=== PATIENT | male | born 1950 | race Caucasian/White ===

== ENCOUNTER → 2020-04-07 12:56 | Outpatient (BNVA) | payer MEDICARE, OTHER, SELFPAY | PROVIDERS: PCP Internal Medicine; Visit Provider Urology | DX: C68.9 Malignant neoplasm of urinary organ, unspecified (principal) | CPT/HCPCS: 52000; 81002; 99212 ==

== ENCOUNTER 2020-06-21 13:11 | Emergency (ER) | payer MEDICARE, OTHER, SELFPAY ==
--- NOTE | ~2020-06-21 | CT_ITS ---
EXAMINATION: CT HEAD WITHOUT CONTRAST CLINICAL INFORMATION: Syncope and dizziness. COMPARISON: None TECHNIQUE: Contiguous axial imaging was performed from the skull base to vertex without intravenous administration of contrast. This CT examination was performed using dose optimization techniques as appropriate, variously including the following: *Automated exposure control *Adjustment of mA and/or kV according to patient size (this includes techniques or standardized protocols for targeted exams where dose is matched to indication/reason for exam; i.e. extremities or head) *Use of iterative reconstruction technique DLP: 729 mGy-cm FINDINGS: There is no evidence of acute intracranial hemorrhage or territorial infarction. No abnormal mass effect or midline shift is seen. Navarrete to white matter differentiation is well preserved. No extra-axial fluid collections are identified. The ventricles are normal in size. There is no abnormal attenuation within the brain parenchyma. The osseous structures and soft tissues are normal. There is minimal mucoperiosteal thickening right middle ethmoid sinus. There is a small osteoid osteoma or sialolith in left middle ethmoid sinus. Rest of the paranasal sinuses and mastoid air cells are well-aerated and clear. CT/CT head/brain wo con IMPRESSION: No acute intracranial process seen. Minimal right middle ethmoid sinus inflammatory changes
--- NOTE | ~2020-06-21 | XR_ITS ---
EXAMINATION: XR CHEST CLINICAL INFORMATION: Chest pain, near syncope, dizziness. COMPARISON: None TECHNIQUE: Frontal view of the chest was obtained. FINDINGS: The lungs are clear. The heart and mediastinal structures are unremarkable. XR/XR chest 1V IMPRESSION: No acute cardiopulmonary process.
[2020-06-21 14:36] VITALS: BP 152/59; PULSE 82; RESP 18; TEMP 36.7; O2SAT 99; BMI 25.1
--- NOTE | 2020-06-21 14:48 | ED.CHESTPAIN ---
HPI - Chest Pain General Chief Complaint: Chest Pain Stated Complaint: chest pain Time Seen by Provider: 06/21/20 14:48 Source: EMS Mode of arrival: EMS Limitations: no limitations History of Present Illness HPI narrative: Pleasant 69-year-old male with the below history presenting with complaint of dizziness and near-syncope type symptoms after he was doing [employer] chores and stooped over to put something down and standing back straight up caused him to have some blurred vision and dizziness and subsequently feeling nauseated. States he has no associated chest pain or shortness of breath. Reports he has chronic neck shoulder pain which is documented in triage but this is not acute. He did fall last month to ensure the significant but has not had any other symptoms. He does report to me a constellation of vague symptoms over the past several days unsure if it is related but he had some tingling like discomfort in the chest and to the shoulder. Otherwise denies any cough or fever. No recent travel or sick contact. No lower extremity swelling. Onset (ago): hour(s) Timing of current episode: now resolved Prior episodes: No Onset: during exertion Associated symptoms: nausea Treatment prior to arrival: none Related Data Allergies Allergy/AdvReac Type Severity Reaction Status Date / Time fluticasone AdvReac Intermediate PALPITATION Verified 06/21/20 14:42 S ibuprofen AdvReac Intermediate RING IN Verified 06/21/20 14:42 EARS Flonase Allergy Unknown heart Uncoded 06/21/20 14:42 palpation Motrin Allergy Unknown ringing in Uncoded 06/21/20 14:42 ear Review of Systems Review of Systems: Constitutional: No Weight loss, No Fever, No Chills, No Night Sweats, No Fatigue, No Malaise ENT/Mouth: No Hearing loss, No Ear Pain, No Nasal Congestion, No Sinus Pain, No Hoarseness, No sore throat, No Rhinorrhea, No Swallowing Difficulty Eyes: No Eye Pain, No Swelling, No Redness, No Foreign Body, No Discharge, No Vision Changes Cardiovascular: No Chest Pain, No SOB, No Dyspnea on Exertion, No Orthopnea, No Edema, No Palpitations Respiratory: No Cough, No Sputum, No Wheezing, No Smoke Exposure, No Dyspnea Gastrointestinal: + Nausea, No Vomiting, No Diarrhea, No Constipation, No abdominal Pain, No Hematochezia, No Melena Genitourinary: No Dysuria, No Urinary Frequency, No Hematuria, No Urinary Incontinence, No Urgency, No Flank Pain, No Urinary Flow Changes, No Hesitancy Musculoskeletal: No joint pain, No Myalgias, No Joint Swelling Skin: No Skin Lesions, No rash Neuro: No Weakness, No Numbness, No Paresthesias, No Loss of Consciousness, No Headache Psych: No Social Issues Heme/Lymph: No Bruising, No Bleeding,No Lymphadenopathy Endocrine: No Polyuria, No Polydipsia, No Temperature Intolerance Yes all other systems are reviewed and are negative ENT: Reports Normal hearing present Neurologic: Reports Normal hearing present [facility] Past Medical History [facility] Narrative: Pyelonephritis as a child Cervical spur status post surgery in 2001 Chronic neck pain with dysphagia secondary to the cervical spurs Tonsillectomy Bladder CA/mass status post surgery and subsequently reports has had clean follow-ups Social History Social History Smoking Status: Unknown if ever smoked Use of substances other than those prescribed or required for medical reasons: No Advance Directives: No Advance Directives Information Provided: Yes Physical Exam Vital Signs: Vital Signs: Last Vital Signs Temp 997.9 F H 06/21/20 19:00 Pulse 77 06/21/20 19:00 Resp 15 06/21/20 19:00 BP 139/66 06/21/20 19:00 Pulse Ox 98 06/21/20 19:00 Body Mass Index 25.1 Vitals reviewed Temperature documented in error. The temperatures post read 97.9 F orally. Const: General: cooperative and healthy appearing; No acute distress or intoxicated appearing Nutritional Appearance: average body habitus Orientation/consciousness: patient oriented x3 HENMT: Head: Yes normal to inspection Ears: hearing grossly normal bilaterally Eyes: General: appearance normal, both eyes and all related structures Visual Maier: normal visual maier by confrontation Alignment and Position: alignment normal Periorbital: periorbital findings normal Eyelids: Yes eyelids normal Conjunctivae: conjunctivae normal Pupils: Equal, round and reactive pupils present Neck: Neck: Yes normal visual inspection, Yes no meningeal signs, No positive Brudzinski's sign, No positive Kernig's sign and No tender Thyroid: Thyroid normal Chest: Chest palpation & inspection: normal inspection of the chest Resp: Effort & Inspection: normal respiratory effort Auscultation: clear to auscultation bilaterally Cardio: Jugular venous distension: no JVD Rate: regular rate Rhythm: regular rhythm Heart sounds: S1 normal heart sound present and S2 normal heart sound present GI: Inspection: Yes normal to inspection Palpation (GI): Soft to palpation Percussion: Yes normal to percussion Auscultation: normal bowel sounds : General: Yes no CVA tenderness Back/Spine/Pelvis: Back: no CVA tenderness Skin: General skin exam: no rashes or lesions noted Neuro: General: patient oriented x3, moves all extremities, Normal light touch and pain sensation, no meningeal signs, no focal motor deficits, CN's II-XI intact bilaterally and deep tendon reflexes 2+ bilaterally Cranial nerves: Yes CN's II-XII intact bilaterally, Yes Facial sensation intact/muscles of mastication intact, Yes Equal, round and reactive pupils present, Yes Normal accommodation reflex present, Yes Bilaterally intact EOM present, Yes Nystagmus not present, Yes Normal facial strength present, Yes Midline tongue present, Yes Normal gag reflex present, Yes Symmetric palate elevation present, Yes Normal hearing present, Yes Ability to bilaterally rotate head present, Yes Ability to bilaterally elevate shoulders present and Yes Individual cranial nerve findings present (Within normal limits) Cognition (Neuro): normal cognition Speech: Other speech findings present (Neuro) (Speech within normal limits) Gait exam (Neuro): Normal gait present Motor exam (neuro): 5/5 motor strength present throughout Sensory Exam: Normal double simultaneous stimulation for sensation Extrem: General: Yes normal to inspection NIH Stroke Scale Internal: Initial- Upon Arrival Level of Consciousness: Alert Level of Consciousness Questions: Answers both questions correctly Level of Consciousness Commands: Performs both tasks correctly Best Gaze: Normal Visual: No visual loss Facial Palsy: Normal Motor Arm (Right): No drift Motor Arm (Left): No drift Motor Leg (Right): No drift Motor Leg (Left): No drift Limb Ataxia: Absent Sensory: Normal Best Language: No aphasia Dysarthia: Normal Extinction and Inattention: No abnormality Score: 0 Course Course Course Narrative: In review 69-year-old male with above history presenting constellation of vague symptoms positive orthostatic upon arrival otherwise no focal neurological findings BP improved after 1 L of fluid no longer orthostatic. Workup otherwise reassuring. Head CT without any evidence of acute mass or bleed, COVID negative. Will discharge home with supportive care, follow-up and return instructions. MDM - Chest Pain Medical Records Data Attestation: I reviewed the patient's medical records. Medical records narrative: History and physical from 2008 Lab Data Attestation: I reviewed the patient's lab results. Result diagrams: 06/21/20 15:30 06/21/20 15:30 Labs: Lab Results 06/21/20 06/21/20 06/21/20 Range/Units 15:30 15:30 15:30 WBC 8.9 (4.8-10.8) X10*3/uL RBC 5.31 (4.60-5.80) X10*6/uL Hgb 15.4 (14.0-18.0) g/dl Hct 47.0 (42-52) % MCV 88.5 (80-98) fL MCH 29.0 (27.0-33.0) pg MCHC 32.8 (31.0-36.0) g/dl RDW 12.4 (11.0-16.0) % Plt Count 171 (160-400) X10*3/uL MPV 10.9 (9.4-12.4) fL Immature Gran % (Auto) 0.1 (0.0-0.4) % Neut % (Auto) 81.0 H (45-73) % Lymph % (Auto) 12.0 L (20-40) % Harrison % (Auto) 5.8 (2-11) % Eos % (Auto) 0.8 (0-4) % Baso % (Auto) 0.3 (0-2) % Lymph # (Auto) 1.1 L (1.2-4.9) X10*3/uL Harrison # (Auto) 0.5 (0.1-1.2) X10*3/uL Eos # (Auto) 0.1 (0.0-0.4) X10*3/uL Baso # (Auto) 0.0 (0.0-0.2) X10*3/uL Abs Immat Gran (auto) 0.01 (0.00-0.03) X10*3/uL Absolute Neuts (auto) 7.2 (2.0-8.3) X10*3/uL Absolute Nucleated RBC 0.000 (0.0-0.012) X10*3/uL Nucleated RBC % (auto) 0.0 (0.0-0.2) /100WBC PT 12.8 (10.8-13.0) SEC INR 1.1 (0.9-1.1) APTT 31.6 (24.1-38.0) SEC D-Dimer < 200 NG/ML Sodium 139 (135-145) mmol/L Potassium 4.1 (3.3-5.1) mmol/L Chloride 105 (96-108) mmol/L Carbon Dioxide 25 (22-29) mmol/L Anion Gap 13 (12-20) BUN 10 (9-16) mg/dL Creatinine 0.96 (0.5-1.4) mg/dL Estim Creat Clear Calc 72.6 Estimated GFR > 60 Random Glucose 109 (60-115) mg/dL Calcium 8.8 (8.4-10.2) mg/dL Total Bilirubin 0.7 (0.0-1.0) mg/dL AST 20 (5-37) U/L ALT 17 (0-40) U/L Alkaline Phosphatase 78 (39-117) U/L Troponin I High Sens (<3.5-35.0) ng/L Total Protein 7.2 (6.5-8.0) g/dL Albumin 4.4 (3.5-5.0) g/dL Urine Color Urine Appearance Urine pH (5.0-8.0) Ur Specific [place] (1.005-1.025) Urine Protein (NEG-TRACE) MG/DL Urine Glucose (UA) (NEG) MG/DL Urine Ketones (NEG) MG/DL Urine Blood (NEG) Urine Nitrite (NEG) Ur Leukocyte Esterase (NEG) Urine RBC (0) /HPF Urine WBC (0-4) /HPF Ur Squamous Epith Cells /LPF Urine Bacteria /LPF Coronavirus (PCR) (Negative) Influenza Type A (PCR) (Negative) Influenza Type B (PCR) (Negative) RSV RNA Qual (PCR) (Negative) 06/21/20 06/21/20 06/21/20 Range/Units 15:30 15:30 15:30 WBC (4.8-10.8) X10*3/uL RBC (4.60-5.80) X10*6/uL Hgb (14.0-18.0) g/dl Hct (42-52) % MCV (80-98) fL MCH (27.0-33.0) pg MCHC (31.0-36.0) g/dl RDW (11.0-16.0) % Plt Count (160-400) X10*3/uL MPV (9.4-12.4) fL Immature Gran % (Auto) (0.0-0.4) % Neut % (Auto) (45-73) % Lymph % (Auto) (20-40) % Harrison % (Auto) (2-11) % Eos % (Auto) (0-4) % Baso % (Auto) (0-2) % Lymph # (Auto) (1.2-4.9) X10*3/uL Harrison # (Auto) (0.1-1.2) X10*3/uL Eos # (Auto) (0.0-0.4) X10*3/uL Baso # (Auto) (0.0-0.2) X10*3/uL Abs Immat Gran (auto) (0.00-0.03) X10*3/uL Absolute Neuts (auto) (2.0-8.3) X10*3/uL Absolute Nucleated RBC (0.0-0.012) X10*3/uL Nucleated RBC % (auto) (0.0-0.2) /100WBC PT (10.8-13.0) SEC INR (0.9-1.1) APTT (24.1-38.0) SEC D-Dimer NG/ML Sodium (135-145) mmol/L Potassium (3.3-5.1) mmol/L Chloride (96-108) mmol/L Carbon Dioxide (22-29) mmol/L Anion Gap (12-20) BUN (9-16) mg/dL Creatinine (0.5-1.4) mg/dL Estim Creat Clear Calc Estimated GFR Random Glucose (60-115) mg/dL Calcium (8.4-10.2) mg/dL Total Bilirubin (0.0-1.0) mg/dL AST (5-37) U/L ALT (0-40) U/L Alkaline Phosphatase (39-117) U/L Troponin I High Sens < 3.5 (<3.5-35.0) ng/L Total Protein (6.5-8.0) g/dL Albumin (3.5-5.0) g/dL Urine Color YELLOW Urine Appearance CLEAR Urine pH 5.5 (5.0-8.0) Ur Specific [place] 1.015 (1.005-1.025) Urine Protein NEG (NEG-TRACE) MG/DL Urine Glucose (UA) NEG (NEG) MG/DL Urine Ketones NEG (NEG) MG/DL Urine Blood NEG (NEG) Urine Nitrite NEG (NEG) Ur Leukocyte Esterase NEG (NEG) Urine RBC 0 (0) /HPF Urine WBC 0 (0-4) /HPF Ur Squamous Epith Cells 1+ /LPF Urine Bacteria NONE /LPF Coronavirus (PCR) NEGATIVE (Negative) Influenza Type A (PCR) NEGATIVE (Negative) Influenza Type B (PCR) NEGATIVE (Negative) RSV RNA Qual (PCR) NEGATIVE (Negative) Imaging Data Chest x-ray: Radiologist's impression: [address] [id number] ReportSigned Patient: Rena Pantoja#: [id number]: [id number]:[id number]/Sex: 69 / MADM Date: 06/21/20Loc: EDAttending Dr: Ordering Physician: Lauri Stern NP Date of Service: 06/21/20 Procedure(s): XR chest 1V Accession Number(s): [id number] cc: Lauri Stern APPLE PRESS OPERATOR~ EXAMINATION: XR CHEST CLINICAL INFORMATION: Chest pain, near syncope, dizziness. COMPARISON: None TECHNIQUE: Frontal view of the chest was obtained. FINDINGS: The lungs are clear. The heart and mediastinal structures are unremarkable. XR/XR chest 1V IMPRESSION: No acute cardiopulmonary process. Dictated By:ANNA PEREZ MDSigned By:<Electronically signed by ANNA PEREZ MD in [place]>06/21/20 1513 DD/ 1500TD/TT: Cloud Engagement Partner: [facility] CT scan - head: Radiologist's impression: [address] [id number] Scan ReportSigned Patient: Rena Pantoja#: [id number]: 1950cct:[id number]/Sex: 69 / MADM Date: 06/21/20Loc: HO.EDAttending Dr: Ordering Physician: Lauri Stern NP Date of Service: 06/21/20 Procedure(s): CT head/brain wo con Accession Number(s): [id number] cc: Lauri Stern NP~ EXAMINATION: CT HEAD WITHOUT CONTRAST CLINICAL INFORMATION: Syncope and dizziness. COMPARISON: None TECHNIQUE: Contiguous axial imaging was performed from the skull base to vertex without intravenous administration of contrast. This CT examination was performed using dose optimization techniques as appropriate, variously including the following: *Automated exposure control *Adjustment of mA and/or kV according to patient size (this includes techniques or standardized protocols for targeted exams where dose is matched to indication/reason for exam; i.e. extremities or head) *Use of iterative reconstruction technique DLP: 729 mGy-cm FINDINGS: There is no evidence of acute intracranial hemorrhage or territorial infarction. No abnormal mass effect or midline shift is seen. Navarrete to white matter differentiation is well preserved. No extra-axial fluid collections are identified. The ventricles are normal in size. There is no abnormal attenuation within the brain parenchyma. The osseous structures and soft tissues are normal. There is minimal mucoperiosteal thickening right middle ethmoid sinus. There is a small osteoid osteoma or sialolith in left middle ethmoid sinus. Rest of the paranasal sinuses and mastoid air cells are well-aerated and clear. CT/CT head/brain wo con IMPRESSION: No acute intracranial process seen. Minimal right middle ethmoid sinus inflammatory changes Dictated By:PINKY DEAN MDSigned By:<Electronically signed by PINKY DEAN MD in OV>06/21/20 1555 DD/ 1500TD/TT: Cloud Engagement Partner: [facility] ECG Data ECG #1: Interpretation: Normal sinus rhythm Rate 72 CO interval within normal limits No acute ST segment changes No previous available Discharge Plan Discharge Clinical Impression: Atypical chest pain, Near syncope Patient Disposition: Home, Self-Care Instructions: Chest Pain (ED), Near Syncope (ED) Additional Instructions: Your COVID test negative Your CT scan of your brain did not show any acute findings Your heart blood work was also within normal limits The episode he had was likely from mild dehydration and change in position causing blood pressure fluctuation Keep hydrated Drink plenty of fluids Return if any concerns or worsening symptoms Follow-up with her primary care doctor as discussed Thank you Referrals: Randal Stringer MD [Primary Care Provider] - 1 week
--- NOTE | 2020-06-21 15:00 | ECG_ITS ---
Test Reason : CP Blood Pressure : / mmHG Vent. Rate : 085 BPM Atrial Rate : 085 BPM P-R Int : 134 ms QRS Dur : 086 ms QT Int : 354 ms P-R-T Axes : 061 075 037 degrees QTc Int : 421 ms Poor data quality Normal sinus rhythm No previous ECGs available Referred By: Lauri Stern Electronically Signed By:Zafar Dc
[2020-06-21] MEDS: 0.9 % Sodium Chloride 1,000 ML 999 ML IV (15:30)
[2020-06-21 15:37] LABS: MANUAL DIFF FLAG NO
[2020-06-21 15:41] LABS: Basophils Percent Auto 0.3 % (0-2); Eosinophils Absolute Auto 0.1 X10*3/uL (0.0-0.4); Eosinophils Percent Auto 0.8 % (0-4); Glucose Urine UA NEG (NEG); Hemoglobin 15.4 g/dl (14.0-18.0); Imm Gran Abs Auto 0.01 X10*3/uL (0.00-0.03); Imm Gran Pct Auto 0.1 % (0.0-0.4); Leukocyte Esterase Urine NEG (NEG); Lymphocytes Absolute Auto 1.1 X10*3/uL (1.2-4.9); Mean Corpuscular HGB Conc 32.8 g/dl (31.0-36.0); Mean Corpuscular Volume 88.5 fL (80-98); Mean Platelet Volume 10.9 fL (9.4-12.4); Monocytes Absolute Auto 0.5 X10*3/uL (0.1-1.2); Monocytes Percent Auto 5.8 % (2-11); Neutrophils Absolute Auto 7.2 X10*3/uL (2.0-8.3); Nitrite Urine NEG (NEG); PH 5.5 (5.0-8.0); Platelet Count 171 X10*3/uL (160-400); Red Blood Count 5.31 X10*6/uL (4.60-5.80); Red Cell Distribution Width 12.4 % (11.0-16.0); Specific Gravity - Urine 1.015 (1.005-1.025); Urine Blood NEG (NEG); Urine Ketones NEG (NEG); Urine Protein NEG (NEG-TRACE); White Blood Count 8.9 X10*3/uL (4.8-10.8)
[2020-06-21 15:45] LABS: Appearance Urine CLEAR; Color Urine YELLOW
[2020-06-21 15:54] LABS: INTERNATIONAL NORM RATIO 1.1 (0.9-1.1); Prothrombin Time 12.8 SEC (10.8-13.0)
[2020-06-21 15:57] LABS: Partial Thromboplastin Time 31.6 SEC (24.1-38.0); RBC Urine 0 /HPF (0); Squamous Epithelial Cell Urine 1+ /LPF; WBC Urine 0 /HPF (0-4)
[2020-06-21 16:00] LABS: D Dimer < 200 NG/ML
[2020-06-21 16:07] LABS: Alanine Aminotransferase 17 U/L (0-40); Albumin Level 4.4 g/dL (3.5-5.0); Alkaline Phosphatase 78 U/L (39-117); Anion Gap 13 (12-20); Aspartate Amino Transferase 20 U/L (5-37); Bilirubin Total 0.7 mg/dL (0.0-1.0); Blood Urea Nitrogen 10 mg/dL (9-16); Calcium 8.8 mg/dL (8.4-10.2); Carbon Dioxide 25 mmol/L (22-29); Chloride 105 mmol/L (96-108); Creatinine Clr Calc Pharmacy 72.6; Estimated Glomerular Filt Rate > 60; Glucose Random 109 mg/dL (60-115); Potassium 4.1 mmol/L (3.3-5.1); Sodium 139 mmol/L (135-145); Total Protein 7.2 g/dL (6.5-8.0)
[2020-06-21 16:42] LABS: Influenza A PCR NEGATIVE (Negative); Influenza B PCR NEGATIVE (Negative); Resp Syncy Virus RNA Qual PCR NEGATIVE (Negative); SARS COV2 PCR INHOUSE NEGATIVE (Negative)
[2020-06-21 17:24] VITALS: BP 135/61; PULSE 72
[2020-06-21 17:26] VITALS: BP 150/73; PULSE 78
[2020-06-21 17:28] VITALS: BP 127/69; PULSE 86
[2020-06-21 17:31] VITALS: BP 135/61; PULSE 72; RESP 15; TEMP 36.7; O2SAT 97
--- NOTE | 2020-06-21 18:00 | PC.NURSE ---
PT DENIES ANY PAIN AT THIS TIME., HAS DENIED CP SINCE ARRIVAL TO MAIN ED. RESP EVEN AND UNLABOURED. EKG COMPLETED IN TRIAGE. REPRINTED FOR DOCUMENTATION PURPOSES.
[2020-06-21 19:00] VITALS: BP 139/66; PULSE 77; RESP 15; TEMP 536.6; TEMP 997.9; O2SAT 98
[2020-06-21 19:16] LABS: Troponin-I High Sensitivity < 3.5 ng/L (<3.5-35.0)
== END 2020-06-21 19:30 | disposition home or self-care (01) ==
PROVIDERS: Nurse Practitioner Primary Care; Emergency Provider Internal Medicine; PCP Internal Medicine
DX: R07.89 Other chest pain (principal); R55 Syncope and collapse; Z20.822 Contact with and (suspected) exposure to COVID-19; R11.0 Nausea; Z85.51 Personal history of malignant neoplasm of bladder
CPT/HCPCS: 0241U; 36415; 70450; 71045; 80053; 81001; 84484; 85025; 85379; 85610; 85730; 93005; 96360; 99284

== ENCOUNTER 2020-06-30 10:48 | Outpatient (REF) | payer MEDICARE, OTHER, SELFPAY ==
[2020-06-30 11:48] LABS: Estimated Average Glucose 105 mg/dL; Hemoglobin A1c % 5.3 %
[2020-06-30 12:22] LABS: Alanine Aminotransferase 18 U/L (0-40); Albumin Level 4.3 g/dL (3.5-5.0); Alkaline Phosphatase 73 U/L (39-117); Aspartate Amino Transferase 15 U/L (5-37); Bilirubin Direct 0.2 mg/dL (0.0-0.5); Bilirubin Total 0.5 mg/dL (0.0-1.0); Cholesterol 120 mg/dL; Glucose Fasting 99 mg/dL (60-99); HDL Cholesterol 40 mg/dL; LDL Cholesterol Calculated 61 mg/dl; Total Protein 6.8 g/dL (6.5-8.0); Triglycerides 97 mg/dL
[2020-06-30 12:37] LABS: Reflex LDLD? No
== END 2020-06-30 10:49 | disposition home or self-care (01) ==
LOC: HO.LNP 10:48
PROVIDERS: PCP Internal Medicine; Visit Provider Internal Medicine
DX: E78.00 Pure hypercholesterolemia, unspecified (principal); R73.09 Other abnormal glucose
CPT/HCPCS: 80061; 80076; 82947; 83036

== ENCOUNTER 2020-07-01 07:41 | Emergency (ER) | payer MEDICARE, OTHER, SELFPAY ==
--- NOTE | ~2020-07-01 | XR_ITS ---
EXAMINATION: XR CHEST CLINICAL INFORMATION: Weakness. Near syncope. Rule out pneumonia. COMPARISON: None TECHNIQUE: 2 views of the chest were obtained. FINDINGS: The lungs are hyperinflated but clear of acute process. The heart size and pulmonary vascularity is normal. No gross bony abnormality seen. XR/XR chest 2V IMPRESSION: Unremarkable chest exam.
[2020-07-01 07:58] VITALS: BP 150/81; PULSE 77; RESP 18; TEMP 36.9; O2SAT 98; BMI 24.0
--- NOTE | 2020-07-01 08:27 | ED_ITS ---
HPI - General Adult General Chief complaint: Weakness Stated complaint: nausea, weakness Time Seen by Provider: 07/01/20 08:12 Source: patient Mode of arrival: ambulatory Limitations: no limitations History of Present Illness HPI narrative: 69-year-old male who presents emergency department for evaluation of a near syncopal episode. Patient states that difficulty sleeping last night. He got up this morning and got out of bed and felt a ?sick to my stomach . He states that he then felt lightheaded as if he was going to pass out. He then lie down in bed and states that he felt extremely weak. Patient states that he had a similar episode on 06/21/2020. He states that he has not been feeling well and has been feeling weak since the April 10, 2020 when he hurt his left shoulder when he was caring a jug of water. Patient states that he has had physical therapy and has been taking Tylenol for pain. He states that he had a recent cortisone injection in his left shoulder and left scapula done on June 25, 2020. States that several days after getting this injection he did develop chills but did not have a fever. Patient states that he has been drinking fluids but has no appetite. He states that he gets frequent nausea and weakness. He states that he has had an unintentional 10 lb weight loss over a 2 month period. Patient did have blood work done yesterday by his PCP. He denies fever, cough, chest pain, he states that occasionally feels short of breath, denies dyspnea on exertion, denies abdominal pain, and denies any change in his bowel movements. He has not noticed any frequency, urgency or dysuria or hematuria. Related Data Home Medications Medication Instructions Recorded Confirmed simvastatin 20 mg tablet 40 mg PO DAILY 04/07/20 04/07/20 Allergies Allergy/AdvReac Type Severity Reaction Status Date / Time ibuprofen [From Motrin] Allergy Intermediate ringing in Verified 04/07/20 13:20 ear fluticasone [From Flonase] Allergy Mild heart Verified 04/07/20 13:20 palpation Review of Systems Review of Systems: Yes all other systems are reviewed and are negative [facility] Past Medical History [facility] Narrative: Patient has a history of hyperlipidemia, bladder cancer and 2019 with for surgical procedures, he denies tobacco, alcohol and drug use. Medical History Bladder mass BPH (benign prostatic hyperplasia) Other obstructive and reflux uropathy Transitional cell carcinoma Surgical History History of cystoscopy Social History Social History Smoking Status: Never smoker Advance Directives: Yes Advance Directives Information Provided: Yes Advance Directives on File: No Physical Exam Vital Signs: Vital Signs: Last Vital Signs Temp 98.4 F 07/01/20 07:58 Pulse 77 07/01/20 07:58 Resp 18 07/01/20 07:58 BP 150/81 H 07/01/20 07:58 Pulse Ox 98 07/01/20 07:58 Body Mass Index 24.0 Const: General: cooperative Orientation/consciousness: oriented to person and oriented to place Limitations: no limitations HENMT: Head: Yes normal to inspection, Yes normocephalic and Yes atraumatic Ears: external ears normal General nose exam: Normal external nose present Face and sinus: Yes normal facial exam Mouth: Normal oral and palatal mucosa present Throat: Yes posterior oropharynx normal Eyes: Periorbital: periorbital findings normal Eyelids: Yes eyelids normal Conjunctivae: conjunctivae normal Sclerae: sclerae normal Corneas: corneas normal Pupils: Equal, round and reactive pupils present Direct Ophthalmoscopy: normal light reflex Neck: Neck: Yes full ROM, Yes no lymphadenopathy, Yes no meningeal signs, Yes trachea midline and Yes supple Chest: Chest palpation & inspection: normal inspection of the chest and normal palpation of entire chest wall Resp: Effort & Inspection: normal respiratory effort and able to speak in complete sentences Auscultation: clear to auscultation bilaterally Cardio: Rate: regular rate Rhythm: regular rhythm Heart sounds: S1 normal heart sound present, S2 normal heart sound present and no murmurs GI: Inspection: Yes normal to inspection Palpation (GI): Soft to palpation, nontender, no guarding, not rigid and No hepatosplenomegaly present : General: Yes no CVA tenderness Back/Spine/Pelvis: Back: no CVA tenderness Cervical Spine: normal cervical lordosis Thoracic/Lumbar Spine: thoracic and lumbar spine normal to inspection Skin: Lesions: no lesions Rashes: no rashes Wounds: no wounds Neuro: General: oriented to person, oriented to place and no meningeal signs Cranial nerves: Yes CN's II-XII intact bilaterally and Yes Equal, round and reactive pupils present Cognition (Neuro): normal cognition Motor exam (neuro): 5/5 motor strength present throughout Extrem: General: Yes normal to inspection and Yes full ROM Psych: Appearance: well kempt Mental Status: mental status grossly normal Speech and movement: Normal speech and movement present Affect: normal affect Attitude: cooperative Thought process: Normal thought process present Thought content: Normal thought content present Course Course Course Narrative: 69-year-old male who presents emergency department for evaluation of a near syncopal episode associated with nausea, patient has had a similar near syncopal episode earlier this month on June 21, 2020. The patient's physical examination was unremarkable. I ordered an EKG, chest x-ray x2, CBC, CMP, troponin, COVID-19, CK, sed rate, lipase, troponin and urinalysis. I will check orthostatic vital signs on the patient and the patient was ordered to get normal saline x1 L IV. 1048: Patient's laboratory evaluation was unremarkable, sedimentation rate was not elevated. Twelve lead EKG revealed no significant abnormalities. At this time I do not have a clear etiology for his syncopal episode, the patient may have experienced orthostatic hypotension and I did discuss this with him. He did was L of normal saline IV and he is feeling better. He is continued to complain of left shoulder pain and he is requesting a muscle relaxant therefore he will be prescribed Flexeril 10 mg 3 times a day as needed for spasm and pain of his shoulder he is advised to follow-up with his doctor for re-evaluation or return to emergency department if his symptoms get worse or she develops any symptoms that are concerning to him. Medical Decision Making Lab Data Result diagrams: 07/01/20 09:08 07/01/20 09:08 Labs: Lab Results 07/01/20 07/01/20 07/01/20 Range/Units 09:07 09:08 09:08 WBC 8.1 (4.8-10.8) X10*3/uL RBC 5.24 (4.60-5.80) X10*6/uL Hgb 15.4 (14.0-18.0) g/dl Hct 46.0 (42-52) % MCV 87.8 (80-98) fL MCH 29.4 (27.0-33.0) pg MCHC 33.5 (31.0-36.0) g/dl RDW 12.5 (11.0-16.0) % Plt Count 174 (160-400) X10*3/uL MPV 10.7 (9.4-12.4) fL Immature Gran % (Auto) 0.2 (0.0-0.4) % Neut % (Auto) 79.0 H (45-73) % Lymph % (Auto) 12.9 L (20-40) % [place] % (Auto) 6.5 (2-11) % Eos % (Auto) 1.2 (0-4) % Baso % (Auto) 0.2 (0-2) % Lymph # (Auto) 1.0 L (1.2-4.9) X10*3/uL [place] # (Auto) 0.5 (0.1-1.2) X10*3/uL Eos # (Auto) 0.1 (0.0-0.4) X10*3/uL Baso # (Auto) 0.0 (0.0-0.2) X10*3/uL Abs Immat Gran (auto) 0.02 (0.00-0.03) X10*3/uL Absolute Neuts (auto) 6.4 (2.0-8.3) X10*3/uL Absolute Nucleated RBC 0.000 (0.0-0.012) X10*3/uL Nucleated RBC % (auto) 0.0 (0.0-0.2) /100WBC ESR 2 (0-15) MM/HR Sodium (135-145) mmol/L Potassium (3.3-5.1) mmol/L Chloride (96-108) mmol/L Carbon Dioxide (22-29) mmol/L Anion Gap (12-20) BUN (9-16) mg/dL Creatinine (0.5-1.4) mg/dL Estim Creat Clear Calc Estimated GFR Random Glucose (60-115) mg/dL Calcium (8.4-10.2) mg/dL Total Bilirubin (0.0-1.0) mg/dL AST (5-37) U/L ALT (0-40) U/L Alkaline Phosphatase (39-117) U/L Total Creatine Kinase (38-174) U/L Troponin I High Sens (<3.5-35.0) ng/L Total Protein (6.5-8.0) g/dL Albumin (3.5-5.0) g/dL Lipase (8-78) U/L Urine Color YELLOW Urine Appearance CLEAR Urine pH 6.0 (5.0-8.0) Ur Specific [place] 1.025 (1.005-1.025) Urine Protein NEG (NEG-TRACE) MG/DL Urine Glucose (UA) NEG (NEG) MG/DL Urine Ketones 5 (NEG) MG/DL Urine Blood NEG (NEG) Urine Nitrite NEG (NEG) Ur Leukocyte Esterase NEG (NEG) COVID-19 (EDUARDO) (Negative) COVID-19 Clin Com 07/01/20 07/01/20 07/01/20 Range/Units 09:08 09:08 09:09 WBC (4.8-10.8) X10*3/uL RBC (4.60-5.80) X10*6/uL Hgb (14.0-18.0) g/dl Hct (42-52) % MCV (80-98) fL MCH (27.0-33.0) pg MCHC (31.0-36.0) g/dl RDW (11.0-16.0) % Plt Count (160-400) X10*3/uL MPV (9.4-12.4) fL Immature Gran % (Auto) (0.0-0.4) % Neut % (Auto) (45-73) % Lymph % (Auto) (20-40) % [place] % (Auto) (2-11) % Eos % (Auto) (0-4) % Baso % (Auto) (0-2) % Lymph # (Auto) (1.2-4.9) X10*3/uL [place] # (Auto) (0.1-1.2) X10*3/uL Eos # (Auto) (0.0-0.4) X10*3/uL Baso # (Auto) (0.0-0.2) X10*3/uL Abs Immat Gran (auto) (0.00-0.03) X10*3/uL Absolute Neuts (auto) (2.0-8.3) X10*3/uL Absolute Nucleated RBC (0.0-0.012) X10*3/uL Nucleated RBC % (auto) (0.0-0.2) /100WBC ESR (0-15) MM/HR Sodium 141 (135-145) mmol/L Potassium 4.5 (3.3-5.1) mmol/L Chloride 106 (96-108) mmol/L Carbon Dioxide 26 (22-29) mmol/L Anion Gap 14 (12-20) BUN 9 (9-16) mg/dL Creatinine 0.90 (0.5-1.4) mg/dL Estim Creat Clear Calc 77.4 Estimated GFR > 60 Random Glucose 111 (60-115) mg/dL Calcium 8.9 (8.4-10.2) mg/dL Total Bilirubin 0.5 (0.0-1.0) mg/dL AST 16 (5-37) U/L ALT 17 (0-40) U/L Alkaline Phosphatase 67 (39-117) U/L Total Creatine Kinase 38 (38-174) U/L Troponin I High Sens < 3.5 (<3.5-35.0) ng/L Total Protein 6.6 (6.5-8.0) g/dL Albumin 4.1 (3.5-5.0) g/dL Lipase 105 H (8-78) U/L Urine Color Urine Appearance Urine pH (5.0-8.0) Ur Specific [place] (1.005-1.025) Urine Protein (NEG-TRACE) MG/DL Urine Glucose (UA) (NEG) MG/DL Urine Ketones (NEG) MG/DL Urine Blood (NEG) Urine Nitrite (NEG) Ur Leukocyte Esterase (NEG) COVID-19 (EDUARDO) Negative (Negative) COVID-19 Clin Com See Note Discharge Plan Discharge Prescriptions: No Action simvastatin 20 mg tablet 40 mg PO DAILY RF: 0
[2020-07-01] MEDS: 0.9 % Sodium Chloride 1,000 ML 999 ML IV (09:12)
[2020-07-01 09:15] LABS: MANUAL DIFF FLAG NO
[2020-07-01 09:18] LABS: Basophils Percent Auto 0.2 % (0-2); Eosinophils Absolute Auto 0.1 X10*3/uL (0.0-0.4); Eosinophils Percent Auto 1.2 % (0-4); Hemoglobin 15.4 g/dl (14.0-18.0); Imm Gran Abs Auto 0.02 X10*3/uL (0.00-0.03); Imm Gran Pct Auto 0.2 % (0.0-0.4); Lymphocytes Percent Auto 12.9 % (20-40); Mean Corpuscular HGB Conc 33.5 g/dl (31.0-36.0); Mean Corpuscular Hemoglobin 29.4 pg (27.0-33.0); Mean Corpuscular Volume 87.8 fL (80-98); Mean Platelet Volume 10.7 fL (9.4-12.4); Monocytes Absolute Auto 0.5 X10*3/uL (0.1-1.2); Monocytes Percent Auto 6.5 % (2-11); Neutrophils Absolute Auto 6.4 X10*3/uL (2.0-8.3); Platelet Count 174 X10*3/uL (160-400); Red Blood Count 5.24 X10*6/uL (4.60-5.80); Red Cell Distribution Width 12.5 % (11.0-16.0); White Blood Count 8.1 X10*3/uL (4.8-10.8)
[2020-07-01 09:26] LABS: Glucose Urine UA NEG (NEG); Leukocyte Esterase Urine NEG (NEG); Nitrite Urine NEG (NEG); Specific Gravity - Urine 1.025 (1.005-1.025); Urine Blood NEG (NEG); Urine Ketones 5 MG/DL (NEG); Urine Protein NEG (NEG-TRACE)
[2020-07-01 09:30] LABS: Appearance Urine CLEAR; Color Urine YELLOW
[2020-07-01 09:32] LABS: COVID-19 Test Negative (Negative); IDNOW Serial# 9DD0AD1C
[2020-07-01 09:51] LABS: Troponin-I High Sensitivity < 3.5 ng/L (<3.5-35.0)
[2020-07-01 09:52] LABS: Alanine Aminotransferase 17 U/L (0-40); Albumin Level 4.1 g/dL (3.5-5.0); Alkaline Phosphatase 67 U/L (39-117); Anion Gap 14 (12-20); Aspartate Amino Transferase 16 U/L (5-37); Bilirubin Total 0.5 mg/dL (0.0-1.0); Blood Urea Nitrogen 9 mg/dL (9-16); Calcium 8.9 mg/dL (8.4-10.2); Carbon Dioxide 26 mmol/L (22-29); Chloride 106 mmol/L (96-108); Creatinine Clr Calc Pharmacy 77.4; Estimated Glomerular Filt Rate > 60; Glucose Random 111 mg/dL (60-115); Potassium 4.5 mmol/L (3.3-5.1); Sodium 141 mmol/L (135-145); Total Protein 6.6 g/dL (6.5-8.0)
[2020-07-01 10:00] VITALS: BP 145/64; PULSE 71; RESP 18; TEMP 36.9; O2SAT 98
[2020-07-01 10:00] LABS: Erythrocyte Sedimentation Rate 2 MM/HR (0-15)
[2020-07-01 10:06] LABS: Lipase 105 U/L (8-78)
== END 2020-07-01 11:25 | disposition home or self-care (01) ==
PROVIDERS: Emergency Provider Emergency Medicine Emergency Medical Services; PCP Internal Medicine
DX: R55 Syncope and collapse (principal); Z20.822 Contact with and (suspected) exposure to COVID-19; R53.1 Weakness; M25.512 Pain in left shoulder
CPT/HCPCS: 36415; 71046; 80053; 81003; 82550; 83690; 84484; 85025; 85652; 87635; 96360; 99284

== ENCOUNTER 2020-07-04 13:56 | Outpatient (REF) | payer MEDICARE, OTHER, SELFPAY ==
[2020-07-04 15:06] LABS: Prostate Specific Antigen 2.18 ng/mL (<0.05-4.0)
== END 2020-07-04 13:57 | disposition home or self-care (01) ==
LOC: HO.LNP 13:56
PROVIDERS: Visit Provider Internal Medicine
DX: R97.20 Elevated prostate specific antigen [PSA] (principal); Z12.5 Encounter for screening for malignant neoplasm of prostate
CPT/HCPCS: 84153

== ENCOUNTER 2020-07-20 06:56 | Inpatient (IN) | payer MEDICARE, OTHER, SELFPAY ==
[2020-07-20 07:26] VITALS: BP 147/83; PULSE 90; RESP 16; TEMP 36.6; O2SAT 98; BMI 23.3
--- NOTE | 2020-07-20 07:42 | ED_ITS ---
HPI - General Adult General Chief complaint: Psychiatric Symptoms Stated complaint: Depression Time Seen by Provider: 07/20/20 07:21 Source: patient Mode of arrival: ambulatory Limitations: no limitations History of Present Illness HPI narrative: 69-year-old male who presents emergency department for evaluation depression and suicidal ideation. Patient states that he has a history of depression but has been off medications since January of 2020. He states that in the past he was admitted to our psychiatric service in 2006 for suicidal ideation with a plan to shoot himself with his rifle. Patient states that over the past 3 weeks he has become very depressed. He attributes the depression being triggered by his health issues. The patient states that he fell May 18, 2020 and injured his left shoulder and left neck. Since that time he has had multiple evaluations and did have injections to his left neck and shoulder which did not improve his pain. He was seen here in the emergency department on for a near syncopal episode. Patient states that he is very depressed. He states that he has only slept 1-2 hours the last 2 nights. He states that he has had a 12 lb weight loss over a 1 month.. He states that he is having suicidal thoughts and he has been considering jumping off a bridge. He has not injured himself in any way. The patient is also developed dysphagia to solids but not liquids. He states that he has an appointment with the GI doctor, Dr. Sanchez for further evaluation of this symptom. The patient denies having any homicidal ideation. He has not had any COVID-19 infection and he has not been vaccinated for COVID-19. Related Data Home Medications Medication Instructions Recorded Confirmed simvastatin 20 mg tablet 40 mg PO DAILY 04/07/20 07/20/20 acetaminophen 1,000 mg PO Q6-8H PRN 07/20/20 07/20/20 cyclobenzaprine 10 mg PO BEDTIME PRN 07/20/20 07/20/20 Allergies Allergy/AdvReac Type Severity Reaction Status Date / Time fluticasone AdvReac Intermediate PALPITATION Verified 07/04/20 13:42 S ibuprofen AdvReac Intermediate RING IN Verified 07/04/20 13:42 EARS Flonase Allergy Unknown heart Uncoded 07/04/20 13:42 palpation Motrin Allergy Unknown ringing in Uncoded 07/04/20 13:42 ear Review of Systems Review of Systems: Yes all other systems are reviewed and are negative [facility] Past Medical History [facility] Narrative: The patient states that he lives alone. He denies tobacco, alcohol and drug use. He states that he has no firearms at home. Medical History Bladder mass BPH (benign prostatic hyperplasia) Other obstructive and reflux uropathy Transitional cell carcinoma Surgical History History of cystoscopy Social History Social History Smoking Status: Never smoker Advance Directives: No Advance Directives Information Provided: Yes Physical Exam Vital Signs: Vital Signs: Last Vital Signs Temp 97.9 F 07/20/20 07:26 Pulse 90 07/20/20 11:42 Resp 16 07/20/20 11:42 BP 137/77 07/20/20 11:42 Pulse Ox 98 07/20/20 11:42 Body Mass Index 23.3 Const: General: cooperative, healthy appearing and other (Patient appears sad, he is crying, he is in no distress) Orientation/consciousness: oriented to person and oriented to place Limitations: no limitations HENMT: Head: Yes normal to inspection, Yes normocephalic and Yes atraumatic Ears: external ears normal General nose exam: Normal external nose present Face and sinus: Yes normal facial exam Mouth: Normal oral and palatal mucosa present Throat: Yes posterior oropharynx normal Eyes: Periorbital: periorbital findings normal Eyelids: Yes eyelids normal Conjunctivae: conjunctivae normal Sclerae: sclerae normal Corneas: corneas normal Pupils: Equal, round and reactive pupils present Direct Ophthalmoscopy: normal light reflex Neck: Neck: Yes full ROM, Yes no lymphadenopathy, Yes no meningeal signs, Yes trachea midline, Yes supple and Yes other (No palpable masses) Chest: Chest palpation & inspection: normal inspection of the chest and normal palpation of entire chest wall Resp: Effort & Inspection: normal respiratory effort and able to speak in complete sentences Auscultation: clear to auscultation bilaterally Cardio: Rate: regular rate Rhythm: regular rhythm Heart sounds: S1 normal heart sound present, S2 normal heart sound present and no murmurs GI: Inspection: Yes normal to inspection Palpation (GI): Soft to palpation, nontender, no guarding, not rigid and No hepatosplenomegaly present : General: Yes no CVA tenderness Back/Spine/Pelvis: Back: no CVA tenderness Cervical Spine: normal cervical lordosis Thoracic/Lumbar Spine: thoracic and lumbar spine normal to inspection Skin: Lesions: no lesions Rashes: no rashes Wounds: no wounds Neuro: General: oriented to person, oriented to place and no meningeal signs Cranial nerves: Yes CN's II-XII intact bilaterally and Yes Equal, round and reactive pupils present Cognition (Neuro): normal cognition Motor exam (neuro): 5/5 motor strength present throughout Extrem: General: Yes normal to inspection and Yes full ROM Psych: Appearance: well kempt Speech and movement: Normal speech and movement present Affect: Sad affect present (Patient is crying) Attitude: cooperative Thought process: Normal thought process present Thought content: Suicidality present and no homicidality Insight: Good insight present (Psych) Course Course Course Narrative: 69-year-old male with a history of depression with suicidal ideation in the past who presents emergency department with worsening depression for the past 3 weeks triggered by his recent health issues who has suicidal ideation with no plan. He denies homicidal ideation. Patient did appear to be very sad on presentation and he was crying. His exam was otherwise unremarkable. I did order a laboratory evaluation to include CBC, CMP, ethanol level, urine tox screen. Patient was ordered to get Ativan 2 mg orally. 1213: The patient was evaluated by the crisis team, the patient will be a volun tary bed search at this time. However, given the fact that the patient is suicidal, if he changes his mind and wants to leave, I will place him on a Section 12 until he can be re-evaluated by the crisis team. I did order the patient's outpatient medication regimen. The patient will be placed in physician observation pending bed placement 1214: Physician observation started at 1214. Patient placed in physician observation because the patient is suicidal and will need observation until appr [facility] bed is available for inpatient psychiatric admission. At the time observation was started the patient's vitals were stable, patient is alert and oriented but slightly agitated, Neuro: nonfocal, CV RRR, Lungs clear. 1558: Physician observation continued. Patient was ordered to get his ou tpatient medication treatment. Evaluated by crisis and it was determined that the patient can be a voluntary bed search however if he decides to leave, he will be placed on a Section 12 until he can be re-evaluated by crisis. Patient's laboratory evaluation was unremarkable, COVID-19 test was negative. Patient resting comfortably, NAD, lungs clear, CV RRR, Abd nontender, Neuro intact. The patient's care will be turned over to my colleague, Dr. Gaines. Medical Decision Making Lab Data Result diagrams: 07/20/20 08:18 07/20/20 08:18 Labs: Lab Results 07/20/20 07/20/20 07/20/20 Range/Units 08:18 08:18 08:18 WBC 5.1 (4.8-10.8) X10*3/uL RBC 5.36 (4.60-5.80) X10*6/uL Hgb 15.3 (14.0-18.0) g/dl Hct 47.5 (42-52) % MCV 88.6 (80-98) fL MCH 28.5 (27.0-33.0) pg MCHC 32.2 (31.0-36.0) g/dl RDW 12.7 (11.0-16.0) % Plt Count 190 (160-400) X10*3/uL MPV 10.0 (9.4-12.4) fL Immature Gran % (Auto) 0.2 (0.0-0.4) % Neut % (Auto) 69.9 (45-73) % Lymph % (Auto) 19.4 L (20-40) % [place] % (Auto) 7.9 (2-11) % Eos % (Auto) 2.2 (0-4) % Baso % (Auto) 0.4 (0-2) % Lymph # (Auto) 1.0 L (1.2-4.9) X10*3/uL [place] # (Auto) 0.4 (0.1-1.2) X10*3/uL Eos # (Auto) 0.1 (0.0-0.4) X10*3/uL Baso # (Auto) 0.0 (0.0-0.2) X10*3/uL Abs Immat Gran (auto) 0.01 (0.00-0.03) X10*3/uL Absolute Neuts (auto) 3.5 (2.0-8.3) X10*3/uL Absolute Nucleated RBC 0.000 (0.0-0.012) X10*3/uL Nucleated RBC % (auto) 0.0 (0.0-0.2) /100WBC Sodium 138 (135-145) mmol/L Potassium 4.9 (3.3-5.1) mmol/L Chloride 105 (96-108) mmol/L Carbon Dioxide 27 (22-29) mmol/L Anion Gap 11 L (12-20) BUN 8 L (9-16) mg/dL Creatinine 0.94 (0.5-1.4) mg/dL Estim Creat Clear Calc 74.1 Estimated GFR > 60 Random Glucose 106 (60-115) mg/dL Calcium 9.2 (8.4-10.2) mg/dL Total Bilirubin 0.5 (0.0-1.0) mg/dL AST 16 (5-37) U/L ALT 15 (0-40) U/L Alkaline Phosphatase 75 (39-117) U/L Total Protein 6.6 (6.5-8.0) g/dL Albumin 4.2 (3.5-5.0) g/dL Ethyl Alcohol mg/dL COVID-19 (EDUARDO) Negative (Negative) COVID-19 Clin Com See Note 07/20/20 Range/Units 08:18 WBC (4.8-10.8) X10*3/uL RBC (4.60-5.80) X10*6/uL Hgb (14.0-18.0) g/dl Hct (42-52) % MCV (80-98) fL MCH (27.0-33.0) pg MCHC (31.0-36.0) g/dl RDW (11.0-16.0) % Plt Count (160-400) X10*3/uL MPV (9.4-12.4) fL Immature Gran % (Auto) (0.0-0.4) % Neut % (Auto) (45-73) % Lymph % (Auto) (20-40) % [place] % (Auto) (2-11) % Eos % (Auto) (0-4) % Baso % (Auto) (0-2) % Lymph # (Auto) (1.2-4.9) X10*3/uL [place] # (Auto) (0.1-1.2) X10*3/uL Eos # (Auto) (0.0-0.4) X10*3/uL Baso # (Auto) (0.0-0.2) X10*3/uL Abs Immat Gran (auto) (0.00-0.03) X10*3/uL Absolute Neuts (auto) (2.0-8.3) X10*3/uL Absolute Nucleated RBC (0.0-0.012) X10*3/uL Nucleated RBC % (auto) (0.0-0.2) /100WBC Sodium (135-145) mmol/L Potassium (3.3-5.1) mmol/L Chloride (96-108) mmol/L Carbon Dioxide (22-29) mmol/L Anion Gap (12-20) BUN (9-16) mg/dL Creatinine (0.5-1.4) mg/dL Estim Creat Clear Calc Estimated GFR Random Glucose (60-115) mg/dL Calcium (8.4-10.2) mg/dL Total Bilirubin (0.0-1.0) mg/dL AST (5-37) U/L ALT (0-40) U/L Alkaline Phosphatase (39-117) U/L Total Protein (6.5-8.0) g/dL Albumin (3.5-5.0) g/dL Ethyl Alcohol < 10 mg/dL COVID-19 (EDUARDO) (Negative) COVID-19 Clin Com Discharge Plan Discharge Prescriptions: No Action acetaminophen 500 mg Tablet 1,000 mg PO Q6-8H PRN (Reason: Pain) RF: 0 cyclobenzaprine 10 mg tablet 10 mg PO BEDTIME PRN (Reason: muscle pain or spasm) RF: 0 simvastatin 20 mg tablet 40 mg PO DAILY RF: 0
--- NOTE | 2020-07-20 07:53 | PC.NURSE ---
BELONGINGS PLACED IN [facility] POD LOCKER #12
[2020-07-20 08:22] LABS: MANUAL DIFF FLAG NO
[2020-07-20 08:25] LABS: Basophils Percent Auto 0.4 % (0-2); Eosinophils Absolute Auto 0.1 X10*3/uL (0.0-0.4); Eosinophils Percent Auto 2.2 % (0-4); Hematocrit 47.5 % (42-52); Hemoglobin 15.3 g/dl (14.0-18.0); Imm Gran Abs Auto 0.01 X10*3/uL (0.00-0.03); Imm Gran Pct Auto 0.2 % (0.0-0.4); Lymphocytes Percent Auto 19.4 % (20-40); Mean Corpuscular HGB Conc 32.2 g/dl (31.0-36.0); Mean Corpuscular Hemoglobin 28.5 pg (27.0-33.0); Mean Corpuscular Volume 88.6 fL (80-98); Monocytes Absolute Auto 0.4 X10*3/uL (0.1-1.2); Monocytes Percent Auto 7.9 % (2-11); Neutrophils Absolute Auto 3.5 X10*3/uL (2.0-8.3); Neutrophils Percent Auto 69.9 % (45-73); Platelet Count 190 X10*3/uL (160-400); Red Blood Count 5.36 X10*6/uL (4.60-5.80); Red Cell Distribution Width 12.7 % (11.0-16.0); White Blood Count 5.1 X10*3/uL (4.8-10.8)
[2020-07-20] MEDS: LORazepam 1 MG TABLET 2 MG PO (08:34)
[2020-07-20 08:38] LABS: COVID-19 Test Negative (Negative)
[2020-07-20 08:53] LABS: Ethanol < 10 mg/dL
[2020-07-20 08:58] LABS: Alanine Aminotransferase 15 U/L (0-40); Albumin Level 4.2 g/dL (3.5-5.0); Alkaline Phosphatase 75 U/L (39-117); Anion Gap 11 (12-20); Aspartate Amino Transferase 16 U/L (5-37); Bilirubin Total 0.5 mg/dL (0.0-1.0); Blood Urea Nitrogen 8 mg/dL (9-16); Calcium 9.2 mg/dL (8.4-10.2); Carbon Dioxide 27 mmol/L (22-29); Chloride 105 mmol/L (96-108); Creatinine Clr Calc Pharmacy 74.1; Estimated Glomerular Filt Rate > 60; Glucose Random 106 mg/dL (60-115); Potassium 4.9 mmol/L (3.3-5.1); Sodium 138 mmol/L (135-145); Total Protein 6.6 g/dL (6.5-8.0)
--- NOTE | 2020-07-20 09:44 | PC.NURSE ---
patient currently speaking with the CARE team
[2020-07-20 11:42] VITALS: BP 137/77; PULSE 90; RESP 16; O2SAT 98
--- NOTE | 2020-07-20 11:45 | PC.NURSE ---
Patient awake and alert. skin pwd. resp even and non labored. speaking in full, clear sentences. patient back from speaking with CARE team. Per Daniela from CARE team patient is a voluntary bed search. patient calm and cooperative with care.
--- NOTE | 2020-07-20 12:59 | PC.NURSE ---
Pt transferred to pod from main ED. Pt pleasant, cooperative w/ care, aware that he is awaiting inpatient bed. Pt oriented to pod.
--- NOTE | 2020-07-20 14:22 | PC.NURSE ---
Patient resting quietly in room. No complaints offered at this time.
[2020-07-20] MEDS: Atorvastatin Calcium 20 MG TABLET PO (14:52)
[2020-07-20 16:00] VITALS: BP 116/66; PULSE 81; RESP 18; TEMP 36.6; O2SAT 97
--- NOTE | 2020-07-20 17:01 | PC.NURSE ---
Pt awake, resting in room, affect even. Pt unable to identify whether he is feeling depressed at this time, states he is 'feeling safe.' States he has chronic issue with tinitus which is currently better but normally interferes w/ sleep.
[2020-07-20 18:00] VITALS: RESP 20
--- NOTE | 2020-07-20 18:11 | PC.NURSE ---
Patient resting quietly in bed. Denies pain. No complaints offered at this time.
--- NOTE | 2020-07-20 18:55 | ECG_ITS ---
Test Reason : PreAdmission Blood Pressure : / mmHG Vent. Rate : 076 BPM Atrial Rate : 076 BPM P-R Int : 174 ms QRS Dur : 088 ms QT Int : 358 ms P-R-T Axes : 065 070 048 degrees QTc Int : 402 ms Normal sinus rhythm Normal ECG When compared with ECG of 21-JUN-2020 13:24, ST no longer depressed in Inferior leads ST elevation now present in Anterior leads Referred By: Generic ED Physician Electronically Signed By:SIGRID NOLAN
[2020-07-20 20:18] LABS: Amphetamine Screen Urine Not Detected (Not Detect); Barbiturates, Urine Not Detected (Not Detect); Benzodiazepines Screen Urine Not Detected (Not Detect); Cannabinoid Screen Urine Not Detected (Not Detect); Cocaine Screen Urine Not Detected (Not Detect); Opiate Screen Urine Not Detected (Not Detect); Phencyclidine Screen Urine Not Detected (Not Detect)
[2020-07-20] MEDS: traZODone HCL 50 MG TABLET PO ×2 (21:35→23:16)
--- NOTE | 2020-07-20 21:58 | PC.ADMIT ---
this is the 2nd M5 admission for this 69 year old male. legal cv. dx mdd, sage. pt was a self referral to the emergency room due to increased depression and si thinking to jump off a bridge. was a referral from the care team. nurse to nurse, collateral information obtained prior to admission. reports that he had been on an antidepressant but stopped taking when he started treatment for bladder cancer. all his providers are at [facility]. reports poor sleep, low energy, suicidal thinking. reports feeling safe in the hospital environment. no drug or alcohol issues. hx of hyperlipidemia, tinnitus-which is interfering with his sleep. hx dysphasia, aware of his limits, hx of treatment and requests that large pills be given with applesauce. pt identified as high fall risk due to fall in May when he slipped and fell on ice. reports muscle aches in shoulder/neck area from fall which is followed by his pcp, Dr. Stringer. medications reconciled by [facility] pharmacist.
[2020-07-20] MEDS: hydrOXYzine HCL 25 MG TABLET PO (23:16)
[2020-07-21 06:00] VITALS: BP 118/61; PULSE 82; RESP 16; TEMP 36.7; O2SAT 96
[2020-07-21 08:38] LABS: Alanine Aminotransferase 15 U/L (0-40); Albumin Level 4.4 g/dL (3.5-5.0); Alkaline Phosphatase 81 U/L (39-117); Anion Gap 12 (12-20); Aspartate Amino Transferase 16 U/L (5-37); Bilirubin Direct 0.2 mg/dL (0.0-0.5); Bilirubin Total 0.5 mg/dL (0.0-1.0); Blood Urea Nitrogen 12 mg/dL (9-16); Calcium 9.4 mg/dL (8.4-10.2); Carbon Dioxide 28 mmol/L (22-29); Chloride 103 mmol/L (96-108); Creatinine Clr Calc Pharmacy 69.7; Estimated Glomerular Filt Rate > 60; Glucose Fasting 113 mg/dL (60-99); Magnesium 2.4 mg/dL (1.6-2.6); Potassium 4.6 mmol/L (3.3-5.1); Sodium 138 mmol/L (135-145); Total Protein 7.1 g/dL (6.5-8.0)
[2020-07-21] MEDS: Atorvastatin Calcium 20 MG TABLET PO (08:45)
[2020-07-21 08:58] LABS: Free T4 (Free Thyroxine) 0.95 ng/dL (0.71-1.85); Thyroid Stimulating Hormone 1.57 uIU/mL (0.32-4.0)
[2020-07-21] MEDS: Acetaminophen 325 MG TABLET 975 MG PO ×2 (09:38→18:56)
[2020-07-21 09:45] LABS: Folate 11.7 ng/mL (> or = 4.0); Vitamin B12 375 pg/mL (200-900)
--- NOTE | 2020-07-21 16:22 | MHC.CLN ---
RE: CONSULT HT 69 , WT 158# IBW 160#+/-10% PT IS 99% IBW INDICATES ADEQUATE WT FOR HT, HOWEVER PT REPORTED 12# WT LOSS X 1 MONTH R/T DEPRESSION PT TRIGGERS FOR 7% SIG WT LOSS X 30DAYS ENN: 2154-2570KCALS, 72G PROTEIN, 2160CC H20 LABS ALBUMIN 4.4 WNL DIET RX: REGULAR-APPROPRIATE RECOMMEND ADDING ENSURE TID WITH MEALS TO INCREASE KCALS AND PROMOTE WT GAIN SUPPLEMENT TO PROVIDE 1050KCALS, 60G PROTEIN MONITOR PO INTAKE AND WEIGHT CLOSELY
--- NOTE | 2020-07-21 16:52 | P.HPPS_ITS ---
HPI Chief Complaint: Depression with suicidal Ideation Sources of Information: patient interviewed, chart reviewed and crisis/core team assessment reviewed HPI Subjective Notes: Conditional Voluntary Narrative: 69 yo male, reports increasing symptoms of depression with SI over the past 21 days. Pt planning to jump off of a bridge. Pt reports disruptions of sleep and appetite with a 12 lb weight loss within the past 5 weeks. Precipitants-health problems-pt had a fall over the winter- Apr 2020 and also injured his neck/shoulder in May lifting a water bottle-developing dysphagia. Pt has a chiropractor and a massage therapist who have been very helpful in treating these. He also had Cortisone IM in his shoulder without much relief Hx of transitional cell carcinoma, bladder mass, BPH. Pt reports stopping medications January 2020. Target sx -sleep, concentration, racing thoughts, tinnitus-stopped last night after admission. Past Psychiatric History: IP: Lara 2006 OP: No current providers Trials: Cymbalta-pt reports this was helpful for depression, anxiety and pain-he stopped due to SE of constipation. Hx of Seroquel, Lorazepam, Citalopram, Prozac Medical Evaluation Reviewed: Yes [facility] Medical History (Updated 07/21/20 @ 17:14 by Soni Bird APRN) Bladder mass BPH (benign prostatic hyperplasia) Generalized anxiety disorder Other obstructive and reflux uropathy Recurrent major depression-severe Transitional cell carcinoma Narrative: -Hx of bone spurs in his neck which cause dysphagia Surgical History History of cystoscopy Family History: Denies Social History: Retired/Disabled [employer]. . Master's degree in criminology Substance History: Denies Trauma History: Yes. Pt became disabled on the job saving a child from a moving vehicle. Diagnostics Vital Signs (24Hr): Vital Signs - 24 hr 07/20/20 18:00 07/21/20 06:00 Temperature 98.0 F Pulse Rate 82 Respiratory Rate 20 16 Blood Pressure 118/61 Pulse Oximetry 96 Body Mass Index 23.3 Labs Results: 07/20/20 08:18 07/21/20 07:57 Labs: Laboratory Results - last 48 hr 07/20/20 07/20/20 07/20/20 08:18 08:18 08:18 WBC 5.1 RBC 5.36 Hgb 15.3 Hct 47.5 MCV 88.6 MCH 28.5 MCHC 32.2 RDW 12.7 Plt Count 190 MPV 10.0 Immature Gran % (Auto) 0.2 Neut % (Auto) 69.9 Lymph % (Auto) 19.4 L [place] % (Auto) 7.9 Eos % (Auto) 2.2 Baso % (Auto) 0.4 Lymph # (Auto) 1.0 L [place] # (Auto) 0.4 Eos # (Auto) 0.1 Baso # (Auto) 0.0 Abs Immat Gran (auto) 0.01 Absolute Neuts (auto) 3.5 Absolute Nucleated RBC 0.000 Nucleated RBC % (auto) 0.0 Sodium 138 Potassium 4.9 Chloride 105 Carbon Dioxide 27 Anion Gap 11 L BUN 8 L Creatinine 0.94 Estim Creat Clear Calc 74.1 Estimated GFR > 60 Random Glucose 106 Fasting Glucose Calcium 9.2 Magnesium Total Bilirubin 0.5 Direct Bilirubin AST 16 ALT 15 Alkaline Phosphatase 75 Total Protein 6.6 Albumin 4.2 Vitamin B12 Folate TSH Free T4 Urine Opiates Screen Ur Barbiturates Screen Ur Phencyclidine Scrn Ur Amphetamines Screen U Benzodiazepines Scrn Urine Cocaine Screen U Marijuana (THC) Screen Ethyl Alcohol COVID-19 ([facility]) Negative COVID-19 Clin Com See Note 07/20/20 07/20/20 07/21/20 08:18 19:37 07:57 WBC RBC Hgb Hct MCV MCH MCHC RDW Plt Count MPV Immature Gran % (Auto) Neut % (Auto) Lymph % (Auto) [place] % (Auto) Eos % (Auto) Baso % (Auto) Lymph # (Auto) [place] # (Auto) Eos # (Auto) Baso # (Auto) Abs Immat Gran (auto) Absolute Neuts (auto) Absolute Nucleated RBC Nucleated RBC % (auto) Sodium 138 Potassium 4.6 Chloride 103 Carbon Dioxide 28 Anion Gap 12 BUN 12 Creatinine 1.00 Estim Creat Clear Calc 69.7 Estimated GFR > 60 Random Glucose Fasting Glucose 113 H Calcium 9.4 Magnesium 2.4 Total Bilirubin 0.5 Direct Bilirubin 0.2 AST 16 ALT 15 Alkaline Phosphatase 81 Total Protein 7.1 Albumin 4.4 Vitamin B12 Folate TSH 1.57 Free T4 0.95 Urine Opiates Screen Not Detected Ur Barbiturates Screen Not Detected Ur Phencyclidine Scrn Not Detected Ur Amphetamines Screen Not Detected U Benzodiazepines Scrn Not Detected Urine Cocaine Screen Not Detected U Marijuana (THC) Screen Not Detected Ethyl Alcohol < 10 COVID-19 ([facility]) COVID-19 [facility] 07/21/20 07:57 WBC RBC Hgb Hct MCV MCH MCHC RDW Plt Count MPV Immature Gran % (Auto) Neut % (Auto) Lymph % (Auto) [place] % (Auto) Eos % (Auto) Baso % (Auto) Lymph # (Auto) [place] # (Auto) Eos # (Auto) Baso # (Auto) Abs Immat Gran (auto) Absolute Neuts (auto) Absolute Nucleated RBC Nucleated RBC % (auto) Sodium Potassium Chloride Carbon Dioxide Anion Gap BUN Creatinine Estim Creat Clear Calc Estimated GFR Random Glucose Fasting Glucose Calcium Magnesium Total Bilirubin Direct Bilirubin AST ALT Alkaline Phosphatase Total Protein Albumin Vitamin B12 375 Folate 11.7 TSH Free T4 Urine Opiates Screen Ur Barbiturates Screen Ur Phencyclidine Scrn Ur Amphetamines Screen U Benzodiazepines Scrn Urine Cocaine Screen U Marijuana (THC) Screen Ethyl Alcohol COVID-19 ([facility]) COVID-19 [facility] Meds/Allergies Meds Home Medications Acetaminophen (Acetaminophen 325 Mg Tablet) 975 mg PO Q6H PRN PRN Reason: Pain, Mild (Pain Scale 1-3) Last Admin: 07/21/20 09:38 Dose: 975 mg Documented by: Al Hydroxide/Mg Hydroxide (Magnesium Hydrox/Alum Hydrox 30 Ml Oral.Susp) 30 ml PO Q6H PRN PRN Reason: Heartburn/Nausea Atorvastatin Calcium (Atorvastatin Calcium 20 Mg Tablet) 20 mg PO DAILY [facility] Last Admin: 07/21/20 08:45 Dose: 20 mg Documented by: Cyclobenzaprine HCl (Cyclobenzaprine Hcl 10 Mg Tablet) 10 mg PO BEDTIME PRN PRN Reason: muscle pain or spasm Duloxetine HCl (Duloxetine Hcl 30 Mg Capsule.Dr) 30 mg PO DAILY [facility] Hydroxyzine HCl (Hydroxyzine Hcl 25 Mg Tablet) 25 mg PO BEDTIME PRN PRN Reason: Anxiety Last Admin: 07/20/20 23:16 Dose: 25 mg Documented by: Magnesium Hydroxide (Milk Of Magnesia 30 Ml Oral.Susp) 30 ml PO DAILY PRN PRN Reason: Constipation Quetiapine Fumarate (Quetiapine Fumarate 50 Mg Tablet) 50 mg PO BEDTIME [facility] Trazodone HCl (Trazodone Hcl 50 Mg Tablet) 50 mg PO BEDTIME PRN PRN Reason: Insomnia Last Admin: 07/20/20 23:16 Dose: 50 mg Documented by: Allergies Allergies Allergy/AdvReac Type Severity Reaction Status Date / Time fluticasone AdvReac Intermediate PALPITATION Verified 07/04/20 13:42 S ibuprofen AdvReac Intermediate RING IN Verified 07/04/20 13:42 EARS Flonase Allergy Unknown heart Uncoded 07/04/20 13:42 palpation Motrin Allergy Unknown ringing in Uncoded 07/04/20 13:42 ear Mental Status Exam Mental Status Exam Patient Appearance: Appropriate Patient Orientation: Person, Place, Time and Situation Level of Consciousness: Awake and Alert Patient Behavior: Appropriate, Talkative and Cooperative Mood Description: Depressed Affect Description: Flat Patient Cognition Impaired: No Ability to Follow Directions: Good Speech Pattern: Clear, Appropriate and Spontaneous Speech Memory Description: Intact Hallucinations: None Delusions: Not Present Thought Process: Intact Thought Content: positive for Intact and positive for Suicidal Ideation ([employer], +SI with plan to jump from a bridge-currently, this intensity has decreased) Depressive Symptoms: Increased Anxiety, Insomnia, Muscle Tension, Difficulty Sleeping, Changes in Appetite, Muscle Pain, Significant Weight Loss, Loss of Int. in Activity, Feelings of Worthlessness, Hopelessness, Isolating- Friends/Family, Feelings of Guilt, Unhappiness, Increased Fatigue, Thoughts of /Suicide, Low Self Esteem, Loss of Energy, Difficulty Concentrating and Back Pain Judgement: Fair Assessment & Plan Assessment & Plan (1) Recurrent major depression-severe: Status: Acute Code(s): F33.2 - Major depressive disorder, recurrent severe without psychotic features Assessment and Plan: Pt very forthcoming regarding symptoms, precipitants. Wanting treatment, wanting to feel relief and willing to work with the team to find a resolution -Cymbalta 30 mg a.m. re-trial. Will monitor renal function along with efficacy. -Seroquel 50 mg h.s. -Monitor labs- fbs, a1c,lipids -OP referrals, ?PHP referral if pt will attend (2) Generalized anxiety disorder: Status: Acute Code(s): F41.1 - Generalized anxiety disorder Patient educated on: medication risk/benefits and therapeutic strategies Informed Consent: understands and further education needed Reason for continued inpatient stay Substantial Risk for: harm to self, inability to function, rapid decompensation and med/psych decompensation
[2020-07-21 16:55] VITALS: BP 141/75; PULSE 91; TEMP 36.6
[2020-07-21] MEDS: QUEtiapine Fumarate 50 MG TABLET PO (20:57)
[2020-07-22 06:15] VITALS: BP 115/64; PULSE 78; RESP 16; TEMP 36.9; O2SAT 98
[2020-07-22] MEDS: Atorvastatin Calcium 20 MG TABLET PO (08:26)
[2020-07-22] MEDS: DULoxetine HCl 30 MG CAPSULE.DR PO (08:27)
[2020-07-22 08:50] LABS: Estimated Average Glucose 108 mg/dL; Hemoglobin A1c % 5.4 %
[2020-07-22 09:06] LABS: Cholesterol 126 mg/dL; Glucose Fasting 102 mg/dL (60-99); HDL Cholesterol 39 mg/dL; LDL Cholesterol Calculated 63 mg/dl; Triglycerides 122 mg/dL
[2020-07-22] MEDS: Acetaminophen 325 MG TABLET 975 MG PO ×2 (10:49→18:00)
--- NOTE | 2020-07-22 16:47 | HO.PSYCHPN ---
Subjective Subjective Date of Service: 07/22/20 Reason For Visit: Depression with suicidal Ideation Subjective Notes: Conditional Voluntary Interim History: Tolerating re-start of Cymbalta. Discussed bowel regime. Will begin with Colace at HS and daily Metamucil. Pt continues with depressive, anxious sx-discussed worry about pain today-cervical injuries which require repeat MRI and forwarding this to Parish Senior MD of [facility]. Appt scheduled for 10/08, however, pt is told if he sends an updated MRI, it will be read and his appt may be changed depending upon severity. Call to PCP office to discuss this-they will order MRI for pt. Pt discussed anxiety regarding follow up urology appt in a few weeks to evaluate status of bladder carcinoma. Reports he was able to sleep with Seroquel last evening which was overall very helpful to his mood, stress mgt and ability to have clarity of his thought process. Medication Compliance: Yes Side effects from medications: No Attending Groups: Yes Review of Systems Reports neck pain Musculoskeletal: Reports back pain, Reports neck pain, Reports numbness, Reports radiating pain into limb, Reports stiffness and Reports tingling Reports numbness and Reports tingling Psychiatric: Reports anxiety, Reports depression, Reports difficulty concentrating, Reports hopelessness, Reports anhedonia and Reports suicidal ideation Mental Status Exam Mental Status Exam Patient Appearance: Appropriate Patient Orientation: Person, Place, Time and Situation Level of Consciousness: Alert Patient Behavior: Appropriate, Talkative, Cooperative, Anxious, Fearful, Fatigued, Distractible and Good Eye Contact Mood Description: Depressed and Anxious Affect Description: Flat Patient Cognition Impaired: No Ability to Follow Directions: Good Speech Pattern: Clear, Appropriate and Spontaneous Speech Memory Description: Intact Hallucinations: None Delusions: Not Present Thought Process: Intact and Distracted Thought Content: positive for Intact Depressive Symptoms: Increased Anxiety and Difficulty Sleeping (did sleep last night with medication.) Judgement: Fair Diagnostics Vital Signs (24Hr): Vital Signs - 24 hr 07/21/20 16:55 07/22/20 06:15 Temperature 97.8 F 98.5 F Pulse Rate 91 78 Respiratory Rate 16 Blood Pressure 141/75 H 115/64 Pulse Oximetry 98 Body Mass Index 23.3 Labs Results: 07/20/20 08:18 07/21/20 07:57 Labs: Laboratory Results - last 48 hr 07/20/20 07/21/20 07/21/20 19:37 07:57 07:57 Sodium 138 Potassium 4.6 Chloride 103 Carbon Dioxide 28 Anion Gap 12 BUN 12 Creatinine 1.00 Estim Creat Clear Calc 69.7 Estimated GFR > 60 Fasting Glucose 113 H Estimat Average Glucose Hemoglobin A1c % Calcium 9.4 Magnesium 2.4 Total Bilirubin 0.5 Direct Bilirubin 0.2 AST 16 ALT 15 Alkaline Phosphatase 81 Total Protein 7.1 Albumin 4.4 Triglycerides Cholesterol LDL Cholesterol, Calc HDL Cholesterol Vitamin B12 375 Folate 11.7 TSH 1.57 Free T4 0.95 Urine Opiates Screen Not Detected Ur Barbiturates Screen Not Detected Ur Phencyclidine Scrn Not Detected Ur Amphetamines Screen Not Detected U Benzodiazepines Scrn Not Detected Urine Cocaine Screen Not Detected U Marijuana (THC) Screen Not Detected 07/22/20 07/22/20 07:51 07:51 Sodium Potassium Chloride Carbon Dioxide Anion Gap BUN Creatinine Estim Creat Clear Calc Estimated GFR Fasting Glucose 102 H Estimat Average Glucose 108 Hemoglobin A1c % 5.4 Calcium Magnesium Total Bilirubin Direct Bilirubin AST ALT Alkaline Phosphatase Total Protein Albumin Triglycerides 122 Cholesterol 126 LDL Cholesterol, Calc 63 HDL Cholesterol 39 Vitamin B12 Folate TSH Free T4 Urine Opiates Screen Ur Barbiturates Screen Ur Phencyclidine Scrn Ur Amphetamines Screen U Benzodiazepines Scrn Urine Cocaine Screen U Marijuana (THC) Screen Medications Medications Current Medications Generic Name Dose Route Start Last Admin Trade Name Freq PRN Reason Stop Dose Admin Acetaminophen 975 mg 07/20/20 12:14 07/22/20 10:49 Acetaminophen 325 Mg Tablet PO 975 mg Q6H PRN Administration Pain, Mild (Pain Scale 1-3) Al Hydroxide/Mg Hydroxide 30 ml 07/20/20 21:17 Magnesium Hydrox/Alum Hydrox 30 Ml Oral.Susp PO Q6H PRN Heartburn/Nausea Atorvastatin Calcium 20 mg 07/20/20 12:15 07/22/20 08:26 Atorvastatin Calcium 20 Mg Tablet PO 20 mg DAILY JERRY Administration Cyclobenzaprine HCl 10 mg 07/20/20 12:10 Cyclobenzaprine Hcl 10 Mg Tablet PO BEDTIME PRN muscle pain or spasm Duloxetine HCl 30 mg 07/22/20 09:00 07/22/20 08:27 Duloxetine Hcl 30 Mg Capsule.Dr PO 30 mg DAILY JERRY Administration Hydroxyzine HCl 25 mg 07/20/20 21:17 07/20/20 23:16 Hydroxyzine Hcl 25 Mg Tablet PO 25 mg BEDTIME PRN Administration Anxiety Magnesium Hydroxide 30 ml 07/20/20 21:17 Milk Of Magnesia 30 Ml Oral.Susp PO DAILY PRN Constipation Quetiapine Fumarate 50 mg 07/21/20 21:00 07/21/20 20:57 Quetiapine Fumarate 50 Mg Tablet PO 50 mg BEDTIME JERRY Administration Trazodone HCl 50 mg 07/20/20 21:17 07/20/20 23:16 Trazodone Hcl 50 Mg Tablet PO 50 mg BEDTIME PRN Administration Insomnia Allergies Allergies Allergy/AdvReac Type Severity Reaction Status Date / Time fluticasone AdvReac Intermediate PALPITATION Verified 07/04/20 13:42 S ibuprofen AdvReac Intermediate RING IN Verified 07/04/20 13:42 EARS Flonase Allergy Unknown heart Uncoded 07/04/20 13:42 palpation Motrin Allergy Unknown ringing in Uncoded 07/04/20 13:42 ear Assessment & Plan Assessment & Plan (1) Recurrent major depression-severe: Status: Acute Code(s): F33.2 - Major depressive disorder, recurrent severe without psychotic features Assessment and Plan: Pt reports he was able to sleep. Continue Cymbalta/Seroquel (2) Generalized anxiety disorder: Status: Acute Code(s): F41.1 - Generalized anxiety disorder Greater than 50% of the session was spent on counseling and/or coordination of care Reason for contiued inpatient stay Substantial Risk for: harm to self, rapid decompensation and med/psych decompensation
[2020-07-22 19:50] VITALS: BP 141/75; PULSE 83; TEMP 36.6
[2020-07-22] MEDS: QUEtiapine Fumarate 50 MG TABLET PO (20:11)
[2020-07-22] MEDS: Cyclobenzaprine HCl 10 MG TABLET PO (20:14)
[2020-07-23 06:05] VITALS: BP 122/62; PULSE 75; RESP 16; TEMP 37.2; O2SAT 95
[2020-07-23] MEDS: DULoxetine HCl 30 MG CAPSULE.DR PO (08:30)
[2020-07-23] MEDS: Atorvastatin Calcium 20 MG TABLET PO (08:30)
[2020-07-23] MEDS: Acetaminophen 325 MG TABLET 975 MG PO ×2 (13:25→19:24)
--- NOTE | 2020-07-23 16:19 | HO.PSYCHPN ---
Subjective Subjective Date of Service: 07/23/20 Reason For Visit: Depression with suicidal Ideation Subjective Notes: Conditional Voluntary Interim History: Reports increases in anxiety and depressive sx today. Poor sleep last night-reports being awake at 1:35 a.m. Pt upset as he reports needing to review a treatment plan and discharge date last evening. Today, feels nausea, sick to his stomach with anxiety. Neck pain contributes to anxiety. Pt's PCP has ordered cervical MRI, pt called MRI today to complete his questionairre-he will be scheduled after discharge yet asks to have this completed while in patient. Offers to pay privately for the test. Requests we connect with Dr. Senior at [facility]-message left [phone]. Discussed adding Seroquel during the day and low dose Lorazepam for sleep assistance for a brief time which he agrees to. Medication Compliance: Yes Side effects from medications: No Attending Groups: Yes Review of Systems Reports neck pain Musculoskeletal: Reports neck pain Reports behavioral changes Psychiatric: Reports abnormal sleep pattern, Reports anxiety, Reports behavioral changes, Reports change in appetite, Reports depression, Reports difficulty concentrating, Reports hopelessness, Reports irritability, Reports anhedonia and Reports mood swings Mental Status Exam Mental Status Exam Patient Appearance: Appropriate Patient Orientation: Person, Place, Time and Situation Level of Consciousness: Awake and Alert Patient Behavior: Talkative, Restless, Anxious, Fearful, Fatigued, Distractible and Good Eye Contact Mood Description: Withdrawn, Depressed, Anxious, Angry, Sad, Nervous and Apprehensive Affect Description: Anxious Patient Cognition Impaired: No Ability to Follow Directions: Good Speech Pattern: Perseverating, Spontaneous Speech and Soft-Spoken Memory Description: Intact Hallucinations: None Delusions: Not Present Thought Process: Rumination Thought Content: positive for [place] and positive for Circumstantial Depressive Symptoms: Increased Anxiety, Insomnia, Diff. Making Decisions, Increased Irritability, Difficulty Sleeping, Loss of Int. in Activity, Feelings of Worthlessness, Hopelessness, Isolating-Friends/Family, Feelings of Guilt, Unhappiness, Increased Fatigue, Thoughts of /Suicide, Low Self Esteem, Loss of Energy and Difficulty Concentrating Abnormal Motor Activity Signs and Symptoms: Agitation and Restlessness Judgement: Fair Diagnostics Vital Signs (24Hr): Vital Signs - 24 hr 07/22/20 19:50 07/23/20 06:05 Temperature 97.8 F 99.0 F Pulse Rate 83 75 Respiratory Rate 16 Blood Pressure 141/75 H 122/62 Pulse Oximetry 95 Body Mass Index 23.3 Labs Results: 07/20/20 08:18 07/21/20 07:57 Labs: Laboratory Results - last 48 hr 07/22/20 07/22/20 07:51 07:51 Fasting Glucose 102 H Estimat Average Glucose 108 Hemoglobin A1c % 5.4 Triglycerides 122 Cholesterol 126 LDL Cholesterol, Calc 63 HDL Cholesterol 39 Medications Medications Current Medications Generic Name Dose Route Start Last Admin Trade Name Freq PRN Reason Stop Dose Admin Acetaminophen 975 mg 07/20/20 12:14 07/23/20 13:25 Acetaminophen 325 Mg Tablet PO 975 mg Q6H PRN Administration Pain, Mild (Pain Scale 1-3) Al Hydroxide/Mg Hydroxide 30 ml 07/20/20 21:17 Magnesium Hydrox/Alum Hydrox 30 Ml Oral.Susp PO Q6H PRN Heartburn/Nausea Atorvastatin Calcium 20 mg 07/20/20 12:15 07/23/20 08:30 Atorvastatin Calcium 20 Mg Tablet PO 20 mg DAILY JERRY Administration Cyclobenzaprine HCl 10 mg 07/20/20 12:10 07/22/20 20:14 Cyclobenzaprine Hcl 10 Mg Tablet PO 10 mg BEDTIME PRN Administration muscle pain or spasm Docusate Sodium 100 mg 07/22/20 21:00 07/22/20 20:13 Docusate Sodium 100 Mg Capsule PO Not Given BEDTIME JERRY Duloxetine HCl 30 mg 07/22/20 09:00 07/23/20 08:30 Duloxetine Hcl 30 Mg Capsule.Dr PO 30 mg DAILY JERRY Administration Hydroxyzine HCl 25 mg 07/20/20 21:17 07/20/20 23:16 Hydroxyzine Hcl 25 Mg Tablet PO 25 mg BEDTIME PRN Administration Anxiety Magnesium Hydroxide 30 ml 07/20/20 21:17 Milk Of Magnesia 30 Ml Oral.Susp PO DAILY PRN Constipation Psyllium Hydrophilic Mucilloid 3.4 gm 07/23/20 09:00 07/23/20 08:30 Psyllium Seed 3.4 Gm Powd.Pack PO 3.4 gm DAILY JERRY Administration Quetiapine Fumarate 100 mg 07/23/20 21:00 Quetiapine Fumarate 100 Mg Tablet PO BEDTIME JERRY Trazodone HCl 50 mg 07/20/20 21:17 07/20/20 23:16 Trazodone Hcl 50 Mg Tablet PO 50 mg BEDTIME PRN Administration Insomnia Allergies Allergies Allergy/AdvReac Type Severity Reaction Status Date / Time fluticasone AdvReac Intermediate PALPITATION Verified 07/04/20 13:42 S ibuprofen AdvReac Intermediate RING IN Verified 07/04/20 13:42 EARS Flonase Allergy Unknown heart Uncoded 07/04/20 13:42 palpation Motrin Allergy Unknown ringing in Uncoded 07/04/20 13:42 ear Assessment & Plan Assessment & Plan (1) Generalized anxiety disorder: Status: Acute Code(s): F41.1 - Generalized anxiety disorder Assessment and Plan: -Sx exacerbation with task of working on treatment plan with team -Lorazepam 0.5 mg HS -Seroquel 50 mg bid (2) Recurrent major depression-severe: Status: Acute Code(s): F33.2 - Major depressive disorder, recurrent severe without psychotic features Assessment and Plan: -Increase in sx today. -Continue Cymbalta. (3) Cervical pain (neck): Status: Acute Code(s): M54.2 - Cervicalgia Assessment and Plan: -Working to schedule MRI for CINTHYA Reyes. Greater than 50% of the session was spent on counseling and/or coordination of care Reason for contiued inpatient stay Substantial Risk for: harm to self, rapid decompensation and med/psych decompensation
[2020-07-23 18:00] VITALS: BP 141/63; PULSE 82; RESP 18; TEMP 37.1; O2SAT 97
[2020-07-23] MEDS: QUEtiapine Fumarate 100 MG TABLET PO (20:39)
[2020-07-23] MEDS: Cyclobenzaprine HCl 10 MG TABLET PO (20:41)
[2020-07-24] MEDS: LORazepam 0.5 MG TABLET PO ×2 (00:38→20:30)
[2020-07-24] MEDS: QUEtiapine Fumarate 50 MG TABLET PO ×2 (00:38→09:12)
[2020-07-24 06:00] VITALS: BP 113/57; PULSE 82; RESP 16; TEMP 36.7; O2SAT 97
[2020-07-24 07:00] VITALS: BMI 24.5
[2020-07-24] MEDS: DULoxetine HCl 30 MG CAPSULE.DR PO (09:12)
[2020-07-24] MEDS: Atorvastatin Calcium 20 MG TABLET PO (09:12)
[2020-07-24 09:50] LABS: Vitamin D 25-OH Total 14.6 ng/mL (>30)
--- NOTE | 2020-07-24 12:50 | P.PNPSI_ITS ---
Subjective Subjective Date of Service: 07/24/20 Reason For Visit: Depression with suicidal Ideation Subjective Notes: Conditional Voluntary Interim History: Reports some improvement in sleep and anxiety mgt with medication changes. Chronic neck pain contributes to sx. MRI will be after discharge. Pt is hoping to move his appt up for possible surgery. Discussed de creasing daytime Seroquel which he agrees to Medication Compliance: Yes Side effects from medications: No Attending Groups: Intermittent Review of Systems Review of Systems Yes all other systems are reviewed and are negative Musculoskeletal: Reports other (cervical disc pain) Reports behavioral changes Psychiatric: Reports anxiety, Reports behavioral changes, Reports depression, Reports difficulty concentrating, Reports hopelessness, Reports irritability, Reports anhedonia and Reports suicidal ideation Mental Status Exam Mental Status Exam Patient Appearance: Appropriate Patient Orientation: Person, Place, Time and Situation Level of Consciousness: Alert Patient Behavior: Talkative and Anxious Mood Description: Depressed and Anxious Affect Description: Flat Patient Cognition Impaired: No Ability to Follow Directions: Good Speech Pattern: Spontaneous Speech Memory Description: Intact Hallucinations: None Delusions: Not Present Thought Process: Rumination Thought Content: positive for Perseveration Depressive Symptoms: Increased Anxiety, Increased Irritability, Difficulty Sleeping, Muscle Pain, Hopelessness, Isolating-Friends/Family, Increased Fatigue, Thoughts of /Suicide, Loss of Energy and Back Pain Judgement: Good Diagnostics Vital Signs (24Hr): Vital Signs - 24 hr 07/23/20 18:00 07/24/20 06:00 Temperature 98.8 F 98.1 F Pulse Rate 82 82 Respiratory Rate 18 16 Blood Pressure 141/63 H 113/57 L Pulse Oximetry 97 97 Body Mass Index 23.3 Labs Results: 07/20/20 08:18 07/21/20 07:57 Labs: Laboratory Results - last 48 hr 07/24/20 08:41 25-OH Vitamin D Total 14.6 Medications Medications Current Medications Generic Name Dose Route Start Last Admin Trade Name Freq PRN Reason Stop Dose Admin Acetaminophen 975 mg 07/20/20 12:14 07/23/20 19:24 Acetaminophen 325 Mg Tablet PO 975 mg Q6H PRN Administration Pain, Mild (Pain Scale 1-3) Al Hydroxide/Mg Hydroxide 30 ml 07/20/20 21:17 Magnesium Hydrox/Alum Hydrox 30 Ml Oral.Susp PO Q6H PRN Heartburn/Nausea Atorvastatin Calcium 20 mg 07/20/20 12:15 07/24/20 09:12 Atorvastatin Calcium 20 Mg Tablet PO 20 mg DAILY JERRY Administration Cyclobenzaprine HCl 10 mg 07/20/20 12:10 07/23/20 20:41 Cyclobenzaprine Hcl 10 Mg Tablet PO 10 mg BEDTIME PRN Administration muscle pain or spasm Docusate Sodium 100 mg 07/22/20 21:00 07/23/20 21:27 Docusate Sodium 100 Mg Capsule PO Not Given BEDTIME JERRY Duloxetine HCl 30 mg 07/22/20 09:00 07/24/20 09:12 Duloxetine Hcl 30 Mg Capsule.Dr PO 30 mg DAILY JERRY Administration Hydroxyzine HCl 25 mg 07/20/20 21:17 07/20/20 23:16 Hydroxyzine Hcl 25 Mg Tablet PO 25 mg BEDTIME PRN Administration Anxiety Lorazepam 0.5 mg 07/23/20 21:00 07/24/20 00:38 Lorazepam 0.5 Mg Tablet PO 0.5 mg BEDTIME JERRY Administration Magnesium Hydroxide 30 ml 07/20/20 21:17 Milk Of Magnesia 30 Ml Oral.Susp PO DAILY PRN Constipation Psyllium Hydrophilic Mucilloid 3.4 gm 07/23/20 09:00 07/24/20 09:12 Psyllium Seed 3.4 Gm Powd.Pack PO 3.4 gm DAILY JERRY Administration Quetiapine Fumarate 100 mg 07/23/20 21:00 07/23/20 20:39 Quetiapine Fumarate 100 Mg Tablet PO 100 mg BEDTIME JERRY Administration Quetiapine Fumarate 50 mg 07/23/20 21:00 07/24/20 09:12 Quetiapine Fumarate 50 Mg Tablet PO 50 mg BID JERRY Administration Trazodone HCl 50 mg 07/20/20 21:17 07/20/20 23:16 Trazodone Hcl 50 Mg Tablet PO 50 mg BEDTIME PRN Administration Insomnia Allergies Allergies Allergy/AdvReac Type Severity Reaction Status Date / Time fluticasone AdvReac Intermediate PALPITATION Verified 07/04/20 13:42 S ibuprofen AdvReac Intermediate RING IN Verified 07/04/20 13:42 EARS Flonase Allergy Unknown heart Uncoded 07/04/20 13:42 palpation Motrin Allergy Unknown ringing in Uncoded 07/04/20 13:42 ear Assessment & Plan Assessment & Plan (1) Generalized anxiety disorder: Status: Acute Code(s): F41.1 - Generalized anxiety disorder Assessment and Plan: Calmer today with medication changes (2) Recurrent major depression-severe: Status: Acute Code(s): F33.2 - Major depressive disorder, recurrent severe without psychotic features Assessment and Plan: Continues with depressive sx, SI at times, feeling overwhelmed by pain. Greater than 50% of the session was spent on counseling and/or coordination of care Reason for contiued inpatient stay Substantial Risk for: harm to self, inability to function and med/psych decompensation
[2020-07-24] MEDS: Acetaminophen 325 MG TABLET 975 MG PO (14:27)
[2020-07-24 16:10] VITALS: BP 125/61; PULSE 81; TEMP 36.4
[2020-07-24] MEDS: QUEtiapine Fumarate 100 MG TABLET PO (20:30)
[2020-07-24] MEDS: QUEtiapine Fumarate 25 MG TABLET PO (20:30)
[2020-07-24] MEDS: Cyclobenzaprine HCl 10 MG TABLET PO (20:32)
[2020-07-25 06:00] VITALS: BP 119/74; PULSE 80; RESP 18; TEMP 37; O2SAT 96
[2020-07-25] MEDS: QUEtiapine Fumarate 25 MG TABLET PO ×2 (08:41→20:22)
[2020-07-25] MEDS: Atorvastatin Calcium 20 MG TABLET PO (08:41)
[2020-07-25] MEDS: Cholecalciferol (Vitamin D3) 25 MCG TABLET PO (08:41)
[2020-07-25] MEDS: DULoxetine HCl 30 MG CAPSULE.DR PO (08:42)
[2020-07-25] MEDS: Milk of Magnesia 30 ML ORAL.SUSP PO (10:04)
[2020-07-25 18:00] VITALS: BP 133/72; PULSE 80; TEMP 37
--- NOTE | 2020-07-25 18:15 | P.PNPSI_ITS ---
Subjective Subjective Date of Service: 07/25/20 Reason For Visit: Depression with suicidal Ideation Subjective Notes: Conditional Voluntary Interim History: Reports he slept last evening. Not feeling overmedicated. Discussed calling father to discuss his symptoms-father is angry pt will not come to care for him and does not understand current neck pain, depressive sx, and inability to physically care for family. Pt needing some back up support for this. States he feels like he is re-living traumatic events of 2000 prior to [facility]. Much guilt that he cannot meet parents needs at this point. Medication Compliance: Yes Side effects from medications: No Attending Groups: Yes Review of Systems Reports neck pain Musculoskeletal: Reports neck pain Psychiatric: Reports abnormal sleep pattern, Reports anxiety, Reports change in appetite, Reports depression, Reports difficulty concentrating, Reports hopelessness, Reports panic attacks and Reports suicidal ideation Mental Status Exam Mental Status Exam Patient Appearance: Appropriate Patient Orientation: Person, Place, Time and Situation Level of Consciousness: Alert Patient Behavior: Appropriate, Cooperative and Passive Mood Description: Depressed Affect Description: Flat Patient Cognition Impaired: No Ability to Follow Directions: Good Speech Pattern: Spontaneous Speech and Soft-Spoken Memory Description: Episodic Impaired Hallucinations: None Delusions: Not Present Thought Process: Rumination Thought Content: positive for [place] and positive for Circumstantial Depressive Symptoms: Increased Anxiety, Diff. Making Decisions, Loss of Int. in Activity, Hopelessness, Thoughts of /Suicide, Low Self Esteem and Loss of Energy Abnormal Motor Activity Signs and Symptoms: Restlessness Judgement: Good Diagnostics Vital Signs (24Hr): Vital Signs - 24 hr 07/25/20 06:00 07/25/20 18:00 Temperature 98.6 F 98.6 F Pulse Rate 80 80 Respiratory Rate 18 Blood Pressure 119/74 133/72 Pulse Oximetry 96 Body Mass Index 24.5 Labs Results: 07/20/20 08:18 07/21/20 07:57 Labs: Laboratory Results - last 48 hr 07/24/20 08:41 25-OH Vitamin D Total 14.6 Medications Medications Current Medications Generic Name Dose Route Start Last Admin Trade Name Freq PRN Reason Stop Dose Admin Acetaminophen 975 mg 07/20/20 12:14 07/24/20 14:27 Acetaminophen 325 Mg Tablet PO 975 mg Q6H PRN Administration Pain, Mild (Pain Scale 1-3) Al Hydroxide/Mg Hydroxide 30 ml 07/20/20 21:17 Magnesium Hydrox/Alum Hydrox 30 Ml Oral.Susp PO Q6H PRN Heartburn/Nausea Atorvastatin Calcium 20 mg 07/20/20 12:15 07/25/20 08:41 Atorvastatin Calcium 20 Mg Tablet PO 20 mg DAILY JERRY Administration Cyclobenzaprine HCl 10 mg 07/20/20 12:10 07/24/20 20:32 Cyclobenzaprine Hcl 10 Mg Tablet PO 10 mg BEDTIME PRN Administration muscle pain or spasm Docusate Sodium 100 mg 07/24/20 16:29 Docusate Sodium 100 Mg Capsule PO BEDTIME PRN Constipation Duloxetine HCl 30 mg 07/22/20 09:00 07/25/20 08:42 Duloxetine Hcl 30 Mg Capsule.Dr PO 30 mg DAILY JERRY Administration Hydroxyzine HCl 25 mg 07/20/20 21:17 07/20/20 23:16 Hydroxyzine Hcl 25 Mg Tablet PO 25 mg BEDTIME PRN Administration Anxiety Lorazepam 0.5 mg 07/23/20 21:00 07/24/20 20:30 Lorazepam 0.5 Mg Tablet PO 0.5 mg BEDTIME JERRY Administration Magnesium Hydroxide 30 ml 07/20/20 21:17 07/25/20 10:04 Milk Of Magnesia 30 Ml Oral.Susp PO 30 ml DAILY PRN Administration Constipation Psyllium Hydrophilic Mucilloid 3.4 gm 07/23/20 09:00 07/25/20 08:42 Psyllium Seed 3.4 Gm Powd.Pack PO 3.4 gm DAILY JERRY Administration Quetiapine Fumarate 100 mg 07/23/20 21:00 07/24/20 20:30 Quetiapine Fumarate 100 Mg Tablet PO 100 mg BEDTIME JERRY Administration Quetiapine Fumarate 25 mg 07/24/20 21:00 07/25/20 08:41 Quetiapine Fumarate 25 Mg Tablet PO 25 mg BID JERRY Administration Trazodone HCl 50 mg 07/20/20 21:17 07/20/20 23:16 Trazodone Hcl 50 Mg Tablet PO 50 mg BEDTIME PRN Administration Insomnia Vitamin D 25 mcg 07/25/20 09:00 07/25/20 08:41 Cholecalciferol (Vitamin D3) 25 Mcg Tablet PO 25 mcg DAILY JERRY Administration Allergies Allergies Allergy/AdvReac Type Severity Reaction Status Date / Time fluticasone AdvReac Intermediate PALPITATION Verified 07/04/20 13:42 S ibuprofen AdvReac Intermediate RING IN Verified 07/04/20 13:42 EARS Flonase Allergy Unknown heart Uncoded 07/04/20 13:42 palpation Motrin Allergy Unknown ringing in Uncoded 07/04/20 13:42 ear Assessment & Plan Assessment & Plan (1) Generalized anxiety disorder: Status: Acute Code(s): F41.1 - Generalized anxiety disorder Assessment and Plan: Calmer today with ability to sleep. Increase Cymbalta to 60 mg daily (2) Recurrent major depression-severe: Status: Acute Code(s): F33.2 - Major depressive disorder, recurrent severe without psychotic features Assessment and Plan: Continues with depressive sx, SI at times, feeling overwhelmed by pain. Discussed care with Dr. Senior's office. They are prepared to meet with pt on 10/07 and have an MRI order for him as well on file when he is ready. Greater than 50% of the session was spent on counseling and/or coordination of care Reason for contiued inpatient stay Substantial Risk for: harm to self, inability to function and med/psych decompensation
[2020-07-25] MEDS: QUEtiapine Fumarate 100 MG TABLET PO (20:22)
[2020-07-25] MEDS: LORazepam 0.5 MG TABLET PO (20:22)
[2020-07-25] MEDS: Cyclobenzaprine HCl 10 MG TABLET PO (20:22)
[2020-07-26 06:22] VITALS: BP 106/60; PULSE 74; RESP 16; TEMP 36.3; O2SAT 96
[2020-07-26] MEDS: Atorvastatin Calcium 20 MG TABLET PO (08:34)
[2020-07-26] MEDS: QUEtiapine Fumarate 25 MG TABLET PO ×2 (08:34→20:18)
[2020-07-26] MEDS: Cholecalciferol (Vitamin D3) 25 MCG TABLET PO (08:35)
[2020-07-26] MEDS: DULoxetine HCl 60 MG CAPSULE.DR PO (08:35)
[2020-07-26] MEDS: Milk of Magnesia 30 ML ORAL.SUSP PO (08:36)
[2020-07-26] MEDS: Magnesium Citrate 300 ML SOLUTION PO (14:35)
[2020-07-26 18:00] VITALS: BP 137/72; PULSE 78; TEMP 37.1
--- NOTE | 2020-07-26 19:49 | P.PNPSI_ITS ---
Subjective Subjective Date of Service: 07/26/20 Reason For Visit: Depression with suicidal Ideation Subjective Notes: Conditional Voluntary Interim History: Anxiety is decreasing. Pt able to sleep for the past 2 nights. Constipation is an issue. Magnesium Citrate Ordered. Discussed July being a difficult month-brother suicided. Pt discussed wanting assistance in communicating with his father that he is in hospital and being treated for depression-wants to tell father that he cannot help it, is currently unable to help father, is in a bad place emotionally, has surgery upcoming. States that his relationship with father has changed as father has aged- this is not my dad, this is a mean old man . Will discuss further and plan a joint call on 07/28. Depression 10/18, Anxiety 05/21. Medication Compliance: Yes Side effects from medications: Yes (?constipation) Attending Groups: Intermittent Review of Systems Gastrointestinal: Reports constipation (magnesium citrate given) Psychiatric: Reports depression, Reports difficulty concentrating, Reports hopelessness and Reports suicidal ideation Mental Status Exam Mental Status Exam Patient Appearance: Disheveled Patient Orientation: Person, Place, Time and Situation Level of Consciousness: Alert Patient Behavior: Talkative Mood Description: Depressed Affect Description: Flat Patient Cognition Impaired: No Ability to Follow Directions: Fair Speech Pattern: Spontaneous Speech Memory Description: Intact Hallucinations: None Delusions: Not Present Thought Process: Intact and Rumination Thought Content: positive for Intact and positive for Perseveration Depressive Symptoms: Loss of Int. in Activity, Hopelessness, Isolating- Friends/Family, Feelings of Guilt, Unhappiness, Increased Fatigue, Thoughts of /Suicide (present, but declining-pt reports mostly stress related.), Low Self Esteem and Loss of Energy Judgement: Fair Diagnostics Vital Signs (24Hr): Vital Signs - 24 hr 07/26/20 06:22 07/26/20 18:00 Temperature 97.4 F 98.7 F Pulse Rate 74 78 Respiratory Rate 16 Blood Pressure 106/60 137/72 Pulse Oximetry 96 Body Mass Index 24.5 Labs Results: 07/20/20 08:18 07/21/20 07:57 Medications Medications Current Medications Generic Name Dose Route Start Last Admin Trade Name Freq PRN Reason Stop Dose Admin Acetaminophen 975 mg 07/20/20 12:14 07/24/20 14:27 Acetaminophen 325 Mg Tablet PO 975 mg Q6H PRN Administration Pain, Mild (Pain Scale 1-3) Al Hydroxide/Mg Hydroxide 30 ml 07/20/20 21:17 Magnesium Hydrox/Alum Hydrox 30 Ml Oral.Susp PO Q6H PRN Heartburn/Nausea Atorvastatin Calcium 20 mg 07/20/20 12:15 07/26/20 08:34 Atorvastatin Calcium 20 Mg Tablet PO 20 mg DAILY JERRY Administration Cyclobenzaprine HCl 10 mg 07/20/20 12:10 07/25/20 20:22 Cyclobenzaprine Hcl 10 Mg Tablet PO 10 mg BEDTIME PRN Administration muscle pain or spasm Docusate Sodium 100 mg 07/24/20 16:29 Docusate Sodium 100 Mg Capsule PO BEDTIME PRN Constipation Duloxetine HCl 60 mg 07/26/20 09:00 07/26/20 08:35 Duloxetine Hcl 60 Mg Capsule.Dr PO 60 mg DAILY JERRY Administration Hydroxyzine HCl 25 mg 07/20/20 21:17 07/20/20 23:16 Hydroxyzine Hcl 25 Mg Tablet PO 25 mg BEDTIME PRN Administration Anxiety Lorazepam 0.5 mg 07/23/20 21:00 07/25/20 20:22 Lorazepam 0.5 Mg Tablet PO 0.5 mg BEDTIME JERRY Administration Magnesium Hydroxide 30 ml 07/20/20 21:17 07/26/20 08:36 Milk Of Magnesia 30 Ml Oral.Susp PO 30 ml DAILY PRN Administration Constipation Psyllium Hydrophilic Mucilloid 3.4 gm 07/23/20 09:00 07/26/20 08:34 Psyllium Seed 3.4 Gm Powd.Pack PO 3.4 gm DAILY JERRY Administration Quetiapine Fumarate 100 mg 07/23/20 21:00 07/25/20 20:22 Quetiapine Fumarate 100 Mg Tablet PO 100 mg BEDTIME JERRY Administration Quetiapine Fumarate 25 mg 07/24/20 21:00 07/26/20 08:34 Quetiapine Fumarate 25 Mg Tablet PO 25 mg BID JERRY Administration Trazodone HCl 50 mg 07/20/20 21:17 07/20/20 23:16 Trazodone Hcl 50 Mg Tablet PO 50 mg BEDTIME PRN Administration Insomnia Vitamin D 25 mcg 07/25/20 09:00 07/26/20 08:35 Cholecalciferol (Vitamin D3) 25 Mcg Tablet PO 25 mcg DAILY JERRY Administration Allergies Allergies Allergy/AdvReac Type Severity Reaction Status Date / Time fluticasone AdvReac Intermediate PALPITATION Verified 07/04/20 13:42 S ibuprofen AdvReac Intermediate RING IN Verified 07/04/20 13:42 EARS Flonase Allergy Unknown heart Uncoded 07/04/20 13:42 palpation Motrin Allergy Unknown ringing in Uncoded 07/04/20 13:42 ear Assessment & Plan Assessment & Plan (1) Generalized anxiety disorder: Status: Acute Code(s): F41.1 - Generalized anxiety disorder Assessment and Plan: Decrease in sx of anxiety (2) Recurrent major depression-severe: Status: Acute Code(s): F33.2 - Major depressive disorder, recurrent severe without psychotic features Assessment and Plan: Pt reports Cymbalta to be working, depressive sx are decreasing. Pt now is starting to address some of the stressors adding to the depressive sx. Greater than 50% of the session was spent on counseling and/or coordination of care Reason for contiued inpatient stay Substantial Risk for: harm to self, inability to function, rapid decompensation and med/psych decompensation
[2020-07-26] MEDS: Cyclobenzaprine HCl 10 MG TABLET PO (20:17)
[2020-07-26] MEDS: Docusate Sodium 100 MG CAPSULE PO (20:17)
[2020-07-26] MEDS: LORazepam 0.5 MG TABLET PO (20:17)
[2020-07-26] MEDS: QUEtiapine Fumarate 100 MG TABLET PO (20:18)
[2020-07-27 06:05] VITALS: BP 147/67; PULSE 76; RESP 16; TEMP 36.4; O2SAT 95
[2020-07-27] MEDS: Cholecalciferol (Vitamin D3) 25 MCG TABLET PO (09:30)
[2020-07-27] MEDS: DULoxetine HCl 60 MG CAPSULE.DR PO (09:31)
[2020-07-27] MEDS: Atorvastatin Calcium 20 MG TABLET PO (09:31)
[2020-07-27] MEDS: QUEtiapine Fumarate 25 MG TABLET PO (09:33)
--- NOTE | 2020-07-27 15:46 | HO.PSYCHPN ---
Subjective Subjective Date of Service: 07/27/20 Reason For Visit: Depression with suicidal Ideation Subjective Notes: Conditional Voluntary Interim History: Pt had a bowel mvt this a.m. Reports some LLQ cramping-will monitor. Sleep is still intact. Discussed medicine adjustments and preparing to be in contact with pt's father on 07/28 1300. Medication Compliance: Yes Side effects from medications: Yes (constipation) Attending Groups: Intermittent Review of Systems Gastrointestinal: Reports constipation Psychiatric: Reports anxiety, Reports depression and Reports suicidal ideation Mental Status Exam Mental Status Exam Patient Appearance: Unkempt Patient Orientation: Person, Place, Time and Situation Level of Consciousness: Alert Patient Behavior: Talkative Mood Description: Depressed Affect Description: Flat Patient Cognition Impaired: No Ability to Follow Directions: Good Speech Pattern: Spontaneous Speech Memory Description: Intact Hallucinations: None Delusions: Not Present Thought Process: Rumination Thought Content: positive for Persever[place] Depressive Symptoms: Loss of Int. in Activity, Hopelessness, Unhappiness, Increased Fatigue, Thoughts of /Suicide, Low Self Esteem, Loss of Energy and Difficulty Concentrating Judgement: Fair Diagnostics Vital Signs (24Hr): Vital Signs - 24 hr 07/26/20 18:00 07/27/20 06:05 Temperature 98.7 F 97.5 F Pulse Rate 78 76 Respiratory Rate 16 Blood Pressure 137/72 147/67 H Pulse Oximetry 95 Body Mass Index 24.5 Labs Results: 07/20/20 08:18 07/21/20 07:57 Medications Medications Current Medications Generic Name Dose Route Start Last Admin Trade Name Freq PRN Reason Stop Dose Admin Acetaminophen 975 mg 07/20/20 12:14 07/24/20 14:27 Acetaminophen 325 Mg Tablet PO 975 mg Q6H PRN Administration Pain, Mild (Pain Scale 1-3) Al Hydroxide/Mg Hydroxide 30 ml 07/20/20 21:17 Magnesium Hydrox/Alum Hydrox 30 Ml Oral.Susp PO Q6H PRN Heartburn/Nausea Atorvastatin Calcium 20 mg 07/20/20 12:15 07/27/20 09:31 Atorvastatin Calcium 20 Mg Tablet PO 20 mg DAILY JERRY Administration Cyclobenzaprine HCl 10 mg 07/20/20 12:10 07/26/20 20:17 Cyclobenzaprine Hcl 10 Mg Tablet PO 10 mg BEDTIME PRN Administration muscle pain or spasm Docusate Sodium 100 mg 07/24/20 16:29 07/26/20 20:17 Docusate Sodium 100 Mg Capsule PO 100 mg BEDTIME PRN Administration Constipation Duloxetine HCl 30 mg 07/28/20 09:00 Duloxetine Hcl 30 Mg Capsule.Dr PO DAILY JERRY Hydroxyzine HCl 25 mg 07/20/20 21:17 07/20/20 23:16 Hydroxyzine Hcl 25 Mg Tablet PO 25 mg BEDTIME PRN Administration Anxiety Lorazepam 0.5 mg 07/23/20 21:00 07/26/20 20:17 Lorazepam 0.5 Mg Tablet PO 0.5 mg BEDTIME JERRY Administration Magnesium Hydroxide 30 ml 07/20/20 21:17 07/26/20 08:36 Milk Of Magnesia 30 Ml Oral.Susp PO 30 ml DAILY PRN Administration Constipation Psyllium Hydrophilic Mucilloid 3.4 gm 07/23/20 09:00 07/27/20 09:36 Psyllium Seed 3.4 Gm Powd.Pack PO Not Given DAILY JERRY Quetiapine Fumarate 100 mg 07/23/20 21:00 07/26/20 20:18 Quetiapine Fumarate 100 Mg Tablet PO 100 mg BEDTIME JERRY Administration Quetiapine Fumarate 25 mg 07/24/20 21:00 07/27/20 09:33 Quetiapine Fumarate 25 Mg Tablet PO 25 mg BID JERRY Administration Trazodone HCl 50 mg 07/20/20 21:17 07/20/20 23:16 Trazodone Hcl 50 Mg Tablet PO 50 mg BEDTIME PRN Administration Insomnia Vitamin D 25 mcg 07/25/20 09:00 07/27/20 09:30 Cholecalciferol (Vitamin D3) 25 Mcg Tablet PO 25 mcg DAILY JERRY Administration Allergies Allergies Allergy/AdvReac Type Severity Reaction Status Date / Time fluticasone AdvReac Intermediate PALPITATION Verified 07/04/20 13:42 S ibuprofen AdvReac Intermediate RING IN Verified 07/04/20 13:42 EARS Flonase Allergy Unknown heart Uncoded 07/04/20 13:42 palpation Motrin Allergy Unknown ringing in Uncoded 07/04/20 13:42 ear Assessment & Plan Assessment & Plan (1) Generalized anxiety disorder: Status: Acute Code(s): F41.1 - Generalized anxiety disorder Assessment and Plan: Pt reports an overall decrease in sx. We will connect with pt's father on 07/28. Pt is anxious about this discussion. Discontinue Seroquel 25 mg bid. Add Seroquel 25 mg bid prn. (2) Recurrent major depression-severe: Status: Acute Code(s): F33.2 - Major depressive disorder, recurrent severe without psychotic features Assessment and Plan: Cymbalta precipitating constipation. Will decrease back to 30 mg daily. Pt reports some relief of sx. SI present, but diminishing. Greater than 50% of the session was spent on counseling and/or coordination of care Reason for contiued inpatient stay Substantial Risk for: harm to self, inability to function, rapid decompensation and med/psych decompensation
[2020-07-27] MEDS: Acetaminophen 325 MG TABLET 975 MG PO (18:11)
[2020-07-27 18:30] VITALS: BP 137/66; PULSE 80; TEMP 36.7
[2020-07-27] MEDS: Cyclobenzaprine HCl 10 MG TABLET PO (20:35)
[2020-07-27] MEDS: LORazepam 0.5 MG TABLET PO (20:35)
[2020-07-27] MEDS: QUEtiapine Fumarate 100 MG TABLET PO (20:35)
[2020-07-28 06:00] VITALS: BP 114/68; PULSE 77; RESP 18; TEMP 36.1; O2SAT 94
[2020-07-28] MEDS: Atorvastatin Calcium 20 MG TABLET PO (08:59)
[2020-07-28] MEDS: DULoxetine HCl 30 MG CAPSULE.DR PO (08:59)
[2020-07-28] MEDS: Cholecalciferol (Vitamin D3) 25 MCG TABLET PO (08:59)
[2020-07-28] MEDS: Acetaminophen 325 MG TABLET 975 MG PO (16:54)
[2020-07-28 20:00] VITALS: BP 119/71; PULSE 95; TEMP 36.7
[2020-07-28] MEDS: Cyclobenzaprine HCl 10 MG TABLET PO (20:00)
[2020-07-28] MEDS: LORazepam 0.5 MG TABLET PO (20:00)
[2020-07-28] MEDS: QUEtiapine Fumarate 100 MG TABLET PO (20:01)
--- NOTE | 2020-07-28 21:25 | HO.PSYCHPN ---
Subjective Subjective Date of Service: 07/29/20 Reason For Visit: Depression with suicidal Ideation Subjective Notes: Conditional Voluntary Interim History: Pt and TW spoke with pt's father via phone to inform him of pt's admission, depressive sx and plan of care. Father very supportive. Pt thought this went well as he had to tell his father he would not be able to come to their home to care for father and step-mother. Resting, isolative most of the day. Pt experiencing neck pain 10/18. Anxiety about upcoming renal ca follow up appt and about plan of care with [facility] for his cervical injury. Discussed July as being very difficult anniversary month-brother suicided 07/16 with resulting processes-pt relives that month yearly and is doing so currently. Medication Compliance: Yes Side effects from medications: No (contipation resolved) Attending Groups: Yes Review of Systems Review of Systems Yes all other systems are reviewed and are negative Reports neck pain Gastrointestinal: Reports constipation (resolved) Musculoskeletal: Reports neck pain Psychiatric: Reports anxiety, Reports depression, Reports difficulty concentrating, Reports hopelessness, Reports anhedonia and Reports suicidal ideation Mental Status Exam Mental Status Exam Patient Appearance: Appropriate Patient Orientation: Person, Place and Time Level of Consciousness: Alert Patient Behavior: Talkative and Cooperative Mood Description: Depressed Affect Description: Flat Patient Cognition Impaired: No Ability to Follow Directions: Good Speech Pattern: Spontaneous Speech Memory Description: Intact Hallucinations: None Delusions: Not Present Thought Process: Intact Thought Content: positive for Intact Depressive Symptoms: Increased Anxiety, Diff. Making Decisions, Muscle Tension, Increased Irritability, Muscle Pain, Significant Weight Loss, Loss of Int. in Activity, Feelings of Worthlessness, Hopelessness, Isolating-Friends/Family, Feelings of Guilt, Increased Fatigue, Thoughts of /Suicide, Low Self Esteem, Loss of Energy and Difficulty Concentrating Judgement: Good Diagnostics Vital Signs (24Hr): Vital Signs - 24 hr 07/28/20 06:00 Temperature 97.0 F Pulse Rate 77 Respiratory Rate 18 Blood Pressure 114/68 Pulse Oximetry 94 Body Mass Index 24.5 Labs Results: 07/20/20 08:18 07/21/20 07:57 Medications Medications Current Medications Generic Name Dose Route Start Last Admin Trade Name Freq PRN Reason Stop Dose Admin Acetaminophen 975 mg 07/20/20 12:14 07/28/20 16:54 Acetaminophen 325 Mg Tablet PO 975 mg Q6H PRN Administration Pain, Mild (Pain Scale 1-3) Al Hydroxide/Mg Hydroxide 30 ml 07/20/20 21:17 Magnesium Hydrox/Alum Hydrox 30 Ml Oral.Susp PO Q6H PRN Heartburn/Nausea Atorvastatin Calcium 20 mg 07/20/20 12:15 07/28/20 08:59 Atorvastatin Calcium 20 Mg Tablet PO 20 mg DAILY JERRY Administration Cyclobenzaprine HCl 10 mg 07/20/20 12:10 07/28/20 20:00 Cyclobenzaprine Hcl 10 Mg Tablet PO 10 mg BEDTIME PRN Administration muscle pain or spasm Docusate Sodium 100 mg 07/24/20 16:29 07/26/20 20:17 Docusate Sodium 100 Mg Capsule PO 100 mg BEDTIME PRN Administration Constipation Duloxetine HCl 30 mg 07/28/20 09:00 07/28/20 08:59 Duloxetine Hcl 30 Mg Capsule.Dr PO 30 mg DAILY JERRY Administration Hydroxyzine HCl 25 mg 07/20/20 21:17 07/20/20 23:16 Hydroxyzine Hcl 25 Mg Tablet PO 25 mg BEDTIME PRN Administration Anxiety Lorazepam 0.5 mg 07/23/20 21:00 07/28/20 20:00 Lorazepam 0.5 Mg Tablet PO 0.5 mg BEDTIME JERRY Administration Magnesium Hydroxide 30 ml 07/20/20 21:17 07/26/20 08:36 Milk Of Magnesia 30 Ml Oral.Susp PO 30 ml DAILY PRN Administration Constipation Psyllium Hydrophilic Mucilloid 3.4 gm 07/23/20 09:00 07/28/20 08:59 Psyllium Seed 3.4 Gm Powd.Pack PO 3.4 gm DAILY JERRY Administration Quetiapine Fumarate 100 mg 07/23/20 21:00 07/28/20 20:01 Quetiapine Fumarate 100 Mg Tablet PO 100 mg BEDTIME JERRY Administration Quetiapine Fumarate 25 mg 07/27/20 15:49 Quetiapine Fumarate 25 Mg Tablet PO BID PRN Anxiety Trazodone HCl 50 mg 07/20/20 21:17 07/20/20 23:16 Trazodone Hcl 50 Mg Tablet PO 50 mg BEDTIME PRN Administration Insomnia Vitamin D 25 mcg 07/25/20 09:00 07/28/20 08:59 Cholecalciferol (Vitamin D3) 25 Mcg Tablet PO 25 mcg DAILY JERRY Administration Allergies Allergies Allergy/AdvReac Type Severity Reaction Status Date / Time fluticasone AdvReac Intermediate PALPITATION Verified 07/04/20 13:42 S ibuprofen AdvReac Intermediate RING IN Verified 07/04/20 13:42 EARS Flonase Allergy Unknown heart Uncoded 07/04/20 13:42 palpation Motrin Allergy Unknown ringing in Uncoded 07/04/20 13:42 ear Assessment & Plan Assessment & Plan (1) Generalized anxiety disorder: Status: Acute Code(s): F41.1 - Generalized anxiety disorder Assessment and Plan: Discussion with pt's father went well. Appears more depressed today Discontinue Seroquel 25 mg bid. Add Seroquel 25 mg bid prn completed 07/27 without adverse effect (2) Recurrent major depression-severe: Status: Acute Code(s): F33.2 - Major depressive disorder, recurrent severe without psychotic features Assessment and Plan: Cymbalta precipitating constipation, resolved with MOM, Magnesium Citrate, Metamucil.l Decrease back to 30 mg daily tolerated Pt reports some relief of sx. SI present, but diminishing. Greater than 50% of the session was spent on counseling and/or coordination of care Reason for contiued inpatient stay Substantial Risk for: harm to self, inability to function, rapid decompensation and med/psych decompensation
[2020-07-29 06:00] VITALS: BP 121/60; PULSE 80; RESP 16; TEMP 37.1
[2020-07-29] MEDS: Atorvastatin Calcium 20 MG TABLET PO (09:00)
[2020-07-29] MEDS: DULoxetine HCl 30 MG CAPSULE.DR PO (09:01)
[2020-07-29] MEDS: Cholecalciferol (Vitamin D3) 25 MCG TABLET PO (09:01)
[2020-07-29] MEDS: Acetaminophen 325 MG TABLET 975 MG PO (18:13)
[2020-07-29 19:41] LABS: Glucose Urine UA NEG (NEG); Leukocyte Esterase Urine NEG (NEG); Nitrite Urine NEG (NEG); PH 6.5 (5.0-8.0); Specific Gravity - Urine 1.025 (1.005-1.025); Urine Blood NEG (NEG); Urine Ketones NEG (NEG); Urine Protein NEG (NEG-TRACE)
[2020-07-29 19:42] LABS: Appearance Urine CLEAR; Color Urine YELLOW
[2020-07-29 19:52] VITALS: BP 146/72; PULSE 77; TEMP 36.4
[2020-07-29] MEDS: LORazepam 0.5 MG TABLET PO (21:17)
[2020-07-29] MEDS: QUEtiapine Fumarate 100 MG TABLET PO (21:17)
--- NOTE | 2020-07-29 22:43 | P.PNPSI_ITS ---
Subjective Subjective Date of Service: 07/29/20 Reason For Visit: Depression with suicidal Ideation Subjective Notes: Conditional Voluntary Interim History: Patient remains severely depressed hopeless helpless preoccupied with physical concerns and thoughts that he might might be better off denies current plan in the setting complains of left groin pain Preoccupied with recurrent bladder cancer Medication Compliance: Yes Mental Status Exam Mental Status Exam Patient Appearance: Appropriate Patient Orientation: Person, Place and Time Level of Consciousness: Alert Patient Behavior: Talkative, Cooperative and Anxious Mood Description: Depressed and Flat Affect Description: Blunted, Flat and Apprehensive Patient Cognition Impaired: No Ability to Follow Directions: Good Speech Pattern: Spontaneous Speech Memory Description: Intact Hallucinations: None Delusions: Not Present Thought Process: Intact Thought Content: positive for Intact, positive for Preoccupation, positive for Suicidal Ideation (Denies intent in the setting) and negative for Homicidal Ideation Depressive Symptoms: Increased Anxiety, Diff. Making Decisions, Muscle Tension, Increased Irritability, Muscle Pain, Significant Weight Loss, Loss of Int. in Activity, Feelings of Worthlessness, Hopelessness, Isolating-Friends/Family, Feelings of Guilt, Increased Fatigue, Thoughts of /Suicide, Low Self Esteem, Loss of Energy and Difficulty Concentrating Judgement: Fair Judgement and Insight: Patient in distress somewhat hopeless helpless agreeable to medication increase Diagnostics Vital Signs (24Hr): Vital Signs - 24 hr 07/29/20 06:00 07/29/20 19:52 Temperature 98.8 F 97.6 F Pulse Rate 80 77 Respiratory Rate 16 Blood Pressure 121/60 146/72 H Body Mass Index 24.5 Labs Results: 07/20/20 08:18 07/21/20 07:57 Labs: Laboratory Results - last 48 hr 07/29/20 19:32 Urine Color YELLOW Urine Appearance CLEAR Urine pH 6.5 Ur Specific [employer] 1.025 Urine Protein NEG Urine Glucose (UA) NEG Urine Ketones NEG Urine Blood NEG Urine Nitrite NEG Ur Leukocyte Esterase NEG Medications Medications Current Medications Generic Name Dose Route Start Last Admin Trade Name Freq PRN Reason Stop Dose Admin Acetaminophen 975 mg 07/20/20 12:14 07/29/20 18:13 Acetaminophen 325 Mg Tablet PO 975 mg Q6H PRN Administration Pain, Mild (Pain Scale 1-3) Al Hydroxide/Mg Hydroxide 30 ml 07/20/20 21:17 Magnesium Hydrox/Alum Hydrox 30 Ml Oral.Susp PO Q6H PRN Heartburn/Nausea Atorvastatin Calcium 20 mg 07/20/20 12:15 07/29/20 09:00 Atorvastatin Calcium 20 Mg Tablet PO 20 mg DAILY JERRY Administration Cyclobenzaprine HCl 5 mg 07/29/20 14:12 Cyclobenzaprine Hcl 10 Mg Tablet PO BEDTIME PRN muscle pain or spasm Docusate Sodium 100 mg 07/24/20 16:29 07/26/20 20:17 Docusate Sodium 100 Mg Capsule PO 100 mg BEDTIME PRN Administration Constipation Duloxetine HCl 30 mg 07/28/20 09:00 07/29/20 09:01 Duloxetine Hcl 30 Mg Capsule.Dr PO 30 mg DAILY JERRY Administration Hydroxyzine HCl 25 mg 07/20/20 21:17 07/20/20 23:16 Hydroxyzine Hcl 25 Mg Tablet PO 25 mg BEDTIME PRN Administration Anxiety Lorazepam 0.5 mg 07/23/20 21:00 07/29/20 21:17 Lorazepam 0.5 Mg Tablet PO 0.5 mg BEDTIME JERRY Administration Magnesium Hydroxide 30 ml 07/20/20 21:17 07/26/20 08:36 Milk Of Magnesia 30 Ml Oral.Susp PO 30 ml DAILY PRN Administration Constipation Psyllium Hydrophilic Mucilloid 3.4 gm 07/23/20 09:00 07/29/20 09:01 Psyllium Seed 3.4 Gm Powd.Pack PO 3.4 gm DAILY JERRY Administration Quetiapine Fumarate 100 mg 07/23/20 21:00 07/29/20 21:17 Quetiapine Fumarate 100 Mg Tablet PO 100 mg BEDTIME JERRY Administration Quetiapine Fumarate 25 mg 07/27/20 15:49 Quetiapine Fumarate 25 Mg Tablet PO BID PRN Anxiety Trazodone HCl 50 mg 07/20/20 21:17 07/20/20 23:16 Trazodone Hcl 50 Mg Tablet PO 50 mg BEDTIME PRN Administration Insomnia Vitamin D 25 mcg 07/25/20 09:00 07/29/20 09:01 Cholecalciferol (Vitamin D3) 25 Mcg Tablet PO 25 mcg DAILY JERRY Administration Allergies Allergies Allergy/AdvReac Type Severity Reaction Status Date / Time fluticasone AdvReac Intermediate PALPITATION Verified 07/04/20 13:42 S ibuprofen AdvReac Intermediate RING IN Verified 07/04/20 13:42 EARS Flonase Allergy Unknown heart Uncoded 07/04/20 13:42 palpation Motrin Allergy Unknown ringing in Uncoded 07/04/20 13:42 ear Assessment & Plan Assessment & Plan (1) Generalized anxiety disorder: Status: Acute Code(s): F41.1 - Generalized anxiety disorder (2) Recurrent major depression-severe: Status: Acute Code(s): F33.2 - Major depressive disorder, recurrent severe without psychotic features Assessment and Plan: Patient quite depressed hopeless helpless intermittently suicidal denies plan or intent catastrophic thinking. Complains of left groin pain check UA with microscopic med consult increase Cymbalta to 40 mg patient needs much reassurance regarding medication Did well in the past on 90 mg Cymbalta consider Abilify for augmentation given much reassurance and education regarding bladder cancer. Greater than 50% of the session was spent on counseling and/or coordination of care Reason for contiued inpatient stay Substantial Risk for: harm to self
[2020-07-30 06:00] VITALS: BP 121/65; PULSE 77; RESP 18; TEMP 36.8; O2SAT 96
[2020-07-30] MEDS: DULoxetine HCl 30 MG CAPSULE.DR PO (08:51)
[2020-07-30] MEDS: Atorvastatin Calcium 20 MG TABLET PO (08:51)
[2020-07-30] MEDS: Cholecalciferol (Vitamin D3) 25 MCG TABLET PO (08:51)
--- NOTE | 2020-07-30 14:37 | HO.PSYCHPN ---
Subjective Subjective Date of Service: 07/30/20 Reason For Visit: Depression with suicidal Ideation Subjective Notes: Conditional Voluntary Interim History: It is hard to know where I am going. I don't feel like I am going forward. Reports sleep is intact, Flexoril decreased to 5mg, Anxiety is variable, depression high, SI present and active. Identifies concerns as LLQ pain-hx renal CA 2019, UACS pending, hospitalist consult pending. Denies constipation. Pt would like to have OP scheduled renal eval while in pt as well as cervical MRI. Feels he needs support throughout these procedures and will not be able to manage on his own. Discussed Abilify augment. Isolative and withdrawn in milieu. Medication Compliance: Yes Side effects from medications: Yes (reports constipation from high dose Cymbalta.) Attending Groups: No Review of Systems Gastrointestinal: Reports change in bowel habits, Reports constipation and Reports other (LLQ pain) Reports behavioral changes Psychiatric: Reports anxiety, Reports behavioral changes, Reports depression, Reports difficulty concentrating, Reports hopelessness, Reports irritability, Reports anhedonia and Reports suicidal ideation (+SI) Mental Status Exam Mental Status Exam Patient Appearance: Appropriate Patient Orientation: Person, Place and Time Level of Consciousness: Alert Patient Behavior: Talkative, Cooperative, Passive, Anxious, Fearful, Fatigued, Distractible, Isolative and Good Eye Contact Mood Description: Depressed and Anxious Affect Description: Flat Patient Cognition Impaired: No Ability to Follow Directions: Good Speech Pattern: Spontaneous Speech Memory Description: Intact Hallucinations: None Delusions: Not Present Thought Process: Intact Thought Content: positive for Intact, positive for [place], positive for Circumstantial and positive for Suicidal Ideation Depressive Symptoms: Increased Anxiety, Diff. Making Decisions, Increased Irritability, Loss of Int. in Activity, Feelings of Worthlessness, Hopelessness, Isolating-Friends/Family, Feelings of Guilt, Unhappiness, Increased Fatigue, Thoughts of /Suicide, Low Self Esteem, Loss of Energy and Difficulty Concentrating Abnormal Motor Activity Signs and Symptoms: Restlessness Judgement: Fair Diagnostics Vital Signs (24Hr): Vital Signs - 24 hr 07/29/20 19:52 07/30/20 06:00 Temperature 97.6 F 98.3 F Pulse Rate 77 77 Respiratory Rate 18 Blood Pressure 146/72 H 121/65 Pulse Oximetry 96 Body Mass Index 24.5 Labs Results: 07/20/20 08:18 07/21/20 07:57 Labs: Laboratory Results - last 48 hr 07/29/20 19:32 Urine Color YELLOW Urine Appearance CLEAR Urine pH 6.5 Ur Specific [place] 1.025 Urine Protein NEG Urine Glucose (UA) NEG Urine Ketones NEG Urine Blood NEG Urine Nitrite NEG Ur Leukocyte Esterase NEG Medications Medications Current Medications Generic Name Dose Route Start Last Admin Trade Name Freq PRN Reason Stop Dose Admin Acetaminophen 975 mg 07/20/20 12:14 07/29/20 18:13 Acetaminophen 325 Mg Tablet PO 975 mg Q6H PRN Administration Pain, Mild (Pain Scale 1-3) Al Hydroxide/Mg Hydroxide 30 ml 07/20/20 21:17 Magnesium Hydrox/Alum Hydrox 30 Ml Oral.Susp PO Q6H PRN Heartburn/Nausea Aripiprazole 5 mg 07/30/20 21:00 Aripiprazole 5 Mg Tablet PO BEDTIME JERRY Atorvastatin Calcium 20 mg 07/20/20 12:15 07/30/20 08:51 Atorvastatin Calcium 20 Mg Tablet PO 20 mg DAILY JERRY Administration Cyclobenzaprine HCl 5 mg 07/29/20 14:12 Cyclobenzaprine Hcl 10 Mg Tablet PO BEDTIME PRN muscle pain or spasm Docusate Sodium 100 mg 07/24/20 16:29 07/26/20 20:17 Docusate Sodium 100 Mg Capsule PO 100 mg BEDTIME PRN Administration Constipation Duloxetine HCl 40 mg 07/31/20 09:00 Duloxetine Hcl 20 Mg Capsule.Dr PO DAILY JERRY Hydroxyzine HCl 25 mg 07/20/20 21:17 07/20/20 23:16 Hydroxyzine Hcl 25 Mg Tablet PO 25 mg BEDTIME PRN Administration Anxiety Lorazepam 0.5 mg 07/23/20 21:00 07/29/20 21:17 Lorazepam 0.5 Mg Tablet PO 0.5 mg BEDTIME JERRY Administration Magnesium Hydroxide 30 ml 07/20/20 21:17 07/26/20 08:36 Milk Of Magnesia 30 Ml Oral.Susp PO 30 ml DAILY PRN Administration Constipation Psyllium Hydrophilic Mucilloid 3.4 gm 07/23/20 09:00 07/30/20 08:51 Psyllium Seed 3.4 Gm Powd.Pack PO 3.4 gm DAILY JERRY Administration Quetiapine Fumarate 100 mg 07/23/20 21:00 07/29/20 21:17 Quetiapine Fumarate 100 Mg Tablet PO 100 mg BEDTIME JERRY Administration Quetiapine Fumarate 25 mg 07/27/20 15:49 Quetiapine Fumarate 25 Mg Tablet PO BID PRN Anxiety Trazodone HCl 50 mg 07/20/20 21:17 07/20/20 23:16 Trazodone Hcl 50 Mg Tablet PO 50 mg BEDTIME PRN Administration Insomnia Vitamin D 25 mcg 07/25/20 09:00 07/30/20 08:51 Cholecalciferol (Vitamin D3) 25 Mcg Tablet PO 25 mcg DAILY JERRY Administration Allergies Allergies Allergy/AdvReac Type Severity Reaction Status Date / Time fluticasone AdvReac Intermediate PALPITATION Verified 07/04/20 13:42 S ibuprofen AdvReac Intermediate RING IN Verified 07/04/20 13:42 EARS Flonase Allergy Unknown heart Uncoded 07/04/20 13:42 palpation Motrin Allergy Unknown ringing in Uncoded 07/04/20 13:42 ear Assessment & Plan Assessment & Plan (1) Generalized anxiety disorder: Status: Acute Code(s): F41.1 - Generalized anxiety disorder (2) Recurrent major depression-severe: Status: Acute Code(s): F33.2 - Major depressive disorder, recurrent severe without psychotic features Assessment and Plan: Depressed, suicidal overwhelmed with LLQ pain and fear of recurrence of renal cancer. UACS is negative. Hospitalist consult requested. Also chronic neck pain-frustrated that MRI will not be done while in pt. Pt feels he needs the support. Isolative and withdrawn in milieu Vitamin D. 14.6-Add supplement Cymbalta 40 mg daily Begin Abilify 5 mg daily Greater than 50% of the session was spent on counseling and/or coordination of care Reason for contiued inpatient stay Substantial Risk for: harm to self, inability to function, rapid decompensation and med/psych decompensation
[2020-07-30] MEDS: Acetaminophen 325 MG TABLET 975 MG PO (16:54)
[2020-07-30 18:10] VITALS: BP 130/64; PULSE 79; RESP 17; TEMP 37.2; O2SAT 96
[2020-07-30] MEDS: LORazepam 0.5 MG TABLET PO (20:09)
[2020-07-30] MEDS: QUEtiapine Fumarate 100 MG TABLET PO (20:09)
[2020-07-30] MEDS: ARIPiprazole 5 MG TABLET PO (20:09)
[2020-07-30] MEDS: Cyclobenzaprine HCl 10 MG TABLET 5 MG PO (20:27)
[2020-07-31] MEDS: QUEtiapine Fumarate 25 MG TABLET PO (01:32)
[2020-07-31 06:00] VITALS: BP 120/61; PULSE 86; RESP 18; TEMP 37; O2SAT 94
[2020-07-31] MEDS: Atorvastatin Calcium 20 MG TABLET PO (08:29)
[2020-07-31] MEDS: DULoxetine HCl 20 MG CAPSULE.DR 40 MG PO (08:29)
[2020-07-31] MEDS: Cholecalciferol (Vitamin D3) 25 MCG TABLET PO (08:29)
--- NOTE | 2020-07-31 16:19 | HO.PSYCHPN ---
Subjective Subjective Date of Service: 07/31/20 Reason For Visit: Depression with suicidal Ideation Subjective Notes: Conditional Voluntary Interim History: Reports nausea/GI distress with Abilify last night. Will discontinue. Today anxiety is not too bad , depression is not good . Groin pain LLQ persists 08/18-await hospitalist review of sx. Pt is concerned that his renal CA has progressed. Reports BM x 2 on 07/30. Talking about going home and not having the support needed for care with medical follow up testing and procedures. Discussed with pt asking his medical team if he is eligible for short term subacute stay after cervical surgery and after renal testing if needed. Discussed role of subacute rehab and how it may help to keep him on track for a few days after procedures. Talked about being alone today. Medication Compliance: Yes Side effects from medications: Yes (Abilify with nausea and GI distress) Attending Groups: Yes Review of Systems Gastrointestinal: Reports abdominal pain Psychiatric: Reports abnormal sleep pattern (poor sleep last night), Reports anxiety, Reports depression, Reports difficulty concentrating, Reports hopelessness, Reports anhedonia, Reports panic attacks and Reports suicidal ideation Mental Status Exam Mental Status Exam Patient Appearance: Appropriate Patient Orientation: Person, Place, Time and Situation Level of Consciousness: Alert Patient Behavior: Talkative, Cooperative, Anxious, Fearful, Fatigued, Distractible and Good Eye Contact Mood Description: Withdrawn and Depressed Affect Description: Flat Patient Cognition Impaired: No Ability to Follow Directions: Good Speech Pattern: Spontaneous Speech Memory Description: Intact Hallucinations: None Delusions: Not Present Thought Process: Intact and Rumination Thought Content: positive for Circum[place] and positive for Suicidal Ideation Depressive Symptoms: Increased Anxiety, Diff. Making Decisions, Increased Irritability, Difficulty Sleeping, Loss of Int. in Activity, Feelings of Worthlessness, Hopelessness, Isolating-Friends/Family, Feelings of Guilt, Unhappiness, Increased Fatigue, Thoughts of /Suicide, Low Self Esteem, Loss of Energy and Difficulty Concentrating Judgement: Fair Diagnostics Vital Signs (24Hr): Vital Signs - 24 hr 07/30/20 18:10 07/31/20 06:00 Temperature 98.9 F 98.6 F Pulse Rate 79 86 Respiratory Rate 17 18 Blood Pressure 130/64 120/61 Pulse Oximetry 96 94 Body Mass Index 24.5 Labs Results: 07/20/20 08:18 07/21/20 07:57 Labs: Laboratory Results - last 48 hr 07/29/20 19:32 Urine Color YELLOW Urine Appearance CLEAR Urine pH 6.5 Ur Specific [place] 1.025 Urine Protein NEG Urine Glucose (UA) NEG Urine Ketones NEG Urine Blood NEG Urine Nitrite NEG Ur Leukocyte Esterase NEG Medications Medications Current Medications Generic Name Dose Route Start Last Admin Trade Name Freq PRN Reason Stop Dose Admin Acetaminophen 975 mg 07/20/20 12:14 07/30/20 16:54 Acetaminophen 325 Mg Tablet PO 975 mg Q6H PRN Administration Pain, Mild (Pain Scale 1-3) Al Hydroxide/Mg Hydroxide 30 ml 07/20/20 21:17 Magnesium Hydrox/Alum Hydrox 30 Ml Oral.Susp PO Q6H PRN Heartburn/Nausea Atorvastatin Calcium 20 mg 07/20/20 12:15 07/31/20 08:29 Atorvastatin Calcium 20 Mg Tablet PO 20 mg DAILY JERRY Administration Cyclobenzaprine HCl 5 mg 07/29/20 14:12 07/30/20 20:27 Cyclobenzaprine Hcl 10 Mg Tablet PO 5 mg BEDTIME PRN Administration muscle pain or spasm Docusate Sodium 100 mg 07/24/20 16:29 07/26/20 20:17 Docusate Sodium 100 Mg Capsule PO 100 mg BEDTIME PRN Administration Constipation Duloxetine HCl 40 mg 07/31/20 09:00 07/31/20 08:29 Duloxetine Hcl 20 Mg Capsule.Dr PO 40 mg DAILY JERRY Administration Hydroxyzine HCl 25 mg 07/20/20 21:17 07/20/20 23:16 Hydroxyzine Hcl 25 Mg Tablet PO 25 mg BEDTIME PRN Administration Anxiety Lorazepam 0.5 mg 07/23/20 21:00 07/30/20 20:09 Lorazepam 0.5 Mg Tablet PO 0.5 mg BEDTIME JERRY Administration Magnesium Hydroxide 30 ml 07/20/20 21:17 07/26/20 08:36 Milk Of Magnesia 30 Ml Oral.Susp PO 30 ml DAILY PRN Administration Constipation Psyllium Hydrophilic Mucilloid 3.4 gm 07/23/20 09:00 07/31/20 13:10 Psyllium Seed 3.4 Gm Powd.Pack PO 3.4 gm DAILY JERRY Administration Quetiapine Fumarate 100 mg 07/23/20 21:00 07/30/20 20:09 Quetiapine Fumarate 100 Mg Tablet PO 100 mg BEDTIME JERRY Administration Quetiapine Fumarate 25 mg 07/27/20 15:49 07/31/20 01:32 Quetiapine Fumarate 25 Mg Tablet PO 25 mg BID PRN Administration Anxiety Trazodone HCl 50 mg 07/20/20 21:17 07/20/20 23:16 Trazodone Hcl 50 Mg Tablet PO 50 mg BEDTIME PRN Administration Insomnia Vitamin D 25 mcg 07/25/20 09:00 07/31/20 08:29 Cholecalciferol (Vitamin D3) 25 Mcg Tablet PO 25 mcg DAILY JERRY Administration Allergies Allergies Allergy/AdvReac Type Severity Reaction Status Date / Time aripiprazole [From Abilify] AdvReac Intermediate nausea Verified 07/31/20 16:06 fluticasone AdvReac Intermediate PALPITATION Verified 07/04/20 13:42 S ibuprofen AdvReac Intermediate RING IN Verified 07/04/20 13:42 EARS Flonase Allergy Unknown heart Uncoded 07/04/20 13:42 palpation Motrin Allergy Unknown ringing in Uncoded 07/04/20 13:42 ear Assessment & Plan Assessment & Plan (1) Generalized anxiety disorder: Status: Acute Code(s): F41.1 - Generalized anxiety disorder (2) Recurrent major depression-severe: Status: Acute Code(s): F33.2 - Major depressive disorder, recurrent severe without psychotic features Assessment and Plan: Depressed, suicidal overwhelmed with LLQ pain 5/10 today and fear of recurrence of renal cancer. UACS is negative. Hospitalist consult requested. Also chronic neck pain-frustrated that MRI will not be done while in pt. Pt feels he needs the support. Isolative and withdrawn in milieu. Discussed exploring subacute care after cervical procedure. He will talk with his team at [facility]. Cymbalta 40 mg daily Discontinue Abilify 5 mg-SE of GI Distress and nausea with first dosing. Continue Seroquel Greater than 50% of the session was spent on counseling and/or coordination of care Reason for contiued inpatient stay Substantial Risk for: harm to self, inability to function, rapid decompensation and med/psych decompensation
[2020-07-31] MEDS: Acetaminophen 325 MG TABLET 975 MG PO (17:06)
[2020-07-31 18:57] VITALS: BP 125/65; PULSE 72; TEMP 36.6
[2020-07-31] MEDS: Cyclobenzaprine HCl 10 MG TABLET 5 MG PO (20:16)
[2020-07-31] MEDS: QUEtiapine Fumarate 100 MG TABLET PO (20:16)
[2020-07-31] MEDS: LORazepam 0.5 MG TABLET PO (20:17)
[2020-08-01 07:05] VITALS: BP 118/56; PULSE 79; RESP 18; TEMP 37.3; O2SAT 96
[2020-08-01] MEDS: Atorvastatin Calcium 20 MG TABLET PO (08:12)
[2020-08-01] MEDS: Cholecalciferol (Vitamin D3) 25 MCG TABLET PO (08:12)
[2020-08-01] MEDS: DULoxetine HCl 20 MG CAPSULE.DR 40 MG PO (08:13)
--- NOTE | 2020-08-01 13:34 | HO.PSYCHPN ---
Subjective Subjective Date of Service: 08/01/20 Reason For Visit: Depression with suicidal Ideation Subjective Notes: Conditional Voluntary Interim History: LLQ groin pain 09/18. Requested consult from nephrology due to pt hx of renal CA. Discussed difficulties being ill and being alone. Discussed subacute care after medical hospitalizations. Reports some relief of depressive and anxious sx today. Medication Compliance: Yes Side effects from medications: No Attending Groups: No (secondary to pain-cervical, LLQ) Review of Systems Gastrointestinal: Reports other (LLQ pain) Psychiatric: Reports anxiety, Reports depression, Reports difficulty concentrating and Reports suicidal ideation Mental Status Exam Mental Status Exam Patient Appearance: Appropriate Patient Orientation: Person, Place, Time and Situation Level of Consciousness: Alert Patient Behavior: Talkative Mood Description: Depressed and Anxious Affect Description: Depressed and Anxious Ability to Follow Directions: Good Speech Pattern: Spontaneous Speech Memory Description: Intact Hallucinations: None Delusions: Not Present Thought Process: Intact Thought Content: positive for Intact, positive for Circumstantial and positive for Suicidal Ideation Depressive Symptoms: Increased Anxiety, Diff. Making Decisions, Thoughts of /Suicide, Unexplained Stomach Pain, Low Self Esteem, Loss of Energy and Difficulty Concentrating Judgement: Fair Diagnostics Vital Signs (24Hr): Vital Signs - 24 hr 07/31/20 18:57 08/01/20 07:05 Temperature 97.9 F 99.1 F Pulse Rate 72 79 Respiratory Rate 18 Blood Pressure 125/65 118/56 L Pulse Oximetry 96 Body Mass Index 24.5 Labs Results: 07/20/20 08:18 07/21/20 07:57 Medications Medications Current Medications Generic Name Dose Route Start Last Admin Trade Name Freq PRN Reason Stop Dose Admin Acetaminophen 975 mg 07/20/20 12:14 07/31/20 17:06 Acetaminophen 325 Mg Tablet PO 975 mg Q6H PRN Administration Pain, Mild (Pain Scale 1-3) Al Hydroxide/Mg Hydroxide 30 ml 07/20/20 21:17 Magnesium Hydrox/Alum Hydrox 30 Ml Oral.Susp PO Q6H PRN Heartburn/Nausea Atorvastatin Calcium 20 mg 07/20/20 12:15 08/01/20 08:12 Atorvastatin Calcium 20 Mg Tablet PO 20 mg DAILY JERRY Administration Cyclobenzaprine HCl 5 mg 07/29/20 14:12 07/31/20 20:16 Cyclobenzaprine Hcl 10 Mg Tablet PO 5 mg BEDTIME PRN Administration muscle pain or spasm Docusate Sodium 100 mg 07/24/20 16:29 07/26/20 20:17 Docusate Sodium 100 Mg Capsule PO 100 mg BEDTIME PRN Administration Constipation Duloxetine HCl 40 mg 07/31/20 09:00 08/01/20 08:13 Duloxetine Hcl 20 Mg Capsule.Dr PO 40 mg DAILY JERRY Administration Hydroxyzine HCl 25 mg 07/20/20 21:17 07/20/20 23:16 Hydroxyzine Hcl 25 Mg Tablet PO 25 mg BEDTIME PRN Administration Anxiety Lorazepam 0.5 mg 07/23/20 21:00 07/31/20 20:17 Lorazepam 0.5 Mg Tablet PO 0.5 mg BEDTIME JERRY Administration Magnesium Hydroxide 30 ml 07/20/20 21:17 07/26/20 08:36 Milk Of Magnesia 30 Ml Oral.Susp PO 30 ml DAILY PRN Administration Constipation Psyllium Hydrophilic Mucilloid 3.4 gm 07/23/20 09:00 08/01/20 09:13 Psyllium Seed 3.4 Gm Powd.Pack PO 3.4 gm DAILY JERRY Administration Quetiapine Fumarate 100 mg 07/23/20 21:00 07/31/20 20:16 Quetiapine Fumarate 100 Mg Tablet PO 100 mg BEDTIME JERRY Administration Quetiapine Fumarate 25 mg 07/27/20 15:49 07/31/20 01:32 Quetiapine Fumarate 25 Mg Tablet PO 25 mg BID PRN Administration Anxiety Trazodone HCl 50 mg 07/20/20 21:17 07/20/20 23:16 Trazodone Hcl 50 Mg Tablet PO 50 mg BEDTIME PRN Administration Insomnia Vitamin D 25 mcg 07/25/20 09:00 08/01/20 08:12 Cholecalciferol (Vitamin D3) 25 Mcg Tablet PO 25 mcg DAILY JERRY Administration Allergies Allergies Allergy/AdvReac Type Severity Reaction Status Date / Time aripiprazole [From [facility]] AdvReac Intermediate nausea Verified 07/31/20 16:06 fluticasone AdvReac Intermediate PALPITATION Verified 07/04/20 13:42 S ibuprofen AdvReac Intermediate RING IN Verified 07/04/20 13:42 EARS Flonase Allergy Unknown heart Uncoded 07/04/20 13:42 palpation Motrin Allergy Unknown ringing in Uncoded 07/04/20 13:42 ear Assessment & Plan Assessment & Plan (1) Generalized anxiety disorder: Status: Acute Code(s): F41.1 - Generalized anxiety disorder (2) Recurrent major depression-severe: Status: Acute Code(s): F33.2 - Major depressive disorder, recurrent severe without psychotic features Assessment and Plan: Depressed, suicidal overwhelmed with LLQ pain 6/10 today and fear of recurrence of renal cancer. UACS is negative. Hospitalist consult requested. Nephrology consult requested. Also chronic neck pain-frustrated that MRI will not be done while in pt. Pt feels he needs the support. Isolative and withdrawn in milieu. Discussed exploring subacute care after cervical procedure. He will talk with his team at [facility]. Cymbalta 40 mg daily Discontinue Abilify 5 mg-SE of GI Distress and nausea with first dosing. Continue Seroquel Greater than 50% of the session was spent on counseling and/or coordination of care Reason for contiued inpatient stay Substantial Risk for: harm to self, inability to function, rapid decompensation and med/psych decompensation
[2020-08-01 17:12] VITALS: BP 128/84; PULSE 77; TEMP 36.3
--- NOTE | 2020-08-01 17:51 | P.CNUR_ITS ---
History of Present Illness Consult details Consult date: 08/01/20 Narrative: Javy is a pleasant male. Currently admitted to [facility] Primary complaint Left groin pain Had noticed this after bowel movement On exam has mild tenderness on out of component of inguinal canal Reassurance provided Can manage with anti-inflammatories Has plan follow-up with Urology in August for check cystoscopy due to bladder cancer PMFSH Past Medical History Medical History (Updated 08/01/20 @ 17:53 by Corey Buckley MD) Bladder mass BPH (benign prostatic hyperplasia) Cervical pain (neck) Generalized anxiety disorder Other obstructive and reflux uropathy Recurrent major depression-severe Transitional cell carcinoma Surgical History Surgical History History of cystoscopy Social History Social History Household Members: None Housing: House Do you presently have visiting nurse or other home services: No Smoking Status: Never smoker Use of substances other than those prescribed or required for medical reasons: No Currently Displaying Signs/Symptoms of Drug Intoxication Withdrawal: No Have you been hit, kicked, punched, or otherwise hurt by someone within the past year? If so, by whom?: No Do you feel safe in your current relationship?: No Current Relationship Is there a partner from a previous relationship who is making you feel unsafe now?: No Are you made to feel afraid or neglected: No Advance Directives: No Advance Directives Information Provided: Yes Do you have thoughts of harming others: None Do you have a plan to hurt others: No Plan Recently lost weight without trying: Yes service: No Sexual orientation: Straight/Heterosexual Meds Allergies Allergy/AdvReac Type Severity Reaction Status Date / Time aripiprazole [From Abilify] AdvReac Intermediate nausea Verified 07/31/20 16:06 fluticasone AdvReac Intermediate PALPITATION Verified 07/04/20 13:42 S ibuprofen AdvReac Intermediate RING IN Verified 07/04/20 13:42 EARS Flonase Allergy Unknown heart Uncoded 07/04/20 13:42 palpation Motrin Allergy Unknown ringing in Uncoded 07/04/20 13:42 ear Active Medications: Current Medications Generic Name Dose Route Start Last Admin Trade Name Freq PRN Reason Stop Dose Admin Acetaminophen 975 mg 07/20/20 12:14 07/31/20 17:06 Acetaminophen 325 Mg Tablet PO 975 mg Q6H PRN Administration Pain, Mild (Pain Scale 1-3) Al Hydroxide/Mg Hydroxide 30 ml 07/20/20 21:17 Magnesium Hydrox/Alum Hydrox 30 Ml Oral.Susp PO Q6H PRN Heartburn/Nausea Atorvastatin Calcium 20 mg 07/20/20 12:15 08/01/20 08:12 Atorvastatin Calcium 20 Mg Tablet PO 20 mg DAILY JERRY Administration Cyclobenzaprine HCl 5 mg 07/29/20 14:12 07/31/20 20:16 Cyclobenzaprine Hcl 10 Mg Tablet PO 5 mg BEDTIME PRN Administration muscle pain or spasm Docusate Sodium 100 mg 07/24/20 16:29 07/26/20 20:17 Docusate Sodium 100 Mg Capsule PO 100 mg BEDTIME PRN Administration Constipation Duloxetine HCl 40 mg 07/31/20 09:00 08/01/20 08:13 Duloxetine Hcl 20 Mg Capsule.Dr PO 40 mg DAILY JERRY Administration Hydroxyzine HCl 25 mg 07/20/20 21:17 07/20/20 23:16 Hydroxyzine Hcl 25 Mg Tablet PO 25 mg BEDTIME PRN Administration Anxiety Lorazepam 0.5 mg 07/23/20 21:00 07/31/20 20:17 Lorazepam 0.5 Mg Tablet PO 0.5 mg BEDTIME JERRY Administration Magnesium Hydroxide 30 ml 07/20/20 21:17 07/26/20 08:36 Milk Of Magnesia 30 Ml Oral.Susp PO 30 ml DAILY PRN Administration Constipation Psyllium Hydrophilic Mucilloid 3.4 gm 07/23/20 09:00 08/01/20 09:13 Psyllium Seed 3.4 Gm Powd.Pack PO 3.4 gm DAILY JERRY Administration Quetiapine Fumarate 100 mg 07/23/20 21:00 07/31/20 20:16 Quetiapine Fumarate 100 Mg Tablet PO 100 mg BEDTIME JERRY Administration Quetiapine Fumarate 25 mg 07/27/20 15:49 07/31/20 01:32 Quetiapine Fumarate 25 Mg Tablet PO 25 mg BID PRN Administration Anxiety Trazodone HCl 50 mg 07/20/20 21:17 07/20/20 23:16 Trazodone Hcl 50 Mg Tablet PO 50 mg BEDTIME PRN Administration Insomnia Vitamin D 25 mcg 07/25/20 09:00 08/01/20 08:12 Cholecalciferol (Vitamin D3) 25 Mcg Tablet PO 25 mcg DAILY JERRY Administration Home Medications Medication Instructions Recorded Confirmed Last Taken Type simvastatin 20 mg tablet 40 mg PO DAILY 04/07/20 07/20/20 07/19/20 17:00 History acetaminophen 1,000 mg PO Q6-8H PRN 07/20/20 07/20/20 07/19/20 History cyclobenzaprine 10 mg PO BEDTIME PRN 07/20/20 07/20/20 07/19/20 History Physical Exam Vital Signs: Vital Signs: Last Vital Signs Temp 97.3 F 08/01/20 17:12 Pulse 77 08/01/20 17:12 Resp 18 08/01/20 07:05 BP 128/84 08/01/20 17:12 Pulse Ox 96 08/01/20 07:05 Body Mass Index 24.5 Const: General: cooperative, healthy appearing, comfortable and no acute distress Nutritional Appearance: average body habitus Orientation/consciousness: oriented to person, oriented to place and oriented to time Eyes: General: appearance normal, both eyes and all related structures Chest: Chest palpation & inspection: normal inspection of the chest Resp: Effort & Inspection: normal respiratory effort Cardio: Rate: regular rate GI: Inspection: Yes normal to inspection Skin: Hair: normal Neuro: General: oriented to person, oriented to place and oriented to time Extrem: General: Yes normal to inspection Results Labs Result diagrams: 07/20/20 08:18 07/21/20 07:57 Labs: Urine 07/29/20 Range/Units 19:32 Urine Color YELLOW Urine Appearance CLEAR Urine pH 6.5 (5.0-8.0) Ur Specific [place] 1.025 (1.005-1.025) Urine Protein NEG (NEG-TRACE) MG/DL Urine Glucose (UA) NEG (NEG) MG/DL All other labs normal. Assessment and Plan (1) Groin pain: Status: Acute Plan cystoscopy in 3 months for bladder cancer review
[2020-08-01] MEDS: QUEtiapine Fumarate 100 MG TABLET PO (20:25)
[2020-08-01] MEDS: Cyclobenzaprine HCl 10 MG TABLET 5 MG PO (20:25)
[2020-08-01] MEDS: LORazepam 0.5 MG TABLET PO (20:25)
--- NOTE | 2020-08-02 | ECG_ITS ---
Test Reason : ST abnormality Blood Pressure : / mmHG Vent. Rate : 088 BPM Atrial Rate : 088 BPM P-R Int : 162 ms QRS Dur : 090 ms QT Int : 336 ms P-R-T Axes : 064 074 049 degrees QTc Int : 406 ms Normal sinus rhythm Possible Left atrial enlargement Borderline ECG When compared to the previous EKG of No significant changes seen Referred By: Sharon Grady Electronically Signed By:LATHA PERSAUD MD
[2020-08-02 06:40] VITALS: BP 113/67; PULSE 80
[2020-08-02] MEDS: Cholecalciferol (Vitamin D3) 25 MCG TABLET PO (08:49)
[2020-08-02] MEDS: Atorvastatin Calcium 20 MG TABLET PO (08:49)
[2020-08-02] MEDS: DULoxetine HCl 20 MG CAPSULE.DR 40 MG PO (08:49)
--- NOTE | 2020-08-02 11:14 | PM.IMCN ---
History of Present Illness Data of Consult Service Date: 08/02/20 Requesting physician: Remington Martinez Primary Care Provider: Randal Stringer MD [facility] Reason for consult: ECT clearance 69-year-old male with past medical history of depression anxiety, HLD who is currently being managed for depression in [facility]. We are asked to see patient for ECT clearance. Patient denies any chest pain, no shortness of breath, no history of coronary artery disease or heart attacks in the past, denies any history of seizures, denies any abdominal pain nausea or vomiting, no diarrhea or constipation, no urinary symptoms and no lower extremity edema. Patient reports that he has underwent ECT past with no complications. Patient's vitals at this time within normal range with no abnormal findings Past medical history as below and confirmed with patient Review of Systems Review of Systems: Yes all other systems are reviewed and are negative [facility] Medical History Bladder mass BPH (benign prostatic hyperplasia) Cervical pain (neck) Generalized anxiety disorder Other obstructive and reflux uropathy Recurrent major depression-severe Transitional cell carcinoma Surgical History History of cystoscopy Social History Household Members: None Housing: House Do you presently have visiting nurse or other home services: No Smoking Status: Never smoker Use of substances other than those prescribed or required for medical reasons: No Currently Displaying Signs/Symptoms of Drug Intoxication Withdrawal: No Have you been hit, kicked, punched, or otherwise hurt by someone within the past year? If so, by whom?: No Do you feel safe in your current relationship?: No Current Relationship Is there a partner from a previous relationship who is making you feel unsafe now?: No Are you made to feel afraid or neglected: No Advance Directives: No Advance Directives Information Provided: Yes Do you have thoughts of harming others: None Do you have a plan to hurt others: No Plan Recently lost weight without trying: Yes service: No Sexual orientation: Straight/Heterosexual Meds Allergies Allergy/AdvReac Type Severity Reaction Status Date / Time aripiprazole [From Abilify] AdvReac Intermediate nausea Verified 07/31/20 16:06 fluticasone AdvReac Intermediate PALPITATION Verified 07/04/20 13:42 S ibuprofen AdvReac Intermediate RING IN Verified 07/04/20 13:42 EARS Flonase Allergy Unknown heart Uncoded 07/04/20 13:42 palpation Motrin Allergy Unknown ringing in Uncoded 07/04/20 13:42 ear Active Medications: Current Medications Generic Name Dose Route Start Last Admin Trade Name Freq PRN Reason Stop Dose Admin Acetaminophen 975 mg 07/20/20 12:14 07/31/20 17:06 Acetaminophen 325 Mg Tablet PO 975 mg Q6H PRN Administration Pain, Mild (Pain Scale 1-3) Al Hydroxide/Mg Hydroxide 30 ml 07/20/20 21:17 Magnesium Hydrox/Alum Hydrox 30 Ml Oral.Susp PO Q6H PRN Heartburn/Nausea Atorvastatin Calcium 20 mg 07/20/20 12:15 08/02/20 08:49 Atorvastatin Calcium 20 Mg Tablet PO 20 mg DAILY JERRY Administration Cyclobenzaprine HCl 5 mg 07/29/20 14:12 08/01/20 20:25 Cyclobenzaprine Hcl 10 Mg Tablet PO 5 mg BEDTIME PRN Administration muscle pain or spasm Docusate Sodium 100 mg 07/24/20 16:29 07/26/20 20:17 Docusate Sodium 100 Mg Capsule PO 100 mg BEDTIME PRN Administration Constipation Duloxetine HCl 40 mg 07/31/20 09:00 08/02/20 08:49 Duloxetine Hcl 20 Mg Capsule.Dr PO 40 mg DAILY JERRY Administration Hydroxyzine HCl 25 mg 07/20/20 21:17 07/20/20 23:16 Hydroxyzine Hcl 25 Mg Tablet PO 25 mg BEDTIME PRN Administration Anxiety Lorazepam 0.5 mg 07/23/20 21:00 08/01/20 20:25 Lorazepam 0.5 Mg Tablet PO 0.5 mg BEDTIME JERRY Administration Magnesium Hydroxide 30 ml 07/20/20 21:17 07/26/20 08:36 Milk Of Magnesia 30 Ml Oral.Susp PO 30 ml DAILY PRN Administration Constipation Psyllium Hydrophilic Mucilloid 3.4 gm 07/23/20 09:00 08/02/20 08:49 Psyllium Seed 3.4 Gm Powd.Pack PO 3.4 gm DAILY JERRY Administration Quetiapine Fumarate 100 mg 07/23/20 21:00 08/01/20 20:25 Quetiapine Fumarate 100 Mg Tablet PO 100 mg BEDTIME JERRY Administration Quetiapine Fumarate 25 mg 07/27/20 15:49 07/31/20 01:32 Quetiapine Fumarate 25 Mg Tablet PO 25 mg BID PRN Administration Anxiety Trazodone HCl 50 mg 07/20/20 21:17 07/20/20 23:16 Trazodone Hcl 50 Mg Tablet PO 50 mg BEDTIME PRN Administration Insomnia Vitamin D 25 mcg 07/25/20 09:00 08/02/20 08:49 Cholecalciferol (Vitamin D3) 25 Mcg Tablet PO 25 mcg DAILY JERRY Administration Home Medications Medication Instructions Recorded Confirmed Last Taken Type simvastatin 20 mg tablet 40 mg PO DAILY 04/07/20 07/20/20 07/19/20 17:00 History acetaminophen 1,000 mg PO Q6-8H PRN 07/20/20 07/20/20 07/19/20 History cyclobenzaprine 10 mg PO BEDTIME PRN 07/20/20 07/20/20 07/19/20 History Physical Exam Vital Signs and Narrative: Vital Signs: Last Vital Signs Temp 97.3 F 08/01/20 17:12 Pulse 80 08/02/20 06:40 Resp 18 08/01/20 07:05 BP 113/67 08/02/20 06:40 Pulse Ox 96 08/01/20 07:05 Body Mass Index 24.5 Const: General: cooperative and no acute distress Orientation/consciousness: patient oriented x3 Eyes: General: appearance normal, both eyes and all related structures Resp: Effort & Inspection: normal respiratory effort and able to speak in complete sentences Cardio: Rate: regular rate Rhythm: regular rhythm GI: Palpation (GI): Soft to palpation Auscultation: normal bowel sounds Skin: General skin exam: no rashes or lesions noted Neuro: General: patient oriented x3 Cognition (Neuro): normal cognition Extrem: General: Yes normal to inspection and Yes no pedal edema Results Labs CBC and Chem 7: 07/20/20 08:18 07/21/20 07:57 Assessment and Plan (1) Medical clearance for psychiatric admission: Status: Acute (2) Major depress dis, severe: Status: Acute 69-year-old male with past medical history of generalized anxiety disorder, recurrent major depressive disorder, BPH, transition cell carcinoma who is in the [facility] currently for management of depression. We are consulted for ECT clearance #Medical clearance for ECT - Pt has had ECT in the past with no compilcations - His EKG from 07/[address] elevation in V2 with no other significant abnormality - Pt denies chest pain - At this time will rpt EKG, get Troponin level - Will follow up with you pending above results thank you for this consult
--- NOTE | 2020-08-02 12:46 | HO.PSYCHPN ---
Subjective Subjective Date of Service: 08/02/20 Reason For Visit: Depression with suicidal Ideation Subjective Notes: Conditional Voluntary Interim History: Javy was pleasant and engaged. He was proud about how many times he is walking the halls. He is keeping track of the miles so that he can exercise enough. He had no immediate concerns. Medication Compliance: Yes Side effects from medications: No Attending Groups: Yes Review of Systems Acute medical concerns: No Medical Review of Systems: unchanged Mental Status Exam Mental Status Exam Patient Appearance: Appropriate Patient Orientation: Person, Place, Time and Situation Level of Consciousness: Alert Patient Behavior: Talkative Mood Description: Depressed and Anxious Affect Description: Depressed and Anxious Ability to Follow Directions: Good Speech Pattern: Spontaneous Speech Memory Description: Intact Hallucinations: None Delusions: Not Present Thought Process: Intact Thought Content: positive for Intact, positive for Circumstantial, negative for Suicidal Ideation and negative for Homicidal Ideation Depressive Symptoms: Increased Anxiety, Diff. Making Decisions, Thoughts of /Suicide, Unexplained Stomach Pain, Low Self Esteem, Loss of Energy and Difficulty Concentrating Judgement: Fair Diagnostics Vital Signs (24Hr): Vital Signs - 24 hr 08/01/20 17:12 08/02/20 06:40 Temperature 97.3 F Pulse Rate 77 80 Blood Pressure 128/84 113/67 Body Mass Index 24.5 Labs Results: 07/20/20 08:18 07/21/20 07:57 Medications Medications Current Medications Generic Name Dose Route Start Last Admin Trade Name Freq PRN Reason Stop Dose Admin Acetaminophen 975 mg 07/20/20 12:14 07/31/20 17:06 Acetaminophen 325 Mg Tablet PO 975 mg Q6H PRN Administration Pain, Mild (Pain Scale 1-3) Al Hydroxide/Mg Hydroxide 30 ml 07/20/20 21:17 Magnesium Hydrox/Alum Hydrox 30 Ml Oral.Susp PO Q6H PRN Heartburn/Nausea Atorvastatin Calcium 20 mg 07/20/20 12:15 08/02/20 08:49 Atorvastatin Calcium 20 Mg Tablet PO 20 mg DAILY JERRY Administration Cyclobenzaprine HCl 5 mg 07/29/20 14:12 08/01/20 20:25 Cyclobenzaprine Hcl 10 Mg Tablet PO 5 mg BEDTIME PRN Administration muscle pain or spasm Docusate Sodium 100 mg 07/24/20 16:29 07/26/20 20:17 Docusate Sodium 100 Mg Capsule PO 100 mg BEDTIME PRN Administration Constipation Duloxetine HCl 40 mg 07/31/20 09:00 08/02/20 08:49 Duloxetine Hcl 20 Mg Capsule.Dr PO 40 mg DAILY JERRY Administration Hydroxyzine HCl 25 mg 07/20/20 21:17 07/20/20 23:16 Hydroxyzine Hcl 25 Mg Tablet PO 25 mg BEDTIME PRN Administration Anxiety Lorazepam 0.5 mg 07/23/20 21:00 08/01/20 20:25 Lorazepam 0.5 Mg Tablet PO 0.5 mg BEDTIME JERRY Administration Magnesium Hydroxide 30 ml 07/20/20 21:17 07/26/20 08:36 Milk Of Magnesia 30 Ml Oral.Susp PO 30 ml DAILY PRN Administration Constipation Psyllium Hydrophilic Mucilloid 3.4 gm 07/23/20 09:00 08/02/20 08:49 Psyllium Seed 3.4 Gm Powd.Pack PO 3.4 gm DAILY JERRY Administration Quetiapine Fumarate 100 mg 07/23/20 21:00 08/01/20 20:25 Quetiapine Fumarate 100 Mg Tablet PO 100 mg BEDTIME JERRY Administration Quetiapine Fumarate 25 mg 07/27/20 15:49 07/31/20 01:32 Quetiapine Fumarate 25 Mg Tablet PO 25 mg BID PRN Administration Anxiety Trazodone HCl 50 mg 07/20/20 21:17 07/20/20 23:16 Trazodone Hcl 50 Mg Tablet PO 50 mg BEDTIME PRN Administration Insomnia Vitamin D 25 mcg 07/25/20 09:00 08/02/20 08:49 Cholecalciferol (Vitamin D3) 25 Mcg Tablet PO 25 mcg DAILY JERRY Administration Allergies Allergies Allergy/AdvReac Type Severity Reaction Status Date / Time aripiprazole [From [facility]] AdvReac Intermediate nausea Verified 07/31/20 16:06 fluticasone AdvReac Intermediate PALPITATION Verified 07/04/20 13:42 S ibuprofen AdvReac Intermediate RING IN Verified 07/04/20 13:42 EARS Flonase Allergy Unknown heart Uncoded 07/04/20 13:42 palpation Motrin Allergy Unknown ringing in Uncoded 07/04/20 13:42 ear Assessment & Plan Assessment & Plan (1) Medical clearance for psychiatric admission: Status: Acute Code(s): Z00.8 - Encounter for other general examination (2) Major depress dis, severe: Status: Acute Code(s): F32.2 - Major depressive disorder, single episode, severe without psychotic features Assessment and Plan: 69-year-old male with past medical history of generalized anxiety disorder, recurrent major depressive disorder, BPH, transition cell carcinoma who [facility]. We are consulted for ECT clearance #Medical clearance for ECT - Pt has had ECT in the past with no compilcations - His EKG from 07/[address] elevation in V2 with no other significant abnormality - Pt denies chest pain - At this time will rpt EKG, get Troponin level - Will follow up with you pending above results No change to the above treatment plan Greater than 50% of the session was spent on counseling and/or coordination of care Patient educated on: diagnosis and medication risk/benefits Informed Consent: further education needed Reason for contiued inpatient stay Substantial Risk for: inability to function and rapid decompensation
[2020-08-02] MEDS: Acetaminophen 325 MG TABLET 975 MG PO (16:16)
[2020-08-02 17:20] VITALS: BP 119/67; PULSE 80; RESP 16; TEMP 37.1; O2SAT 96
[2020-08-02] MEDS: Cyclobenzaprine HCl 10 MG TABLET 5 MG PO (20:19)
[2020-08-02] MEDS: QUEtiapine Fumarate 100 MG TABLET PO (20:19)
[2020-08-02] MEDS: LORazepam 0.5 MG TABLET PO (20:19)
[2020-08-03 06:00] VITALS: BP 110/61; PULSE 77; RESP 16; TEMP 36.9; O2SAT 96
[2020-08-03] MEDS: DULoxetine HCl 20 MG CAPSULE.DR 40 MG PO (08:38)
[2020-08-03] MEDS: Cholecalciferol (Vitamin D3) 25 MCG TABLET PO (08:38)
[2020-08-03] MEDS: Atorvastatin Calcium 20 MG TABLET PO (08:42)
--- NOTE | 2020-08-03 16:40 | HO.PSYCHPN ---
Subjective Subjective Date of Service: 08/03/20 Reason For Visit: Depression with suicidal Ideation Subjective Notes: Conditional Voluntary Interim History: Javy reports that he continues to feel well. He is rather preoccupied with the fact that he had an EKG that was ordered in error. However he settled down and was able to let this go. Medication Compliance: Yes Side effects from medications: No Attending Groups: No Review of Systems Acute medical concerns: No Medical Review of Systems: unchanged Mental Status Exam Mental Status Exam Patient Appearance: Appropriate Patient Orientation: Person, Place, Time and Situation Level of Consciousness: Alert Patient Behavior: Talkative Mood Description: Depressed and Anxious Affect Description: Depressed and Anxious Ability to Follow Directions: Good Speech Pattern: Spontaneous Speech Memory Description: Intact Hallucinations: None Delusions: Not Present Thought Process: Intact Thought Content: positive for Intact, positive for Circumstantial, negative for Suicidal Ideation and negative for Homicidal Ideation Depressive Symptoms: Increased Anxiety, Diff. Making Decisions, Thoughts of /Suicide, Unexplained Stomach Pain, Low Self Esteem, Loss of Energy and Difficulty Concentrating Judgement: Fair Diagnostics Vital Signs (24Hr): Vital Signs - 24 hr 08/02/20 17:20 08/03/20 06:00 Temperature 98.7 F 98.5 F Pulse Rate 80 77 Respiratory Rate 16 16 Blood Pressure 119/67 110/61 Pulse Oximetry 96 96 Body Mass Index 24.5 Labs Results: 07/20/20 08:18 07/21/20 07:57 Medications Medications Current Medications Generic Name Dose Route Start Last Admin Trade Name Freq PRN Reason Stop Dose Admin Acetaminophen 975 mg 07/20/20 12:14 08/02/20 16:16 Acetaminophen 325 Mg Tablet PO 975 mg Q6H PRN Administration Pain, Mild (Pain Scale 1-3) Al Hydroxide/Mg Hydroxide 30 ml 07/20/20 21:17 Magnesium Hydrox/Alum Hydrox 30 Ml Oral.Susp PO Q6H PRN Heartburn/Nausea Atorvastatin Calcium 20 mg 07/20/20 12:15 08/03/20 08:42 Atorvastatin Calcium 20 Mg Tablet PO 20 mg DAILY JERRY Administration Cyclobenzaprine HCl 5 mg 07/29/20 14:12 08/02/20 20:19 Cyclobenzaprine Hcl 10 Mg Tablet PO 5 mg BEDTIME PRN Administration muscle pain or spasm Docusate Sodium 100 mg 07/24/20 16:29 07/26/20 20:17 Docusate Sodium 100 Mg Capsule PO 100 mg BEDTIME PRN Administration Constipation Duloxetine HCl 40 mg 07/31/20 09:00 08/03/20 08:38 Duloxetine Hcl 20 Mg Capsule.Dr PO 40 mg DAILY JERRY Administration Hydroxyzine HCl 25 mg 07/20/20 21:17 07/20/20 23:16 Hydroxyzine Hcl 25 Mg Tablet PO 25 mg BEDTIME PRN Administration Anxiety Lorazepam 0.5 mg 07/23/20 21:00 08/02/20 20:19 Lorazepam 0.5 Mg Tablet PO 0.5 mg BEDTIME JERRY Administration Magnesium Hydroxide 30 ml 07/20/20 21:17 07/26/20 08:36 Milk Of Magnesia 30 Ml Oral.Susp PO 30 ml DAILY PRN Administration Constipation Psyllium Hydrophilic Mucilloid 3.4 gm 07/23/20 09:00 08/03/20 08:42 Psyllium Seed 3.4 Gm Powd.Pack PO 3.4 gm DAILY JERRY Administration Quetiapine Fumarate 100 mg 07/23/20 21:00 08/02/20 20:19 Quetiapine Fumarate 100 Mg Tablet PO 100 mg BEDTIME JERRY Administration Quetiapine Fumarate 25 mg 07/27/20 15:49 07/31/20 01:32 Quetiapine Fumarate 25 Mg Tablet PO 25 mg BID PRN Administration Anxiety Trazodone HCl 50 mg 07/20/20 21:17 07/20/20 23:16 Trazodone Hcl 50 Mg Tablet PO 50 mg BEDTIME PRN Administration Insomnia Vitamin D 25 mcg 07/25/20 09:00 08/03/20 08:38 Cholecalciferol (Vitamin D3) 25 Mcg Tablet PO 25 mcg DAILY JERRY Administration Allergies Allergies Allergy/AdvReac Type Severity Reaction Status Date / Time aripiprazole [From [facility]] AdvReac Intermediate nausea Verified 07/31/20 16:06 fluticasone AdvReac Intermediate PALPITATION Verified 07/04/20 13:42 S ibuprofen AdvReac Intermediate RING IN Verified 07/04/20 13:42 EARS Flonase Allergy Unknown heart Uncoded 07/04/20 13:42 palpation Motrin Allergy Unknown ringing in Uncoded 07/04/20 13:42 ear Assessment & Plan Assessment & Plan (1) Medical clearance for psychiatric admission: Status: Deleted Code(s): Z00.8 - Encounter for other general examination (2) Major depress dis, severe: Status: Acute Code(s): F32.2 - Major depressive disorder, single episode, severe without psychotic features Assessment and Plan: No change to current treatment plan Greater than 50% of the session was spent on counseling and/or coordination of care Patient educated on: diagnosis and medication risk/benefits Informed Consent: further education needed Reason for contiued inpatient stay Substantial Risk for: inability to function and rapid decompensation
[2020-08-03 17:30] VITALS: BP 131/61; PULSE 80; RESP 16; TEMP 36.8; O2SAT 96
[2020-08-03] MEDS: Cyclobenzaprine HCl 10 MG TABLET 5 MG PO (20:28)
[2020-08-03] MEDS: LORazepam 0.5 MG TABLET PO (20:28)
[2020-08-03] MEDS: QUEtiapine Fumarate 100 MG TABLET PO (20:28)
[2020-08-04 06:05] VITALS: BP 113/63; PULSE 73; RESP 18; TEMP 36.8; O2SAT 96
[2020-08-04] MEDS: DULoxetine HCl 20 MG CAPSULE.DR 40 MG PO (08:41)
[2020-08-04] MEDS: Cholecalciferol (Vitamin D3) 25 MCG TABLET PO (08:42)
[2020-08-04] MEDS: Atorvastatin Calcium 20 MG TABLET PO (08:42)
[2020-08-04] MEDS: polyethylene glycoL 3350 17 GM POWD.PACK PO (13:24)
--- NOTE | 2020-08-04 14:21 | HO.PSYCHPN ---
Subjective Subjective Date of Service: 08/04/20 Reason For Visit: Depression with suicidal Ideation Subjective Notes: Conditional Voluntary Interim History: Pt reports he would like to leave Duloxetine at 30 mg due to increase in constipation at 40 mg. Reports mood is good with up and down moments. Pain increases toward the end of the day and he does retire to his bed. He makes association with pain=increase in depression=wear and tear on his body, mind and spirit. Finds that if he does not ambulate he needs less prn Tylenol as well. Tentative discharge plan for this week. Much worry anxiety and apprehension about going home in pain and how he will manage Medication Compliance: Yes Side effects from medications: No Attending Groups: No Review of Systems Reports neck pain Comments: LLQ pain-pt's renal specialist has told him it is not metastasis of renal carcinoma. Musculoskeletal: Reports neck pain Psychiatric: Reports anxiety, Reports depression, Reports difficulty concentrating, Reports hopelessness, Reports irritability, Reports panic attacks and Reports suicidal ideation Mental Status Exam Mental Status Exam Patient Appearance: Appropriate Patient Orientation: Person, Place, Time and Situation Level of Consciousness: Awake and Alert Patient Behavior: Appropriate, Cooperative and Good Eye Contact Mood Description: Depressed and Anxious Affect Description: Flat Patient Cognition Impaired: No Ability to Follow Directions: Good Speech Pattern: Spontaneous Speech Memory Description: Intact Hallucinations: None Delusions: Not Present Thought Process: Goal Oriented Thought Content: positive for Circumstantial, positive for Goal Oriented and positive for Perseveration Depressive Symptoms: Increased Anxiety, Diff. Making Decisions, Increased Irritability, Loss of Int. in Activity, Feelings of Worthlessness, Hopelessness, Isolating-Friends/Family, Feelings of Guilt, Unhappiness, Increased Fatigue, Thoughts of /Suicide, Low Self Esteem, Loss of Energy and Difficulty Concentrating Judgement: Good Diagnostics Vital Signs (24Hr): Vital Signs - 24 hr 08/03/20 17:30 08/04/20 06:05 Temperature 98.2 F 98.3 F Pulse Rate 80 73 Respiratory Rate 16 18 Blood Pressure 131/61 113/63 Pulse Oximetry 96 96 Body Mass Index 24.5 Labs Results: 07/20/20 08:18 07/21/20 07:57 Medications Medications Current Medications Generic Name Dose Route Start Last Admin Trade Name Freq PRN Reason Stop Dose Admin Acetaminophen 975 mg 07/20/20 12:14 08/02/20 16:16 Acetaminophen 325 Mg Tablet PO 975 mg Q6H PRN Administration Pain, Mild (Pain Scale 1-3) Al Hydroxide/Mg Hydroxide 30 ml 07/20/20 21:17 Magnesium Hydrox/Alum Hydrox 30 Ml Oral.Susp PO Q6H PRN Heartburn/Nausea Atorvastatin Calcium 20 mg 07/20/20 12:15 08/04/20 08:42 Atorvastatin Calcium 20 Mg Tablet PO 20 mg DAILY JERRY Administration Cyclobenzaprine HCl 5 mg 07/29/20 14:12 08/03/20 20:28 Cyclobenzaprine Hcl 10 Mg Tablet PO 5 mg BEDTIME PRN Administration muscle pain or spasm Docusate Sodium 100 mg 07/24/20 16:29 07/26/20 20:17 Docusate Sodium 100 Mg Capsule PO 100 mg BEDTIME PRN Administration Constipation Duloxetine HCl 30 mg 08/05/20 09:00 Duloxetine Hcl 30 Mg Capsule.Dr PO DAILY JERRY Hydroxyzine HCl 25 mg 07/20/20 21:17 07/20/20 23:16 Hydroxyzine Hcl 25 Mg Tablet PO 25 mg BEDTIME PRN Administration Anxiety Lorazepam 0.5 mg 07/23/20 21:00 08/03/20 20:28 Lorazepam 0.5 Mg Tablet PO 0.5 mg BEDTIME JERRY Administration Magnesium Hydroxide 30 ml 07/20/20 21:17 07/26/20 08:36 Milk Of Magnesia 30 Ml Oral.Susp PO 30 ml DAILY PRN Administration Constipation Polyethylene Glycol 17 gm 08/04/20 10:30 08/04/20 13:24 Polyethylene Glycol 3350 17 Gm Powd.Pack PO 17 gm DAILY JERRY Administration Psyllium Hydrophilic Mucilloid 3.4 gm 07/23/20 09:00 08/04/20 08:42 Psyllium Seed 3.4 Gm Powd.Pack PO 3.4 gm DAILY JERRY Administration Quetiapine Fumarate 100 mg 07/23/20 21:00 08/03/20 20:28 Quetiapine Fumarate 100 Mg Tablet PO 100 mg BEDTIME JERRY Administration Quetiapine Fumarate 25 mg 07/27/20 15:49 07/31/20 01:32 Quetiapine Fumarate 25 Mg Tablet PO 25 mg BID PRN Administration Anxiety Trazodone HCl 50 mg 07/20/20 21:17 07/20/20 23:16 Trazodone Hcl 50 Mg Tablet PO 50 mg BEDTIME PRN Administration Insomnia Vitamin D 25 mcg 07/25/20 09:00 08/04/20 08:42 Cholecalciferol (Vitamin D3) 25 Mcg Tablet PO 25 mcg DAILY JERRY Administration Allergies Allergies Allergy/AdvReac Type Severity Reaction Status Date / Time aripiprazole [From Abil[facility]] AdvReac Intermediate nausea Verified 07/31/20 16:06 fluticasone AdvReac Intermediate PALPITATION Verified 07/04/20 13:42 S ibuprofen AdvReac Intermediate RING IN Verified 07/04/20 13:42 EARS Flonase Allergy Unknown heart Uncoded 07/04/20 13:42 palpation Motrin Allergy Unknown ringing in Uncoded 07/04/20 13:42 ear Assessment & Plan Assessment & Plan (1) Medical clearance for psychiatric admission: Status: Deleted Code(s): Z00.8 - Encounter for other general examination (2) Major depress dis, severe: Status: Acute Code(s): F32.2 - Major depressive disorder, single episode, severe without psychotic features Assessment and Plan: -Decrease Cymbalta to 30 mg daily -Miralax daily Greater than 50% of the session was spent on counseling and/or coordination of care Reason for contiued inpatient stay Substantial Risk for: harm to self, inability to function and med/psych decompensation
[2020-08-04 17:55] VITALS: BP 130/68; PULSE 76; RESP 16; TEMP 36.7; O2SAT 96
[2020-08-04] MEDS: LORazepam 0.5 MG TABLET PO (20:24)
[2020-08-04] MEDS: QUEtiapine Fumarate 100 MG TABLET PO (20:24)
[2020-08-04] MEDS: Cyclobenzaprine HCl 10 MG TABLET 5 MG PO (20:26)
[2020-08-05 06:05] VITALS: BP 104/59; PULSE 70; RESP 16; TEMP 36.4; O2SAT 96
[2020-08-05] MEDS: Atorvastatin Calcium 20 MG TABLET PO (08:46)
[2020-08-05] MEDS: Cholecalciferol (Vitamin D3) 25 MCG TABLET PO (08:46)
[2020-08-05] MEDS: DULoxetine HCl 30 MG CAPSULE.DR PO (08:46)
[2020-08-05] MEDS: polyethylene glycoL 3350 17 GM POWD.PACK PO (12:15)
--- NOTE | 2020-08-05 13:45 | HO.PSYCHPN ---
Subjective Subjective Date of Service: 08/05/20 Reason For Visit: Depression with suicidal Ideation Subjective Notes: Conditional Voluntary Interim History: Discussed discharge. Pt feeling ready to make plans to return home. LLQ pain 2 Neck pain 4-5 during the day 8-9 at night; Depressive sx 1; anxiety 0. Pt reports he did not take tylenol yesterday and chose rest instead which was helpful. Not attending groups-due to pain which precipitates mood sx. Reports sleep, appetite are intact. Discharge date set for 08/08. MRI scheduled for 08/08 1:45pm. Discussed augmentation with lamictal or gabapentin to address pain and mood related sx. Pt to consider. Discussed rehab post surgery and how they may be able to help him. Discussed [facility] fears of taking medications and worries about parents aging and anticipatory loss issues. Medication Compliance: Yes Side effects from medications: Yes (constipation which is managed) Attending Groups: No Review of Systems Reports neck pain Gastrointestinal: Reports constipation (currently managing sx.) Musculoskeletal: Reports neck pain Comments: decreased during the day, increased at night, rest is helpful. Psychiatric: Reports anxiety, Reports depression, Reports anhedonia and Reports suicidal ideation (resolving) Mental Status Exam Mental Status Exam Patient Appearance: Appropriate Patient Orientation: Person, Place, Time and Situation Level of Consciousness: Alert Patient Behavior: Appropriate, Talkative, Cooperative, Anxious, Fearful and Good Eye Contact Mood Description: Withdrawn, Depressed, Anxious, Nervous and Apprehensive Affect Description: Flat Patient Cognition Impaired: No Ability to Follow Directions: Good Speech Pattern: Clear, Appropriate, Spontaneous Speech and Soft-Spoken Memory Description: Intact Hallucinations: None Delusions: Not Present Thought Process: Rumination Thought Content: positive for Intact, positive for [place] and positive for Circumstantial Depressive Symptoms: Increased Anxiety, Diff. Making Decisions and Muscle Pain Judgement: Good Diagnostics Vital Signs (24Hr): Vital Signs - 24 hr 08/04/20 17:55 08/05/20 06:05 Temperature 98.0 F 97.5 F Pulse Rate 76 70 Respiratory Rate 16 16 Blood Pressure 130/68 104/59 L Pulse Oximetry 96 96 Body Mass Index 24.5 Labs Results: 07/20/20 08:18 07/21/20 07:57 Medications Medications Current Medications Generic Name Dose Route Start Last Admin Trade Name Freq PRN Reason Stop Dose Admin Acetaminophen 975 mg 07/20/20 12:14 08/02/20 16:16 Acetaminophen 325 Mg Tablet PO 975 mg Q6H PRN Administration Pain, Mild (Pain Scale 1-3) Al Hydroxide/Mg Hydroxide 30 ml 07/20/20 21:17 Magnesium Hydrox/Alum Hydrox 30 Ml Oral.Susp PO Q6H PRN Heartburn/Nausea Atorvastatin Calcium 20 mg 07/20/20 12:15 08/05/20 08:46 Atorvastatin Calcium 20 Mg Tablet PO 20 mg DAILY JERRY Administration Cyclobenzaprine HCl 5 mg 07/29/20 14:12 08/04/20 20:26 Cyclobenzaprine Hcl 10 Mg Tablet PO 5 mg BEDTIME PRN Administration muscle pain or spasm Docusate Sodium 100 mg 07/24/20 16:29 07/26/20 20:17 Docusate Sodium 100 Mg Capsule PO 100 mg BEDTIME PRN Administration Constipation Duloxetine HCl 30 mg 08/05/20 09:00 08/05/20 08:46 Duloxetine Hcl 30 Mg Capsule.Dr PO 30 mg DAILY JERRY Administration Hydroxyzine HCl 25 mg 07/20/20 21:17 07/20/20 23:16 Hydroxyzine Hcl 25 Mg Tablet PO 25 mg BEDTIME PRN Administration Anxiety Lorazepam 0.5 mg 07/23/20 21:00 08/04/20 20:24 Lorazepam 0.5 Mg Tablet PO 0.5 mg BEDTIME JERRY Administration Magnesium Hydroxide 30 ml 07/20/20 21:17 07/26/20 08:36 Milk Of Magnesia 30 Ml Oral.Susp PO 30 ml DAILY PRN Administration Constipation Polyethylene Glycol 17 gm 08/04/20 10:30 08/05/20 12:15 Polyethylene Glycol 3350 17 Gm Powd.Pack PO 17 gm DAILY JERRY Administration Psyllium Hydrophilic Mucilloid 3.4 gm 07/23/20 09:00 08/05/20 08:47 Psyllium Seed 3.4 Gm Powd.Pack PO 3.4 gm DAILY JERRY Administration Quetiapine Fumarate 100 mg 07/23/20 21:00 08/04/20 20:24 Quetiapine Fumarate 100 Mg Tablet PO 100 mg BEDTIME JERRY Administration Quetiapine Fumarate 25 mg 07/27/20 15:49 07/31/20 01:32 Quetiapine Fumarate 25 Mg Tablet PO 25 mg BID PRN Administration Anxiety Trazodone HCl 50 mg 07/20/20 21:17 07/20/20 23:16 Trazodone Hcl 50 Mg Tablet PO 50 mg BEDTIME PRN Administration Insomnia Vitamin D 25 mcg 07/25/20 09:00 08/05/20 08:46 Cholecalciferol (Vitamin D3) 25 Mcg Tablet PO 25 mcg DAILY JERRY Administration Allergies Allergies Allergy/AdvReac Type Severity Reaction Status Date / Time aripiprazole [From Abilify] AdvReac Intermediate nausea Verified 07/31/20 16:06 fluticasone AdvReac Intermediate PALPITATION Verified 07/04/20 13:42 S ibuprofen AdvReac Intermediate RING IN Verified 07/04/20 13:42 EARS Flonase Allergy Unknown heart Uncoded 07/04/20 13:42 palpation Motrin Allergy Unknown ringing in Uncoded 07/04/20 13:42 ear Assessment & Plan Assessment & Plan (1) Major depress dis, severe: Status: Acute Code(s): F32.2 - Major depressive disorder, single episode, severe without psychotic features Assessment and Plan: -Continue current regime -OP MRI after discharge 08/08/20. -Discussed with pt trial of gabapentin or lamictal to assist with mood/pain. He will consider. Pt looking improved, planning discharge and problem solving regarding managing health issues with limited supports. Greater than 50% of the session was spent on counseling and/or coordination of care Reason for contiued inpatient stay Substantial Risk for: harm to self, inability to function and med/psych decompensation
[2020-08-05 17:20] VITALS: BP 125/66; PULSE 72; TEMP 37.1
[2020-08-05] MEDS: Cyclobenzaprine HCl 10 MG TABLET 5 MG PO (20:45)
[2020-08-05] MEDS: QUEtiapine Fumarate 100 MG TABLET PO (20:46)
[2020-08-05] MEDS: LORazepam 0.5 MG TABLET PO (20:46)
[2020-08-06 06:00] VITALS: BP 123/69; PULSE 75; RESP 20; TEMP 35.9; O2SAT 97
[2020-08-06] MEDS: DULoxetine HCl 30 MG CAPSULE.DR PO (08:59)
[2020-08-06] MEDS: polyethylene glycoL 3350 17 GM POWD.PACK PO (08:59)
[2020-08-06] MEDS: Cholecalciferol (Vitamin D3) 25 MCG TABLET PO (08:59)
[2020-08-06] MEDS: Atorvastatin Calcium 20 MG TABLET PO (08:59)
--- NOTE | 2020-08-06 11:37 | HO.PSYCHPN ---
Subjective Subjective Date of Service: 08/06/20 Reason For Visit: Depression with suicidal Ideation Subjective Notes: Conditional Voluntary Interim History: Pt reports improved mood, I think I will be OK at home. Denies SI, depressive and anxious sx are decreasing, depression 04/20 and anxiety 07/19. Sleep is OK , appetite is good, constipation prevention is effective and neck pain 10/16. Medication Compliance: Yes Side effects from medications: Yes (constipation) Attending Groups: No Review of Systems Gastrointestinal: Reports constipation Musculoskeletal: Reports neck pain (10/16) Psychiatric: Reports anxiety, Reports depression and Reports suicidal ideation (denies) Mental Status Exam Mental Status Exam Patient Appearance: Appropriate Patient Orientation: Person, Place, Time and Situation Level of Consciousness: Alert Patient Behavior: Appropriate, Talkative, Cooperative, Anxious, Fearful (of upcoming medical processes and facing them without enough supports), Distractible and Good Eye Contact Mood Description: Anxious Affect Description: Constricted and Anxious Patient Cognition Impaired: No Ability to Follow Directions: Good Speech Pattern: Spontaneous Speech Memory Description: Intact Hallucinations: None Delusions: Not Present Thought Process: Intact Thought Content: positive for Intact and positive for Circumstantial Depressive Symptoms: Increased Anxiety, Diff. Making Decisions and Difficulty Sleeping Judgement: Good Diagnostics Vital Signs (24Hr): Vital Signs - 24 hr 08/05/20 17:20 08/06/20 06:00 Temperature 98.7 F 96.6 F L Pulse Rate 72 75 Respiratory Rate 20 Blood Pressure 125/66 123/69 Pulse Oximetry 97 Body Mass Index 24.5 Labs Results: 07/20/20 08:18 07/21/20 07:57 Medications Medications Current Medications Generic Name Dose Route Start Last Admin Trade Name Freq PRN Reason Stop Dose Admin Acetaminophen 975 mg 07/20/20 12:14 08/02/20 16:16 Acetaminophen 325 Mg Tablet PO 975 mg Q6H PRN Administration Pain, Mild (Pain Scale 1-3) Al Hydroxide/Mg Hydroxide 30 ml 07/20/20 21:17 Magnesium Hydrox/Alum Hydrox 30 Ml Oral.Susp PO Q6H PRN Heartburn/Nausea Atorvastatin Calcium 20 mg 07/20/20 12:15 08/06/20 08:59 Atorvastatin Calcium 20 Mg Tablet PO 20 mg DAILY JERRY Administration Cyclobenzaprine HCl 5 mg 07/29/20 14:12 08/05/20 20:45 Cyclobenzaprine Hcl 10 Mg Tablet PO 5 mg BEDTIME PRN Administration muscle pain or spasm Docusate Sodium 100 mg 07/24/20 16:29 07/26/20 20:17 Docusate Sodium 100 Mg Capsule PO 100 mg BEDTIME PRN Administration Constipation Duloxetine HCl 30 mg 08/05/20 09:00 08/06/20 08:59 Duloxetine Hcl 30 Mg Capsule.Dr PO 30 mg DAILY JERRY Administration Hydroxyzine HCl 25 mg 07/20/20 21:17 07/20/20 23:16 Hydroxyzine Hcl 25 Mg Tablet PO 25 mg BEDTIME PRN Administration Anxiety Lorazepam 0.5 mg 07/23/20 21:00 08/05/20 20:46 Lorazepam 0.5 Mg Tablet PO 0.5 mg BEDTIME JERRY Administration Magnesium Hydroxide 30 ml 07/20/20 21:17 07/26/20 08:36 Milk Of Magnesia 30 Ml Oral.Susp PO 30 ml DAILY PRN Administration Constipation Polyethylene Glycol 17 gm 08/04/20 10:30 08/06/20 08:59 Polyethylene Glycol 3350 17 Gm Powd.Pack PO 17 gm DAILY JERRY Administration Psyllium Hydrophilic Mucilloid 3.4 gm 07/23/20 09:00 08/06/20 08:59 Psyllium Seed 3.4 Gm Powd.Pack PO 3.4 gm DAILY JERRY Administration Quetiapine Fumarate 100 mg 07/23/20 21:00 08/05/20 20:46 Quetiapine Fumarate 100 Mg Tablet PO 100 mg BEDTIME JERRY Administration Quetiapine Fumarate 25 mg 07/27/20 15:49 07/31/20 01:32 Quetiapine Fumarate 25 Mg Tablet PO 25 mg BID PRN Administration Anxiety Trazodone HCl 50 mg 07/20/20 21:17 07/20/20 23:16 Trazodone Hcl 50 Mg Tablet PO 50 mg BEDTIME PRN Administration Insomnia Vitamin D 25 mcg 07/25/20 09:00 08/06/20 08:59 Cholecalciferol (Vitamin D3) 25 Mcg Tablet PO 25 mcg DAILY JERRY Administration Allergies Allergies Allergy/AdvReac Type Severity Reaction Status Date / Time aripiprazole [From [facility]] AdvReac Intermediate nausea Verified 07/31/20 16:06 fluticasone AdvReac Intermediate PALPITATION Verified 07/04/20 13:42 S ibuprofen AdvReac Intermediate RING IN Verified 07/04/20 13:42 EARS Flonase Allergy Unknown heart Uncoded 07/04/20 13:42 palpation Motrin Allergy Unknown ringing in Uncoded 07/04/20 13:42 ear Assessment & Plan Assessment & Plan (1) Major depress dis, severe: Status: Acute Code(s): F32.2 - Major depressive disorder, single episode, severe without psychotic features Assessment and Plan: -Continue current regime -OP MRI after discharge 08/08/20. -Discussed with pt trial of gabapentin or lamictal to assist with mood/pain. He declines at this time -Pt is talking about feeling vulnerable being alone and having upcoming medical problems/procedures to manage. Greater than 50% of the session was spent on counseling and/or coordination of care Reason for contiued inpatient stay Substantial Risk for: harm to self, inability to function and med/psych decompensation
[2020-08-06 16:25] VITALS: BP 118/61; PULSE 75; RESP 18; TEMP 36.8; O2SAT 96
[2020-08-06] MEDS: Magnesium Citrate 300 ML SOLUTION PO (17:56)
[2020-08-06] MEDS: Cyclobenzaprine HCl 10 MG TABLET 5 MG PO (20:34)
[2020-08-06] MEDS: QUEtiapine Fumarate 100 MG TABLET PO (20:35)
[2020-08-06] MEDS: LORazepam 0.5 MG TABLET PO (20:35)
[2020-08-07 06:00] VITALS: BP 111/58; PULSE 77; RESP 20; TEMP 35.3; O2SAT 94
[2020-08-07 07:00] VITALS: BMI 25.4
[2020-08-07] MEDS: Atorvastatin Calcium 20 MG TABLET PO (09:21)
[2020-08-07] MEDS: polyethylene glycoL 3350 17 GM POWD.PACK PO (09:21)
[2020-08-07] MEDS: Cholecalciferol (Vitamin D3) 25 MCG TABLET PO (09:21)
[2020-08-07] MEDS: DULoxetine HCl 30 MG CAPSULE.DR PO (09:21)
--- NOTE | 2020-08-07 10:59 | P.PNPSI_ITS ---
Subjective Subjective Date of Service: 08/07/20 Reason For Visit: Depression with suicidal Ideation Subjective Notes: Conditional Voluntary Interim History: I think I am about ready. Preparing for discharge on 08/08/20. Reports depression 2/10, anxiety 3/10, neck pain 6/10 and LLQ pain 2/10. Appt with Dr. Sanchez 08/12 for swallowing eval and eval of constipation. Currently not constipated. Review of resources for assistance. MRI 08/08 1:45pm Pt reports he believes his admission was a success and his issues were addressed. Medication Compliance: Yes Side effects from medications: Yes (constipation) Attending Groups: No Review of Systems Reports neck pain Gastrointestinal: Reports other (LLQ pain) Musculoskeletal: Reports neck pain Psychiatric: Reports anxiety, Reports depression and Reports suicidal ideation (denies) Mental Status Exam Mental Status Exam Patient Appearance: Appropriate Patient Orientation: Person, Place, Time and Situation Level of Consciousness: Alert Patient Behavior: Appropriate and Talkative Mood Description: Apprehensive Affect Description: Apprehensive Patient Cognition Impaired: No Ability to Follow Directions: Good Speech Pattern: Spontaneous Speech Memory Description: Intact Hallucinations: None Delusions: Not Present Thought Process: Intact, Distracted and Goal Oriented Thought Content: positive for Goal Oriented Depressive Symptoms: Diff. Making Decisions Judgement: Good Diagnostics Vital Signs (24Hr): Vital Signs - 24 hr 08/06/20 16:25 08/07/20 06:00 Temperature 98.3 F 95.5 F L Pulse Rate 75 77 Respiratory Rate 18 20 Blood Pressure 118/61 111/58 L Pulse Oximetry 96 94 Body Mass Index 25.4 Labs Results: 07/20/20 08:18 07/21/20 07:57 Medications Medications Current Medications Generic Name Dose Route Start Last Admin Trade Name Freq PRN Reason Stop Dose Admin Acetaminophen 975 mg 07/20/20 12:14 08/02/20 16:16 Acetaminophen 325 Mg Tablet PO 975 mg Q6H PRN Administration Pain, Mild (Pain Scale 1-3) Al Hydroxide/Mg Hydroxide 30 ml 07/20/20 21:17 Magnesium Hydrox/Alum Hydrox 30 Ml Oral.Susp PO Q6H PRN Heartburn/Nausea Atorvastatin Calcium 20 mg 07/20/20 12:15 08/07/20 09:21 Atorvastatin Calcium 20 Mg Tablet PO 20 mg DAILY JERRY Administration Cyclobenzaprine HCl 5 mg 07/29/20 14:12 08/06/20 20:34 Cyclobenzaprine Hcl 10 Mg Tablet PO 5 mg BEDTIME PRN Administration muscle pain or spasm Docusate Sodium 100 mg 07/24/20 16:29 07/26/20 20:17 Docusate Sodium 100 Mg Capsule PO 100 mg BEDTIME PRN Administration Constipation Duloxetine HCl 30 mg 08/05/20 09:00 08/07/20 09:21 Duloxetine Hcl 30 Mg Capsule.Dr PO 30 mg DAILY JERRY Administration Hydroxyzine HCl 25 mg 07/20/20 21:17 07/20/20 23:16 Hydroxyzine Hcl 25 Mg Tablet PO 25 mg BEDTIME PRN Administration Anxiety Lorazepam 0.5 mg 07/23/20 21:00 08/06/20 20:35 Lorazepam 0.5 Mg Tablet PO 0.5 mg BEDTIME JERRY Administration Magnesium Hydroxide 30 ml 07/20/20 21:17 07/26/20 08:36 Milk Of Magnesia 30 Ml Oral.Susp PO 30 ml DAILY PRN Administration Constipation Polyethylene Glycol 17 gm 08/04/20 10:30 08/07/20 09:21 Polyethylene Glycol 3350 17 Gm Powd.Pack PO 17 gm DAILY JERRY Administration Psyllium Hydrophilic Mucilloid 3.4 gm 07/23/20 09:00 08/07/20 09:21 Psyllium Seed 3.4 Gm Powd.Pack PO 3.4 gm DAILY JERRY Administration Quetiapine Fumarate 100 mg 07/23/20 21:00 08/06/20 20:35 Quetiapine Fumarate 100 Mg Tablet PO 100 mg BEDTIME JERRY Administration Quetiapine Fumarate 25 mg 07/27/20 15:49 07/31/20 01:32 Quetiapine Fumarate 25 Mg Tablet PO 25 mg BID PRN Administration Anxiety Trazodone HCl 50 mg 07/20/20 21:17 07/20/20 23:16 Trazodone Hcl 50 Mg Tablet PO 50 mg BEDTIME PRN Administration Insomnia Vitamin D 25 mcg 07/25/20 09:00 08/07/20 09:21 Cholecalciferol (Vitamin D3) 25 Mcg Tablet PO 25 mcg DAILY JERRY Administration Allergies Allergies Allergy/AdvReac Type Severity Reaction Status Date / Time aripiprazole [From [facility]] AdvReac Intermediate nausea Verified 07/31/20 16:06 fluticasone AdvReac Intermediate PALPITATION Verified 07/04/20 13:42 S ibuprofen AdvReac Intermediate RING IN Verified 07/04/20 13:42 EARS Flonase Allergy Unknown heart Uncoded 07/04/20 13:42 palpation Motrin Allergy Unknown ringing in Uncoded 07/04/20 13:42 ear Assessment & Plan Assessment & Plan (1) Major depress dis, severe: Status: Acute Code(s): F32.2 - Major depressive disorder, single episode, severe without psychotic features Assessment and Plan: -Continue current regime -OP MRI after discharge 08/08/20. -Pt feeling prepared for his discharge. Greater than 50% of the session was spent on counseling and/or coordination of care Reason for contiued inpatient stay Substantial Risk for: harm to self, inability to function, rapid decompensation and med/psych decompensation
[2020-08-07 18:00] VITALS: BP 120/58; PULSE 82; RESP 16; TEMP 36.8; O2SAT 97
[2020-08-07] MEDS: Cyclobenzaprine HCl 10 MG TABLET 5 MG PO (20:23)
[2020-08-07] MEDS: QUEtiapine Fumarate 100 MG TABLET PO (20:23)
[2020-08-07] MEDS: LORazepam 0.5 MG TABLET PO (20:23)
[2020-08-08 06:00] VITALS: BP 112/58; PULSE 75; RESP 18; TEMP 36.6; O2SAT 95
[2020-08-08 08:18] VITALS: BP 124/69; PULSE 80; RESP 16; O2SAT 96
[2020-08-08] MEDS: polyethylene glycoL 3350 17 GM POWD.PACK PO (08:25)
[2020-08-08] MEDS: Atorvastatin Calcium 20 MG TABLET PO (08:26)
[2020-08-08] MEDS: Cholecalciferol (Vitamin D3) 25 MCG TABLET PO (08:26)
[2020-08-08] MEDS: DULoxetine HCl 30 MG CAPSULE.DR PO (08:26)
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
--- NOTE | 2020-08-08 12:44 | PC.NURSE ---
PT REPORTS DECREASE IN DEPRESSION AND ANXIETY. PT HAS BEEN VISIB LE OPN THE UNIT. HE IS SOCIAL WITH PEERS AND STAFF. PT REPORTS READINESS AND AWARENESS FOR DISCHARGE. PT HAS BEEN EDUCATED ON MEDICATIONS. PTS PAPERWORK WILL BE FAXED TO PROVIDERS PER PROTOCOL. PT HAS BEEN IN BEHAVIORAL CONTROL. HE IS INDEPENDENTLY TAKING CARE OF ADLS. PT IS EATING AND SLEEPING WELL. HE REPORTS FEELING SAFE. HE DENIES SUICIDAL OR HOMICIDAL IDEATIONS. PT DECLINES HAVING ANY AUDITORY OR VISUAL HALLUCINATIONS.
--- NOTE | 2020-08-08 12:47 | PM.PSYDC ---
DS: Providers Provider Date of Service: 08/08/20 Date of admission: 07/20/20 19:46 Date of discharge: 08/08/20 Primary care physician: Randal Stringer MD Admitting clinician: Soni Bird Attending physician on admission: Remington Martinez Consults: 07/29/20 15:06 Consult to Hospitalist Routine Consulting Provider: Hospitalist Reason For Exam: r groin pain hx bladder ca 08/01/20 12:12 Consult to Nephrology Routine Consulting Provider: Corey Buckley Reason for consultation: LLQ pain-hx renal cancer with chemotherapy with [facility] Has provider been notified: No Attending physician on discharge: Remington Martinez Discharging clinician: Soni Bird DS: Diagnosis Discharge Diagnosis (1) Major depress dis, severe: Status: Acute Problem details: 69 yo male, self-presented, reporting increase in depressive symptoms over the past several weeks with SI, plan to jump from a bridge. Reported poor sleep, appetite with weight loss. Reports a neck injury s/p fall May 2020, dysphagia and tentative surgical plans [facility] September unless they received MRI earlier for eval. Pt also has hx of transitional cell carcinoma and is scheduled for re-eval the first week of August. Recently, elderly parents asked pt to come to their home in the [facility] to assist them as step mother is ill. Pt, due to his medical issues and depression has not been able to attend to them and is struggling to tell them as he feels guilt. He is also feeling very vulnerable with being ill, having care needs, being alone and having to wait for appointments to be scheduled. DS: Medications Discharge Medications Home Medications: Previous Rx's Medication Instructions Recorded acetaminophen 1,000 mg PO Q6-8H PRN #60 tab 08/08/20 cholecalciferol (vitamin D3) 25 mcg PO DAILY #30 tab 08/08/20 cyclobenzaprine 5 mg PO BEDTIME PRN #30 tab 08/08/20 docusate sodium 100 mg PO BEDTIME PRN #30 cap 08/08/20 duloxetine 30 mg PO DAILY #30 cap 08/08/20 hydroxyzine HCl 25 mg PO BEDTIME PRN #30 tab 08/08/20 lorazepam 0.5 mg PO BEDTIME #30 tab 08/08/20 polyethylene glycol 3350 17 g PO DAILY #1 ea 08/08/20 psyllium husk (aspartame) 3.4 g PO DAILY #1 ea 08/08/20 [Metamucil Fiber Singles] quetiapine 25 mg PO BID PRN #60 tab 08/08/20 quetiapine 100 mg PO BEDTIME #30 tab 08/08/20 simvastatin 40 mg PO DAILY #30 tab 08/08/20 trazodone 50 mg PO BEDTIME PRN #30 tab 08/08/20 Discharge Plan Discharge Anticipated Discharge Date/Time: 08/08/20 13:00 Patient Disposition: Home, Self-Care Discharge Diagnosis: Recurrent Major Depression, Severe Generalized Anxiety Disorder Cervical Pain LLQ, Groin Pain Referrals: [facility] [Other] (His practice is full right now. You can try again at a later time to negotiate being on a wait list ) [facility] [Other] (Referral made. They will be in touch with you about setting up an appointment with either Darleen Stevenson or Scott Westfall) Ashley Alarcon [Other] - 08/11/20 4:00 pm (Telehealth appointment, therapist will call you) Shefali Tovar (psychiatrist) [Other] - 09/04/20 9:20 am (Telehealth appointment, psychiatrist will call you) Shefali Tovar (psychiatrist) [Other] - 10/06/20 9:20 am (Telehealth appointment, psychiatrist will call you) Randal Stringer MD [Primary Care Provider] - 08/11/20 11:15 am (in office) Discharge Medications: New quetiapine 25 mg Tablet 25 mg PO BID PRN (Reason: Anxiety) Qty: 60 RF: 0 cyclobenzaprine 10 mg Tablet 5 mg PO BEDTIME PRN (Reason: muscle pain or spasm) Qty: 30 RF: 0 trazodone 50 mg Tablet 50 mg PO BEDTIME PRN (Reason: Insomnia) Qty: 30 RF: 0 polyethylene glycol 3350 17 gram Powder In Packet 17 g PO DAILY Qty: 1 RF: 0 quetiapine 100 mg Tablet 100 mg PO BEDTIME Qty: 30 RF: 0 lorazepam 0.5 mg Tablet 0.5 mg PO BEDTIME Qty: 30 RF: 0 docusate sodium 100 mg Capsule 100 mg PO BEDTIME PRN (Reason: Constipation) Qty: 30 RF: 0 hydroxyzine HCl 25 mg Tablet 25 mg PO BEDTIME PRN (Reason: Anxiety) Qty: 30 RF: 0 duloxetine 30 mg Capsule,Delayed Release(Dr/Ec) 30 mg PO DAILY Qty: 30 RF: 0 cholecalciferol (vitamin D3) 25 mcg (1,000 unit) Tablet 25 mcg PO DAILY Qty: 30 RF: 0 Metamucil Fiber Singles 3.4 gram Powder In Packet 3.4 g PO DAILY Qty: 1 RF: 0 Continued acetaminophen 500 mg Tablet 1,000 mg PO Q6-8H PRN (Reason: Pain) Qty: 60 RF: 0 Discontinued cyclobenzaprine 10 mg tablet 10 mg PO BEDTIME PRN (Reason: muscle pain or spasm) RF: 0 simvastatin 20 mg tablet 40 mg PO DAILY RF: 0 Discharge Orders: Discharge Order (Routine); Ordered 08/08/20 Ordered By: Soni Bird Diet: advance to usual diet Activity on Discharge: As tolerated Stand Alone Forms: Patient Portal Discharge page, Community Support Care Plan Goals: Mood Stabilization Pain Management Supports in place for assistance after surgery Health Concerns: Recurrent major depression Generalized anxiety Cervical Pain LLQ groin pain Hx of transitional cell carcinoma Plan of Treatment: Attend all appointments Take medications as needed Ask for the help you need when you need it Assessment: Cymbalta titrated to 30 mg as higher doses cause constipation. Declined trial of Gabapentin/Lamictal for pain/anxiety Will look into rehab post surgery for extra help. Discharge Date/Time: 08/08/20 13:10 Mental Status Exam Mental Status Exam Patient Appearance: Appropriate Patient Orientation: Person, Place, Time and Situation Level of Consciousness: Awake and Alert Patient Behavior: Appropriate and Talkative Mood Description: Calm and Appropriate Affect Description: Calm and Appropriate Patient Cognition Impaired: No Ability to Follow Directions: Good Speech Pattern: Spontaneous Speech Memory Description: Intact Hallucinations: None Delusions: Not Present Thought Process: Intact Thought Content: positive for Intact and positive for Suicidal Ideation (denies) Depressive Symptoms: Thoughts of /Suicide (denies) Judgement: Good DS: Summary Hospital Course Hospital Course: Pt signed a conditional voluntary on admission. He did not participate in many milieu activities as he reported cervical pain was an issue. Care was coordinated with [facility] and both his primary care team and neurosurgical team from [facility] ordered MRI's upon his discharge from psychiatry to expedite his surgical consult. When admitted in 2006, pt utilized a combination of Duloxetine, Quetiapine, and Lorazepam for symptom management without adverse effects. He agreed to work with these again, stating that by history, Cymbalta works better than Duloxetine as it causes constipation and overall, he does not agree with using medications and is opposed to taking them. Duloxetine was initiated, titrated, tapered and settled at 30 mg daily due to ongoing constipation. Quetiapine by history was used at dosed of 50 mg bid and 200 mg hs. During this admission 25 mg bid and 100 mg hs were used with success. Lorzepam by history was used at 1 mg hs. During this admission it was 0.5 mg. Abilify 5 mg 1 dose was trialed to augment Duloxetine. Pt stopped this as he felt it caused nausea. Gabapentin and Lamictal trials were discuss but refused by pt. Hydroxyzine and Trazodone were offered as needed for sleep. Flexoril was offered for pain and Colace, Miralax, Metamucil and Magnesium Citrate were offered for constipation. Pt found prune juice most helpful. GI consult for LLQ pain was completed also. Vitamin D3 was added due to deficiency. Pt did well on the regime and reported no symptoms or side effects upon discharge. Pt , with support, was able to call his father, share that he was hospitalized for depression, and receive support from his father regarding his condition and well wishes. He completed his MRI on discharge as well so his neurosurgical consult will proceed. Time spent discussing smoking cessation with patient: 3 to 10 minutes Status at Discharge Cognitive/behavioral status at discharge: Alert, oriented, non-psychotic, denies SI, HI. Affect and mood euthymic Functional status at discharge: independent ambulation Overall status at discharge: patient is progressing back to baseline Time Spent with Patient Time attestation: Total time spent providing and/or coordinating discharge services: 45 Time spent: Greater than 30 minutes
--- NOTE | 2020-08-13 17:18 | PM.EVENT ---
Event Note Date of Service: 08/13/20 Event Note: TC from pt stating he was having medication side effects. Reports when discharged on 08/08 he went to MRI and had a right hand tremor, making it difficult if not impossible to sign his name. Upon arrival at home, he reviewed his medications and made several changes on his own to his regime, as he does not like to take medications. He took Seroquel at , stopped Lorazepam, Flexoril and awoke on Tuesday feeling shakey and weak on the left side. He struggled to write out four checks, but was able to do this and came to the ER at [facility] [place] for a full evaluation. He was told he was dehydrated, was given IV, diagnostics were WNL, CAT WNL and he was able to write his name. He took Seroquel Tuesday evening and experienced the same symptoms on Tuesday. He met with GI specialist on 08/11, PCP on 08/12, has held the meds and called OP team to discuss stopping Seroquel. He calls today looking to stop Seroquel which we agreed he would do. He, at this time is only using Duloxetine and did not sampler pickup many of the medications prescribed while in patient.
== END 2020-08-08 13:10 | disposition home or self-care (01) | DRG 885 ==
LOC: HO.ED 19:32 → HO.PM5 19:57
PROVIDERS: Psychiatry & Neurology Psychiatry; Admitting Provider Clinical Nurse Specialist Psychiatric/Mental Health; Emergency Provider Emergency Medicine Emergency Medical Services; PCP Internal Medicine; Visit Provider Clinical Nurse Specialist Psychiatric/Mental Health, Adult
DX: F33.2 Major depressive disorder, recurrent severe without psychotic features (principal); R45.851 Suicidal ideations; M54.2 Cervicalgia; F41.1 Generalized anxiety disorder; R10.30 Lower abdominal pain, unspecified; Z87.891 Personal history of nicotine dependence; Z20.822 Contact with and (suspected) exposure to COVID-19; Z88.6 Allergy status to analgesic agent; Z79.899 Other long term (current) drug therapy
CPT/HCPCS: 36415; 80053; 80061; 80076; 80307; 80320; 81003; 82306; 82607; 82746; 82947; 83036; 83735; 84439; 84443; 85025; 87635; 93005; 99285

== ENCOUNTER 2020-08-08 13:16 | Outpatient (REF) | payer MEDICARE, OTHER, SELFPAY ==
--- NOTE | ~2020-08-08 | MR_ITS ---
EXAMINATION: MR CERVICAL SPINE WITHOUT CONTRAST CLINICAL INFORMATION: Intervertebral disc disorder with myelopathy. COMPARISON: None available. TECHNIQUE: MRI of the cervical spine was obtained using routine sequences without contrast. FINDINGS: Fusion of the C3-C4 vertebral bodies. Degenerative stepwise retrolistheses of C3-C6. Mild degenerative anterolisthesis of C7 on T1. Advanced degenerative disc disease from C4-T1. Associated mixed Modic type discogenic endplate changes including mild Modic type I discogenic edema from C3-T1. Mild marrow edema within the facets from C2-C7 consistent with degenerative stress reaction. No additional suspicious marrow edema. The remaining vertebral body heights are maintained. No spinal cord signal abnormalities. Limited evaluation of the soft tissues of the neck without demonstrated abnormalities. The flow voids of the major cervical vessels are maintained. Normal appearance of the cervicomedullary junction and visualized posterior fossa. SPINAL LEVELS: C2-C3: Mild disc-osteophyte complex. There is no uncovertebral joint arthropathy. There is moderate bilateral facet joint arthropathy. There is mild right and no left neural foraminal stenosis. There is no spinal canal stenosis. C3-C4: Moderate disc-osteophyte complex. There is moderate right and mild left uncovertebral joint arthropathy. There is moderate bilateral facet joint arthropathy. There is no neural foraminal stenosis. There is flattening of the ventral cord with no spinal canal stenosis. C4-C5: Moderate to severe disc-osteophyte complex. There is severe bilateral uncovertebral joint arthropathy. There is moderate to severe bilateral facet joint arthropathy. There is severe left and moderate right neural foraminal stenosis. There is moderate spinal canal stenosis. C5-C6: Moderate disc-osteophyte complex. There is severe right and moderate left uncovertebral joint arthropathy. There is moderate bilateral facet joint arthropathy. There is severe right and moderate left neural foraminal stenosis. There is mild to moderate spinal canal stenosis. C6-C7: Mild disc-osteophyte complex. There is moderate bilateral uncovertebral joint arthropathy. There is moderate bilateral facet joint arthropathy. There is moderate right and mild left neural foraminal stenosis. There is no spinal canal stenosis. C7-T1: Moderate disc-osteophyte complex. There is severe right and moderate left uncovertebral joint arthropathy. There is moderate bilateral facet joint arthropathy. There is moderate bilateral neural foraminal stenosis. There is no spinal canal stenosis. MR/MR cervical spine wo con IMPRESSION: Advanced multilevel degenerative spondyloarthropathy of the cervical spine as described in detail above. Most notably, there are mild to moderate spinal canal stenoses at C4-C5 and C5-C6. Moderate to severe neural foraminal stenoses from C4-T1.
== END 2020-08-08 13:17 | disposition home or self-care (01) ==
LOC: HO.MRI 13:16
PROVIDERS: Visit Provider Internal Medicine
DX: M50.00 Cervical disc disorder with myelopathy, unspecified cervical region (principal)
CPT/HCPCS: 72141

== ENCOUNTER 2020-08-09 14:06 | Emergency (ER) | payer MEDICARE, OTHER, SELFPAY ==
--- NOTE | ~2020-08-09 | CT_ITS ---
EXAMINATION: CT HEAD WITHOUT CONTRAST CLINICAL INFORMATION: Right hand shaking. Neurologic symptoms. COMPARISON: CT scan of the head dated 06/21/2020. TECHNIQUE: Contiguous axial imaging was performed from the skull base to vertex without intravenous administration of contrast. This CT examination was performed using dose optimization techniques as appropriate, variously including the following: *Automated exposure control *Adjustment of mA and/or kV according to patient size (this includes techniques or standardized protocols for targeted exams where dose is matched to indication/reason for exam; i.e. extremities or head) *Use of iterative reconstruction technique DLP: 764 mGy-cm FINDINGS: There is no evidence of acute intracranial hemorrhage or territorial infarction. No abnormal mass effect or midline shift is seen. Navarrete to white matter differentiation is well preserved. No extra-axial fluid collections are identified. The ventricles and sulci are mildly enlarged, consistent with involutional changes. There is no abnormal attenuation within the brain parenchyma. The osseous structures and soft tissues are normal. There is partial opacification of some of the right mid ethmoid air cells. Small osteoma is seen in one of the posterior left ethmoid air cells. Mild nasal septal deviation toward the right side is seen. The mastoid air cells and visualized portions of the paranasal sinuses are otherwise well aerated. CT/CT head/brain wo con IMPRESSION: No acute intracranial pathology. Mild right ethmoid sinus disease.
--- NOTE | ~2020-08-09 | XR_ITS ---
EXAMINATION: XR CHEST CLINICAL INFORMATION: Neurological symptoms. COMPARISON: 07/01/2020 TECHNIQUE: 2 views of the chest were obtained. FINDINGS: Wires overlie the chest. No significant abnormality is noted involving the heart, lungs, mediastinum, bony thorax or soft tissues. XR/XR chest 2V IMPRESSION: Unremarkable examination.
[2020-08-09 14:12] VITALS: BP 157/78; PULSE 90; RESP 16; TEMP 37; O2SAT 99; BMI 25.2
--- NOTE | 2020-08-09 15:04 | ECG_ITS ---
Test Reason : SYNCOPE Blood Pressure : / mmHG Vent. Rate : 081 BPM Atrial Rate : 081 BPM P-R Int : 176 ms QRS Dur : 088 ms QT Int : 350 ms P-R-T Axes : 060 030 028 degrees QTc Int : 406 ms Normal sinus rhythm Normal ECG When compared with ECG of 02-AUG-2020 15:16, No significant change was found Referred By: Sridevi Valles Electronically Signed By:LATHA PERSAUD MD
--- NOTE | 2020-08-09 15:05 | ED_ITS ---
HPI - Neuro Symptoms/Deficit General Chief Complaint: Neuro Symptoms/Deficit Stated Complaint: WEAKNESS R SIDE Time Seen by Provider: 08/09/20 14:50 Source: patient, RN notes reviewed and old records reviewed Mode of arrival: ambulatory Limitations: no limitations History of Present Illness HPI Narrative: 69-year-old male with past medical history of major depression, generalized anxiety transitional cell carcinoma, BPH and bladder mass here today complaining of shaking of his right hand. Patient reports that symptoms started yesterday. Patient reports that when he was signing his discharge he noticed that his hand was shaking. Today at noon he was riding four checks and he also notices that the symptoms continued. Patient reports that he feels generally tired. Denies any fever or chills. Denies CP, PND, SOB with or without exertion, orthopnea, dizziness, nausea, vomiting, diarrhea. Onset (ago): day(s) (Tuesday) Location: other (Right hand shaking) Related Data Previous Rx's Medication Instructions Recorded acetaminophen 1,000 mg PO Q6-8H PRN #60 tab 08/08/20 cholecalciferol (vitamin D3) 25 mcg PO DAILY #30 tab 08/08/20 cyclobenzaprine 5 mg PO BEDTIME PRN #30 tab 08/08/20 docusate sodium 100 mg PO BEDTIME PRN #30 cap 08/08/20 duloxetine 30 mg PO DAILY #30 cap 08/08/20 hydroxyzine HCl 25 mg PO BEDTIME PRN #30 tab 08/08/20 lorazepam 0.5 mg PO BEDTIME #30 tab 08/08/20 polyethylene glycol 3350 17 g PO DAILY #1 ea 08/08/20 psyllium husk (aspartame) 3.4 g PO DAILY #1 ea 08/08/20 [Metamucil Fiber Singles] quetiapine 25 mg PO BID PRN #60 tab 08/08/20 quetiapine 100 mg PO BEDTIME #30 tab 08/08/20 simvastatin 40 mg PO DAILY #30 tab 08/08/20 trazodone 50 mg PO BEDTIME PRN #30 tab 08/08/20 Allergies Allergy/AdvReac Type Severity Reaction Status Date / Time aripiprazole [From Abilify] AdvReac Intermediate nausea Verified 07/31/20 16:06 fluticasone AdvReac Intermediate PALPITATION Verified 07/04/20 13:42 S ibuprofen AdvReac Intermediate RING IN Verified 07/04/20 13:42 EARS Flonase Allergy Unknown heart Uncoded 07/04/20 13:42 palpation Motrin Allergy Unknown ringing in Uncoded 07/04/20 13:42 ear Review of Systems Review of Systems: Constitutional : No Weight loss, No Fever, No Chills, No Ni ght Sweats, No Fatigue, No Malaise ENT/Mouth : No Hearing loss, No Ear Pain, No Nasal Congestion, No Sinus Pain, No Hoarseness, No sore throat, No Rhinorrhea, No Swallowing Difficulty Eyes: No Eye Pain, No Swelling, No Redness, No Foreign Body, No Discharge, No Vision Changes Cardiovascular : No Chest Pain, No SOB, No Dyspnea on Exertion, No Orthopnea, No Edema, No Palpitations Respiratory : No Cough, No Sputum, No Wheezing, No Smoke Exposure, No Dyspnea Gastrointestinal : No Nausea, No Vomiting, No Diarrhea, No Constipation, No abdominal Pain, No Hematochezia, No Melena Genitourinary : no irregular bleeding, No Dysuria, No Urinary Frequency, No Hematuria, No Urinary Incontinence, No Urgency, No Flank Pain, No Urinary Flow Changes, No Hesitancy Musculoskeletal : No joint pain, No Myalgias, No Joint Swelling Skin : No Skin Lesions, No rash Neuro : No Weakness, No Numbness, No Paresthesias, No Loss of Consciousness, No Dizziness, No Headache Psych : No Anxiety/Panic, No Depression, No SI/HI/AH/VH, No Social Issues, Heme/Lymph: No Bruising, No Bleeding,No Lymphadenopathy Endocrine : No Polyuria, No Polydipsia, No Temperature Intolerance Yes all oth er systems are reviewed and are negative PMFSH Past Medical History Medical History Bladder mass BPH (benign prostatic hyperplasia) Cervical pain (neck) Generalized anxiety disorder Other obstructive and reflux uropathy Recurrent major depression-severe Transitional cell carcinoma Surgical History History of cystoscopy Social History Social History Household Members: None Housing: House Alcohol intake: never Smoking Status: Former smoker Smoked in Last 30 Days: No Use of substances other than those prescribed or required for medical reasons: No Advance Directives: No Advance Directives Information Provided: Yes service: No Sexual orientation: Straight/Heterosexual Physical Exam Vital Signs: Vital Signs: Last Vital Signs Temp 98.7 F 08/09/20 16:34 Pulse 79 08/09/20 16:34 Resp 16 08/09/20 16:34 BP 140/64 H 08/09/20 16:34 Pulse Ox 98 08/09/20 16:34 Body Mass Index 25.2 Const: General: cooperative, healthy appearing and comfortable Nutritional Appearance: average body habitus Orientation/consciousness: patient oriented x3 Limitations: no limitations HENMT: Head: Yes normal to inspection Ears: hearing grossly normal bilaterally General nose exam: Normal external nose present Face and sinus: Yes normal facial exam Mouth: Normal oral and palatal mucosa present Throat: Yes posterior oropharynx normal Eyes: General: appearance normal, both eyes and all related structures Eyelids: Yes eyelids normal Conjunctivae: conjunctivae normal Sclerae: sclerae normal Pupils: Equal, round and reactive pupils present Neck: Neck: Yes normal visual inspection, Yes full ROM, Yes no lymphadenopathy, Yes trachea midline and Yes supple Thyroid: Thyroid normal Lymphatic: no lymphadenopathy noted Chest: Chest palpation & inspection: normal inspection of the chest Resp: Effort & Inspection: normal respiratory effort and able to speak in complete sentences Auscultation: clear to auscultation bilaterally Cardio: Jugular venous distension: no JVD Rate: regular rate Rhythm: regular rhythm Heart sounds: S1 normal heart sound present, S2 normal heart sound present, no gallops, no murmurs and no rubs Peripheral pulses: Peripheral pulses 2+ throughout GI: Inspection: Yes normal to inspection and No distended Palpation (GI): No hepatosplenomegaly present and No Rebound tenderness present Percussion: Yes normal to percussion Auscultation: normal bowel sounds Back/Spine/Pelvis: Cervical Spine: cervical ROM normal and No cervical muscular tenderness Thoracic/Lumbar Spine: thoracic and lumbar spine normal to inspection Skin: General skin exam: no rashes or lesions noted, elasticity normal and turgor normal Neuro: General: patient oriented x3 Cranial nerves: Yes Equal, round and reactive pupils present Extrem: General: Yes normal to inspection, Yes full ROM and Yes capillary refill normal Psych: Appearance: grossly normal Mental Status: mental status grossly normal Speech and movement: Normal speech and movement present Affect: normal affect Attitude: cooperative Thought process: Normal thought process present Insight: Good insight present (Psych) Course Course Course Narrative: 69-year-old male here today after being discharged from 5. Patient's exam is negative for stroke 0 on NIH stroke scale. Will order lab work, EKG, troponin, CT of the head. Patient alert and oriented. Reevaluation(s) Reevaluation #1: Patient reassessed after IV fluids infused. Reports to be feeling little better. Patient tried signing his name and a piece of paper in has not had tremors doing so. Awaiting for CT scan. All workup negative so far. Patient denies any neurological symptoms. Denies any SOB, CP, syncope. Reevaluation #2: CT of the head negative. Discussed with patient all his results. Patient has appointment with his PCP on Tuesday. He will be discharged home with follow-up. Patient is agreeable to go home and was instructed to increase his fluid intake. Patient states that he will hold off on taking cyclobenzaprine as he think that this might of been the reason why his hands were shaking. MDM - Neuro Symptoms/Deficit Lab Data Result diagrams: 08/09/20 15:34 08/09/20 15:34 Labs: Lab Results 08/09/20 08/09/20 08/09/20 Range/Units 15:34 15:34 15:34 WBC 9.3 (4.8-10.8) X10*3/uL RBC 4.71 (4.60-5.80) X10*6/uL Hgb 13.8 L (14.0-18.0) g/dl Hct 42.8 (42-52) % MCV 90.9 (80-98) fL MCH 29.3 (27.0-33.0) pg MCHC 32.2 (31.0-36.0) g/dl RDW 13.4 (11.0-16.0) % Plt Count 190 (160-400) X10*3/uL MPV 9.8 (9.4-12.4) fL Immature Gran % (Auto) 0.3 (0.0-0.4) % Neut % (Auto) 77.9 H (45-73) % Lymph % (Auto) 13.1 L (20-40) % Woodward % (Auto) 7.0 (2-11) % Eos % (Auto) 1.4 (0-4) % Baso % (Auto) 0.3 (0-2) % Lymph # (Auto) 1.2 (1.2-4.9) X10*3/uL Woodward # (Auto) 0.7 (0.1-1.2) X10*3/uL Eos # (Auto) 0.1 (0.0-0.4) X10*3/uL Baso # (Auto) 0.0 (0.0-0.2) X10*3/uL Abs Immat Gran (auto) 0.03 (0.00-0.03) X10*3/uL Absolute Neuts (auto) 7.2 (2.0-8.3) X10*3/uL Absolute Nucleated RBC 0.000 (0.0-0.012) X10*3/uL Nucleated RBC % (auto) 0.0 (0.0-0.2) /100WBC Hold Blue Top SEE NOTE Sodium 139 (135-145) mmol/L Potassium 4.9 (3.3-5.1) mmol/L Chloride 104 (96-108) mmol/L Carbon Dioxide 27 (22-29) mmol/L Anion Gap 13 (12-20) BUN 12 (9-16) mg/dL Creatinine 0.93 (0.5-1.4) mg/dL Estim Creat Clear Calc 74.9 Estimated GFR > 60 Random Glucose 113 (60-115) mg/dL Calcium 8.8 D (8.4-10.2) mg/dL Troponin I High Sens (<3.5-35.0) ng/L 08/09/20 Range/Units 15:34 WBC (4.8-10.8) X10*3/uL RBC (4.60-5.80) X10*6/uL Hgb (14.0-18.0) g/dl Hct (42-52) % MCV (80-98) fL MCH (27.0-33.0) pg MCHC (31.0-36.0) g/dl RDW (11.0-16.0) % Plt Count (160-400) X10*3/uL MPV (9.4-12.4) fL Immature Gran % (Auto) (0.0-0.4) % Neut % (Auto) (45-73) % Lymph % (Auto) (20-40) % Woodward % (Auto) (2-11) % Eos % (Auto) (0-4) % Baso % (Auto) (0-2) % Lymph # (Auto) (1.2-4.9) X10*3/uL Woodward # (Auto) (0.1-1.2) X10*3/uL Eos # (Auto) (0.0-0.4) X10*3/uL Baso # (Auto) (0.0-0.2) X10*3/uL Abs Immat Gran (auto) (0.00-0.03) X10*3/uL Absolute Neuts (auto) (2.0-8.3) X10*3/uL Absolute Nucleated RBC (0.0-0.012) X10*3/uL Nucleated RBC % (auto) (0.0-0.2) /100WBC Hold Blue Top Sodium (135-145) mmol/L Potassium (3.3-5.1) mmol/L Chloride (96-108) mmol/L Carbon Dioxide (22-29) mmol/L Anion Gap (12-20) BUN (9-16) mg/dL Creatinine (0.5-1.4) mg/dL Estim Creat Clear Calc Estimated GFR Random Glucose (60-115) mg/dL Calcium (8.4-10.2) mg/dL Troponin I High Sens < 3.5 (<3.5-35.0) ng/L Imaging Data Chest x-ray: Radiologist's impression: FINDINGS: Wires overlie the chest. No significant abnormality is noted involving the heart, lungs, mediastinum, bony thorax or soft tissues. XR/XR chest 2V IMPRESSION: Unremarkable examination. CT scan - head: Radiologist's impression: FINDINGS: There is no evidence of acute intracranial hemorrhage or territorial infarction. No abnormal mass effect or midline shift is seen. Navarrete to white matter differentiation is well preserved. No extra-axial fluid collections are identified. The ventricles and sulci are mildly enlarged, consistent with involutional changes. There is no abnormal attenuation within the brain parenchyma. The osseous structures and soft tissues are normal. There is partial opacification of some of the right mid ethmoid air cells. Small osteoma is seen in one of the posterior left ethmoid air cells. Mild nasal septal deviation toward the right side is seen. The mastoid air cells and visualized portions of the paranasal sinuses are otherwise well aerated. CT/CT head/brain wo con IMPRESSION: No acute intracranial pathology. Mild right ethmoid sinus disease. NIH Stroke Scale Internal: Other (Over 24 hours ago) Level of Consciousness: Alert Level of Consciousness Questions: Answers both questions correctly Level of Consciousness Commands: Performs both tasks correctly Best Gaze: Normal Visual: No visual loss Facial Palsy: Normal Motor Arm (Right): No drift Motor Arm (Left): No drift Motor Leg (Right): No drift Motor Leg (Left): No drift Limb Ataxia: Absent Sensory: Normal Best Language: No aphasia Dysarthia: Normal Extinction and Inattention: No abnormality Score: 0 Discharge Plan Discharge Clinical Impression: Neurological symptoms Patient Disposition: Home, Self-Care Instructions: Normal Exam (ED) Additional Instructions: You were seen here today for right hand tremors. Your tremors resolved after hydration. The CT scan of the head was normal as well as your chest x-ray and EKG. Your vital signs remain normal as well as the labs. Please make sure you stay hydrated and follow-up with your PCP on Tuesday as planned. You may return to emergency department if you symptoms will return or if you experience any other concerning symptoms. Prescriptions: No Action quetiapine 25 mg Tablet 25 mg PO BID PRN (Reason: Anxiety) Qty: 60 RF: 0 cyclobenzaprine 10 mg Tablet 5 mg PO BEDTIME PRN (Reason: muscle pain or spasm) Qty: 30 RF: 0 trazodone 50 mg Tablet 50 mg PO BEDTIME PRN (Reason: Insomnia) Qty: 30 RF: 0 polyethylene glycol 3350 17 gram Powder In Packet 17 g PO DAILY Qty: 1 RF: 0 quetiapine 100 mg Tablet 100 mg PO BEDTIME Qty: 30 RF: 0 lorazepam 0.5 mg Tablet 0.5 mg PO BEDTIME Qty: 30 RF: 0 docusate sodium 100 mg Capsule 100 mg PO BEDTIME PRN (Reason: Constipation) Qty: 30 RF: 0 hydroxyzine HCl 25 mg Tablet 25 mg PO BEDTIME PRN (Reason: Anxiety) Qty: 30 RF: 0 duloxetine 30 mg Capsule,Delayed Release(Dr/Ec) 30 mg PO DAILY Qty: 30 RF: 0 cholecalciferol (vitamin D3) 25 mcg (1,000 unit) Tablet 25 mcg PO DAILY Qty: 30 RF: 0 Metamucil Fiber Singles 3.4 gram Powder In Packet 3.4 g PO DAILY Qty: 1 RF: 0 acetaminophen 500 mg Tablet 1,000 mg PO Q6-8H PRN (Reason: Pain) Qty: 60 RF: 0 simvastatin 20 mg tablet 40 mg PO DAILY Qty: 30 RF: 0 Interventions: ED Discharge Assessment Last Done: 08/09/20 18:02 Discharge Date/Time: 08/09/20 18:03
[2020-08-09] MEDS: 0.9 % Sodium Chloride 1,000 ML 999 ML IV (15:35)
[2020-08-09 15:40] LABS: MANUAL DIFF FLAG NO
[2020-08-09 15:42] LABS: Basophils Percent Auto 0.3 % (0-2); Eosinophils Absolute Auto 0.1 X10*3/uL (0.0-0.4); Eosinophils Percent Auto 1.4 % (0-4); Hematocrit 42.8 % (42-52); Hemoglobin 13.8 g/dl (14.0-18.0); Imm Gran Abs Auto 0.03 X10*3/uL (0.00-0.03); Imm Gran Pct Auto 0.3 % (0.0-0.4); Lymphocytes Absolute Auto 1.2 X10*3/uL (1.2-4.9); Lymphocytes Percent Auto 13.1 % (20-40); Mean Corpuscular HGB Conc 32.2 g/dl (31.0-36.0); Mean Corpuscular Hemoglobin 29.3 pg (27.0-33.0); Mean Corpuscular Volume 90.9 fL (80-98); Mean Platelet Volume 9.8 fL (9.4-12.4); Monocytes Absolute Auto 0.7 X10*3/uL (0.1-1.2); Neutrophils Absolute Auto 7.2 X10*3/uL (2.0-8.3); Neutrophils Percent Auto 77.9 % (45-73); Platelet Count 190 X10*3/uL (160-400); Red Blood Count 4.71 X10*6/uL (4.60-5.80); Red Cell Distribution Width 13.4 % (11.0-16.0); White Blood Count 9.3 X10*3/uL (4.8-10.8)
[2020-08-09 16:06] LABS: Anion Gap 13 (12-20); Blood Urea Nitrogen 12 mg/dL (9-16); Calcium 8.8 mg/dL (8.4-10.2); Carbon Dioxide 27 mmol/L (22-29); Chloride 104 mmol/L (96-108); Creatinine Clr Calc Pharmacy 74.9; Estimated Glomerular Filt Rate > 60; Glucose Random 113 mg/dL (60-115); Potassium 4.9 mmol/L (3.3-5.1); Sodium 139 mmol/L (135-145)
[2020-08-09 16:13] LABS: Troponin-I High Sensitivity < 3.5 ng/L (<3.5-35.0)
[2020-08-09 16:34] VITALS: BP 140/64; PULSE 79; RESP 16; TEMP 37.1; O2SAT 98
== END 2020-08-09 18:03 | disposition home or self-care (01) ==
PROVIDERS: Nurse Practitioner Family; Emergency Provider Emergency Medicine; PCP Internal Medicine
DX: R53.1 Weakness (principal); R25.1 Tremor, unspecified; R29.90 Unspecified symptoms and signs involving the nervous system; F33.1 Major depressive disorder, recurrent, moderate; F41.9 Anxiety disorder, unspecified; Z87.891 Personal history of nicotine dependence; Z79.899 Other long term (current) drug therapy
CPT/HCPCS: 36415; 70450; 71046; 80048; 84484; 85025; 93005; 96360; 99284

== ENCOUNTER 2020-08-14 12:58 | Outpatient (REF) | payer MEDICARE, OTHER, SELFPAY ==
[2020-08-15 16:48] LABS: Urine Cytology See Pathology rpt
== END 2020-08-14 12:59 | disposition home or self-care (01) ==
LOC: HO.LNP 12:58
PROVIDERS: PCP Internal Medicine; Visit Provider Urology
DX: R10.30 Lower abdominal pain, unspecified (principal); C67.9 Malignant neoplasm of bladder, unspecified; Z87.891 Personal history of nicotine dependence
CPT/HCPCS: 52000; 81002; 88112; 99212

== ENCOUNTER 2020-09-01 06:42 | Day surgery (SDC) | payer MEDICARE, OTHER, SELFPAY ==
[2020-08-26 13:51] VITALS: BMI 25.1
--- NOTE | 2020-08-28 11:11 | HO.ANESPROP2 ---
Documented by User: Lola Camargo 08/28/20 11:15 HPI - Anesthesia Eval Consult details Narrative: 69yo M for TUR Bladder Tumor and Cystoscopy with 2gm Gemcitabine Last cysto 12/2019 with GA-LMA 4 PMFSH Active Problems Active Problems: All Active Problems (Updated 08/26/20 @ 13:54 by Abimbola Atkins) Major depress dis, severe (Acute) Groin pain (Acute) Cervical pain (neck) (Acute) Generalized anxiety disorder (Acute) Recurrent major depression-severe (Acute) Transitional cell carcinoma (Acute) Past Medical History Medical History Bladder mass BPH (benign prostatic hyperplasia) Cervical pain (neck) Chronic neck pain with history of cervical spinal surgery Generalized anxiety disorder History of back pain History of depression History of fall History of suicidal ideation Other obstructive and reflux uropathy Recurrent major depression-severe Transitional cell carcinoma Surgical History Surgical History History of cystoscopy Hx of cervical spine surgery Hx of tonsillectomy Social History Social History Household Members: None Housing: House Alcohol intake: never Smoking Status: Former smoker Smoking Quit Date: Use of substances other than those prescribed or required for medical reasons: No Are you DNR?: No Advance Directives: No Advance Directives Information Provided: No Advance Directives on File: No service: No Sexual orientation: Straight/Heterosexual Meds Allergies Allergy/AdvReac Type Severity Reaction Status Date / Time ibuprofen AdvReac Intermediate ringing in Verified 08/26/20 13:13 ears cyclobenzaprine AdvReac right hand Verified 08/26/20 13:12 tremors quetiapine [From Seroquel] AdvReac right hand Verified 08/26/20 13:12 tremors Flonase Allergy Unknown heart Uncoded 08/26/20 13:13 palpations Home Medications Medication Instructions Recorded Confirmed Last Taken Type simvastatin 20 mg tablet 40 mg PO DAILY tab 08/14/20 08/26/20 Unknown History Exam Exam Date and Time: August 28, 2020 1111 Height,Weight and Vital Signs: Height 5 ft 9 in Weight 77.111 kg Narrative Narrative: EKG 08/10/20 Vent. Rate : 081 BPM Atrial Rate : 081 BPM P-R Int : 176 ms QRS Dur : 088 ms QT Int : 350 ms P-R-T Axes : 060 030 028 degrees QTc Int : 406 ms Normal sinus rhythm Normal ECG When compared with ECG of 02-AUG-2020 15:16, No significant change was found Assessment and Plan Assessment Anesthesia Assessment: Chart Reviewed Documented by User: Pernell Hernandez 09/01/20 07:31 PMFSH Past Medical History Medical History Bladder mass BPH (benign prostatic hyperplasia) Cervical pain (neck) Chronic neck pain with history of cervical spinal surgery Generalized anxiety disorder History of back pain History of depression History of fall History of suicidal ideation Other obstructive and reflux uropathy Recurrent major depression-severe Transitional cell carcinoma Surgical History Surgical History History of cystoscopy Hx of cervical spine surgery Hx of tonsillectomy Social History Social History Household Members: None Housing: House Alcohol intake: never Smoking Status: Former smoker Smoking Quit Date: Use of substances other than those prescribed or required for medical reasons: No Are you DNR?: No Advance Directives: No Advance Directives Information Provided: No Advance Directives on File: No service: No Sexual orientation: Straight/Heterosexual Meds Allergies Allergy/AdvReac Type Severity Reaction Status Date / Time ibuprofen AdvReac Intermediate ringing in Verified 08/26/20 13:13 ears cyclobenzaprine AdvReac right hand Verified 08/26/20 13:12 tremors quetiapine [From Seroquel] AdvReac right hand Verified 08/26/20 13:12 tremors Flonase Allergy Unknown heart Uncoded 08/26/20 13:13 palpations Home Medications Medication Instructions Recorded Confirmed Last Taken Type simvastatin 20 mg tablet 40 mg PO DAILY tab 08/14/20 08/26/20 Unknown History Exam Airway Mallampati Class: II TM Dist: >3cm Neck ROM: Full
[2020-09-01] VITALS (10 sets, daily range): BP systolic 126–139; BP diastolic 63–82; PULSE 63–77; RESP 12–17; TEMP 36.5–37.1; O2SAT 98–100
[2020-09-01] MEDS: levoFLOXacin 500 MG TABLET PO (07:10)
--- NOTE | 2020-09-01 07:32 | PC.NURSE ---
Levaquin PO ordered. Patient requested med be crushed. Verified with pharmacy that medication is okay to crush. Administered in small slurry of water. Tolerated well.
[2020-09-01] MEDS: Lactated Ringers 1,000 ML 100 ML IVCONT (07:42)
--- NOTE | 2020-09-01 08:12 | MHC.SHP ---
Pre-Procedural Eval Section A The patient is an INPATIENT: No Changes since office visit: No Cold of Flu in the past 2 weeks, No New Medical Problems, No Changes in Medication and No Patient answered all questions The History & Physical has been completed within 30 days and I have reviewed it.: Yes Section B Chief Complaint: bladder tumor Allergies: Allergies Allergy/AdvReac Type Severity Reaction Status Date / Time ibuprofen AdvReac Intermediate ringing in Verified 08/26/20 13:13 ears cyclobenzaprine AdvReac right hand Verified 08/26/20 13:12 tremors quetiapine [From Seroquel] AdvReac right hand Verified 08/26/20 13:12 tremors Flonase Allergy Unknown heart Uncoded 08/26/20 13:13 palpations Plan Diagnosis/Plan: Unchanged (TURBT bladder tumor with adjuvant therapy gemcitabine) I have reviewed the history and physical and performed a pertinent physical examination on my patient. No changes have occurred unless specified.
--- NOTE | 2020-09-01 09:02 | W.PM.OPN ---
Operative Note Operative Note Date of Service: 09/01/20 Narrative: PreOperative Diagnosis: Recurrent low-grade bladder cancer Post Operative Diagnosis: Recurrent multiple low-grade bladder cancers Procedure: TURBT plus gemcitabine instillation Surgeon: Dr Corey Buckley Anesthesia: General Indications for procedure: 69-year-old male. Cystoscopy on office with recurrent multiple small low-grade bladder cancer lesions. Approximately 5 seen all on anterior wall during office cystoscopy. Recommend operative TURBT with gemcitabine adjuvant therapy. Procedure: After informed consent was verified the patient was brought to the operating room and placed in a supine position. Anesthesia was administered per protocol. Patient was placed in modified dorsal lithotomy position and prepped and draped in sterile fashion. Safety pause time-out was observed. Antibiotics have been given. A 24 [place]ic resectoscope was inserted per urethra. Flat lesion changes were noticed on the posterior wall toward the dome. These were fulgurated. Three small frondular lesions was seen on the anterior bladder wall towards the bladder neck these were resected and fulgurated. Each of these lesions was approximately 1 cm. D narrow beam imaging camera was placed. Three other flat lesions approximately 1 cm each were seen using narrow beam and these were also fulgurated. After the fulguration was complete the bladder was drained. A [address] way [place] was placed. Gemcitabine 2 g in 100 cc of normal saline was instilled. This will set for 1 hour before being irrigated with 3 L of normal saline. He tolerated the procedure well was extubated in the operating room transferred in stable condition to the recovery area Pathology: Low-grade bladder tumors Drains: Ashford catheter
== END 2020-09-01 11:12 | disposition home or self-care (01) ==
PROVIDERS: PCP Internal Medicine; Visit Provider Urology
PROC: 0TBB8ZZ Excision of Bladder, Via Natural or Artificial Opening Endoscopic (ICD-10-PCS; CPT 52234; principal; 2020-09-01 08:20)
DX: C67.3 Malignant neoplasm of anterior wall of bladder (principal); N40.1 Benign prostatic hyperplasia with lower urinary tract symptoms; N13.8 Other obstructive and reflux uropathy; F33.3 Major depressive disorder, recurrent, severe with psychotic symptoms; Z88.8 Allergy status to other drugs, medicaments and biological substances; Z87.891 Personal history of nicotine dependence
CPT/HCPCS: 52234; 51720; 88307; J1100; J2250; J2405; J3010; J9201

== ENCOUNTER 2020-09-05 10:12 | Emergency (ER) | payer MEDICARE, OTHER, SELFPAY ==
[2020-09-05 10:31] VITALS: BP 141/77; PULSE 91; RESP 16; TEMP 36.9; O2SAT 97; BMI 25.1
--- NOTE | 2020-09-05 10:39 | ED_ITS ---
HPI - General Adult General Chief complaint: General Medical Stated complaint: UNABLE TO SLEEP Time Seen by Provider: 09/05/20 10:32 Source: patient Mode of arrival: ambulatory Limitations: no limitations History of Present Illness HPI narrative: hx of anxiety and insomnia post surgery (tuesday post bladder surgery no complaints) taking ativan 0.5mg no relief, PCP recommended trazodone but then thought it couldn't be crushed confirmed with our pharmacist that it can - patient wants to try this MD complaint: insomnia Onset (ago): day(s) (5) Related Data Home Medications Medication Instructions Recorded Confirmed simvastatin 20 mg tablet 40 mg PO DAILY tab 08/14/20 08/26/20 Previous Rx's Medication Instructions Recorded acetaminophen 1,000 mg PO Q6-8H PRN #60 tab 08/08/20 cholecalciferol (vitamin D3) 25 mcg PO DAILY #30 tab 08/08/20 duloxetine 30 mg PO DAILY #30 cap 08/08/20 lorazepam 0.5 mg PO BEDTIME #30 tab 08/08/20 trimethoprim 100 mg PO Q12H 10 Days #20 tab 09/01/20 trazodone 50 mg PO BEDTIME PRN #30 tab 09/05/20 Allergies Allergy/AdvReac Type Severity Reaction Status Date / Time ibuprofen AdvReac Intermediate ringing in Verified 08/26/20 13:13 ears cyclobenzaprine AdvReac right hand Verified 08/26/20 13:12 tremors quetiapine [From Seroquel] AdvReac right hand Verified 08/26/20 13:12 tremors Flonase Allergy Unknown heart Uncoded 08/26/20 13:13 palpations Review of Systems Review of Systems: Constitutional : No Fever, No Chills, ENT/Mouth : No sore throat, No Rhinorrhea Eyes: No Eye Pain, No Swelling, No Redness Cardiovascular : No Chest Pain, No SOB, Respiratory : No Cough, No Sputum, No Wheezing Gastrointestinal : No Nausea, No Vomiting, No Diarrhea Genitourinary : No Dysuria, No Urinary Frequency, No Hematuria, Musculoskeletal : No joint pain, No Myalgias, No Joint Swelling Skin : No Skin Lesions, No rash Neuro : No Weakness, No Numbness, No Dizziness, No Headache Psych : pos Anxiety/Panic, No Depression Heme/Lymph: No Bruising, No Bleeding,No Lymphadenopathy Endocrine : No Polyuria, No Polydipsia All other systems reviewed and are negative [facility] Past Medical History Attestation statement: The following information was validated with the patient. Medical History Bladder mass BPH (benign prostatic hyperplasia) Cervical pain (neck) Chronic neck pain with history of cervical spinal surgery Generalized anxiety disorder History of back pain History of depression History of fall History of suicidal ideation Other obstructive and reflux uropathy Recurrent major depression-severe Transitional cell carcinoma Surgical History History of cystoscopy Hx of cervical spine surgery Hx of tonsillectomy Social History Social History Household Members: None Housing: House Do you presently have visiting nurse or other home services: No Alcohol intake: never Advance Directives: Yes Advance Directives Information Provided: Yes Advance Directives on File: No service: No Sexual orientation: Straight/Heterosexual Physical Exam Vital Signs: Vital Signs: Last Vital Signs Temp 98.6 F 09/05/20 11:06 Pulse 84 09/05/20 11:06 Resp 16 09/05/20 11:06 BP 123/71 09/05/20 11:06 Pulse Ox 96 09/05/20 11:06 Body Mass Index 25.1 Appearance: Alert. Oriented X3. No acute distress. anxious Eyes: Pupils equal, round and reactive to light. ENT: Pharynx normal. Neck: Normal inspection. Neck supple. CVS: Normal heart rate and rhythm. Pulses normal. Respiratory: No respiratory distress. Breath sounds normal. Abdomen: Soft and nontender. Skin: Skin warm and dry. Normal skin color. Normal skin turgor. Extremities: No lower extremity edema. No calf ttp Neuro: Oriented X 3. No motor deficit. No sensory deficit. Medical Decision Making MDM Narrative Medical decision making narrative: 69 yo male post bladder surgery Tuesday no complaints other than insomnia hx of same in past, watned to try trazodone unsure he can crush it confirmed with our pharmacist you can, will obtain basic labs and likely start on 50mg Lab Data Result diagrams: 09/05/20 11:00 09/05/20 11:00 Labs: Lab Results 05/28/21 05/28/21 Range/Units 11:00 11:00 WBC 7.7 (4.8-10.8) X10*3/uL RBC 4.87 (4.60-5.80) X10*6/uL Hgb 14.4 (14.0-18.0) g/dl Hct 42.8 (42-52) % MCV 87.9 (80-98) fL MCH 29.6 (27.0-33.0) pg MCHC 33.6 (31.0-36.0) g/dl RDW 12.3 (11.0-16.0) % Plt Count 165 (160-400) X10*3/uL MPV 10.4 (9.4-12.4) fL Immature Gran % (Auto) 0.3 (0.0-0.4) % Neut % (Auto) 86.1 H (45-73) % Lymph % (Auto) 10.2 L (20-40) % [place] % (Auto) 1.3 L (2-11) % Eos % (Auto) 1.8 (0-4) % Baso % (Auto) 0.3 (0-2) % Lymph # (Auto) 0.8 L (1.2-4.9) X10*3/uL [place] # (Auto) 0.1 (0.1-1.2) X10*3/uL Eos # (Auto) 0.1 (0.0-0.4) X10*3/uL Baso # (Auto) 0.0 (0.0-0.2) X10*3/uL Abs Immat Gran (auto) 0.02 (0.00-0.03) X10*3/uL Absolute Neuts (auto) 6.7 (2.0-8.3) X10*3/uL Absolute Nucleated RBC 0.000 (0.0-0.012) X10*3/uL Nucleated RBC % (auto) 0.0 (0.0-0.2) /100WBC Sodium 135 (135-145) mmol/L Potassium 4.8 (3.3-5.1) mmol/L Chloride 103 (96-108) mmol/L Carbon Dioxide 26 (22-29) mmol/L Anion Gap 11 L (12-20) BUN 12 (9-16) mg/dL Creatinine 0.96 (0.5-1.4) mg/dL Estim Creat Clear Calc 72.6 Estimated GFR > 60 Random Glucose 94 (60-115) mg/dL Calcium 9.0 (8.4-10.2) mg/dL Magnesium 2.5 (1.6-2.6) mg/dL Discharge Plan Discharge Clinical Impression: Insomnia Qualifiers: Insomnia type: unspecified Qualified Code(s): G47.00 - Insomnia, unspecified Patient Disposition: Home, Self-Care Instructions: Insomnia (ED) Additional Instructions: return to ED for any worsening symptoms or concerns you can crush trazodone Prescriptions: New trazodone 50 mg tablet 50 mg PO BEDTIME PRN (Reason: insomnia) Qty: 30 RF: 0 No Action lorazepam 0.5 mg Tablet 0.5 mg PO BEDTIME Qty: 30 RF: 0 duloxetine 30 mg Capsule,Delayed Release(Dr/Ec) 30 mg PO DAILY Qty: 30 RF: 0 cholecalciferol (vitamin D3) 25 mcg (1,000 unit) Tablet 25 mcg PO DAILY Qty: 30 RF: 0 acetaminophen 500 mg Tablet 1,000 mg PO Q6-8H PRN (Reason: Pain) Qty: 60 RF: 0 trimethoprim 100 mg tablet 100 mg PO Q12H 10 Days Qty: 20 RF: 0 Referrals: Randal Stringer MD [Primary Care Provider] - 5 days (if not better)
[2020-09-05 11:04] LABS: MANUAL DIFF FLAG NO
[2020-09-05 11:06] VITALS: BP 123/71; PULSE 84; RESP 16; TEMP 37; O2SAT 96
[2020-09-05 11:07] LABS: Basophils Percent Auto 0.3 % (0-2); Eosinophils Absolute Auto 0.1 X10*3/uL (0.0-0.4); Eosinophils Percent Auto 1.8 % (0-4); Hematocrit 42.8 % (42-52); Hemoglobin 14.4 g/dl (14.0-18.0); Imm Gran Abs Auto 0.02 X10*3/uL (0.00-0.03); Imm Gran Pct Auto 0.3 % (0.0-0.4); Lymphocytes Absolute Auto 0.8 X10*3/uL (1.2-4.9); Lymphocytes Percent Auto 10.2 % (20-40); Mean Corpuscular HGB Conc 33.6 g/dl (31.0-36.0); Mean Corpuscular Hemoglobin 29.6 pg (27.0-33.0); Mean Corpuscular Volume 87.9 fL (80-98); Mean Platelet Volume 10.4 fL (9.4-12.4); Monocytes Absolute Auto 0.1 X10*3/uL (0.1-1.2); Monocytes Percent Auto 1.3 % (2-11); Neutrophils Absolute Auto 6.7 X10*3/uL (2.0-8.3); Neutrophils Percent Auto 86.1 % (45-73); Platelet Count 165 X10*3/uL (160-400); Red Blood Count 4.87 X10*6/uL (4.60-5.80); Red Cell Distribution Width 12.3 % (11.0-16.0); White Blood Count 7.7 X10*3/uL (4.8-10.8)
[2020-09-05 11:38] LABS: Anion Gap 11 (12-20); Blood Urea Nitrogen 12 mg/dL (9-16); Carbon Dioxide 26 mmol/L (22-29); Chloride 103 mmol/L (96-108); Creatinine Clr Calc Pharmacy 72.6; Estimated Glomerular Filt Rate > 60; Glucose Random 94 mg/dL (60-115); Magnesium 2.5 mg/dL (1.6-2.6); Potassium 4.8 mmol/L (3.3-5.1); Sodium 135 mmol/L (135-145)
[2020-09-05 12:00] LABS: Thyroid Stimulating Hormone 0.71 uIU/mL (0.32-4.0)
== END 2020-09-05 12:13 | disposition home or self-care (01) ==
PROVIDERS: Emergency Provider Emergency Medicine; PCP Internal Medicine
DX: G47.00 Insomnia, unspecified (principal); F41.9 Anxiety disorder, unspecified; Z98.890 Other specified postprocedural states; Z79.899 Other long term (current) drug therapy
CPT/HCPCS: 36415; 80048; 83735; 84443; 85025; 99283

== ENCOUNTER 2020-09-06 23:41 | Inpatient (IN) | payer MEDICARE, OTHER, SELFPAY ==
[2020-09-06 23:50] VITALS: BP 144/79; PULSE 85; RESP 16; TEMP 36.6; O2SAT 96; BMI 25.1
[2020-09-07 00:02] VITALS: BP 135/78; PULSE 100; RESP 18; TEMP 36.6; O2SAT 98
--- NOTE | 2020-09-07 01:15 | ED.GENADULT ---
HPI - General Adult General Chief complaint: General Medical Stated complaint: insomnia/depression Time Seen by Provider: 09/07/20 01:14 Source: patient Mode of arrival: ambulatory Limitations: no limitations History of Present Illness HPI narrative: 69-year-old male return to the emergency department for symptoms of depression, insomnia, suicidal ideation. Patient was seen last night for similar presentation, patient was using Ativan 0.5 mg at sleeping time but was not working for the patient and patient is requesting to change it to trazodone, patient started trazodone last night but could not sleep he returned again today. Patient just had a recent noncomplicated bladder surgery, patient overall feel depressed, there is intermittent thoughts suicide with no specific plan. Related Data Home Medications Medication Instructions Recorded Confirmed simvastatin 20 mg tablet 40 mg PO DAILY tab 08/14/20 08/26/20 Previous Rx's Medication Instructions Recorded acetaminophen 1,000 mg PO Q6-8H PRN #60 tab 08/08/20 cholecalciferol (vitamin D3) 25 mcg PO DAILY #30 tab 08/08/20 duloxetine 30 mg PO DAILY #30 cap 08/08/20 lorazepam 0.5 mg PO BEDTIME #30 tab 08/08/20 trimethoprim 100 mg PO Q12H 10 Days #20 tab 09/01/20 trazodone 50 mg PO BEDTIME PRN #30 tab 09/05/20 Allergies Allergy/AdvReac Type Severity Reaction Status Date / Time ibuprofen AdvReac Intermediate ringing in Verified 09/07/20 00:22 ears cyclobenzaprine AdvReac right hand Verified 09/07/20 00:22 tremors quetiapine [From Seroquel] AdvReac right hand Verified 09/07/20 00:22 tremors Flonase Allergy Unknown heart Uncoded 09/07/20 00:22 palpations Review of Systems Review of Systems: All other systems are reviewed and are negative Constitutional: Reports as per HPI and Reports no additional constitutional complaints Eyes: Reports as per HPI and Reports no additional eye complaints Reports system reviewed and no additional complaints, except as documented Cardiovascular: Reports as per HPI and Reports no additional cardiovascular complaints Respiratory: Reports as per HPI and Reports no additional respiratory complaints Gastrointestinal: Reports as per HPI and Reports no additional gastrointestinal complaints Genitourinary: Reports no additional female genitourinary complaints Musculoskeletal: Reports no additional musculoskeletal complaints Skin/Breast: Reports system reviewed and no additional complaints, except as docu Psychiatric: Reports no additional psychiatric complaints Endocrine: Reports no additional endocrine complaints Hematologic/Lymphatic: Reports no additional hematologic/lymphatic complaints Allergic/Immunologic: Reports no additional allergic/immunologic complaints Reports system reviewed and no additional complaints, except as documented and Reports Abnormal speech present [facility] Past Medical History Medical History Bladder mass BPH (benign prostatic hyperplasia) Cervical pain (neck) Chronic neck pain with history of cervical spinal surgery Generalized anxiety disorder History of back pain History of depression History of fall History of suicidal ideation Other obstructive and reflux uropathy Recurrent major depression-severe Transitional cell carcinoma Surgical History History of cystoscopy Hx of cervical spine surgery Hx of tonsillectomy Social History Social History Household Members: None Housing: House Do you presently have visiting nurse or other home services: No Alcohol intake: never Advance Directives: No service: No Sexual orientation: Straight/Heterosexual Physical Exam Vital Signs: Vital Signs: Last Vital Signs Temp 97.8 F 09/06/20 23:50 Pulse 85 09/06/20 23:50 Resp 16 09/06/20 23:50 BP 144/79 H 09/06/20 23:50 Pulse Ox 96 09/06/20 23:50 Body Mass Index 25.1 Vital signs have been reviewed as appeared to be correct. Blood pressure normal. Heart rate normal. Respiration rate normal. Temperature normal. Oxygen saturation normal. Appearance: Alert. Oriented X3. No acute distress. Head: Normal external exam. Normocephalic. Atraumatic. No Brock signs noted. No raccoon eyes noted Eyes: PERRLA. EOMI. Conjunctiva and sclera normal. Eyelids normal. ENT: TM's Normal. Pharynx normal. Uvula midline. Moist mucous membranes. No trismus noted. No drooling noted. No muffled voice noted. Neck: Normal inspection. Neck supple. FROM. No adenopathy. Thyroid Normal. No meningeal signs. No neck mass noted. CVS: Normal heart rate and rhythm. Heart sound normal. No murmurs noted. Pulses normal throughout. Respiratory: No respiratory distress. Painless inspiration. Breath sounds normal. No wheezes/rales/rhonchi noted. Chest nontender. No accessory muscle usage noted or decreased air movement noted. Abdomen: Soft and nontender. Bowel sounds normal in all 4 quadrants. No distention noted. No organomegaly noted. No visible injury noted. Back: No CVA tenderness. Full range of motion noted. Skin: Skin warm and dry. Normal skin color. Normal skin turgor. No rashes/lesions/lacerations noted. Extremities: No lower extremity edema. Extremities exhibit normal range of motion. Extremities nontender. Neuro: Oriented X 3. No motor deficit. No sensory deficit. Reflexes normal. Patient Appearance: Appropriate Patient Orientation: Person, Place, Time and Situation Level of Consciousness: Awake, Appropriate and Alert Patient Behavior: Talkative, Cooperative. Mood Description: Depressed. Affect Description: Flat. Patient Cognition Impaired: No Ability to Follow Directions: Good Speech Pattern: Spontaneous Speech Memory Description: Intact Hallucinations: Not present. Delusions: Not Present Thought Process: Logical. Thought Content: Unremarkable Depressive Symptoms: Increased anxiety. Judgement: Fair Course Course Course Narrative: 69-year-old male with depression/SI/insomnia. Will try trazodone 50 mg/Benadryl help his insomnia, awaiting for BPH and evaluation for depression and suicidal ideation. Reevaluation(s) Reevaluation #1: Physician observation started at 1:20 . Patient placed in physician observation because the patient needed more time for medication to work and to see [facility] for evaluation and the need for placement patient's vital sign were stable, patient is alert and oriented , neuro exam unchanged, unremarkable rest of physical exam. Time: 01:20 Discharge Plan Discharge Clinical Impression: Insomnia disorder, Depression Prescriptions: No Action lorazepam 0.5 mg Tablet 0.5 mg PO BEDTIME Qty: 30 RF: 0 duloxetine 30 mg Capsule,Delayed Release(Dr/Ec) 30 mg PO DAILY Qty: 30 RF: 0 cholecalciferol (vitamin D3) 25 mcg (1,000 unit) Tablet 25 mcg PO DAILY Qty: 30 RF: 0 acetaminophen 500 mg Tablet 1,000 mg PO Q6-8H PRN (Reason: Pain) Qty: 60 RF: 0 trimethoprim 100 mg tablet 100 mg PO Q12H 10 Days Qty: 20 RF: 0 trazodone 50 mg tablet 50 mg PO BEDTIME PRN (Reason: insomnia) Qty: 30 RF: 0
--- NOTE | 2020-09-07 01:24 | PC.NURSE ---
met with patient at the bedside. Plan to administer medications as ordered. Urine specimen collected and sent for analysis. This RN spoke with patient just prior to speaking with , and reports Suicidal ideations with plan to jump off of a bridge. Pt reports past history with suicide attempts/ideation. Sees a psychiatrist, who would not increase the patient's Ativan dose, and insomnia after being newly prescribed Trazodone. Pt recently seen at [facility]. 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 Plan for the patient to meet with crisis team. Pt remains in behavioral control at this time. Will continue to monitor.
[2020-09-07] MEDS: diphenhydrAMINE HCL 25 MG TABLET PO (01:49)
[2020-09-07] MEDS: traZODone HCL 50 MG TABLET PO ×2 (01:49→20:01)
[2020-09-07 02:59] LABS: Glucose Urine UA NEG (NEG); Leukocyte Esterase Urine 1+ (NEG); Nitrite Urine NEG (NEG); PH 6.5 (5.0-8.0); Specific Gravity - Urine <= 1.005 (1.005-1.025); UACC Culture Trigger YES; Urine Blood 3+ (NEG); Urine Ketones NEG (NEG); Urine Protein NEG (NEG-TRACE)
[2020-09-07 03:12] LABS: Bacteria Urine 1+ /LPF; Squamous Epithelial Cell Urine 1+ /LPF
[2020-09-07 03:22] LABS: Appearance Urine CLEAR; Color Urine YELLOW
[2020-09-07 03:26] LABS: Amphetamine Screen Urine Not Detected (Not Detect); Barbiturates, Urine Not Detected (Not Detect); Benzodiazepines Screen Urine Not Detected (Not Detect); Cannabinoid Screen Urine Not Detected (Not Detect); Cocaine Screen Urine Not Detected (Not Detect); Opiate Screen Urine Not Detected (Not Detect); Phencyclidine Screen Urine Not Detected (Not Detect)
[2020-09-07 04:00] LABS: COVID-19 Test Negative (Negative); IDNOW Serial# 9DD0AD1C
[2020-09-07] MEDS: OLANZapine 10 MG TABLET PO (05:54)
--- NOTE | 2020-09-07 05:55 | PC.NURSE ---
Patient medicated with Zyprexa 10mg PO as ordered by for continued insomnia despite previously administered medications, crushed in applesauce. The patient has remained in behavioral control throughout this shift, has mostly been laying down watching TV and attempting to sleep. Pt has only slept in brief intervals since arrival. Pt also reports chronic neck pain due to past work-related injury, stating that Ativan and Tylenol normally help with pain. Will continue to monitor.
[2020-09-07] MEDS: LORazepam 1 MG TABLET PO (06:57)
[2020-09-07] MEDS: Acetaminophen 325 MG TABLET 975 MG PO (06:57)
--- NOTE | 2020-09-07 07:32 | PC.NURSE ---
patient appears to be continuing to sleep with even unlabored breaths, appears in no distress, received report from prior RN
[2020-09-07] MEDS: Cholecalciferol (Vitamin D3) 25 MCG TABLET PO (09:51)
[2020-09-07] MEDS: DULoxetine HCl 30 MG CAPSULE.DR PO (09:51)
[2020-09-07 10:54] VITALS: BP 119/78; PULSE 100; RESP 18; O2SAT 95
[2020-09-07 14:27] LABS: Eosinophils Absolute Auto 0.1 X10*3/uL (0.0-0.4); Eosinophils Percent Auto 2.3 % (0-4); Hemoglobin 13.6 g/dl (14.0-18.0); Imm Gran Abs Auto 0.01 X10*3/uL (0.00-0.03); Imm Gran Pct Auto 0.2 % (0.0-0.4); MANUAL DIFF FLAG SCAN; PLT CLUMP 1; SCAN SMEAR FLAG 1
[2020-09-07 14:29] LABS: Basophils Percent Auto 0.5 % (0-2); Hematocrit 40.4 % (42-52); Lymphocytes Absolute Auto 1.8 X10*3/uL (1.2-4.9); Mean Corpuscular HGB Conc 33.7 g/dl (31.0-36.0); Mean Platelet Volume 10.1 fL (9.4-12.4); Monocytes Absolute Auto 0.1 X10*3/uL (0.1-1.2); Monocytes Percent Auto 2.7 % (2-11); Neutrophils Absolute Auto 2.4 X10*3/uL (2.0-8.3); Neutrophils Percent Auto 54.3 % (45-73); Platelet Count 132 X10*3/uL (160-400); Red Blood Count 4.54 X10*6/uL (4.60-5.80); White Blood Count 4.4 X10*3/uL (4.8-10.8)
--- NOTE | 2020-09-07 14:34 | ECG_ITS ---
Test Reason : M5 Blood Pressure : / mmHG Vent. Rate : 068 BPM Atrial Rate : 068 BPM P-R Int : 172 ms QRS Dur : 086 ms QT Int : 366 ms P-R-T Axes : 058 062 044 degrees QTc Int : 389 ms Normal sinus rhythm Normal ECG When compared with ECG of 09-AUG-2020 14:32, No significant change was found Referred By: Rico Collado Electronically Signed By:SIGRID NOLAN
[2020-09-07 14:48] LABS: Alanine Aminotransferase 18 U/L (0-40); Albumin Level 3.8 g/dL (3.5-5.0); Alkaline Phosphatase 73 U/L (39-117); Anion Gap 10 (12-20); Aspartate Amino Transferase 17 U/L (5-37); Bilirubin Direct 0.2 mg/dL (0.0-0.5); Bilirubin Total 0.3 mg/dL (0.0-1.0); Blood Urea Nitrogen 10 mg/dL (9-16); Calcium 8.9 mg/dL (8.4-10.2); Carbon Dioxide 30 mmol/L (22-29); Chloride 105 mmol/L (96-108); Creatinine Clr Calc Pharmacy 69.7; Estimated Glomerular Filt Rate > 60; Glucose Random 84 mg/dL (60-115); Potassium 4.5 mmol/L (3.3-5.1); Sodium 140 mmol/L (135-145); Total Protein 6.2 g/dL (6.5-8.0)
--- NOTE | 2020-09-07 18:29 | PC.ADMIT ---
Pt is a 69 year old Afghan Speaking male who presents to from [facility] ED at approx 16:40 on a cv status. Covid- . Pt presents with with worsening symptoms of depression over the last several weeks. Pt reports elevated depression and anxiety related to recent medical issues and endorsed SI to jump off a bridge. Pt has been compliant with medications and attending sessions with therapist and psychiatrist outpt. Pt is on [address] GOODSON called for orders and notified of admission. Start treatment plan and monitor for safety
[2020-09-07 19:26] VITALS: BP 130/85; PULSE 80; TEMP 36.9
[2020-09-08 06:06] LABS: Glucose, Whole Blood 106 mg/dL (60-115)
[2020-09-08 06:42] VITALS: BP 112/59; PULSE 73; TEMP 36.2
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
[2020-09-08] MEDS: DULoxetine HCl 30 MG CAPSULE.DR PO (09:20)
[2020-09-08] MEDS: LORazepam 0.5 MG TABLET PO (09:20)
[2020-09-08] MEDS: Cholecalciferol (Vitamin D3) 25 MCG TABLET PO (09:20)
[2020-09-08] MEDS: Acetaminophen 325 MG TABLET 650 MG PO (09:20)
[2020-09-08 17:35] VITALS: BP 136/67; PULSE 80; TEMP 36.4
[2020-09-08] MEDS: traZODone HCL 100 MG TABLET PO (21:12)
[2020-09-08] MEDS: Atorvastatin Calcium 20 MG TABLET PO (21:12)
[2020-09-09] MEDS: Acetaminophen 325 MG TABLET 650 MG PO ×2 (05:49→19:27)
[2020-09-09 06:00] VITALS: BP 123/63; PULSE 90; TEMP 36.6; O2SAT 97
[2020-09-09] MEDS: Cholecalciferol (Vitamin D3) 25 MCG TABLET PO (08:54)
[2020-09-09] MEDS: DULoxetine HCl 30 MG CAPSULE.DR PO (08:54)
--- NOTE | 2020-09-09 18:40 | HO.PSYCHPN ---
Subjective Subjective Date of Service: 09/09/20 Reason For Visit: Depression Subjective Notes: Conditional Voluntary Healthcare Proxy: No Guardianship: No Medical Problems Affecting Mental Status: Yes Interim History: Reports ongoing insomnia. Would like to remain with Trazodone titration. Will increase to 125 mg hs tonight. Discussed having concerns about medications not being healthy. Discussed tremor SE from ?Seroquel, ?Flexoril after last discharge. Discussed ER eval, issues with hydration and sx of neck pain,pending neurosurgery and anxiety as factors which may effect his responses. Review of Systems Musculoskeletal: Reports other (neck pain) Psychiatric: Reports anxiety, Reports depression and Reports suicidal ideation Mental Status Exam Mental Status Exam Patient Appearance: Appropriate Patient Orientation: Person, Place, Time and Situation Level of Consciousness: Appropriate and Alert Patient Behavior: Talkative and Good Eye Contact Mood Description: Depressed Affect Description: Flat Patient Cognition Impaired: No Ability to Follow Directions: Good Speech Pattern: Spontaneous Speech Memory Description: Intact Hallucinations: None Delusions: Not Present and Paranoid Ideation Thought Process: Rumination Thought Content: positive for Perseveration Depressive Symptoms: Increased Anxiety, Insomnia, Difficulty Sleeping, Muscle Pain, Loss of Int. in Activity, Feelings of Worthlessness, Hopelessness, Unhappiness, Increased Fatigue, Thoughts of /Suicide and Difficulty Concentrating Judgement: Fair Diagnostics Vital Signs (24Hr): Vital Signs - 24 hr 09/09/20 06:00 Temperature 97.8 F Pulse Rate 90 Blood Pressure 123/63 Pulse Oximetry 97 Body Mass Index 25.1 Labs Results: 09/07/20 14:20 09/07/20 14:20 Labs: Laboratory Results - last 48 hr 09/08/20 06:02 POC Glucose 106 Medications Medications Current Medications Generic Name Dose Route Start Last Admin Trade Name Freq PRN Reason Stop Dose Admin Acetaminophen 650 mg 09/07/20 08:59 09/09/20 05:49 Acetaminophen 325 Mg Tablet PO 650 mg Q6H PRN Administration Pain, Mild (Pain Scale 1-3) Al Hydroxide/Mg Hydroxide 30 ml 09/07/20 15:53 Magnesium Hydrox/Alum Hydrox 30 Ml Oral.Susp PO Q6H PRN Heartburn/Nausea Atorvastatin Calcium 20 mg 09/08/20 21:00 09/08/20 21:12 Atorvastatin Calcium 20 Mg Tablet PO 20 mg BEDTIME JERRY Administration Duloxetine HCl 30 mg 09/07/20 09:00 09/09/20 08:54 Duloxetine Hcl 30 Mg Capsule.Dr PO 30 mg DAILY JERRY Administration Hydroxyzine HCl 25 mg 09/07/20 15:53 Hydroxyzine Hcl 25 Mg Tablet PO BEDTIME PRN Anxiety Lorazepam 0.5 mg 09/07/20 08:55 09/08/20 09:20 Lorazepam 0.5 Mg Tablet PO 0.5 mg DAILY PRN Administration Anxiety Magnesium Hydroxide 30 ml 09/07/20 15:53 Milk Of Magnesia 30 Ml Oral.Susp PO DAILY PRN Constipation Trazodone HCl 125 mg 09/09/20 21:00 Trazodone Hcl 25 Mg Halftab PO BEDTIME JERRY Trimethoprim/Sulfamethoxazole 1 tab 09/07/20 10:15 09/09/20 11:19 Sulfamethox/Trimeth 800/160 1 Tab Tablet PO 1 tab Q12H JERRY Administration Vitamin D 25 mcg 09/07/20 09:00 09/09/20 08:54 Cholecalciferol (Vitamin D3) 25 Mcg Tablet PO 25 mcg DAILY JERRY Administration Allergies Allergies Allergy/AdvReac Type Severity Reaction Status Date / Time ibuprofen AdvReac Intermediate ringing in Verified 09/07/20 00:22 ears cyclobenzaprine AdvReac right hand Verified 09/07/20 00:22 tremors quetiapine [From Seroquel] AdvReac right hand Verified 09/07/20 00:22 tremors Flonase Allergy Unknown heart Uncoded 09/07/20 00:22 palpations Assessment & Plan Assessment & Plan (1) Depression: Qualifiers: Depression Type: major depressive disorder Major depression episode severity: moderate Major depression recurrence: unspecified whether recurrent Status: Acute Code(s): F32.9 - Major depressive disorder, single episode, unspecified Assessment and Plan: Diagnosis: Opdyke I major depressionIn conclusion Mr. Pantoja was admitted to this unit for safety and stabilization. Current regimen of medications were continued with increase of trazodone to 125 mg. Side effects including priapism discussed Opdyke II none Opdyke III cervical disc disease. Bladder carcinoma. In conclusion Mr. Pantoja was admitted to this unit for safety and stabilization. Admission workup and physical examination to be done. Current diagnostics were reviewed, indicative of anemia secondary to current bladder issue, recent surgery and hematuria. Current regimen of medications were continued with increase of trazodone to 100 mg. Side effects including priapism discussed Greater than 50% of the session was spent on counseling and/or coordination of care Reason for contiued inpatient stay Substantial Risk for: harm to self, inability to function, rapid decompensation and med/psych decompensation
[2020-09-09] MEDS: traZODone HCL 25 MG HALFTAB 125 MG PO (22:32)
[2020-09-09 22:59] VITALS: BP 130/85; PULSE 80; TEMP 37.1; O2SAT 96
--- NOTE | 2020-09-10 06:50 | HO.PSYCHPN ---
Subjective Subjective Date of Service: 09/13/20 Reason For Visit: Depression Interim History: Pt reports improvement in mood with cymbalta. He reports feeling less overwhelmed and less hopeless. He reports he had a good night sleep with trazodone. He does appear to perseverate on side effects of medications and concern about taking medications for sleep and mood. He denies SI/HI. He has been mostly in his room, encouraged to attend groups. Review of Systems Review of Systems Review of systems is negative by system except for chronic neck pain and injury. Bladder cancer with surgery last week Yes all other systems are reviewed and are negative Musculoskeletal: Reports other (neck pain) Psychiatric: Reports anxiety, Reports depression and Reports suicidal ideation Mental Status Exam Mental Status Exam Narrative: Appearance: casually groomed, fair hygiene, in NAD Behavior: calm, cooperative Psychomotor: no agitation or retardation noted Speech: clear, normal rate/rhythm/volume, spontaneous TP: linear TC: no signs of psychosis, somatic preoccupation Mood: better Affect:brighter SI:none HI:none AH/VH:none Delusions:none Insight/judgment:fair x 2. Memory/cog: alert, oriented x 3. grossly intact to conversational testing. Diagnostics Vital Signs (24Hr): Vital Signs - 24 hr 09/12/20 18:00 09/13/20 06:00 Temperature 98.1 F Pulse Rate 74 Respiratory Rate 16 16 Blood Pressure 106/62 Pulse Oximetry 96 Body Mass Index 24.9 Labs Results: 09/07/20 14:20 09/07/20 14:20 Medications Medications Current Medications Generic Name Dose Route Start Last Admin Trade Name Freq PRN Reason Stop Dose Admin Acetaminophen 650 mg 09/07/20 08:59 09/12/20 15:34 Acetaminophen 325 Mg Tablet PO 650 mg Q6H PRN Administration Pain, Mild (Pain Scale 1-3) Al Hydroxide/Mg Hydroxide 30 ml 09/07/20 15:53 09/10/20 09:52 Magnesium Hydrox/Alum Hydrox 30 Ml Oral.Susp PO 30 ml Q6H PRN Administration Heartburn/Nausea Atorvastatin Calcium 20 mg 09/08/20 21:00 09/12/20 20:47 Atorvastatin Calcium 20 Mg Tablet PO 20 mg BEDTIME JERRY Administration Duloxetine HCl 30 mg 09/07/20 09:00 09/12/20 09:05 Duloxetine Hcl 30 Mg Capsule. PO 30 mg DAILY JERRY Administration Hydroxyzine HCl 25 mg 09/07/20 15:53 Hydroxyzine Hcl 25 Mg Tablet PO BEDTIME PRN Anxiety Lorazepam 0.5 mg 09/11/20 16:47 Lorazepam 0.5 Mg Tablet PO DAILY PRN Anxiety Lorazepam 1 mg 09/11/20 21:00 09/12/20 20:46 Lorazepam 1 Mg Tablet PO 1 mg BEDTIME JERRY Administration Magnesium Hydroxide 30 ml 09/07/20 15:53 09/12/20 09:12 Milk Of Magnesia 30 Ml Oral.Susp PO 30 ml DAILY PRN Administration Constipation Melatonin 6 mg 09/12/20 21:00 09/12/20 20:47 Melatonin 3 Mg Tablet PO 6 mg BEDTIME JERRY Administration Trazodone HCl 150 mg 09/11/20 16:46 Trazodone Hcl 50 Mg Tablet PO BEDTIME PRN insomnia Vitamin D 25 mcg 09/07/20 09:00 09/12/20 09:05 Cholecalciferol (Vitamin D3) 25 Mcg Tablet PO 25 mcg DAILY JERRY Administration Allergies Allergies Allergy/AdvReac Type Severity Reaction Status Date / Time ibuprofen AdvReac Intermediate ringing in Verified 09/07/20 00:22 ears cyclobenzaprine AdvReac right hand Verified 09/07/20 00:22 tremors quetiapine [From Seroquel] AdvReac right hand Verified 09/07/20 00:22 tremors Flonase Allergy Unknown heart Uncoded 09/07/20 00:22 palpations Assessment & Plan Assessment & Plan (1) Depression: Qualifiers: Depression Type: major depressive disorder Major depression episode severity: moderate Major depression recurrence: unspecified whether recurrent Status: Acute Code(s): F32.9 - Major depressive disorder, single episode, unspecified Assessment and Plan: 1. increase trazodone to 150mg po qhs 2. continue cymbalta 30mg po daily- pt reports higher doses cause constipation. Greater than 50% of the session was spent on counseling and/or coordination of care Reason for contiued inpatient stay Substantial Risk for: harm to self
[2020-09-10] MEDS: DULoxetine HCl 30 MG CAPSULE.DR PO (09:05)
[2020-09-10] MEDS: Cholecalciferol (Vitamin D3) 25 MCG TABLET PO (09:05)
[2020-09-10 09:49] VITALS: BP 146/62; PULSE 96; TEMP 36.4; O2SAT 97
[2020-09-10] MEDS: Magnesium Hydrox/Alum Hydrox 30 ML ORAL.SUSP PO (09:52)
[2020-09-10] MEDS: Acetaminophen 325 MG TABLET 650 MG PO (18:20)
[2020-09-10] MEDS: traZODone HCL 50 MG TABLET 150 MG PO (20:39)
[2020-09-10] MEDS: Atorvastatin Calcium 20 MG TABLET PO (20:40)
[2020-09-11 06:00] VITALS: BP 113/57; PULSE 60; RESP 16; TEMP 36.8; O2SAT 97
--- NOTE | 2020-09-11 06:55 | HO.PSYCHPN ---
Subjective Subjective Date of Service: 09/13/20 Reason For Visit: Depression Interim History: Pt reports tingling sensation on right arm at night, which he attributes to trazodone. He asks if he can go back to ativan 1mg po qhs. He goes on about side effects of medications and need to stay in hospital. He reports mood has overall improved in that he is less depressed. He denies SI/HI. He reports he feels more rested. We discussed that tingling right arm, less likely side effect of trazodone and to consider actual risk versus the benefit, which in this case pt was able to sleep through the night without daytime sedation next day. However, pt insists on trying ativan and d/cing trazodone. Review of Systems Review of Systems Review of systems is negative by system except for chronic neck pain and injury. Bladder cancer with surgery last week Yes all other systems are reviewed and are negative Musculoskeletal: Reports other (neck pain) Psychiatric: Reports anxiety, Reports depression and Reports suicidal ideation Mental Status Exam Mental Status Exam Narrative: Appearance: casually groomed, fair hygiene, in NAD Behavior: calm, cooperative Psychomotor: no agitation or retardation noted Speech: clear, normal rate/rhythm/volume, spontaneous TP: linear TC: no signs of psychosis, somatic preoccupation Mood: better Affect:brighter SI:none HI:none AH/VH:none Delusions:none Insight/judgment:fair x 2. Memory/cog: alert, oriented x 3. grossly intact to conversational testing. Diagnostics Vital Signs (24Hr): Vital Signs - 24 hr 09/12/20 18:00 09/13/20 06:00 Temperature 98.1 F Pulse Rate 74 Respiratory Rate 16 16 Blood Pressure 106/62 Pulse Oximetry 96 Body Mass Index 24.9 Labs Results: 09/07/20 14:20 09/07/20 14:20 Medications Medications Current Medications Generic Name Dose Route Start Last Admin Trade Name Freq PRN Reason Stop Dose Admin Acetaminophen 650 mg 09/07/20 08:59 09/12/20 15:34 Acetaminophen 325 Mg Tablet PO 650 mg Q6H PRN Administration Pain, Mild (Pain Scale 1-3) Al Hydroxide/Mg Hydroxide 30 ml 09/07/20 15:53 09/10/20 09:52 Magnesium Hydrox/Alum Hydrox 30 Ml Oral.Susp PO 30 ml Q6H PRN Administration Heartburn/Nausea Atorvastatin Calcium 20 mg 09/08/20 21:00 09/12/20 20:47 Atorvastatin Calcium 20 Mg Tablet PO 20 mg BEDTIME JERRY Administration Duloxetine HCl 30 mg 09/07/20 09:00 09/12/20 09:05 Duloxetine Hcl 30 Mg Capsule.Dr PO 30 mg DAILY JERRY Administration Hydroxyzine HCl 25 mg 09/07/20 15:53 Hydroxyzine Hcl 25 Mg Tablet PO BEDTIME PRN Anxiety Lorazepam 0.5 mg 09/11/20 16:47 Lorazepam 0.5 Mg Tablet PO DAILY PRN Anxiety Lorazepam 1 mg 09/11/20 21:00 09/12/20 20:46 Lorazepam 1 Mg Tablet PO 1 mg BEDTIME JERRY Administration Magnesium Hydroxide 30 ml 09/07/20 15:53 09/12/20 09:12 Milk Of Magnesia 30 Ml Oral.Susp PO 30 ml DAILY PRN Administration Constipation Melatonin 6 mg 09/12/20 21:00 09/12/20 20:47 Melatonin 3 Mg Tablet PO 6 mg BEDTIME JERRY Administration Trazodone HCl 150 mg 09/11/20 16:46 Trazodone Hcl 50 Mg Tablet PO BEDTIME PRN insomnia Vitamin D 25 mcg 09/07/20 09:00 09/12/20 09:05 Cholecalciferol (Vitamin D3) 25 Mcg Tablet PO 25 mcg DAILY JERRY Administration Allergies Allergies Allergy/AdvReac Type Severity Reaction Status Date / Time ibuprofen AdvReac Intermediate ringing in Verified 09/07/20 00:22 ears cyclobenzaprine AdvReac right hand Verified 09/07/20 00:22 tremors quetiapine [From Seroquel] AdvReac right hand Verified 09/07/20 00:22 tremors Flonase Allergy Unknown heart Uncoded 09/07/20 00:22 palpations Assessment & Plan Assessment & Plan (1) Depression: Qualifiers: Depression Type: major depressive disorder Major depression episode severity: moderate Major depression recurrence: unspecified whether recurrent Status: Acute Code(s): F32.9 - Major depressive disorder, single episode, unspecified Assessment and Plan: 1. d/c trazodone to 150mg po qhs 2. continue cymbalta 30mg po daily- pt reports higher doses cause constipation. 3. start ativan 1 mg po qhs. Greater than 50% of the session was spent on counseling and/or coordination of care Reason for contiued inpatient stay Substantial Risk for: harm to self
[2020-09-11] MEDS: DULoxetine HCl 30 MG CAPSULE.DR PO (08:17)
[2020-09-11] MEDS: Cholecalciferol (Vitamin D3) 25 MCG TABLET PO (08:18)
[2020-09-11 08:33] VITALS: BMI 24.9
[2020-09-11] MEDS: Milk of Magnesia 30 ML ORAL.SUSP PO (08:43)
[2020-09-11] MEDS: Acetaminophen 325 MG TABLET 650 MG PO ×2 (08:45→23:48)
[2020-09-11 17:57] VITALS: BP 123/58; PULSE 110; TEMP 36.4; O2SAT 94
[2020-09-11] MEDS: LORazepam 1 MG TABLET PO (21:07)
[2020-09-11] MEDS: Atorvastatin Calcium 20 MG TABLET PO (21:07)
[2020-09-12 06:00] VITALS: BP 127/57; PULSE 82; RESP 16; TEMP 36.6
--- NOTE | 2020-09-12 06:59 | HO.PSYCHPN ---
Subjective Subjective Date of Service: 09/13/20 Reason For Visit: Depression Interim History: Pt reports sleeping better with ativan. He continues to report mood has improved. He denies suicidal or homicidal ideation. However, pt reports he needs more time in hospital. We discussed potential discharge for Tuesday. Pt asks if other medications can be tried for sleep. Pt agreed to add melatonin to ativan, although he does report sleeping better. He has been visible in the unit. Social with select peers. Review of Systems Review of Systems Review of systems is negative by system except for chronic neck pain and injury. Bladder cancer with surgery last week Yes all other systems are reviewed and are negative Musculoskeletal: Reports other (neck pain) Psychiatric: Reports anxiety, Reports depression and Reports suicidal ideation Mental Status Exam Mental Status Exam Narrative: Appearance: casually groomed, fair hygiene, in NAD Behavior: calm, cooperative Psychomotor: no agitation or retardation noted Speech: clear, normal rate/rhythm/volume, spontaneous TP: linear TC: no signs of psychosis, somatic preoccupation Mood: better Affect:brighter SI:none HI:none AH/VH:none Delusions:none Insight/judgment:fair x 2. Memory/cog: alert, oriented x 3. grossly intact to conversational testing. Diagnostics Vital Signs (24Hr): Vital Signs - 24 hr 09/12/20 18:00 09/13/20 06:00 Temperature 98.1 F Pulse Rate 74 Respiratory Rate 16 16 Blood Pressure 106/62 Pulse Oximetry 96 Body Mass Index 24.9 Labs Results: 09/07/20 14:20 09/07/20 14:20 Medications Medications Current Medications Generic Name Dose Route Start Last Admin Trade Name Jaimeq PRN Reason Stop Dose Admin Acetaminophen 650 mg 09/07/20 08:59 09/12/20 15:34 Acetaminophen 325 Mg Tablet PO 650 mg Q6H PRN Administration Pain, Mild (Pain Scale 1-3) Al Hydroxide/Mg Hydroxide 30 ml 09/07/20 15:53 09/10/20 09:52 Magnesium Hydrox/Alum Hydrox 30 Ml Oral.Susp PO 30 ml Q6H PRN Administration Heartburn/Nausea Atorvastatin Calcium 20 mg 09/08/20 21:00 09/12/20 20:47 Atorvastatin Calcium 20 Mg Tablet PO 20 mg BEDTIME JERRY Administration Duloxetine HCl 30 mg 09/07/20 09:00 09/12/20 09:05 Duloxetine Hcl 30 Mg Capsule.Dr PO 30 mg DAILY JERRY Administration Hydroxyzine HCl 25 mg 09/07/20 15:53 Hydroxyzine Hcl 25 Mg Tablet PO BEDTIME PRN Anxiety Lorazepam 0.5 mg 09/11/20 16:47 Lorazepam 0.5 Mg Tablet PO DAILY PRN Anxiety Lorazepam 1 mg 09/11/20 21:00 09/12/20 20:46 Lorazepam 1 Mg Tablet PO 1 mg BEDTIME JERRY Administration Magnesium Hydroxide 30 ml 09/07/20 15:53 09/12/20 09:12 Milk Of Magnesia 30 Ml Oral.Susp PO 30 ml DAILY PRN Administration Constipation Melatonin 6 mg 09/12/20 21:00 09/12/20 20:47 Melatonin 3 Mg Tablet PO 6 mg BEDTIME JERRY Administration Trazodone HCl 150 mg 09/11/20 16:46 Trazodone Hcl 50 Mg Tablet PO BEDTIME PRN insomnia Vitamin D 25 mcg 09/07/20 09:00 09/12/20 09:05 Cholecalciferol (Vitamin D3) 25 Mcg Tablet PO 25 mcg DAILY JERRY Administration Allergies Allergies Allergy/AdvReac Type Severity Reaction Status Date / Time ibuprofen AdvReac Intermediate ringing in Verified 09/07/20 00:22 ears cyclobenzaprine AdvReac right hand Verified 09/07/20 00:22 tremors quetiapine [From Seroquel] AdvReac right hand Verified 09/07/20 00:22 tremors Flonase Allergy Unknown heart Uncoded 09/07/20 00:22 palpations Assessment & Plan Assessment & Plan (1) Depression: Qualifiers: Depression Type: major depressive disorder Major depression episode severity: moderate Major depression recurrence: unspecified whether recurrent Status: Acute Code(s): F32.9 - Major depressive disorder, single episode, unspecified Assessment and Plan: 1. d/c trazodone to 150mg po qhs 2. continue cymbalta 30mg po daily- pt reports higher doses cause constipation. 3. start ativan 1 mg po qhs. Greater than 50% of the session was spent on counseling and/or coordination of care Reason for contiued inpatient stay Substantial Risk for: harm to self
[2020-09-12] MEDS: DULoxetine HCl 30 MG CAPSULE.DR PO (09:05)
[2020-09-12] MEDS: Cholecalciferol (Vitamin D3) 25 MCG TABLET PO (09:05)
[2020-09-12] MEDS: Milk of Magnesia 30 ML ORAL.SUSP PO (09:12)
[2020-09-12] MEDS: Acetaminophen 325 MG TABLET 650 MG PO (15:34)
[2020-09-12 18:00] VITALS: RESP 16
[2020-09-12] MEDS: LORazepam 1 MG TABLET PO (20:46)
[2020-09-12] MEDS: Melatonin 3 MG TABLET 6 MG PO (20:47)
[2020-09-12] MEDS: Atorvastatin Calcium 20 MG TABLET PO (20:47)
[2020-09-13 06:00] VITALS: BP 106/62; PULSE 74; RESP 16; TEMP 36.7; O2SAT 96
[2020-09-13] MEDS: DULoxetine HCl 30 MG CAPSULE.DR PO (08:38)
[2020-09-13] MEDS: Cholecalciferol (Vitamin D3) 25 MCG TABLET PO (08:38)
[2020-09-13] MEDS: Milk of Magnesia 30 ML ORAL.SUSP PO (08:45)
[2020-09-13] MEDS: Acetaminophen 325 MG TABLET 650 MG PO (18:38)
--- NOTE | 2020-09-13 19:57 | HO.PSYCHPN ---
Subjective Subjective Date of Service: 09/13/20 Reason For Visit: Depression Interim History: Javy reports a considerable improvement in his mood. He does still have some difficulty with sleep but he did sleep better last night. He has no immediate concerns and he is hoping to be DC Tuesday Medication Compliance: Yes Side effects from medications: No Review of Systems Acute medical concerns: No Medical Review of Systems: unchanged Mental Status Exam Mental Status Exam Narrative: Appearance: casually groomed, fair hygiene, in NAD Behavior: calm, cooperative Psychomotor: no agitation or retardation noted Speech: clear, normal rate/rhythm/volume, spontaneous TP: linear TC: no signs of psychosis, somatic preoccupation Mood: better Affect:brighter SI:none HI:none AH/VH:none Delusions:none Insight/judgment:fair x 2. Memory/cog: alert, oriented x 3. grossly intact to conversational testing. Diagnostics Vital Signs (24Hr): Vital Signs - 24 hr 09/13/20 06:00 Temperature 98.1 F Pulse Rate 74 Respiratory Rate 16 Blood Pressure 106/62 Pulse Oximetry 96 Body Mass Index 24.9 Labs Results: 09/07/20 14:20 09/07/20 14:20 Medications Medications Current Medications Generic Name Dose Route Start Last Admin Trade Name Freq PRN Reason Stop Dose Admin Acetaminophen 650 mg 09/07/20 08:59 09/13/20 18:38 Acetaminophen 325 Mg Tablet PO 650 mg Q6H PRN Administration Pain, Mild (Pain Scale 1-3) Al Hydroxide/Mg Hydroxide 30 ml 09/07/20 15:53 09/10/20 09:52 Magnesium Hydrox/Alum Hydrox 30 Ml Oral.Susp PO 30 ml Q6H PRN Administration Heartburn/Nausea Atorvastatin Calcium 20 mg 09/08/20 21:00 09/12/20 20:47 Atorvastatin Calcium 20 Mg Tablet PO 20 mg BEDTIME JERRY Administration Duloxetine HCl 30 mg 09/07/20 09:00 09/13/20 08:38 Duloxetine Hcl 30 Mg Capsule.Dr PO 30 mg DAILY JERRY Administration Hydroxyzine HCl 25 mg 09/07/20 15:53 Hydroxyzine Hcl 25 Mg Tablet PO BEDTIME PRN Anxiety Lorazepam 0.5 mg 09/11/20 16:47 Lorazepam 0.5 Mg Tablet PO DAILY PRN Anxiety Lorazepam 1 mg 09/11/20 21:00 09/12/20 20:46 Lorazepam 1 Mg Tablet PO 1 mg BEDTIME JERRY Administration Magnesium Hydroxide 30 ml 09/07/20 15:53 09/13/20 08:45 Milk Of Magnesia 30 Ml Oral.Susp PO 30 ml DAILY PRN Administration Constipation Melatonin 6 mg 09/12/20 21:00 09/12/20 20:47 Melatonin 3 Mg Tablet PO 6 mg BEDTIME JERRY Administration Trazodone HCl 150 mg 09/11/20 16:46 Trazodone Hcl 50 Mg Tablet PO BEDTIME PRN insomnia Vitamin D 25 mcg 09/07/20 09:00 09/13/20 08:38 Cholecalciferol (Vitamin D3) 25 Mcg Tablet PO 25 mcg DAILY JERRY Administration Allergies Allergies Allergy/AdvReac Type Severity Reaction Status Date / Time ibuprofen AdvReac Intermediate ringing in Verified 09/07/20 00:22 ears cyclobenzaprine AdvReac right hand Verified 09/07/20 00:22 tremors quetiapine [From Seroquel] AdvReac right hand Verified 09/07/20 00:22 tremors Flonase Allergy Unknown heart Uncoded 09/07/20 00:22 palpations Assessment & Plan Assessment & Plan (1) Depression: Qualifiers: Depression Type: major depressive disorder Major depression episode severity: moderate Major depression recurrence: unspecified whether recurrent Status: Acute Code(s): F32.9 - Major depressive disorder, single episode, unspecified Assessment and Plan: 1. d/c trazodone to 150mg po qhs 2. continue cymbalta 30mg po daily- pt reports higher doses cause constipation. 3. start ativan 1 mg po qhs. No changes to treatment plan Greater than 50% of the session was spent on counseling and/or coordination of care Patient educated on: diagnosis and medication risk/benefits Informed Consent: further education needed Reason for contiued inpatient stay Substantial Risk for: med/psych decompensation
[2020-09-13] MEDS: LORazepam 1 MG TABLET PO (22:15)
[2020-09-13] MEDS: Melatonin 3 MG TABLET 6 MG PO (22:15)
[2020-09-13] MEDS: Atorvastatin Calcium 20 MG TABLET PO (22:15)
[2020-09-14 06:00] VITALS: BP 119/59; PULSE 74; RESP 16; TEMP 36.7; O2SAT 96
[2020-09-14] MEDS: DULoxetine HCl 30 MG CAPSULE.DR PO (09:29)
[2020-09-14] MEDS: Cholecalciferol (Vitamin D3) 25 MCG TABLET PO (09:29)
[2020-09-14] MEDS: Acetaminophen 325 MG TABLET 650 MG PO (09:29)
[2020-09-14 18:00] VITALS: BP 144/67; PULSE 97; RESP 20; TEMP 36.8; O2SAT 98
--- NOTE | 2020-09-14 18:24 | HO.PSYCHPN ---
Subjective Subjective Date of Service: 09/14/20 Reason For Visit: Depression Interim History: Don slept well last night. His mood is good and he is hoping to go home soon. Medication Compliance: Yes Side effects from medications: No Review of Systems Acute medical concerns: No Medical Review of Systems: unchanged Mental Status Exam Mental Status Exam Narrative: Appearance: casually groomed, fair hygiene, in NAD Behavior: calm, cooperative Psychomotor: no agitation or retardation noted Speech: clear, normal rate/rhythm/volume, spontaneous TP: linear TC: no signs of psychosis, somatic preoccupation Mood: better Affect:brighter SI:none HI:none AH/VH:none Delusions:none Insight/judgment:fair x 2. Memory/cog: alert, oriented x 3. grossly intact to conversational testing. Diagnostics Vital Signs (24Hr): Vital Signs - 24 hr 09/14/20 06:00 Temperature 98.0 F Pulse Rate 74 Respiratory Rate 16 Blood Pressure 119/59 L Pulse Oximetry 96 Body Mass Index 24.9 Labs Results: 09/07/20 14:20 09/07/20 14:20 Medications Medications Current Medications Generic Name Dose Route Start Last Admin Trade Name Freq PRN Reason Stop Dose Admin Acetaminophen 650 mg 09/07/20 08:59 09/14/20 09:29 Acetaminophen 325 Mg Tablet PO 650 mg Q6H PRN Administration Pain, Mild (Pain Scale 1-3) Al Hydroxide/Mg Hydroxide 30 ml 09/07/20 15:53 09/10/20 09:52 Magnesium Hydrox/Alum Hydrox 30 Ml Oral.Susp PO 30 ml Q6H PRN Administration Heartburn/Nausea Atorvastatin Calcium 20 mg 09/08/20 21:00 09/13/20 22:15 Atorvastatin Calcium 20 Mg Tablet PO 20 mg BEDTIME JERRY Administration Duloxetine HCl 30 mg 09/07/20 09:00 09/14/20 09:29 Duloxetine Hcl 30 Mg Capsule.Dr PO 30 mg DAILY JERRY Administration Hydroxyzine HCl 25 mg 09/07/20 15:53 Hydroxyzine Hcl 25 Mg Tablet PO BEDTIME PRN Anxiety Lorazepam 0.5 mg 09/11/20 16:47 Lorazepam 0.5 Mg Tablet PO DAILY PRN Anxiety Lorazepam 1 mg 09/11/20 21:00 09/13/20 22:15 Lorazepam 1 Mg Tablet PO 1 mg BEDTIME JERRY Administration Magnesium Hydroxide 30 ml 09/07/20 15:53 09/13/20 08:45 Milk Of Magnesia 30 Ml Oral.Susp PO 30 ml DAILY PRN Administration Constipation Melatonin 6 mg 09/12/20 21:00 09/13/20 22:15 Melatonin 3 Mg Tablet PO 6 mg BEDTIME JERRY Administration Trazodone HCl 150 mg 09/11/20 16:46 Trazodone Hcl 50 Mg Tablet PO BEDTIME PRN insomnia Vitamin D 25 mcg 09/07/20 09:00 09/14/20 09:29 Cholecalciferol (Vitamin D3) 25 Mcg Tablet PO 25 mcg DAILY JERRY Administration Allergies Allergies Allergy/AdvReac Type Severity Reaction Status Date / Time ibuprofen AdvReac Intermediate ringing in Verified 09/07/20 00:22 ears cyclobenzaprine AdvReac right hand Verified 09/07/20 00:22 tremors quetiapine [From Seroquel] AdvReac right hand Verified 09/07/20 00:22 tremors Flonase Allergy Unknown heart Uncoded 09/07/20 00:22 palpations Assessment & Plan Assessment & Plan (1) Depression: Qualifiers: Depression Type: major depressive disorder Major depression episode severity: moderate Major depression recurrence: unspecified whether recurrent Status: Acute Code(s): F32.9 - Major depressive disorder, single episode, unspecified Assessment and Plan: 1. d/c trazodone to 150mg po qhs 2. continue cymbalta 30mg po daily- pt reports higher doses cause constipation. 3. start ativan 1 mg po qhs. No changes to treatment plan Greater than 50% of the session was spent on counseling and/or coordination of care Patient educated on: diagnosis and medication risk/benefits Informed Consent: understands Reason for contiued inpatient stay Substantial Risk for: inability to function
[2020-09-14] MEDS: Melatonin 3 MG TABLET 6 MG PO (20:07)
[2020-09-14] MEDS: LORazepam 1 MG TABLET PO (20:08)
[2020-09-14] MEDS: Atorvastatin Calcium 20 MG TABLET PO (20:08)
[2020-09-15 06:00] VITALS: BP 110/63; PULSE 73; TEMP 36.1; O2SAT 98
--- NOTE | 2020-09-15 07:06 | HO.PSYCHPN ---
Subjective Subjective Date of Service: 09/16/20 Reason For Visit: Depression Interim History: Javy reports mood has improved in that he is less depressed, less anxious. He reports he is able to sleep at least 6-7hrs at night and feeling more rested in morning. He is somewhat hesitant about being discharged and to some extend feeling comfortable in unit. He denies SI/HI. Review of Systems Review of Systems Review of systems is negative by system except for chronic neck pain and injury. Bladder cancer with surgery last week Yes all other systems are reviewed and are negative Musculoskeletal: Reports other (neck pain) Psychiatric: Reports anxiety, Reports depression and Reports suicidal ideation Mental Status Exam Mental Status Exam Narrative: Appearance: casually groomed, fair hygiene, in NAD Behavior: calm, cooperative Psychomotor: no agitation or retardation noted Speech: clear, normal rate/rhythm/volume, spontaneous TP: linear TC: no signs of psychosis, somatic preoccupation Mood: better Affect:brighter SI:none HI:none AH/VH:none Delusions:none Insight/judgment:fair x 2. Memory/cog: alert, oriented x 3. grossly intact to conversational testing. Diagnostics Vital Signs (24Hr): Vital Signs - 24 hr 09/15/20 18:00 Temperature 98.4 F Pulse Rate 80 Blood Pressure 120/60 Pulse Oximetry 98 Body Mass Index 24.9 Labs Results: 09/07/20 14:20 09/07/20 14:20 Medications Medications Current Medications Generic Name Dose Route Start Last Admin Trade Name Freq PRN Reason Stop Dose Admin Acetaminophen 650 mg 09/07/20 08:59 09/15/20 13:17 Acetaminophen 325 Mg Tablet PO 650 mg Q6H PRN Administration Pain, Mild (Pain Scale 1-3) Al Hydroxide/Mg Hydroxide 30 ml 09/07/20 15:53 09/10/20 09:52 Magnesium Hydrox/Alum Hydrox 30 Ml Oral.Susp PO 30 ml Q6H PRN Administration Heartburn/Nausea Atorvastatin Calcium 20 mg 09/08/20 21:00 09/15/20 20:11 Atorvastatin Calcium 20 Mg Tablet PO 20 mg BEDTIME JERRY Administration Duloxetine HCl 30 mg 09/07/20 09:00 09/15/20 08:17 Duloxetine Hcl 30 Mg Capsule. PO 30 mg DAILY JERRY Administration Hydroxyzine HCl 25 mg 09/07/20 15:53 Hydroxyzine Hcl 25 Mg Tablet PO BEDTIME PRN Anxiety Lorazepam 0.5 mg 09/11/20 16:47 Lorazepam 0.5 Mg Tablet PO DAILY PRN Anxiety Lorazepam 1 mg 09/11/20 21:00 09/15/20 20:11 Lorazepam 1 Mg Tablet PO 1 mg BEDTIME JERRY Administration Magnesium Hydroxide 30 ml 09/07/20 15:53 09/13/20 08:45 Milk Of Magnesia 30 Ml Oral.Susp PO 30 ml DAILY PRN Administration Constipation Melatonin 6 mg 09/12/20 21:00 09/15/20 20:11 Melatonin 3 Mg Tablet PO 6 mg BEDTIME JERRY Administration Trazodone HCl 150 mg 09/11/20 16:46 Trazodone Hcl 50 Mg Tablet PO BEDTIME PRN insomnia Vitamin D 25 mcg 09/07/20 09:00 09/15/20 08:17 Cholecalciferol (Vitamin D3) 25 Mcg Tablet PO 25 mcg DAILY JERRY Administration Allergies Allergies Allergy/AdvReac Type Severity Reaction Status Date / Time ibuprofen AdvReac Intermediate ringing in Verified 09/07/20 00:22 ears cyclobenzaprine AdvReac right hand Verified 09/07/20 00:22 tremors quetiapine [From Seroquel] AdvReac right hand Verified 09/07/20 00:22 tremors Flonase Allergy Unknown heart Uncoded 09/07/20 00:22 palpations Assessment & Plan Assessment & Plan (1) Depression: Qualifiers: Depression Type: major depressive disorder Major depression episode severity: moderate Major depression recurrence: unspecified whether recurrent Status: Acute Code(s): F32.9 - Major depressive disorder, single episode, unspecified Assessment and Plan: 1. d/c trazodone to 150mg po qhs 2. continue cymbalta 30mg po daily- pt reports higher doses cause constipation. 3. continue ativan 1 mg po qhs. No changes to treatment plan Greater than 50% of the session was spent on counseling and/or coordination of care Reason for contiued inpatient stay Substantial Risk for: stable for discharge
[2020-09-15] MEDS: DULoxetine HCl 30 MG CAPSULE.DR PO (08:17)
[2020-09-15] MEDS: Cholecalciferol (Vitamin D3) 25 MCG TABLET PO (08:17)
[2020-09-15] MEDS: Acetaminophen 325 MG TABLET 650 MG PO (13:17)
[2020-09-15 18:00] VITALS: BP 120/60; PULSE 80; TEMP 36.9; O2SAT 98
[2020-09-15] MEDS: LORazepam 1 MG TABLET PO (20:11)
[2020-09-15] MEDS: Melatonin 3 MG TABLET 6 MG PO (20:11)
[2020-09-15] MEDS: Atorvastatin Calcium 20 MG TABLET PO (20:11)
[2020-09-16] MEDS: DULoxetine HCl 30 MG CAPSULE.DR PO (08:11)
[2020-09-16] MEDS: Cholecalciferol (Vitamin D3) 25 MCG TABLET PO (08:11)
[2020-09-16] MEDS: Milk of Magnesia 30 ML ORAL.SUSP PO (08:12)
[2020-09-16 10:59] VITALS: BP 152/72; PULSE 98; RESP 18; O2SAT 98
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
== END 2020-09-16 13:30 | disposition home or self-care (01) | DRG 881 ==
LOC: HO.ED 09-07 00:57 → HO.PM5 09-07 13:19 → HO.PGERI 09-09 17:47
PROVIDERS: Physician Assistant; Admitting Provider Psychiatry & Neurology Psychiatry; Emergency Provider Emergency Medicine; Visit Provider Social Worker
DX: F32.9 Major depressive disorder, single episode, unspecified (principal); R45.851 Suicidal ideations; F41.9 Anxiety disorder, unspecified; C67.9 Malignant neoplasm of bladder, unspecified; N40.0 Benign prostatic hyperplasia without lower urinary tract symptoms; G47.00 Insomnia, unspecified; Z20.822 Contact with and (suspected) exposure to COVID-19; Z88.6 Allergy status to analgesic agent; Z79.899 Other long term (current) drug therapy
CPT/HCPCS: 36415; 80053; 80076; 80307; 81001; 82947; 85025; 87086; 87635; 90792; 93005; 99285; Q0163

== ENCOUNTER → 2020-09-18 13:12 | Outpatient (BNVA) | payer MEDICARE, OTHER, SELFPAY | PROVIDERS: Visit Provider Urology | DX: C67.9 Malignant neoplasm of bladder, unspecified (principal) | CPT/HCPCS: Q3014 ==

== ENCOUNTER 2020-11-04 03:12 | Emergency (ER) | payer MEDICARE, OTHER, SELFPAY ==
[2020-11-04 03:27] VITALS: BP 108/62; PULSE 84; RESP 18; TEMP 37; O2SAT 95; BMI 23.3
--- NOTE | 2020-11-04 05:10 | ED.GENADULT ---
HPI - General Adult General Chief complaint: General Medical Stated complaint: severe neck pain, depression Time Seen by Provider: 11/04/20 05:10 Source: patient Mode of arrival: ambulatory History of Present Illness HPI narrative: 70-year-old male with known bladder cancer comes in with complaints of insomnia that patient has been struggling with for a number of months, currently taking 1 mg of Ativan is/melatonin but states that he wishes to have his medication increase to 2 mg and shows a bottle that is apparently empty and states that his psychiatrist Dr. Tovar prescribes his medications. Otherwise, he has no acute complaints associated with fever, chills, shortness of breath, chest pain/palpitations, abdominal pain. Related Data Home Medications Medication Instructions Recorded Confirmed simvastatin 2 tab PO DAILY 09/07/20 10/16/20 Previous Rx's Medication Instructions Recorded cholecalciferol (vitamin D3) 25 mcg PO DAILY #30 tab 09/16/20 duloxetine 30 mg PO DAILY #30 cap 09/16/20 lorazepam 1 mg PO BEDTIME #30 tab 09/16/20 melatonin 6 mg PO BEDTIME #30 tab 09/16/20 hydroxyzine HCl 50 mg PO BEDTIME PRN #3 tab 11/04/20 Allergies Allergy/AdvReac Type Severity Reaction Status Date / Time ibuprofen AdvReac Intermediate ringing in Verified 09/18/20 13:13 ears cyclobenzaprine AdvReac right hand Verified 09/18/20 13:13 tremors quetiapine [From Seroquel] AdvReac right hand Verified 09/18/20 13:13 tremors Flonase Allergy Unknown heart Uncoded 09/07/20 00:22 palpations Review of Systems Review of Systems: Pertinent positives and negatives as stated in HPI 10 point review systems is otherwise negative. [facility] Past Medical History Source: nursing notes reviewed Medical History Bladder mass BPH (benign prostatic hyperplasia) Cervical pain (neck) Chronic neck pain with history of cervical spinal surgery Generalized anxiety disorder History of back pain History of depression History of fall History of suicidal ideation Other obstructive and reflux uropathy Recurrent major depression-severe Transitional cell carcinoma Surgical History History of cystoscopy History of transurethral destruction of bladder lesion Hx of cervical spine surgery Hx of tonsillectomy Social History Social History Household Members: None Housing: House Do you presently have visiting nurse or other home services: No Alcohol intake: never Patient Tobacco Use Status: Never used Tobacco Advance Directives: No Advance Directives Information Provided: No service: No Sexual orientation: Straight/Heterosexual Physical Exam Vital Signs: Vital Signs: Last Vital Signs Temp 98.6 F 11/04/20 03:27 Pulse 84 11/04/20 03:27 Resp 18 11/04/20 03:27 BP 108/62 11/04/20 03:27 Pulse Ox 95 11/04/20 03:27 Body Mass Index 23.3 VITAL SIGNS: Reviewed. GENERAL: Well developed, well nourished, in no acute distress. HEAD: Normocephalic/atraumatic EYES: PERRLA, EOMI EARS: Ext canals without abnormality NOSE: Nares patent bilateral OROPHARYNX: no oral lesions noted, posterior pharynx clear LUNGS: Normal breath sounds. No adventitious sounds or accessory muscle use. SpO2<95> CARDIOVASCULAR: Regular rate and rhythm without noted murmurs ABDOMEN: Soft, non-tender, non-distended with bowel sounds. SKIN: Inspection of the skin reveals no rashes NEUROLOGIC: Alert and oriented x 4. Strength and sensation to light touch were grossly intact x 4. PSYCH: Depression at baseline, no suicidality, logical thought process Course Course Course Narrative: This is a 70-year-old male with history and clinical presentation consistent with requesting lorazepam dosage adjustment, but had lengthy conversation with the patient to explain that although we would not be able to adjust his medication, we would be able to provide him with additional sleep aids to assist him in obtaining a good night sleep that would likely assist his current regimen of lorazepam and melatonin. Patient received a single dose of hydroxyzine while here in the emergency room with modest improvement on re-evaluation of feelings of drowsiness. Again, patient expressed that he is not suicidal but it stresses him out when he is unable to sleep. He endorses that he does have a follow-up appointment with the psychiatrist who prescribes his lorazepam on . Patient otherwise has no acute complaints will be discharged home with and as needed script for hydroxyzine at bedtime. Discharge Plan Discharge Clinical Impression: Depression, Anxiety, Insomnia Patient Disposition: Home, Self-Care Instructions: Depression (ED), Insomnia (ED), Anxiety (ED) Additional Instructions: 1. Please resume all home medications as prescribed. 2. Please follow-up with Dr. Tovar as scheduled. Return to the ER for acute worsening of symptoms. Prescriptions: New hydroxyzine HCl 50 mg tablet 50 mg PO BEDTIME PRN (Reason: insomnia) Qty: 3 RF: 0 No Action simvastatin 20 mg tablet 2 tab PO DAILY RF: 0 melatonin 3 mg Tablet 6 mg PO BEDTIME Qty: 30 RF: 0 lorazepam 1 mg Tablet 1 mg PO BEDTIME Qty: 30 RF: 0 duloxetine 30 mg Capsule,Delayed Release(Dr/Ec) 30 mg PO DAILY Qty: 30 RF: 0 cholecalciferol (vitamin D3) 25 mcg (1,000 unit) Tablet 25 mcg PO DAILY Qty: 30 RF: 0 Referrals: Randal Stringer MD [Primary Care Provider] - 2 days Shefali Tovar PMHNP-OSMAR [Nurse Practitioner] - 2 days (Patient recently seen here in the ER for request of changing lorazepam dosage, please evaluate.)
[2020-11-04] MEDS: hydrOXYzine HCL 25 MG TABLET PO (05:36)
== END 2020-11-04 08:58 | disposition home or self-care (01) ==
PROVIDERS: Emergency Provider Student in an Organized Health Care Education/Training Program; PCP Internal Medicine
DX: F32.9 Major depressive disorder, single episode, unspecified (principal); F41.1 Generalized anxiety disorder; G47.00 Insomnia, unspecified; Z85.51 Personal history of malignant neoplasm of bladder
CPT/HCPCS: 99283

== ENCOUNTER 2020-12-23 12:56 | Outpatient (REF) | payer MEDICARE, OTHER, SELFPAY ==
[2020-12-24 08:41] LABS: Urine Cytology See Pathology rpt
== END 2020-12-23 12:57 | disposition home or self-care (01) ==
LOC: HO.LNP 12:56
PROVIDERS: PCP Internal Medicine; Visit Provider Urology
DX: C67.9 Malignant neoplasm of bladder, unspecified (principal)
CPT/HCPCS: 52000; 88112

== ENCOUNTER 2021-01-11 08:42 | Inpatient (IN) | payer MEDICARE, OTHER, SELFPAY ==
[2021-01-11 09:29] VITALS: BP 118/76; PULSE 101; RESP 16; TEMP 36.5; O2SAT 96; BMI 22.1
--- NOTE | 2021-01-11 09:59 | ED_ITS ---
HPI - Psych General Chief Complaint: Psychiatric Symptoms <Nguyen Cole NP - Last Filed: 01/11/21 17:01> Stated Complaint: CRISIS <Nguyen Cole NP - Last Filed: 01/11/21 17:01> Time Seen by Provider: 01/11/21 09:38 <Nguyen Cole NP - Last Filed: 01/11/21 17:01> Source: patient <Nguyen Cole NP - Last Filed: 01/11/21 17:01> Mode of arrival: ambulatory <Nguyen Cole NP - Last Filed: 01/11/21 17:01> Limitations: no limitations <Nguyen Cole NP - Last Filed: 01/11/21 17:01> History of Present Illness HPI Narrative: 70yo male with past medical history of anxiety, depression, bladder cancer here with complaints of depression, anxiety, suicidal with no plan, having difficulty sleeping and neck pain. Of note patient had on 01/06-cervical decompression and laminoplasty at [facility] in [place]. Went to rehab 01/09. Unfortunately left within 12 hrs d/t staff being unable to give him medications for pain due to the physician at rehab not ordering them. He left AMA and went to the [place] next door. The next day he needed to go back to [facility] d/t a staple being loose. Had friend pick him up from ED and transport him back here which is his primary residence. However, he has not filled his pain prescription. He was on oxycodone 10mg every 4hrs while at [facility]. He has been taking APAP instead. Can't sleep d/t pain. Patient tells me he has had increasing anxiety, depression and now suicidal thoughts. NO plan. Here seeking to talk to crisis and possible CM placement in STR. <Nguyen Cole NP - Last Filed: 01/11/21 17:01> Related Data Home Medications: Home Medications Medication Instructions Recorded Confirmed simvastatin 20 mg tablet 2 tab PO DAILY 09/07/20 11/13/20 hydroxyzine HCl 50 mg tablet 1 tab PO BEDTIME PRN 01/11/21 lorazepam 2 mg tablet 1 tab PO DAILY PRN 01/11/21 melatonin 5 mg tablet 2 tab PO BEDTIME 01/11/21 Previous Rx's Medication Instructions Recorded cholecalciferol (vitamin D3) 25 25 mcg PO DAILY #30 tab 09/16/20 mcg (1,000 unit) tablet duloxetine 30 mg capsule,delayed 30 mg PO DAILY #30 cap 09/16/20 release <CAM Bloom Last Filed: 01/11/21 17:01> Allergies/Adverse Reactions: Allergies Allergy/AdvReac Type Severity Reaction Status Date / Time ibuprofen AdvReac Intermediate ringing in Verified 11/13/20 10:41 ears cyclobenzaprine AdvReac right hand Verified 11/13/20 10:41 tremors quetiapine [From Seroquel] AdvReac right hand Verified 11/13/20 10:41 tremors Flonase Allergy Unknown heart Uncoded 11/13/20 10:41 palpations <Nguyen Cole NP - Last Filed: 01/11/21 17:01> Review of Systems Review of Systems: Yes all other systems are reviewed and are negative <CAM Bloom Last Filed: 01/11/21 17:01> Constitutional: Constitutional: Reports no additional constitutional complaints, Denies body ache(s), Denies chills, Denies fever(s), Denies headache(s) and Denies weakness <CAM Bloom Last Filed: 01/11/21 17:01> Eyes: Eyes: Reports no additional eye complaints and Denies change in vision <CAM Bloom Last Filed: 01/11/21 17:01> ENT: Reports system reviewed and no additional complaints, except as documented, Denies dizziness, Denies headache(s), Denies nasal congestion, Denies nasal discharge and Reports neck pain <CAM Bloom Last Filed: 01/11/21 17:01> Cardiovascular: Cardiovascular: Reports no additional cardiovascular complaints, Denies chest pain, Denies leg edema and Denies dyspnea <CAM Bloom Last Filed: 01/11/21 17:01> Respiratory: Respiratory: Reports no additional respiratory complaints, Denies cough and Denies dyspnea <Nguyen Cole NP - Last Filed: 01/11/21 17:01> Gastrointestinal: Gastrointestinal: Reports no additional gastrointestinal complaints, Denies abdominal pain, Denies diarrhea, Denies nausea and Denies vomiting <Nguyen Cole NP - Last Filed: 01/11/21 17:01> Genitourinary: Genitourinary: Denies urinary incontinence <Nguyen Cole NP - Last Filed: 01/11/21 17:01> Musculoskeletal: Musculoskeletal: Reports no additional musculoskeletal complaints, Denies back pain, Denies arthralgias, Denies joint swelling, Reports neck pain, Denies numbness and Denies tingling <Nguyen Cole NP - Last Filed: 01/11/21 17:01> Integumentary/Breasts: Skin/Breast: Reports system reviewed and no additional complaints, except as docu and Denies rash <Nguyen Cole NP - Last Filed: 01/11/21 17:01> Neurologic: Reports system reviewed and no additional complaints, except as documented, Denies Abnormal speech present, Denies dizziness, Denies headache(s), Denies numbness, Denies tingling and Denies weakness <Nguyen Cole NP - Last Filed: 01/11/21 17:01> Psychiatric: Psychiatric: Reports anxiety, Reports depression, Denies homicidal ideation and Reports suicidal ideation <Nguyen Cole NP - Last Filed: 01/11/21 17:01> PMFSH Past Medical History Attestation statement: The following information was validated with the patient. <Nguyen Cole NP - Last Filed: 01/11/21 17:01> Source: old records reviewed and nursing notes reviewed <Nguyen Cole NP - Last Filed: 01/11/21 17:01> Medical History: Medical History Bladder mass BPH (benign prostatic hyperplasia) Cervical pain (neck) Chronic neck pain with history of cervical spinal surgery Generalized anxiety disorder History of back pain History of depression History of fall History of suicidal ideation Other obstructive and reflux uropathy Recurrent major depression-severe Transitional cell carcinoma <Nguyen Cole NP - Last Filed: 01/11/21 17:01> Surgical History: Surgical History History of cystoscopy History of transurethral destruction of bladder lesion Hx of cervical spine surgery Hx of tonsillectomy <Nguyen Cole NP - Last Filed: 01/11/21 17:01> Social History Social History: Social History Household Members: None Housing: House Do you presently have visiting nurse or other home services: No Alcohol intake: never Patient Tobacco Use Status: Never used Tobacco Use of substances other than those prescribed or required for medical reasons: No Advance Directives: No Advance Directives Information Provided: No Healthcare Proxy: No Guardian: No service: No Sexual orientation: Straight/Heterosexual <Nguyen Cole NP - Last Filed: 01/11/21 17:01> Physical Exam Vital Signs: Vital Signs: Last Vital Signs Temp 98.5 F 01/12/21 05:49 Pulse 73 01/12/21 05:49 Resp 16 01/12/21 07:00 BP 113/56 L 01/12/21 05:49 Pulse Ox 95 01/12/21 05:49 Body Mass Index 22.1 <Nguyen Cole NP - Last Filed: 01/11/21 17:01> Vital Signs: Last Vital Signs Temp 98.5 F 01/12/21 05:49 Pulse 73 01/12/21 05:49 Resp 16 01/12/21 07:00 BP 113/56 L 01/12/21 05:49 Pulse Ox 95 01/12/21 05:49 Body Mass Index 22.1 <Lauren Beauchamp DO - Last Filed: 01/12/21 08:01> Const: General: cooperative, healthy appearing, comfortable and no acute distress <Nguyen Cole NP - Last Filed: 01/11/21 17:01> Orientation/consciousness: patient oriented x3 <Nguyen Cole NP - Last Filed: 01/11/21 17:01> Limitations: no limitations <Nguyen Cole NP - Last Filed: 01/11/21 17:01> HENMT: Head: Yes normal to inspection <Nguyen Cole NP - Last Filed: 1 17:01> Ears: hearing grossly normal bilaterally and TM's normal bilaterally <Nguyen Cole NP - Last Filed: 01/11/21 17:01> General nose exam: Normal external nose present <Nguyen Cole NP - Last Filed: 01/11/21 17:01> Face and sinus: Yes normal facial exam <Nguyen Cole NP - Last Filed: 01/11/21 17:01> Mouth: Normal oral and palatal mucosa present <Nguyen Cole NP - Last Filed: 01/11/21 17:01> Throat: Yes posterior oropharynx normal <Nguyen Cole NP - Last Filed: 01/11/21 17:01> Eyes: General: appearance normal, both eyes and all related structures <Nguyen Cole NP - Last Filed: 01/11/21 17:01> Pupils: Equal, round and reactive pupils present <Nguyen Cole NP - Last Filed: 01/11/21 17:01> Neck: Other: posterior cervical elizabeth present. no erythema/swelling/tenderns <Nguyen Cole NP - Last Filed: 01/11/21 17:01> Neck: Yes normal visual inspection <Nguyen Cole NP - Last Filed: 01/11/21 17:01> Chest: Chest palpation & inspection: normal inspection of the chest <Nguyen Cole NP - Last Filed: 01/11/21 17:01> Resp: Effort & Inspection: normal respiratory effort <Nguyne Cole NP - Last Filed: 01/11/21 17:01> Auscultation: clear to auscultation bilaterally <Nguyen Cole NP - Last Filed: 01/11/21 17:01> Cardio: Rate: regular rate <Nguyen Cole NP - Last Filed: 01/11/21 17:01> Rhythm: regular rhythm <Nguyen Cole NP - Last Filed: 01/11/21 17:01> Peripheral pulses: Peripheral pulses 2+ throughout <Nguyen Cole NP - Last Filed: 01/11/21 17:01> GI: Inspection: Yes normal to inspection <Nguyen Cole NP - Last Filed: 01/11/21 17:01> Palpation (GI): Soft to palpation and nontender <Nguyen Cole NP - Last Filed: 01/11/21 17:01> Auscultation: normal bowel sounds <Nguyen Cole NP - Last Filed: 01/11/21 17:01> Back/Spine/Pelvis: Thoracic/Lumbar Spine: thoracic and lumbar spine normal to inspection <Nguyen Cole NP - Last Filed: 01/11/21 17:> Skin: General skin exam: no rashes or lesions noted <Nguyen Cole NP - Last Filed: 01/11/21 17:01> Neuro: General: patient oriented x3, no focal motor deficits and normal sensation to monofilament <Nguyen Cole NP - Last Filed: 01/11/21 17:01> Cranial nerves: Yes CN's II-XII intact bilaterally, Yes Equal, round and reactive pupils present, Yes Bilaterally intact EOM present, Yes Nystagmus not present, Yes Normal facial strength present and Yes Midline tongue present <Nguyen Cole NP - Last Filed: 01/11/21 17:01> Cognition (Neuro): normal cognition <Nguyen Cole NP - Last Filed: 01/11/21 17:01> Speech: No Abnormal speech present <Nguyen Cole NP - Last Filed: 01/11/21 17:> Gait exam (Neuro): Normal gait present <Nguyen Cole NP - Last Filed: 01/11/21 17:01> Motor exam (neuro): 5/5 motor strength present throughout <Nguyen Cole NP - Last Filed: 01/11/21 17:> Sensory Exam: Normal double simultaneous stimulation for sensation <Nguyen Cole NP - Last Filed: 01/11/21 17:01> Extrem: General: Yes normal to inspection, Yes no pedal edema and Yes no calf tenderness <Nguyen Cole NP - Last Filed: 01/11/21 17:01> Psych: Other: very anxious, in pain <Nguyen Cole NP - Last Filed: 01/11/21 17:01> Course Course Course Narrative: 70 yo male here with depression, anxiety, SI x several days triggered by recent surgery, issues at rehab, taking care of self at home and inability to manage pain/sleep at home. Will need labs, GARCIAS, covid screen. Will provide ativan, oxycodone and re-assess. Orders for CM, care team eval. No concern for acute ingestion or trauma. 1200-Patient seen by care team. Requesting psych consult. 1645-Patient seen by both CM and Care team. Plan for inpatient psych. <Nguyen Cole NP - Last Filed: 01/11/21 17:01> MDM - Psych Medical Records Attestation: I reviewed the patient's medical records. <Nguyen Cole NP - Last Filed: 01/11/21 17:01> Lab Data Attestation: I reviewed the patient's lab results. <Nguyen Cole NP - Last Filed: 01/11/21 17:01> Result diagrams: : 01/11/21 10:33 01/11/21 10:33 <Nguyen Cole NP - Last Filed: 01/11/21 17:01> Labs: Lab Results 01/11/21 01/11/21 01/11/21 Range/Units 10:33 10:33 10:33 WBC 10.9 H (4.8-10.8) X10*3/uL RBC 4.63 (4.60-5.80) X10*6/uL Hgb 14.3 (14.0-18.0) g/dl Hct 42.4 (42-52) % MCV 91.6 (80-98) fL MCH 30.9 (27.0-33.0) pg MCHC 33.7 (31.0-36.0) g/dl RDW 12.8 (11.0-16.0) % Plt Count 182 D (160-400) X10*3/uL MPV 10.0 (9.4-12.4) fL Immature Gran % (Auto) 0.4 (0.0-0.4) % Neut % (Auto) 77.9 H (45-73) % Lymph % (Auto) 11.5 L (20-40) % Concho % (Auto) 7.9 (2-11) % Eos % (Auto) 2.2 (0-4) % Baso % (Auto) 0.1 (0-2) % Lymph # (Auto) 1.3 (1.2-4.9) X10*3/uL Concho # (Auto) 0.9 (0.1-1.2) X10*3/uL Eos # (Auto) 0.2 (0.0-0.4) X10*3/uL Baso # (Auto) 0.0 (0.0-0.2) X10*3/uL Abs Immat Gran (auto) 0.04 H (0.00-0.03) X10*3/uL Absolute Neuts (auto) 8.5 H (2.0-8.3) X10*3/uL Absolute Nucleated RBC 0.000 (0.0-0.012) X10*3/uL Nucleated RBC % (auto) 0.0 (0.0-0.2) /100WBC Sodium 140 (135-145) mmol/L Potassium 4.3 (3.3-5.1) mmol/L Chloride 105 (96-108) mmol/L Carbon Dioxide 27 (22-29) mmol/L Anion Gap 12 (12-20) BUN 16 D (9-16) mg/dL Creatinine 0.83 (0.5-1.4) mg/dL Estim Creat Clear Calc 79.6 Estimated GFR > 60 Random Glucose 110 (60-115) mg/dL Calcium 9.3 (8.4-10.2) mg/dL Total Bilirubin 0.8 (0.0-1.0) mg/dL Direct Bilirubin 0.3 (0.0-0.5) mg/dL AST 26 D (5-37) U/L ALT 29 (0-40) U/L Alkaline Phosphatase 59 (39-117) U/L Total Protein 6.4 L (6.5-8.0) g/dL Albumin 3.9 (3.5-5.0) g/dL Urine Opiates Screen (Not Detect) Urine Fentanyl Screen (Not Detect) Ur Barbiturates Screen (Not Detect) Ur Phencyclidine Scrn (Not Detect) Ur Amphetamines Screen (Not Detect) U Benzodiazepines Scrn (Not Detect) Urine Cocaine Screen (Not Detect) U Marijuana (THC) Screen (Not Detect) Ethyl Alcohol mg/dL COVID-19 (EDUARDO) Negative (Negative) COVID-19 Clin Com See Note 01/11/21 01/11/21 Range/Units 10:33 10:45 WBC (4.8-10.8) X10*3/uL RBC (4.60-5.80) X10*6/uL Hgb (14.0-18.0) g/dl Hct (42-52) % MCV (80-98) fL MCH (27.0-33.0) pg MCHC (31.0-36.0) g/dl RDW (11.0-16.0) % Plt Count (160-400) X10*3/uL MPV (9.4-12.4) fL Immature Gran % (Auto) (0.0-0.4) % Neut % (Auto) (45-73) % Lymph % (Auto) (20-40) % Concho % (Auto) (2-11) % Eos % (Auto) (0-4) % Baso % (Auto) (0-2) % Lymph # (Auto) (1.2-4.9) X10*3/uL Concho # (Auto) (0.1-1.2) X10*3/uL Eos # (Auto) (0.0-0.4) X10*3/uL Baso # (Auto) (0.0-0.2) X10*3/uL Abs Immat Gran (auto) (0.00-0.03) X10*3/uL Absolute Neuts (auto) (2.0-8.3) X10*3/uL Absolute Nucleated RBC (0.0-0.012) X10*3/uL Nucleated RBC % (auto) (0.0-0.2) /100WBC Sodium (135-145) mmol/L Potassium (3.3-5.1) mmol/L Chloride (96-108) mmol/L Carbon Dioxide (22-29) mmol/L Anion Gap (12-20) BUN (9-16) mg/dL Creatinine (0.5-1.4) mg/dL Estim Creat Clear Calc Estimated GFR Random Glucose (60-115) mg/dL Calcium (8.4-10.2) mg/dL Total Bilirubin (0.0-1.0) mg/dL Direct Bilirubin (0.0-0.5) mg/dL AST (5-37) U/L ALT (0-40) U/L Alkaline Phosphatase (39-117) U/L Total Protein (6.5-8.0) g/dL Albumin (3.5-5.0) g/dL Urine Opiates Screen Not Detected (Not Detect) Urine Fentanyl Screen Not Detected (Not Detect) Ur Barbiturates Screen Not Detected (Not Detect) Ur Phencyclidine Scrn Not Detected (Not Detect) Ur Amphetamines Screen Not Detected (Not Detect) U Benzodiazepines Scrn POSITIVE H (Not Detect) Urine Cocaine Screen Not Detected (Not Detect) U Marijuana (THC) Screen Not Detected (Not Detect) Ethyl Alcohol < 10 mg/dL COVID-19 (EDUARDO) (Negative) COVID-19 Clin Com <Nguyen Cole NP - Last Filed: 01/11/21 17:01> Lab Results 01/11/21 01/11/21 01/11/21 Range/Units 10:33 10:33 10:33 WBC 10.9 H (4.8-10.8) X10*3/uL RBC 4.63 (4.60-5.80) X10*6/uL Hgb 14.3 (14.0-18.0) g/dl Hct 42.4 (42-52) % MCV 91.6 (80-98) fL MCH 30.9 (27.0-33.0) pg MCHC 33.7 (31.0-36.0) g/dl RDW 12.8 (11.0-16.0) % Plt Count 182 D (160-400) X10*3/uL MPV 10.0 (9.4-12.4) fL Immature Gran % (Auto) 0.4 (0.0-0.4) % Neut % (Auto) 77.9 H (45-73) % Lymph % (Auto) 11.5 L (20-40) % Concho % (Auto) 7.9 (2-11) % Eos % (Auto) 2.2 (0-4) % Baso % (Auto) 0.1 (0-2) % Lymph # (Auto) 1.3 (1.2-4.9) X10*3/uL Concho # (Auto) 0.9 (0.1-1.2) X10*3/uL Eos # (Auto) 0.2 (0.0-0.4) X10*3/uL Baso # (Auto) 0.0 (0.0-0.2) X10*3/uL Abs Immat Gran (auto) 0.04 H (0.00-0.03) X10*3/uL Absolute Neuts (auto) 8.5 H (2.0-8.3) X10*3/uL Absolute Nucleated RBC 0.000 (0.0-0.012) X10*3/uL Nucleated RBC % (auto) 0.0 (0.0-0.2) /100WBC Sodium 140 (135-145) mmol/L Potassium 4.3 (3.3-5.1) mmol/L Chloride 105 (96-108) mmol/L Carbon Dioxide 27 (22-29) mmol/L Anion Gap 12 (12-20) BUN 16 D (9-16) mg/dL Creatinine 0.83 (0.5-1.4) mg/dL Estim Creat Clear Calc 79.6 Estimated GFR > 60 Random Glucose 110 (60-115) mg/dL Calcium 9.3 (8.4-10.2) mg/dL Total Bilirubin 0.8 (0.0-1.0) mg/dL Direct Bilirubin 0.3 (0.0-0.5) mg/dL AST 26 D (5-37) U/L ALT 29 (0-40) U/L Alkaline Phosphatase 59 (39-117) U/L Total Protein 6.4 L (6.5-8.0) g/dL Albumin 3.9 (3.5-5.0) g/dL Urine Opiates Screen (Not Detect) Urine Fentanyl Screen (Not Detect) Ur Barbiturates Screen (Not Detect) Ur Phencyclidine Scrn (Not Detect) Ur Amphetamines Screen (Not Detect) U Benzodiazepines Scrn (Not Detect) Urine Cocaine Screen (Not Detect) U Marijuana (THC) Screen (Not Detect) Ethyl Alcohol mg/dL COVID-19 (EDUARDO) Negative (Negative) COVID-19 Clin Com See Note 01/11/21 01/11/21 Range/Units 10:33 10:45 WBC (4.8-10.8) X10*3/uL RBC (4.60-5.80) X10*6/uL Hgb (14.0-18.0) g/dl Hct (42-52) % MCV (80-98) fL MCH (27.0-33.0) pg MCHC (31.0-36.0) g/dl RDW (11.0-16.0) % Plt Count (160-400) X10*3/uL MPV (9.4-12.4) fL Immature Gran % (Auto) (0.0-0.4) % Neut % (Auto) (45-73) % Lymph % (Auto) (20-40) % Concho % (Auto) (2-11) % Eos % (Auto) (0-4) % Baso % (Auto) (0-2) % Lymph # (Auto) (1.2-4.9) X10*3/uL Concho # (Auto) (0.1-1.2) X10*3/uL Eos # (Auto) (0.0-0.4) X10*3/uL Baso # (Auto) (0.0-0.2) X10*3/uL Abs Immat Gran (auto) (0.00-0.03) X10*3/uL Absolute Neuts (auto) (2.0-8.3) X10*3/uL Absolute Nucleated RBC (0.0-0.012) X10*3/uL Nucleated RBC % (auto) (0.0-0.2) /100WBC Sodium (135-145) mmol/L Potassium (3.3-5.1) mmol/L Chloride (96-108) mmol/L Carbon Dioxide (22-29) mmol/L Anion Gap (12-20) BUN (9-16) mg/dL Creatinine (0.5-1.4) mg/dL Estim Creat Clear Calc Estimated GFR Random Glucose (60-115) mg/dL Calcium (8.4-10.2) mg/dL Total Bilirubin (0.0-1.0) mg/dL Direct Bilirubin (0.0-0.5) mg/dL AST (5-37) U/L ALT (0-40) U/L Alkaline Phosphatase (39-117) U/L Total Protein (6.5-8.0) g/dL Albumin (3.5-5.0) g/dL Urine Opiates Screen Not Detected (Not Detect) Urine Fentanyl Screen Not Detected (Not Detect) Ur Barbiturates Screen Not Detected (Not Detect) Ur Phencyclidine Scrn Not Detected (Not Detect) Ur Amphetamines Screen Not Detected (Not Detect) U Benzodiazepines Scrn POSITIVE H (Not Detect) Urine Cocaine Screen Not Detected (Not Detect) U Marijuana (THC) Screen Not Detected (Not Detect) Ethyl Alcohol < 10 mg/dL COVID-19 (EDUARDO) (Negative) COVID-19 Clin Com <Lauren Beauchamp DO - Last Filed: 01/12/21 08:01> Discharge Plan Discharge Clinical Impression: Depression <Nguyen Cole NP - Last Filed: 01/11/21 17:01> Patient Disposition: Admitted As Inpatient <Nguyen Cole NP - Last Filed: 01/11/21 17:01>
[2021-01-11] MEDS: oxyCODONE HCl Immed Release 5 MG TABLET PO ×2 (10:20→16:04)
[2021-01-11] MEDS: LORazepam 1 MG TABLET 2 MG PO ×2 (10:20→20:22)
[2021-01-11 10:38] LABS: MANUAL DIFF FLAG NO
[2021-01-11 10:40] LABS: Basophils Percent Auto 0.1 % (0-2); Eosinophils Absolute Auto 0.2 X10*3/uL (0.0-0.4); Eosinophils Percent Auto 2.2 % (0-4); Hematocrit 42.4 % (42-52); Hemoglobin 14.3 g/dl (14.0-18.0); Imm Gran Abs Auto 0.04 X10*3/uL (0.00-0.03); Imm Gran Pct Auto 0.4 % (0.0-0.4); Lymphocytes Absolute Auto 1.3 X10*3/uL (1.2-4.9); Lymphocytes Percent Auto 11.5 % (20-40); Mean Corpuscular HGB Conc 33.7 g/dl (31.0-36.0); Mean Corpuscular Hemoglobin 30.9 pg (27.0-33.0); Mean Corpuscular Volume 91.6 fL (80-98); Monocytes Absolute Auto 0.9 X10*3/uL (0.1-1.2); Monocytes Percent Auto 7.9 % (2-11); Neutrophils Absolute Auto 8.5 X10*3/uL (2.0-8.3); Neutrophils Percent Auto 77.9 % (45-73); Platelet Count 182 X10*3/uL (160-400); Red Blood Count 4.63 X10*6/uL (4.60-5.80); Red Cell Distribution Width 12.8 % (11.0-16.0); White Blood Count 10.9 X10*3/uL (4.8-10.8)
[2021-01-11 10:54] LABS: Ethanol < 10 mg/dL
[2021-01-11 10:56] LABS: COVID-19 Test Negative (Negative)
[2021-01-11 10:57] LABS: Alanine Aminotransferase 29 U/L (0-40); Albumin Level 3.9 g/dL (3.5-5.0); Alkaline Phosphatase 59 U/L (39-117); Anion Gap 12 (12-20); Aspartate Amino Transferase 26 U/L (5-37); Bilirubin Direct 0.3 mg/dL (0.0-0.5); Bilirubin Total 0.8 mg/dL (0.0-1.0); Blood Urea Nitrogen 16 mg/dL (9-16); Calcium 9.3 mg/dL (8.4-10.2); Carbon Dioxide 27 mmol/L (22-29); Chloride 105 mmol/L (96-108); Creatinine Clr Calc Pharmacy 79.6; Estimated Glomerular Filt Rate > 60; Glucose Random 110 mg/dL (60-115); Potassium 4.3 mmol/L (3.3-5.1); Sodium 140 mmol/L (135-145); Total Protein 6.4 g/dL (6.5-8.0)
[2021-01-11 11:08] LABS: Amphetamine Screen Urine Not Detected (Not Detect); Barbiturates, Urine Not Detected (Not Detect); Benzodiazepines Screen Urine POSITIVE (Not Detect); Cannabinoid Screen Urine Not Detected (Not Detect); Cocaine Screen Urine Not Detected (Not Detect); Fentanyl, urine Not Detected (Not Detect); Opiate Screen Urine Not Detected (Not Detect); Phencyclidine Screen Urine Not Detected (Not Detect)
--- NOTE | 2021-01-11 13:18 | MHC.CARE ---
CARE Team met with patient in Results Pending Room for a lengthy conversation about the events leading up to his presentation at [facility]. ?Ruminating about his treatment at the rehab facility, believes he was treated poorly and was almost prevented from leaving [place]. ?Patient said he feels distressed and not safe to be at home due to his physical needs; he cannot change his bandages, cook or clean and because he lives alone, believes that he might require medical attention and not be able to access help. Stated he has been having suicidal thoughts since the difficulty he experienced at the Rehab in [place], added that [facility] has given him, ?A-plus care in the past.? Patient does not have a specific plan to end his life, was vague about what he might do. He acknowledged having multiple protective factors, has good friends, well-connected with outpatient providers, takes medication as prescribed and is satisfied with his regime, is future oriented. Discussed with patient his need for Rehabilitation as he is less than one week post-surgery vs inpatient mental health treatment, unclear at this time if he still qualified/needs medical rehab and alternatively patient may not be stable enough for admission to an acute setting. Will consult with Case Management and Psychiatry to determine appropriate level of care.
--- NOTE | 2021-01-11 14:08 | MHC.CM.ED ---
Addendum entered by Keiry Hayden 01/11/21 16:20: Met with pt again to inquire/clarify his d/c needs. CM re educated pt on criteria for STR placement as pt stated his needs were meal prep, housework, pain medication distribution and help with his depression. Pt concerned that he needs his elizabeth removed 2 weeks post op by his NEB surgeon which was to have been coordinated by the [facility] in [place] of which he left [place]. Pt then discussed his long standing MH issues and his worsening depression brought about by his negative experience at rehab following his surgery. Offered to make referrals for STR - informed pt about need for PT eval on 01/12: pt again reverted to his 'worsening mental state' stating, If I could end it right now, I would Crisis back down to see pt to assist with d/c planning needs. Pt resides alone and was independent prior to his surgery. He drove, had outpt supports/services and friends in his area that assisted him. He states he has a 98 yo father and son in the area as well. He did not have skilled home services. CM to await determination from CARE/CRISIS - if cleared, CM will request a PT eval from ED MD for possible STR needs. Original Note: Received consult for assessment of d/c needs: pt initially seen by crisis for possible inpt placement. Pt with recent spine surgery - MD requesting medical / rehab need assessment. Pt had laminoplasty approximately 6 days prior at [facility] in [place]. He was sent to a STR from there where he became upset with many aspects of care and ultimately called 911 stating he was being held against his will. He left [place], stayed in [place] one night, then had a friend transport him home to [place], [place]. He then presented to [facility] as he had an established relationship with one of the MH specialists Pt states he is able to dress himself, ambulate and meet his ADL needs. What I need is someone to prepare meals and clean for me. Offered to provide pt with private hire agencies to which he declined. Offered to refer pt to his area A agencies for wound assessments to which he replied, I need treatment for my depression, I just had a top notch surgeon operate on me and I can't let my depression affect my repair Pt lives alone and states he has established care providers. Pt able to ambulate to BR and is presently eating in the ED without any limitation or impairment. He is independent and there are no STR/ED CM needs at this time. Findings discussed with Bere from CARE team and with ED staff.
[2021-01-11 14:51] VITALS: BP 110/60; PULSE 93; RESP 18; TEMP 36.7; O2SAT 96
--- NOTE | 2021-01-11 19:22 | MHC.CARE ---
CARE team evaluated pt. Plan is for voluntary inpt psych admission.
[2021-01-11 20:21] VITALS: RESP 18; O2SAT 97
[2021-01-11] MEDS: Melatonin 3 MG TABLET 9 MG PO (20:22)
--- NOTE | 2021-01-11 21:54 | PC.NURSE ---
pt requires medications crushed and in apple sauce
[2021-01-12 01:47] VITALS: RESP 16
[2021-01-12 01:48] VITALS: RESP 16
[2021-01-12 02:00] VITALS: BP 120/56; PULSE 82; RESP 16; TEMP 36.8; O2SAT 95
[2021-01-12] MEDS: oxyCODONE HCl Immed Release 5 MG TABLET PO (03:24)
--- NOTE | 2021-01-12 03:47 | PC.NURSE ---
pt changed over completely, pt only had the green gown on, pt is now all changed over, belongings are in locker 9. pt is calm cooperative, walks with a steady gait, dressing to his upper back has old staining and has been marked. pt medicated for pain for s/p surgery. needs at bedside beverage and snacks.
--- NOTE | 2021-01-12 05:12 | PC.NURSE ---
pt attempted to give a urine but was unable to open the lid to the collection cup. pt will try again.
--- NOTE | 2021-01-12 05:14 | PC.NURSE ---
pt sleeping, skin pink warm and dry no distress noted.
[2021-01-12 05:49] VITALS: BP 113/56; PULSE 73; RESP 18; TEMP 36.9; O2SAT 95
[2021-01-12 07:00] VITALS: RESP 16
[2021-01-12] MEDS: Cholecalciferol (Vitamin D3) 25 MCG TABLET PO (10:03)
[2021-01-12] MEDS: DULoxetine HCl 30 MG CAPSULE.DR PO (10:03)
--- NOTE | 2021-01-12 13:35 | PC.NURSE ---
report given to Parvin VO.
--- NOTE | 2021-01-12 17:39 | P.HPPS_ITS ---
HPI Chief Complaint: suicidal thoughts Sources of Information: patient interviewed, chart reviewed and crisis/core team assessment reviewed HPI Subjective Notes: Edward Warning and Conditional Voluntary Narrative: Javy is a 70 year-old man who self presented to [facility] 01/[facility]/21 due to increased depression with suicidal thoughts. Known to [facility] through three prior admissions, two in the last 7 mos. Precipitating factors include recent spinal fusion surgery on 01/06/21 in [place], subsequently discharged to [facility], a rehabilitation facility, left AMA due to not getting pain meds for over 12hrs, felt he was treated poorly and disrespected.? I evaluated the pt this evening and upon inquiry he reports ?im in a lot of pain.? He reports ?its geo hard to tell if the meds are working? and that ?before they were working fine. Its not the medication that my problem is, its the experience i had a few days ago.? Says while in the rehab facility he did not feel safe, had the feeling that they wouldn?t let him leave and ?they didn?t want me there but they wanted the money.? Says they would not ?feed me my medication? and that he was not even getting tylenol for pain. He became desperate feeling and ?commandeered an elevator to get out and I hit 911 five times on my phone.? Says staff allowed him to sign out AMA and police escorted him out of the building, he then went to a hotel to spend the night. Reports ?all i could think is there is corruption there.? Pt does not want med changes ?until i get leveled out? and says ?the less medication im on, the better.? Says his sleep is good, appetite is good. Anxiety level is ?okay now.? He is feeling safe in the hospital. Reports his sx of depression are situational.? Current med regimen: Cymbalta 30 mg QD (since 2007, unable to tolerate higher doses due to constipation on generic). Past Psychiatric History: Past meds: prozac, celexa, seroquel, ativan. PPH: -Has OP services at [facility] in 2006, recently admitted to [facility] on 07/2020, 09/2020 Medical Evaluation Reviewed: Yes [facility] Medical History Bladder mass BPH (benign prostatic hyperplasia) Cervical pain (neck) Chronic neck pain with history of cervical spinal surgery Generalized anxiety disorder History of back pain History of depression History of fall History of suicidal ideation Other obstructive and reflux uropathy Recurrent major depression-severe Transitional cell carcinoma Surgical History History of cystoscopy History of transurethral destruction of bladder lesion Hx of cervical spine surgery Hx of tonsillectomy Family History: FH: -Denies Social History: SH: -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 Pt spent career as a [place] and obtained a Masters in Criminology. - and 40 yr ago, lives alone. Supports include his son, bio father (age 98). Mother is . Has 2 siblings. Substance History: Substance use Hx: -Denies Trauma History: Yes. Pt became disabled on the job saving a child from a moving vehicle. Diagnostics Vital Signs (24Hr): Vital Signs - 24 hr 01/11/21 20:21 01/12/21 01:47 01/12/21 01:48 Temperature Pulse Rate Respiratory Rate 18 16 16 Blood Pressure Pulse Oximetry 97 01/12/21 02:00 01/12/21 05:49 01/12/21 07:00 Temperature 98.2 F 98.5 F Pulse Rate 82 73 Respiratory Rate 16 18 16 Blood Pressure 120/56 L 113/56 L Pulse Oximetry 95 95 Body Mass Index 22.1 Labs Results: 01/11/21 10:33 01/11/21 10:33 Labs: Laboratory Results - last 48 hr 01/11/21 01/11/21 01/11/21 10:33 10:33 10:33 WBC 10.9 H RBC 4.63 Hgb 14.3 Hct 42.4 MCV 91.6 MCH 30.9 MCHC 33.7 RDW 12.8 Plt Count 182 D MPV 10.0 Immature Gran % (Auto) 0.4 Neut % (Auto) 77.9 H Lymph % (Auto) 11.5 L [place] % (Auto) 7.9 Eos % (Auto) 2.2 Baso % (Auto) 0.1 Lymph # (Auto) 1.3 [place] # (Auto) 0.9 Eos # (Auto) 0.2 Baso # (Auto) 0.0 Abs Immat Gran (auto) 0.04 H Absolute Neuts (auto) 8.5 H Absolute Nucleated RBC 0.000 Nucleated RBC % (auto) 0.0 Sodium 140 Potassium 4.3 Chloride 105 Carbon Dioxide 27 Anion Gap 12 BUN 16 D Creatinine 0.83 Estim Creat Clear Calc 79.6 Estimated GFR > 60 Random Glucose 110 Calcium 9.3 Total Bilirubin 0.8 Direct Bilirubin 0.3 AST 26 D ALT 29 Alkaline Phosphatase 59 Total Protein 6.4 L Albumin 3.9 Urine Opiates Screen Urine Fentanyl Screen Ur Barbiturates Screen Ur Phencyclidine Scrn Ur Amphetamines Screen U Benzodiazepines Scrn Urine Cocaine Screen U Marijuana (THC) Screen Ethyl Alcohol COVID-19 (EDUARDO) Negative COVID-19 [employer] See Note 01/11/21 01/11/21 10:33 10:45 WBC RBC Hgb Hct MCV MCH MCHC RDW Plt Count MPV Immature Gran % (Auto) Neut % (Auto) Lymph % (Auto) [place] % (Auto) Eos % (Auto) Baso % (Auto) Lymph # (Auto) [place] # (Auto) Eos # (Auto) Baso # (Auto) Abs Immat Gran (auto) Absolute Neuts (auto) Absolute Nucleated RBC Nucleated RBC % (auto) Sodium Potassium Chloride Carbon Dioxide Anion Gap BUN Creatinine Estim Creat Clear Calc Estimated GFR Random Glucose Calcium Total Bilirubin Direct Bilirubin AST ALT Alkaline Phosphatase Total Protein Albumin Urine Opiates Screen Not Detected Urine Fentanyl Screen Not Detected Ur Barbiturates Screen Not Detected Ur Phencyclidine Scrn Not Detected Ur Amphetamines Screen Not Detected U Benzodiazepines Scrn POSITIVE H Urine Cocaine Screen Not Detected U Marijuana (THC) Screen Not Detected Ethyl Alcohol < 10 COVID-19 (EDUARDO) COVID-19 [employer] Meds/Allergies Meds Home Medications Acetaminophen (Acetaminophen 325 Mg Tablet) 650 mg PO QID PRN PRN Reason: pain Last Admin: 01/12/21 21:51 Dose: 650 mg Documented by: Al Hydroxide/Mg Hydroxide (Magnesium Hydrox/Alum Hydrox 30 Ml Oral.Susp) 30 ml PO Q6H PRN PRN Reason: Heartburn/Nausea Atorvastatin Calcium (Atorvastatin Calcium 20 Mg Tablet) 20 mg PO DAILY [facility] Last Admin: 01/12/21 18:35 Dose: Not Given Documented by: Duloxetine HCl (Duloxetine Hcl 30 Mg Capsule.Dr) 30 mg PO DAILY [facility] Last Admin: 01/12/21 10:03 Dose: 30 mg Documented by: Lorazepam (Lorazepam 1 Mg Tablet) 2 mg PO BEDTIME [facility] Last Admin: 01/12/21 20:50 Dose: 2 mg Documented by: Magnesium Hydroxide (Milk Of Magnesia 30 Ml Oral.Susp) 30 ml PO DAILY PRN PRN Reason: Constipation Melatonin (Melatonin 3 Mg Tablet) 9 mg PO BEDTIME [facility] Last Admin: 01/12/21 20:50 Dose: 9 mg Documented by: Oxycodone HCl (Oxycodone Hcl Immed Release 5 Mg Tablet) 5 mg PO Q6H PRN PRN Reason: pain Last Admin: 01/12/21 03:24 Dose: 5 mg Documented by: Vitamin D (Cholecalciferol (Vitamin D3) 25 Mcg Tablet) 25 mcg PO DAILY [facility] Last Admin: 01/12/21 10:03 Dose: 25 mcg Documented by: Allergies Allergies Allergy/AdvReac Type Severity Reaction Status Date / Time ibuprofen AdvReac Intermediate ringing in Verified 11/13/20 10:41 ears cyclobenzaprine AdvReac right hand Verified 11/13/20 10:41 tremors quetiapine [From Seroquel] AdvReac right hand Verified 11/13/20 10:41 tremors Flonase Allergy Unknown heart Uncoded 11/13/20 10:41 palpations Mental Status Exam Mental Status Exam Narrative: A&O. Unkempt appearance, in hospital attire, lying down in bed under covers. Good eye contact, attentive. No Tics or Tremors. No abnormal involuntary movements. Calm, cooperative, engaged, somewhat animated and expansive when discussing experience at rehab. Speech only pressured when talking about experience at rehab, otherwise non-pressured, spontaneous with regular rate and rhythm, normal volume and prosody. No prolonged speech latency or dysarthria. Mood is ?better,? affect is congruent. Denies SI/SIB/HI upon inquiry. Denies A/VH or delusional thought content. Thoughts are coherent, organized, perseverative on experience at rehab. No known cognitive or memory impairment. Insight/ Judgment fair and adequate. Assessment & Plan Assessment & Plan (1) MDD (major depressive disorder), recurrent episode, moderate: Status: Acute Code(s): F33.1 - Major depressive disorder, recurrent, moderate (2) Generalized anxiety disorder: Status: Acute Code(s): F41.1 - Generalized anxiety disorder Assessment and Plan: Javy is a 70 year-old man who self presented to [facility] 01/[facility]21 due to increased depression with suicidal thoughts. He is reporting sx of increased anxiety and situational depression s/p cervical spine surgery, discharged to rehab facility in which he claims they were not treating his pain and were ignoring his requests, felt trapped there and called 911, attempted to leave AMA. Says the situation there caused him to feel hopeless and suicidal. Plan: Does not want changes to his med regimen, as he reports cymbalta helps him with mood sx and pain but at higher doses causes constipation. Discussed switching to venlafaxine or adjunct tx with lamictal but he wants to monitor sx on current med regimen, declines changes. Monitor response to medications. Monitor for safety in the milieu. Discharge on stabilization. Patient seen. Chart reviewed. Discussed with team. Obtain collateral contact info?as needed Reason for continued inpatient stay Substantial Risk for: harm to self, rapid decompensation and med/psych de compensation
--- NOTE | 2021-01-12 17:40 | PC.NURSE ---
Pt admitted to floor from ED via stretcher with security present, at 1600. Pt independent with ambulation, able to make needs known. Pt presents with neck collar on from recent neck/spinal surgery. Pt signed CV in the pod, signed all releases and paperwork. Pt reports he is feeling suicidal with a plan at the moment, on 5 minute checks.
[2021-01-12 18:00] VITALS: BP 129/65; PULSE 85; RESP 18; TEMP 36.8; O2SAT 94
[2021-01-12] MEDS: LORazepam 1 MG TABLET 2 MG PO (20:50)
[2021-01-12] MEDS: Melatonin 3 MG TABLET 9 MG PO (20:50)
[2021-01-12] MEDS: Acetaminophen 325 MG TABLET 650 MG PO (21:51)
[2021-01-13 06:00] VITALS: BP 117/63; PULSE 99; RESP 18; TEMP 36.2; O2SAT 97
[2021-01-13] MEDS: Milk of Magnesia 30 ML ORAL.SUSP PO (08:56)
[2021-01-13] MEDS: Atorvastatin Calcium 20 MG TABLET PO (08:56)
[2021-01-13] MEDS: DULoxetine HCl 30 MG CAPSULE.DR PO ×2 (08:56→20:33)
[2021-01-13] MEDS: Cholecalciferol (Vitamin D3) 25 MCG TABLET PO (08:57)
[2021-01-13] MEDS: oxyCODONE HCl Immed Release 5 MG TABLET PO (09:32)
--- NOTE | 2021-01-13 15:08 | HO.PSYCHPN ---
Subjective Subjective Date of Service: 01/13/21 Reason For Visit: suicidal thoughts Subjective Notes: Conditional Voluntary Interim History: The nursing staff reported that the patient could sleep a little last night. He reported that he has been more dysphoric after the surgery that he had of December. We assessed the patient with and social work professor and apparently he had a very bad experience at the rehab facilities and later, while he was on opioids and cortical it, he felt paranoid and scared with exacerbation of suicidal thoughts. On interview, the patient was able to contract for safety but he was very dysphoric. We discussed risks benefits side-effects and alternatives and he agreed increase Cymbalta to 30 mg p.o. b.i.d. to target depression and chronic pain. Attending Groups: Intermittent Review of Systems Acute medical concerns: Yes Recent neck surgery Medical Review of Systems: changed Mental Status Exam Mental Status Exam Patient Appearance: Disheveled and Unkempt Patient Orientation: Person, Place and Situation Level of Consciousness: Awake Patient Behavior: Cooperative Mood Description: Constricted and Depressed Affect Description: Constricted Patient Cognition Impaired: No Ability to Follow Directions: Good Speech Pattern: Clear Memory Description: Intact Hallucinations: None Delusions: Paranoid Ideation Thought Process: Linear Thought Content: positive for Circumstantial Depressive Symptoms: Increased Anxiety, Increased Irritability, Changes in Appetite and Crying Spells Judgement: Fair Diagnostics Vital Signs (24Hr): Vital Signs - 24 hr 01/12/21 18:00 01/13/21 06:00 Temperature 98.2 F 97.2 F Pulse Rate 85 99 Respiratory Rate 18 18 Blood Pressure 129/65 117/63 Pulse Oximetry 94 97 Body Mass Index 22.1 Labs Results: 01/11/21 10:33 01/11/21 10:33 Medications Medications Current Medications Acetaminophen (Acetaminophen 325 Mg Tablet) 650 mg PO QID PRN PRN Reason: pain Last Admin: 01/12/21 21:51 Dose: 650 mg Documented by: Al Hydroxide/Mg Hydroxide (Magnesium Hydrox/Alum Hydrox 30 Ml Oral.Susp) 30 ml PO Q6H PRN PRN Reason: Heartburn/Nausea Atorvastatin Calcium (Atorvastatin Calcium 20 Mg Tablet) 20 mg PO DAILY [facility] Last Admin: 01/13/21 08:56 Dose: 20 mg Documented by: Duloxetine HCl (Duloxetine Hcl 30 Mg Capsule.Dr) 30 mg PO DAILY [facility] Last Admin: 01/13/21 08:56 Dose: 30 mg Documented by: Lorazepam (Lorazepam 1 Mg Tablet) 2 mg PO BEDTIME [facility] Last Admin: 01/12/21 20:50 Dose: 2 mg Documented by: Magnesium Hydroxide (Milk Of Magnesia 30 Ml Oral.Susp) 30 ml PO DAILY PRN PRN Reason: Constipation Last Admin: 01/13/21 08:56 Dose: 30 ml Documented by: Melatonin (Melatonin 3 Mg Tablet) 9 mg PO BEDTIME [facility] Last Admin: 01/12/21 20:50 Dose: 9 mg Documented by: Oxycodone HCl (Oxycodone Hcl Immed Release 5 Mg Tablet) 5 mg PO Q6H PRN PRN Reason: pain Last Admin: 01/13/21 09:32 Dose: 5 mg Documented by: Vitamin D (Cholecalciferol (Vitamin D3) 25 Mcg Tablet) 25 mcg PO DAILY [facility] Last Admin: 01/13/21 08:57 Dose: 25 mcg Documented by: Allergies Allergies Allergy/AdvReac Type Severity Reaction Status Date / Time ibuprofen AdvReac Intermediate ringing in Verified 11/13/20 10:41 ears cyclobenzaprine AdvReac right hand Verified 11/13/20 10:41 tremors quetiapine [From Seroquel] AdvReac right hand Verified 11/13/20 10:41 tremors Flonase Allergy Unknown heart Uncoded 11/13/20 10:41 palpations Assessment & Plan Assessment & Plan (1) MDD (major depressive disorder), recurrent episode, moderate: Status: Acute Code(s): F33.1 - Major depressive disorder, recurrent, moderate (2) Generalized anxiety disorder: Status: Acute Code(s): F41.1 - Generalized anxiety disorder Assessment and Plan: Javy is a 70 year-old man who self presented to [facility] 01/11/21 due to increased depression with suicidal thoughts. He is reporting sx of increased anxiety and situational depression s/p cervical spine surgery, discharged to rehab facility in which he claims they were not treating his pain and were ignoring his requests, felt trapped there and called 911, attempted to leave AMA. Says the situation there caused him to feel hopeless and suicidal. Plan: 1. Increase Cymbalta to 30 mg p.o. b.i.d.. 2. Consult to hospitalist tElva 3. Obtain collateral contact info?as needed Greater than 50% of the session was spent on counseling and/or coordination of care Reason for contiued inpatient stay Substantial Risk for: harm to self, inability to function, rapid decompensation and med/psych decompensation
--- NOTE | 2021-01-13 15:56 | PC.NURSE ---
Patient dressing to back of neck changed. Small amount of serous drainage noted. Rusty intact. Incision has no redness or tenderness. Gauze dressing applied and covered with tegaderm.
[2021-01-13 18:00] VITALS: BP 104/84; PULSE 88; RESP 16; TEMP 36.1; O2SAT 98
[2021-01-13] MEDS: LORazepam 1 MG TABLET 2 MG PO (20:33)
[2021-01-13] MEDS: Melatonin 3 MG TABLET 9 MG PO (20:33)
[2021-01-13] MEDS: Acetaminophen 325 MG TABLET 650 MG PO (20:38)
[2021-01-14 06:00] VITALS: BP 121/68; PULSE 90; RESP 16; TEMP 36.9; O2SAT 98
[2021-01-14] MEDS: Atorvastatin Calcium 20 MG TABLET PO (08:21)
[2021-01-14] MEDS: DULoxetine HCl 30 MG CAPSULE.DR PO ×2 (08:21→19:56)
[2021-01-14] MEDS: Cholecalciferol (Vitamin D3) 25 MCG TABLET PO (08:21)
[2021-01-14] MEDS: Milk of Magnesia 30 ML ORAL.SUSP PO (09:59)
[2021-01-14] MEDS: oxyCODONE HCl Immed Release 5 MG TABLET PO (13:40)
--- NOTE | 2021-01-14 13:41 | P.PNPSI_ITS ---
Subjective Subjective Date of Service: 01/14/21 Reason For Visit: suicidal thoughts Subjective Notes: Conditional Voluntary Interim History: The nursing staff reported that the patient had some neck pain that resolved with the oxycodone. The dressing was really changed and apparently he slept well. On interview, the patient was concerned about his follow-up appointment with his neurosurgeon but he denies new symptoms. Medication Compliance: Yes Side effects from medications: No Review of Systems Acute medical concerns: No Medical Review of Systems: unchanged Mental Status Exam Mental Status Exam Patient Appearance: Well Grooomed Patient Orientation: Person Level of Consciousness: Awake Patient Behavior: Appropriate and Cooperative Mood Description: Constricted Affect Description: Depressed Patient Cognition Impaired: No Ability to Follow Directions: Good Speech Pattern: Clear Memory Description: Intact Hallucinations: None Delusions: Not Present Thought Process: Goal Oriented Thought Content: positive for Circumstantial and positive for Preoccupation Judgement: Fair Diagnostics Vital Signs (24Hr): Vital Signs - 24 hr 01/13/21 18:00 01/14/21 06:00 Temperature 96.9 F 98.4 F Pulse Rate 88 90 Respiratory Rate 16 16 Blood Pressure 104/84 121/68 Pulse Oximetry 98 98 Body Mass Index 22.1 Labs Results: 01/11/21 10:33 01/11/21 10:33 Medications Medications Current Medications Acetaminophen (Acetaminophen 325 Mg Tablet) 650 mg PO QID PRN PRN Reason: pain Last Admin: 01/13/21 20:38 Dose: 650 mg Documented by: Al Hydroxide/Mg Hydroxide (Magnesium Hydrox/Alum Hydrox 30 Ml Oral.Susp) 30 ml PO Q6H PRN PRN Reason: Heartburn/Nausea Atorvastatin Calcium (Atorvastatin Calcium 20 Mg Tablet) 20 mg PO DAILY [facility] Last Admin: 01/14/21 08:21 Dose: 20 mg Documented by: Duloxetine HCl (Duloxetine Hcl 30 Mg Capsule.Dr) 30 mg PO BID [facility] Last Admin: 01/14/21 08:21 Dose: 30 mg Documented by: Lorazepam (Lorazepam 1 Mg Tablet) 2 mg PO BEDTIME [facility] Last Admin: 01/13/21 20:33 Dose: 2 mg Documented by: Magnesium Hydroxide (Milk Of Magnesia 30 Ml Oral.Susp) 30 ml PO DAILY PRN PRN Reason: Constipation Last Admin: 01/14/21 09:59 Dose: 30 ml Documented by: Melatonin (Melatonin 3 Mg Tablet) 9 mg PO BEDTIME [facility] Last Admin: 01/13/21 20:33 Dose: 9 mg Documented by: Oxycodone HCl (Oxycodone Hcl Immed Release 5 Mg Tablet) 5 mg PO Q6H PRN PRN Reason: pain Last Admin: 01/13/21 09:32 Dose: 5 mg Documented by: Vitamin D (Cholecalciferol (Vitamin D3) 25 Mcg Tablet) 25 mcg PO DAILY [facility] Last Admin: 01/14/21 08:21 Dose: 25 mcg Documented by: Allergies Allergies Allergy/AdvReac Type Severity Reaction Status Date / Time ibuprofen AdvReac Intermediate ringing in Verified 11/13/20 10:41 ears cyclobenzaprine AdvReac right hand Verified 11/13/20 10:41 tremors quetiapine [From Seroquel] AdvReac right hand Verified 11/13/20 10:41 tremors Flonase Allergy Unknown heart Uncoded 11/13/20 10:41 palpations Assessment & Plan Assessment & Plan (1) MDD (major depressive disorder), recurrent episode, moderate: Status: Acute Code(s): F33.1 - Major depressive disorder, recurrent, moderate (2) Generalized anxiety disorder: Status: Acute Code(s): F41.1 - Generalized anxiety disorder Assessment and Plan: Javy is a 70 year-old man who self presented to [facility] ED 01/11/21 due to increased depression with suicidal thoughts. He is reporting sx of increased anxiety and situational depression s/p cervical spine surgery, discharged to rehab facility in which he claims they were not treating his pain and were ignoring his requests, felt trapped there and called 911, attempted to leave AMA. Says the situation there caused him to feel hopeless and suicidal. Plan: 1. Increase Cymbalta to 30 mg p.o. b.i.d.. 2. Consult to hospitalist t. 3. Obtain collateral contact info?as needed Greater than 50% of the session was spent on counseling and/or coordination of care Reason for contiued inpatient stay Substantial Risk for: harm to self, inability to function, rapid decompensation and med/psych decompensation
[2021-01-14 19:44] VITALS: BP 115/61; PULSE 79; RESP 19; TEMP 36.7; O2SAT 96
[2021-01-14] MEDS: Melatonin 3 MG TABLET 9 MG PO (19:56)
[2021-01-14] MEDS: Acetaminophen 325 MG TABLET 650 MG PO (19:57)
[2021-01-14] MEDS: LORazepam 1 MG TABLET 2 MG PO (19:58)
[2021-01-15 06:00] VITALS: BP 118/62; PULSE 75; RESP 16; TEMP 36.1; O2SAT 97
[2021-01-15 07:00] VITALS: BMI 23.6
[2021-01-15] MEDS: Atorvastatin Calcium 20 MG TABLET PO (08:52)
[2021-01-15] MEDS: DULoxetine HCl 30 MG CAPSULE.DR PO ×2 (08:53→20:17)
[2021-01-15] MEDS: Cholecalciferol (Vitamin D3) 25 MCG TABLET PO (08:53)
--- NOTE | 2021-01-15 11:26 | P.PNPSI_ITS ---
Subjective Subjective Date of Service: 01/15/21 Reason For Visit: suicidal thoughts Subjective Notes: Conditional Voluntary Interim History: The nursing staff reported that he has some neck pain. It is obvious that he likes to be here in the hospital, he feels see. The executive secretary social welfare reports that he is feeling much better but he has to be follow up by his neurosurgeon to remove the elizabeth. He has an appointment for next week. On interview, the patient reports that he is feeling in better, his appetite is better and he slept well. Still with some pain but able to cope with it assertively. He denied side effects with increase of Cymbalta Medication Compliance: Yes Side effects from medications: No Attending Groups: Intermittent Mental Status Exam Mental Status Exam Patient Appearance: Well Grooomed Patient Orientation: Person Level of Consciousness: Awake Patient Behavior: Cooperative Mood Description: Depressed Affect Description: Constricted Patient Cognition Impaired: No Ability to Follow Directions: Good Speech Pattern: Clear Memory Description: Intact Hallucinations: None Delusions: Not Present Thought Process: Goal Oriented Thought Content: positive for Circumstantial Depressive Symptoms: Increased Anxiety, Changes in Appetite and Feelings of Worthlessness Judgement: Fair Diagnostics Vital Signs (24Hr): Vital Signs - 24 hr 01/14/21 19:44 01/15/21 06:00 Temperature 98.1 F 97 F Pulse Rate 79 75 Respiratory Rate 19 16 Blood Pressure 115/61 118/62 Pulse Oximetry 96 97 Body Mass Index 23.6 Labs Results: 01/11/21 10:33 01/11/21 10:33 Medications Medications Current Medications Acetaminophen (Acetaminophen 325 Mg Tablet) 650 mg PO QID PRN PRN Reason: pain Last Admin: 01/14/21 19:57 Dose: 650 mg Documented by: Al Hydroxide/Mg Hydroxide (Magnesium Hydrox/Alum Hydrox 30 Ml Oral.Susp) 30 ml PO Q6H PRN PRN Reason: Heartburn/Nausea Atorvastatin Calcium (Atorvastatin Calcium 20 Mg Tablet) 20 mg PO DAILY [facility] Last Admin: 01/15/21 08:52 Dose: 20 mg Documented by: Duloxetine HCl (Duloxetine Hcl 30 Mg Capsule.Dr) 30 mg PO BID [facility] Last Admin: 01/15/21 08:53 Dose: 30 mg Documented by: Lorazepam (Lorazepam 1 Mg Tablet) 2 mg PO BEDTIME [facility] Last Admin: 01/14/21 19:58 Dose: 2 mg Documented by: Magnesium Hydroxide (Milk Of Magnesia 30 Ml Oral.Susp) 30 ml PO DAILY PRN PRN Reason: Constipation Last Admin: 01/14/21 09:59 Dose: 30 ml Documented by: Melatonin (Melatonin 3 Mg Tablet) 9 mg PO BEDTIME [facility] Last Admin: 01/14/21 19:56 Dose: 9 mg Documented by: Oxycodone HCl (Oxycodone Hcl Immed Release 5 Mg Tablet) 5 mg PO Q6H PRN PRN Reason: pain Last Admin: 01/14/21 13:40 Dose: 5 mg Documented by: Vitamin D (Cholecalciferol (Vitamin D3) 25 Mcg Tablet) 25 mcg PO DAILY [facility] Last Admin: 01/15/21 08:53 Dose: 25 mcg Documented by: Allergies Allergies Allergy/AdvReac Type Severity Reaction Status Date / Time ibuprofen AdvReac Intermediate ringing in Verified 11/13/20 10:41 ears cyclobenzaprine AdvReac right hand Verified 11/13/20 10:41 tremors quetiapine [From Seroquel] AdvReac right hand Verified 11/13/20 10:41 tremors Flonase Allergy Unknown heart Uncoded 11/13/20 10:41 palpations Assessment & Plan Assessment & Plan (1) MDD (major depressive disorder), recurrent episode, moderate: Status: Acute Code(s): F33.1 - Major depressive disorder, recurrent, moderate (2) Generalized anxiety disorder: Status: Acute Code(s): F41.1 - Generalized anxiety disorder Assessment and Plan: Javy is a 70 year-old man who self presented to [facility] 01/11/21 due to increased depression with suicidal thoughts. He is reporting sx of increased anxiety and situational depression s/p cervical spine surgery, discharged to rehab facility in which he claims they were not treating his pain and were ignoring his requests, felt trapped there and called 911, attempted to leave AMA. Says the situation there caused him to feel hopeless and suicidal. Plan: 1. Keep Cymbalta 30 mg p.o. b.i.d.. 2. Consult to hospitalist t. 3. Obtain collateral contact info?as needed Greater than 50% of the session was spent on counseling and/or coordination of care Reason for contiued inpatient stay Substantial Risk for: inability to function, rapid decompensation and med/psych decompensation
[2021-01-15] MEDS: oxyCODONE HCl Immed Release 5 MG TABLET PO (13:22)
--- NOTE | 2021-01-15 14:26 | P.DS_ITS ---
DS: Providers Provider Date of Service: 01/19/21 Date of admission: 01/12/21 12:31 Date of discharge: 01/19/21 Primary care physician: Randal Stringer MD Consults: 01/13/21 10:58 Consult to Hospitalist Routine Consulting Provider: Hospitalist Reason For Exam: Recent surgery on cervical region on December DS: Diagnosis Discharge Diagnosis (1) MDD (major depressive disorder), recurrent episode, moderate: Status: Acute (2) Generalized anxiety disorder: Status: Acute DS: Medications Discharge Medications Home Medications: Home Medications Medication Instructions Recorded Confirmed simvastatin 20 mg tablet (Zocor) 2 tab PO DAILY 09/07/20 01/15/21 hydroxyzine HCl 50 mg tablet 50 mg PO BEDTIME PRN 01/11/21 01/15/21 lorazepam 2 mg tablet (Ativan) 2 mg PO DAILY PRN 01/11/21 01/15/21 melatonin 5 mg tablet 2 tab PO BEDTIME 01/11/21 01/15/21 Previous Rx's Medication Instructions Recorded cholecalciferol (vitamin D3) 25 25 mcg PO DAILY #30 tab 09/16/20 mcg (1,000 unit) tablet duloxetine 30 mg capsule,delayed 30 mg PO DAILY #30 cap 09/16/20 release Mental Status Exam Mental Status Exam Patient Appearance: Well Grooomed Patient Orientation: Person, Place, Time and Situation Level of Consciousness: Awake and Appropriate Patient Behavior: Cooperative Mood Description: Calm Affect Description: Appropriate Patient Cognition Impaired: No Ability to Follow Directions: Good Speech Pattern: Clear Memory Description: Intact Hallucinations: None Delusions: Not Present Thought Process: Intact Thought Content: positive for Intact Judgement: Fair Data Data Completed and Pending Completed studies during hospitalization [Text1]: 01/11/21 01/11/21 01/11/21 10:33 10:33 10:33 WBC 10.9 H RBC 4.63 Hgb 14.3 Hct 42.4 MCV 91.6 MCH 30.9 MCHC 33.7 RDW 12.8 Plt Count 182 D MPV 10.0 Immature Gran % (Auto) 0.4 Neut % (Auto) 77.9 H Lymph % (Auto) 11.5 L [place] % (Auto) 7.9 Eos % (Auto) 2.2 Baso % (Auto) 0.1 Lymph # (Auto) 1.3 [place] # (Auto) 0.9 Eos # (Auto) 0.2 Baso # (Auto) 0.0 Abs Immat Gran (auto) 0.04 H Absolute Neuts (auto) 8.5 H Absolute Nucleated RBC 0.000 Nucleated RBC % (auto) 0.0 Sodium 140 Potassium 4.3 Chloride 105 Carbon Dioxide 27 Anion Gap 12 BUN 16 D Creatinine 0.83 Estim Creat Clear Calc 79.6 Estimated GFR > 60 Random Glucose 110 Calcium 9.3 Total Bilirubin 0.8 Direct Bilirubin 0.3 AST 26 D ALT 29 Alkaline Phosphatase 59 Total Protein 6.4 L Albumin 3.9 Urine Opiates Screen Urine Fentanyl Screen Ur Barbiturates Screen Ur Phencyclidine Scrn Ur Amphetamines Screen U Benzodiazepines Scrn Urine Cocaine Screen U Marijuana (THC) Screen Ethyl Alcohol COVID-19 ([facility]) Negative COVID-19 Clin Com See Note 01/11/21 01/11/21 10:33 10:45 WBC RBC Hgb Hct MCV MCH MCHC RDW Plt Count MPV Immature Gran % (Auto) Neut % (Auto) Lymph % (Auto) [place] % (Auto) Eos % (Auto) Baso % (Auto) Lymph # (Auto) [place] # (Auto) Eos # (Auto) Baso # (Auto) Abs Immat Gran (auto) Absolute Neuts (auto) Absolute Nucleated RBC Nucleated RBC % (auto) Sodium Potassium Chloride Carbon Dioxide Anion Gap BUN Creatinine Estim Creat Clear Calc Estimated GFR Random Glucose Calcium Total Bilirubin Direct Bilirubin AST ALT Alkaline Phosphatase Total Protein Albumin Urine Opiates Screen Not Detected Urine Fentanyl Screen Not Detected Ur Barbiturates Screen Not Detected Ur Phencyclidine Scrn Not Detected Ur Amphetamines Screen Not Detected U Benzodiazepines Scrn POSITIVE H Urine Cocaine Screen Not Detected U Marijuana (THC) Screen Not Detected Ethyl Alcohol < 10 COVID-19 ([facility]) COVID-19 Clin Com DS: Summary Hospital Course Hospital Course: The patient was initially admitted since he described suicidal ideation after feeling neglected in a rehab facility. Please see HPI for more details but apparently he had cervical surgery and after the surgery, he was receiving high doses of opioids and cortical reads, he was in a subacute rehab facility and he felt neglected and he sign AMA, he became more dysphoric and he presented himself to the ED with suicidal ideation. On admission we reviewed his list of medications and since he was dysphoric he agreed to increase Cymbalta to 30 mg p.o. b.i.d. to target depression, anxiety and chronic pain. The patient reported improvement of suicidal ideation and since there were no safety concerns discharge planning was discussed. Time spent discussing smoking cessation with patient: 3 to 10 minutes Status at Discharge Cognitive/behavioral status at discharge: At baseline Functional status at discharge: independent ambulation Overall status at discharge: patient is back to baseline Time Spent with Patient Time attestation: Total time spent providing and/or coordinating discharge services: Time spent: Less than 30 minutes Discharge Plan Discharge Patient Disposition: Home, Self-Care Discharge Diagnosis: Major depressive disorder recurrent episode severe without psychotic symptoms Referrals: SERGIO Mcallister [Other] - 1 Week Shefali Tovar [facility] [Other] - [address] [facility] [Other] - 01/20/21 12:15 pm (You appointment for removal of elizabeth with surgeon is 01/20/21 at 12:15PM. ) Randal Stringer MD [Primary Care Provider] - 1 Week Discharge Medications: New acetaminophen 325 mg Tablet 650 mg PO QID PRN (Reason: pain) 30 Days Qty: 90 RF: 0 oxycodone 5 mg Tablet 5 mg PO Q6H PRN (Reason: pain) 30 Days Qty: 90 RF: 0 duloxetine 30 mg Capsule,Delayed Release(Dr/Ec) 30 mg PO BID 30 Days Qty: 60 RF: 0 Continued hydroxyzine HCl 50 mg tablet 50 mg PO BEDTIME PRN (Reason: Sleep) 30 Days Qty: 30 RF: 0 lorazepam [Ativan] 2 mg tablet 2 mg PO DAILY PRN (Reason: Anxiety) 30 Days Qty: 30 RF: 0 simvastatin [Zocor] 20 mg tablet 2 tab PO DAILY 30 Days Qty: 60 RF: 0 cholecalciferol (vitamin D3) 25 mcg (1,000 unit) Tablet 25 mcg PO DAILY 30 Days Qty: 30 RF: 0 Changed melatonin 5 mg tablet 10 mg PO BEDTIME 30 Days Qty: 60 RF: 0 Discontinued duloxetine 30 mg Capsule,Delayed Release(Dr/Ec) 30 mg PO DAILY Qty: 30 RF: 0 Discharge Orders: Discharge Order (Routine); Ordered 01/19/21 Ordered By: Tahir Morales Diet: advance to usual diet Activity on Discharge: As tolerated Stand Alone Forms: Patient Portal Discharge page Care Plan Goals: Care plan goals over the achieved in the unit Health Concerns: Follow-up with his neurosurgeon for the cervical surgery aftercare. Continue with primary care physician as an outpatient Plan of Treatment: Continue psychotherapy. Continue medication management as an outpatient Assessment: Elderly male with a long history of major depressive disorder recurrent episode with suicidal ideation at times, this moment safe in the community
[2021-01-15 18:00] VITALS: BP 127/68; PULSE 76; RESP 16; TEMP 36.1; O2SAT 98
[2021-01-15] MEDS: Acetaminophen 325 MG TABLET 650 MG PO (20:15)
[2021-01-15] MEDS: LORazepam 1 MG TABLET 2 MG PO (20:17)
[2021-01-15] MEDS: Melatonin 3 MG TABLET 9 MG PO (20:17)
[2021-01-16 06:00] VITALS: BP 117/58; PULSE 77; TEMP 35.6; O2SAT 97
[2021-01-16] MEDS: Cholecalciferol (Vitamin D3) 25 MCG TABLET PO (10:04)
[2021-01-16] MEDS: DULoxetine HCl 30 MG CAPSULE.DR PO ×2 (10:04→20:16)
[2021-01-16] MEDS: Atorvastatin Calcium 20 MG TABLET PO (10:04)
[2021-01-16] MEDS: oxyCODONE HCl Immed Release 5 MG TABLET PO (14:02)
--- NOTE | 2021-01-16 17:35 | HO.PSYCHPN ---
Subjective Subjective Date of Service: 01/16/21 Reason For Visit: suicidal thoughts Subjective Notes: Conditional Voluntary Interim History: I evaluated the pt this evening and upon interview he reports he is overall feeling better. He endorses sx of anxiety, as he continues to have intrusive thoughts/ memories from his experience at the rehab and reports having a nightmare last night. Says he will lay here at night and think about what the hell happened, continues to be fixated on events but he is re-directable. Has some stress related paranoia regarding the rehab, worries they are looking for him because he left AMA and hopes that they dont stalk him, however he is open to reality testing this thought process. Reports residual pain in neck s/p surgery, has f/u appointment on Tuesday with neurosurgery in [place] to remove the stables. Says it is too early to tell if increase in cymbalta is helping, we will see how it works, currently denies constipating SE. Has been walking for exercise. Denies SI/SIB upon inquiry today and says he feels safe. Medication Compliance: Yes Side effects from medications: No Attending Groups: Intermittent Mental Status Exam Mental Status Exam Narrative: Patient Appearance:?Well Grooomed Patient Orientation:?Person, Place, Time and Situation Level of Consciousness:?Awake and Appropriate Patient Behavior:?Cooperative Mood Description:?Calm Affect Description:?Appropriate Patient Cognition Impaired:?No Ability to Follow Directions:?Good Speech Pattern:?Clear Memory Description:?Intact Hallucinations:?None Delusions:?some mild stress related paranoia, able to reality test Thought Process:?Intact, perseverative at times Thought Content:?positive for Intact Judgement:?Fair Diagnostics Vital Signs (24Hr): Vital Signs - 24 hr 01/15/21 18:00 01/16/21 06:00 Temperature 97.0 F 96.1 F L Pulse Rate 76 77 Respiratory Rate 16 Blood Pressure 127/68 117/58 L Pulse Oximetry 98 97 Body Mass Index 23.6 Labs Results: 01/11/21 10:33 01/11/21 10:33 Medications Medications Current Medications Acetaminophen (Acetaminophen 325 Mg Tablet) 650 mg PO QID PRN PRN Reason: pain Last Admin: 01/15/21 20:15 Dose: 650 mg Documented by: Al Hydroxide/Mg Hydroxide (Magnesium Hydrox/Alum Hydrox 30 Ml Oral.Susp) 30 ml PO Q6H PRN PRN Reason: Heartburn/Nausea Atorvastatin Calcium (Atorvastatin Calcium 20 Mg Tablet) 20 mg PO DAILY [facility] Last Admin: 01/16/21 10:04 Dose: 20 mg Documented by: Duloxetine HCl (Duloxetine Hcl 30 Mg Capsule.) 30 mg PO BID [facility] Last Admin: 01/16/21 10:04 Dose: 30 mg Documented by: Lorazepam (Lorazepam 1 Mg Tablet) 2 mg PO BEDTIME [facility] Last Admin: 01/15/21 20:17 Dose: 2 mg Documented by: Magnesium Hydroxide (Milk Of Magnesia 30 Ml Oral.Susp) 30 ml PO DAILY PRN PRN Reason: Constipation Last Admin: 01/14/21 09:59 Dose: 30 ml Documented by: Melatonin (Melatonin 3 Mg Tablet) 9 mg PO BEDTIME [facility] Last Admin: 01/15/21 20:17 Dose: 9 mg Documented by: Vitamin D (Cholecalciferol (Vitamin D3) 25 Mcg Tablet) 25 mcg PO DAILY [facility] Last Admin: 01/16/21 10:04 Dose: 25 mcg Documented by: Allergies Allergies Allergy/AdvReac Type Severity Reaction Status Date / Time ibuprofen AdvReac Intermediate ringing in Verified 11/13/20 10:41 ears cyclobenzaprine AdvReac right hand Verified 11/13/20 10:41 tremors quetiapine [From Seroquel] AdvReac right hand Verified 11/13/20 10:41 tremors Flonase Allergy Unknown heart Uncoded 11/13/20 10:41 palpations Assessment & Plan Assessment & Plan (1) MDD (major depressive disorder), recurrent episode, moderate: Status: Acute Code(s): F33.1 - Major depressive disorder, recurrent, moderate (2) Generalized anxiety disorder: Status: Acute Code(s): F41.1 - Generalized anxiety disorder Assessment and Plan: Javy is a 70 year-old man who self presented to [facility] 01/11/21 due to increased depression with suicidal thoughts. He is reporting sx of increased anxiety and situational depression s/p cervical spine surgery, discharged to rehab facility in which he claims they were not treating his pain and were ignoring his requests, felt trapped there and called 911, attempted to leave AMA. Says the situation there caused him to feel hopeless and suicidal. Plan: 1. Keep Cymbalta 30 mg p.o. b.i.d.. 2. Consult to hospitalist t. 3. Obtain collateral contact info?as needed Greater than 50% of the session was spent on counseling and/or coordination of care Reason for contiued inpatient stay Substantial Risk for: rapid decompensation and med/psych decompensation
[2021-01-16 18:00] VITALS: BP 120/58; PULSE 80; RESP 20; TEMP 36.7; O2SAT 96
[2021-01-16] MEDS: Melatonin 3 MG TABLET 9 MG PO (20:15)
[2021-01-16] MEDS: Acetaminophen 325 MG TABLET 650 MG PO (20:16)
[2021-01-16] MEDS: LORazepam 1 MG TABLET 2 MG PO (20:16)
[2021-01-17 06:00] VITALS: BP 125/55; PULSE 84; RESP 16; TEMP 36.4; O2SAT 96
[2021-01-17] MEDS: Atorvastatin Calcium 20 MG TABLET PO (09:15)
[2021-01-17] MEDS: DULoxetine HCl 30 MG CAPSULE.DR PO (09:15)
[2021-01-17] MEDS: Cholecalciferol (Vitamin D3) 25 MCG TABLET PO (09:15)
[2021-01-17] MEDS: Acetaminophen 325 MG TABLET 650 MG PO ×2 (14:22→20:28)
[2021-01-17] MEDS: Milk of Magnesia 30 ML ORAL.SUSP PO (17:41)
[2021-01-17 18:00] VITALS: BP 118/64; PULSE 81; RESP 18; TEMP 36.9; O2SAT 95
[2021-01-17] MEDS: Melatonin 3 MG TABLET 9 MG PO (20:28)
[2021-01-17] MEDS: LORazepam 1 MG TABLET 2 MG PO (20:28)
--- NOTE | 2021-01-17 22:47 | HO.PSYCHPN ---
Subjective Subjective Date of Service: 01/17/21 Reason For Visit: suicidal thoughts Interim History: pt says his mood is good; he denies any SI/HI. pt focused on telling his story about poor treatment at rehab facility post neck surgery which he says was trigger for his depression. Pt report he is discharging this Tuesday and going to see neurosurgen for follow up. N Mental Status Exam Mental Status Exam Narrative: Patient Appearance:?in hospital gown; adequately Grooomed Patient Orientation:?Person, Place, Time and Situation Level of Consciousness:?Awake and Appropriate Patient Behavior:?Cooperative Mood Description:? good Affect Description:?constricted Patient Cognition Impaired:?No Ability to Follow Directions:?Good Speech Pattern:?circumstantial Memory Description:?Intact Hallucinations:?None Delusions:?none expressed Thought Process:?Intact, perseverative at times Thought Content:?no SI/HI; on poor treatment he got at rehab Judgment:?Fair Diagnostics Vital Signs (24Hr): Vital Signs - 24 hr 01/17/21 06:00 01/17/21 18:00 Temperature 97.6 F 98.4 F Pulse Rate 84 81 Respiratory Rate 16 18 Blood Pressure 125/55 L 118/64 Pulse Oximetry 96 95 Body Mass Index 23.6 Labs Results: 01/11/21 10:33 01/11/21 10:33 Medications Medications Current Medications Acetaminophen (Acetaminophen 325 Mg Tablet) 650 mg PO QID PRN PRN Reason: pain Last Admin: 01/17/21 20:28 Dose: 650 mg Documented by: Al Hydroxide/Mg Hydroxide (Magnesium Hydrox/Alum Hydrox 30 Ml Oral.Susp) 30 ml PO Q6H PRN PRN Reason: Heartburn/Nausea Atorvastatin Calcium (Atorvastatin Calcium 20 Mg Tablet) 20 mg PO DAILY [facility] Last Admin: 01/17/21 09:15 Dose: 20 mg Documented by: Duloxetine HCl (Duloxetine Hcl 30 Mg Capsule.Dr) 30 mg PO BID [facility] Last Admin: 01/17/21 21:18 Dose: Not Given Documented by: Lorazepam (Lorazepam 1 Mg Tablet) 2 mg PO BEDTIME [facility] Last Admin: 01/17/21 20:28 Dose: 2 mg Documented by: Magnesium Hydroxide (Milk Of Magnesia 30 Ml Oral.Susp) 30 ml PO DAILY PRN PRN Reason: Constipation Last Admin: 01/17/21 17:41 Dose: 30 ml Documented by: Melatonin (Melatonin 3 Mg Tablet) 9 mg PO BEDTIME [facility] Last Admin: 01/17/21 20:28 Dose: 9 mg Documented by: Oxycodone HCl (Oxycodone Hcl Immed Release 5 Mg Tablet) 5 mg PO Q6H PRN PRN Reason: severe pain Vitamin D (Cholecalciferol (Vitamin D3) 25 Mcg Tablet) 25 mcg PO DAILY [facility] Last Admin: 01/17/21 09:15 Dose: 25 mcg Documented by: Allergies Allergies Allergy/AdvReac Type Severity Reaction Status Date / Time ibuprofen AdvReac Intermediate ringing in Verified 11/13/20 10:41 ears cyclobenzaprine AdvReac right hand Verified 11/13/20 10:41 tremors quetiapine [From Seroquel] AdvReac right hand Verified 11/13/20 10:41 tremors Flonase Allergy Unknown heart Uncoded 11/13/20 10:41 palpations Assessment & Plan Assessment & Plan (1) MDD (major depressive disorder), recurrent episode, moderate: Status: Acute Code(s): F33.1 - Major depressive disorder, recurrent, moderate (2) Generalized anxiety disorder: Status: Acute Code(s): F41.1 - Generalized anxiety disorder Assessment and Plan: financial writer covering pt seen on 01/17 no changes to current tx plan Javy is a 70 year-old man who self presented to [facility] 01/11/21 due to increased depression with suicidal thoughts. He is reporting sx of increased anxiety and situational depression s/p cervical spine surgery, discharged to rehab facility in which he claims they were not treating his pain and were ignoring his requests, felt trapped there and called 911, attempted to leave AMA. Says the situation there caused him to feel hopeless and suicidal. Plan: 1. Keep Cymbalta 30 mg p.o. b.i.d.. 2. Consult to hospitalist t. 3. Obtain collateral contact info?as needed Greater than 50% of the session was spent on counseling and/or coordination of care Reason for contiued inpatient stay Substantial Risk for: stable for discharge
[2021-01-18] MEDS: DULoxetine HCl 30 MG CAPSULE.DR PO (08:23)
[2021-01-18] MEDS: Acetaminophen 325 MG TABLET 650 MG PO ×2 (08:23→20:56)
[2021-01-18] MEDS: Cholecalciferol (Vitamin D3) 25 MCG TABLET PO (08:23)
[2021-01-18] MEDS: Atorvastatin Calcium 20 MG TABLET PO (08:24)
[2021-01-18 08:45] VITALS: BP 109/55; PULSE 79; RESP 18; TEMP 35.9; O2SAT 98
--- NOTE | 2021-01-18 13:26 | PC.NURSE ---
Patient surgical incision appears reddened and swollen. Not painful to touch. White pus like d/c noted when area pressed. Open to air. Covering MD will be advised.
--- NOTE | 2021-01-18 16:03 | HO.PM.IMCN ---
History of Present Illness Data of Consult Service Date: 01/18/21 Requesting physician: Parish Grullon Primary Care Provider: Randal Stringer MD HPI 70-year-old male who underwent cervical laminectomy and of December developed a redness and drainage along the staple line posterior neck. Staff denies fever chills. Patient has denied pain however states it is itching Review of Systems Review of Systems: Denies chest pain Denies shortness of breath Denies nausea vomiting diarrhea PMFSH Medical History Bladder mass BPH (benign prostatic hyperplasia) Cervical pain (neck) Chronic neck pain with history of cervical spinal surgery Generalized anxiety disorder History of back pain History of depression History of fall History of suicidal ideation Other obstructive and reflux uropathy Recurrent major depression-severe Transitional cell carcinoma Pertinent family history: . Surgical History History of cystoscopy History of transurethral destruction of bladder lesion Hx of cervical spine surgery Hx of tonsillectomy Social History Household Members: None Housing: Apartment Do you presently have visiting nurse or other home services: No Alcohol intake: never Patient Tobacco Use Status: Never used Tobacco Use of substances other than those prescribed or required for medical reasons: No Currently Displaying Signs/Symptoms of Drug Intoxication Withdrawal: No Have you been hit, kicked, punched, or otherwise hurt by someone within the past year? If so, by whom?: No Do you feel safe in your current relationship?: No Current Relationship Is there a partner from a previous relationship who is making you feel unsafe now?: No Are you made to feel afraid or neglected: No Advance Directives: No Advance Directives Information Provided: No Healthcare Proxy: No Guardian: No Do you have thoughts of harming others: None Do you have a plan to hurt others: No Plan Recently lost weight without trying: No Nutrition Risks: No Nutritional Risk Poor oral hygiene: No service: Yes Sexual orientation: Straight/Heterosexual Meds Allergies Allergy/AdvReac Type Severity Reaction Status Date / Time ibuprofen AdvReac Intermediate ringing in Verified 11/13/20 10:41 ears cyclobenzaprine AdvReac right hand Verified 11/13/20 10:41 tremors quetiapine [From Seroquel] AdvReac right hand Verified 11/13/20 10:41 tremors Flonase Allergy Unknown heart Uncoded 11/13/20 10:41 palpations Active Medications: Current Medications Acetaminophen (Acetaminophen 325 Mg Tablet) 650 mg PO QID PRN PRN Reason: pain Last Admin: 01/18/21 08:23 Dose: 650 mg Documented by: Al Hydroxide/Mg Hydroxide (Magnesium Hydrox/Alum Hydrox 30 Ml Oral.Susp) 30 ml PO Q6H PRN PRN Reason: Heartburn/Nausea Atorvastatin Calcium (Atorvastatin Calcium 20 Mg Tablet) 20 mg PO DAILY [facility] Last Admin: 01/18/21 08:24 Dose: 20 mg Documented by: Bacitracin (Bacitracin Oint 14 Gm Tube) 1 appl TOPICAL TID JERRY; Protocol Doxycycline Hyclate (Doxycycline Hyclate 100 Mg Tablet) 100 mg PO Q12H [facility] Duloxetine HCl (Duloxetine Hcl 30 Mg Capsule.Dr) 30 mg PO BID [facility] Last Admin: 01/18/21 08:23 Dose: 30 mg Documented by: Lorazepam (Lorazepam 1 Mg Tablet) 2 mg PO BEDTIME [facility] Last Admin: 01/17/21 20:28 Dose: 2 mg Documented by: Magnesium Hydroxide (Milk Of Magnesia 30 Ml Oral.Susp) 30 ml PO DAILY PRN PRN Reason: Constipation Last Admin: 01/17/21 17:41 Dose: 30 ml Documented by: Melatonin (Melatonin 3 Mg Tablet) 9 mg PO BEDTIME [facility] Last Admin: 01/17/21 20:28 Dose: 9 mg Documented by: Oxycodone HCl (Oxycodone Hcl Immed Release 5 Mg Tablet) 5 mg PO Q6H PRN PRN Reason: severe pain Vitamin D (Cholecalciferol (Vitamin D3) 25 Mcg Tablet) 25 mcg PO DAILY [facility] Last Admin: 01/18/21 08:23 Dose: 25 mcg Documented by: Physical Exam Vital Signs and Narrative: Vital Signs: Last Vital Signs Temp 96.7 F L 01/18/21 08:45 Pulse 79 01/18/21 08:45 Resp 18 01/18/21 08:45 BP 109/55 L 01/18/21 08:45 Pulse Ox 98 01/18/21 08:45 Body Mass Index 23.6 Const: Other: Resting comfortably. No acute distress Neck: Other: Posterior cervical incision line erythematous around elizabeth with scant white drainage Resp: Other: Clear to ask today fernández bilaterally no rales rhonchi or wheezes Cardio: Other: No S4; positive S1-S2; no S3 murmurs rubs gallops GI: Other: Soft nontender nondistended normoactive bowel sounds Extrem: Other: No edema bilaterally Results Labs CBC and Chem 7: 01/11/21 10:33 01/11/21 10:33 Assessment and Plan (1) Cellulitis: Status: Acute 1. Cellulitis Has appointment with surgeon and 48 hours. Would not take elizabeth out at this time started on doxycycline 100 mg b.i.d.. Further wound care per attending surgeon. Thank you for the consult. Please call if any other issues
[2021-01-18] MEDS: Bacitracin Oint 14 GM TUBE 1 APPL TOPICAL ×2 (16:07→20:55)
[2021-01-18 18:00] VITALS: BP 126/65; PULSE 77; RESP 17; TEMP 36.8; O2SAT 96
[2021-01-18] MEDS: LORazepam 1 MG TABLET 2 MG PO (20:55)
[2021-01-18] MEDS: Melatonin 3 MG TABLET 9 MG PO (20:56)
[2021-01-19 06:00] VITALS: BP 122/63; PULSE 84; RESP 16; TEMP 36.9; O2SAT 97
[2021-01-19 08:12] VITALS: BP 128/62; PULSE 84; RESP 16; TEMP 36.3; O2SAT 98
[2021-01-19] MEDS: DULoxetine HCl 30 MG CAPSULE.DR PO (08:25)
[2021-01-19] MEDS: Atorvastatin Calcium 20 MG TABLET PO (08:26)
[2021-01-19] MEDS: Cholecalciferol (Vitamin D3) 25 MCG TABLET PO (08:26)
--- NOTE | 2021-01-19 09:39 | P.PNPSI_ITS ---
Subjective Subjective Date of Service: 01/18/21 Reason For Visit: suicidal thoughts Interim History: pt seen 01/18 pt reports good mood; denies any SI/hI. Feels safe and says he's looking forward to discharge tuesday. Pt has no questions and no complaints. visual examination of area around sutures on cervical spine appear to be inflamed; red border has expanded. will consult Hospitalist to r/o cellulitis. Mental Status Exam Mental Status Exam Narrative: Patient Appearance:?in hospital gown; adequately Groomed Patient Orientation:?Person, Place, Time and Situation Level of Consciousness:?Awake and Appropriate Patient Behavior:?Cooperative Mood Description:? good Affect Description:?calm, bright, congruent Patient Cognition Impaired:?No Ability to Follow Directions:?Good Speech Pattern:?goal oriented, linear Memory Description:?Intact Hallucinations:?None Delusions:?none Thought Process:?Intact, linear, logical Thought Content:?no SI/HI; on discharge and follow up Judgment:?Fair Diagnostics Vital Signs (24Hr): Vital Signs - 24 hr 01/18/21 18:00 01/19/21 06:00 01/19/21 08:12 Temperature 98.3 F 98.5 F 97.4 F Pulse Rate 77 84 84 Respiratory Rate 17 16 16 Blood Pressure 126/65 122/63 128/62 Pulse Oximetry 96 97 98 Body Mass Index 23.6 Labs Results: 01/11/21 10:33 01/11/21 10:33 Medications Medications Current Medications Acetaminophen (Acetaminophen 325 Mg Tablet) 650 mg PO QID PRN PRN Reason: pain Last Admin: 01/18/21 20:56 Dose: 650 mg Documented by: Al Hydroxide/Mg Hydroxide (Magnesium Hydrox/Alum Hydrox 30 Ml Oral.Susp) 30 ml PO Q6H PRN PRN Reason: Heartburn/Nausea Atorvastatin Calcium (Atorvastatin Calcium 20 Mg Tablet) 20 mg PO DAILY [facility] Last Admin: 01/19/21 08:26 Dose: 20 mg Documented by: Bacitracin (Bacitracin Oint 14 Gm Tube) 1 appl TOPICAL TID JERRY; Protocol Last Admin: 01/18/21 20:55 Dose: 1 appl Documented by: Doxycycline Hyclate (Doxycycline Hyclate 100 Mg Tablet) 100 mg PO Q12H [facility] Last Admin: 01/19/21 05:56 Dose: 100 mg Documented by: Duloxetine HCl (Duloxetine Hcl 30 Mg Capsule.) 30 mg PO BID [facility] Last Admin: 01/19/21 08:25 Dose: 30 mg Documented by: Lorazepam (Lorazepam 1 Mg Tablet) 2 mg PO BEDTIME [facility] Last Admin: 01/18/21 20:55 Dose: 2 mg Documented by: Magnesium Hydroxide (Milk Of Magnesia 30 Ml Oral.Susp) 30 ml PO DAILY PRN PRN Reason: Constipation Last Admin: 01/17/21 17:41 Dose: 30 ml Documented by: Melatonin (Melatonin 3 Mg Tablet) 9 mg PO BEDTIME [facility] Last Admin: 01/18/21 20:56 Dose: 9 mg Documented by: Oxycodone HCl (Oxycodone Hcl Immed Release 5 Mg Tablet) 5 mg PO Q6H PRN PRN Reason: severe pain Vitamin D (Cholecalciferol (Vitamin D3) 25 Mcg Tablet) 25 mcg PO DAILY [facility] Last Admin: 01/19/21 08:26 Dose: 25 mcg Documented by: Allergies Allergies Allergy/AdvReac Type Severity Reaction Status Date / Time ibuprofen AdvReac Intermediate ringing in Verified 11/13/20 10:41 ears cyclobenzaprine AdvReac right hand Verified 11/13/20 10:41 tremors quetiapine [From Seroquel] AdvReac right hand Verified 11/13/20 10:41 tremors Flonase Allergy Unknown heart Uncoded 11/13/20 10:41 palpations Assessment & Plan Assessment & Plan (1) Cellulitis: Status: Acute Code(s): L03.90 - Cellulitis, unspecified Assessment and Plan: documentation writer covering pt seen on 01/18 no changes to current tx plan possible cellulitis on cervical spine; consult hospitalist Javy is a 70 year-old man who self presented to [facility] 01/11/21 due to increased depression with suicidal thoughts. He is reporting sx of increased anxiety and situational depression s/p cervical spine surgery, discharged to rehab facility in which he claims they were not treating his pain and were ignoring his requests, felt trapped there and called 911, attempted to leave AMA. Says the situation there caused him to feel hopeless and suicidal. Plan: -Hospitalist consult to r/o cellulitis cervical spine around suture area -start Bacitracin TID -otherwise, continue current tx plan 1. Keep Cymbalta? 30 mg p.o. b.i.d.. 2. Consult to hospitalist tElva 3. Obtain collateral contact info?as needed Greater than 50% of the session was spent on counseling and/or coordination of care Greater than 50% of the session was spent on counseling and/or coordination of care Reason for contiued inpatient stay Substantial Risk for: stable for discharge
[2021-01-19] MEDS: Bacitracin Oint 14 GM TUBE 1 APPL TOPICAL (09:43)
--- NOTE | 2021-01-19 09:47 | HO.PSYCHPN ---
Subjective Subjective Date of Service: 01/19/21 Reason For Visit: suicidal thoughts Interim History: met with patient; he remains in good mood and w/out any SI. He would like to proceed with discharge as planned for today by primary team. -Hospitalist examined suture site, cervical spine and concluded Cellulitis and started pt on Doxycycline BID; pt informed and understands and will take medication. He has appointment tomorrow on 01/20 for follow up post surgery with Dr. Rodriguez which he is eager to attend. Mental Status Exam Mental Status Exam Narrative: Patient Appearance:?in hospital gown; adequately Groomed Patient Orientation:?Person, Place, Time and Situation Level of Consciousness:?Awake and Appropriate Patient Behavior:?Cooperative Mood Description:? good Affect Description:?calm, bright, congruent Patient Cognition Impaired:?No Ability to Follow Directions:?Good Speech Pattern:?goal oriented, linear Memory Description:?Intact Hallucinations:?None Delusions:?none Thought Process:?Intact, linear, logical Thought Content:?no SI/HI; on discharge and follow up Judgment:?Fair Diagnostics Vital Signs (24Hr): Vital Signs - 24 hr 01/18/21 18:00 01/19/21 06:00 01/19/21 08:12 Temperature 98.3 F 98.5 F 97.4 F Pulse Rate 77 84 84 Respiratory Rate 17 16 16 Blood Pressure 126/65 122/63 128/62 Pulse Oximetry 96 97 98 Body Mass Index 23.6 Labs Results: 01/11/21 10:33 01/11/21 10:33 Medications Medications Current Medications Acetaminophen (Acetaminophen 325 Mg Tablet) 650 mg PO QID PRN PRN Reason: pain Last Admin: 01/18/21 20:56 Dose: 650 mg Documented by: Al Hydroxide/Mg Hydroxide (Magnesium Hydrox/Alum Hydrox 30 Ml Oral.Susp) 30 ml PO Q6H PRN PRN Reason: Heartburn/Nausea Atorvastatin Calcium (Atorvastatin Calcium 20 Mg Tablet) 20 mg PO DAILY [facility] Last Admin: 01/19/21 08:26 Dose: 20 mg Documented by: Bacitracin (Bacitracin Oint 14 Gm Tube) 1 appl TOPICAL TID JERRY; Protocol Last Admin: 01/19/21 09:43 Dose: 1 appl Documented by: Doxycycline Hyclate (Doxycycline Hyclate 100 Mg Tablet) 100 mg PO Q12H [facility] Last Admin: 01/19/21 05:56 Dose: 100 mg Documented by: Duloxetine HCl (Duloxetine Hcl 30 Mg Lisa.) 30 mg PO BID [facility] Last Admin: 01/19/21 08:25 Dose: 30 mg Documented by: Lorazepam (Lorazepam 1 Mg Tablet) 2 mg PO BEDTIME [facility] Last Admin: 01/18/21 20:55 Dose: 2 mg Documented by: Magnesium Hydroxide (Milk Of Magnesia 30 Ml Oral.Susp) 30 ml PO DAILY PRN PRN Reason: Constipation Last Admin: 01/17/21 17:41 Dose: 30 ml Documented by: Melatonin (Melatonin 3 Mg Tablet) 9 mg PO BEDTIME [facility] Last Admin: 01/18/21 20:56 Dose: 9 mg Documented by: Oxycodone HCl (Oxycodone Hcl Immed Release 5 Mg Tablet) 5 mg PO Q6H PRN PRN Reason: severe pain Vitamin D (Cholecalciferol (Vitamin D3) 25 Mcg Tablet) 25 mcg PO DAILY [facility] Last Admin: 01/19/21 08:26 Dose: 25 mcg Documented by: Allergies Allergies Allergy/AdvReac Type Severity Reaction Status Date / Time ibuprofen AdvReac Intermediate ringing in Verified 11/13/20 10:41 ears cyclobenzaprine AdvReac right hand Verified 11/13/20 10:41 tremors quetiapine [From Seroquel] AdvReac right hand Verified 11/13/20 10:41 tremors Flonase Allergy Unknown heart Uncoded 11/13/20 10:41 palpations Assessment & Plan Assessment & Plan (1) Cellulitis: Status: Acute Code(s): L03.90 - Cellulitis, unspecified Assessment and Plan: editorial writer covering pt seen on 01/19 -remains good mood, no SI; proceed with planned discharge as set up by primary team cellulitis on cervical spine;started on Abx -Hospitalist examined suture site, cervical spine and concluded Cellulitis and started pt on Doxycycline 100ng BID; pt informed and understands and will take medication. He has appointment tomorrow on 01/20 for follow up post surgery with Dr. Rodriguez which he is eager to attend. Dr. Limon impression: ? 1. Cellulitis ? ? Has appointment with surgeon and 48 hours.? Would not take elizabeth out at this time started on doxycycline 100 mg b.i.d..? Further wound care per attending surgeon. Javy is a 70 year-old man who self presented to [facility] 01/11/21 due to increased depression with suicidal thoughts. He is reporting sx of increased anxiety and situational depression s/p cervical spine surgery, discharged to rehab facility in which he claims they were not treating his pain and were ignoring his requests, felt trapped there and called 911, attempted to leave AMA. Says the situation there caused him to feel hopeless and suicidal. Plan: -Hospitalist consult determined cellulitis cervical spine around suture area Doxy 100mg BID Bacitracin TID -otherwise, continue current tx plan 1. Keep Cymbalta? 30 mg p.o. b.i.d.. 2. Consult to hospitalist t. 3. Obtain collateral contact info?as needed Greater than 50% of the session was spent on counseling and/or coordination of care Greater than 50% of the session was spent on counseling and/or coordination of care Reason for contiued inpatient stay Substantial Risk for: stable for discharge
--- NOTE | 2021-01-19 11:36 | PC.NURSE ---
Patient is alert and oriented x4. Pleasant on approach and cooperative. Mood is cheerful with a congruent affect. speech is coherent and appropriate. Patient requests and received a shower prior to discharge. Patient ate 100% of breakfast. Patient denies SI/HI/AH/VH. Patient denies anxiety or depression. Patient reports that sleep is good and appetite is good. Patient reports feeling safe and ready for discharge. Pt. verbalized understanding and agreement with discharge instructions. Patient denies further complaints at this time.
== END 2021-01-19 11:22 | disposition home or self-care (01) | DRG 885 ==
LOC: HO.ED 16:45 → HO.PGERI 01-12 12:51
PROVIDERS: Nurse Practitioner Family; Admitting Provider Psychiatry & Neurology Psychiatry; Emergency Provider Internal Medicine; PCP Internal Medicine; Visit Provider Psychiatry & Neurology Psychiatry
DX: F33.1 Major depressive disorder, recurrent, moderate (principal); R45.851 Suicidal ideations; L03.312 Cellulitis of back [any part except buttock and flank]; F41.1 Generalized anxiety disorder; Z20.822 Contact with and (suspected) exposure to COVID-19; Z23 Encounter for immunization; Z88.6 Allergy status to analgesic agent; Z79.899 Other long term (current) drug therapy
CPT/HCPCS: 36415; 80048; 80076; 80307; 82077; 85025; 87635; 90686; 99285

== ENCOUNTER 2021-02-20 12:03 | Emergency (ER) | payer MEDICARE, OTHER, SELFPAY ==
--- NOTE | 2021-02-20 | ECG_ITS ---
Test Reason : CHEST PAIN Blood Pressure : / mmHG Vent. Rate : 072 BPM Atrial Rate : 072 BPM P-R Int : 168 ms QRS Dur : 088 ms QT Int : 356 ms P-R-T Axes : 059 082 060 degrees QTc Int : 389 ms Normal sinus rhythm RSR' or QR pattern in V1 suggests right ventricular conduction delay Otherwise normal ECG When compared with ECG of 07-SEP-2020 15:13, No significant change was found Referred By: Generic ED Physician Electronically Signed By:LISANDRO BETANCOURT MD
--- NOTE | ~2021-02-20 | XR_ITS ---
EXAMINATION: XR CHEST CLINICAL INFORMATION: Chest pain COMPARISON: Chest radiographs 08/09/2020, 07/01/2020 TECHNIQUE: Portable upright AP x2 views of the chest was obtained. FINDINGS: The lungs are clear. There is no pneumothorax, pleural reaction, infiltrate, or effusion. The heart is normal in size. The vascularity is normal. The hilar and mediastinal contours and bony structures are unremarkable. XR/XR chest 1V IMPRESSION: Unremarkable examination.
[2021-02-20 12:08] VITALS: BP 121/70; PULSE 79; RESP 18; TEMP 36.8; O2SAT 96; BMI 22.8
[2021-02-20 13:59] VITALS: BP 150/69; PULSE 74; RESP 18; TEMP 36.6; O2SAT 98
[2021-02-20 14:09] LABS: MANUAL DIFF FLAG NO
[2021-02-20 14:11] LABS: Basophils Percent Auto 0.4 % (0-2); Eosinophils Absolute Auto 0.1 X10*3/uL (0.0-0.4); Eosinophils Percent Auto 1.2 % (0-4); Hematocrit 42.8 % (42.0-52.0); Imm Gran Abs Auto 0.02 X10*3/uL (0.00-0.03); Imm Gran Pct Auto 0.2 % (0.0-0.4); Lymphocytes Absolute Auto 1.3 X10*3/uL (1.2-4.9); Lymphocytes Percent Auto 16.1 % (20-40); Mean Corpuscular HGB Conc 32.7 g/dl (31.0-36.0); Mean Corpuscular Volume 91.8 fL (80.0-98.0); Mean Platelet Volume 9.9 fL (9.4-12.4); Monocytes Absolute Auto 0.6 X10*3/uL (0.1-1.2); Monocytes Percent Auto 6.9 % (2-11); Neutrophils Absolute Auto 6.2 x10*3/uL (2.0-8.3); Neutrophils Percent Auto 75.2 % (45-73); Platelet Count 183 X10*3/uL (160-400); Red Blood Count 4.66 X10*6/uL (4.60-5.80); Red Cell Distribution Width 12.2 % (11.0-16.0); White Blood Count 8.3 X10*3/uL (4.8-10.8)
--- NOTE | 2021-02-20 14:24 | ED_ITS ---
HPI - Chest Pain General Chief Complaint: Chest Pain Stated Complaint: chest pain Time Seen by Provider: 02/20/21 14:12 Source: patient Limitations: no limitations History of Present Illness HPI narrative: This is a 70-year-old male who complains of feeling of fluttering in his left chest off and on. Last about 5-10 seconds at a time. He has his primary care physician about a sometime ago who was not concerned. Patient is more recently in the last week episodes again as well as having occasional brief episodes of sharp chest pain in his left chest and upper quadrant area. Patient states that the feeling of fluttering as almost like a feeling that his stomach is growling but it in his chest. He denies any shortness of breath. He has had sweats at night but not associated with this chest pain. He also notes that he decreased it to Ativan from 2 mg 10 1 mg. Has had nausea sometimes at night but not associated with chest pain. He notes he is about 6 weeks status post cervical lamina reconstruction for spinal stenosis. Denies any dizziness. Does sometimes have sharp pain in his left arm as well. Related Data Previous Rx's Medication Instructions Recorded acetaminophen 325 mg tablet 650 mg PO QID PRN 30 Days #90 tab 01/15/21 cholecalciferol (vitamin D3) 25 25 mcg PO DAILY 30 Days #30 tab 01/15/21 mcg (1,000 unit) tablet duloxetine 30 mg capsule,delayed 30 mg PO BID 30 Days #60 cap 01/15/21 release hydroxyzine HCl 50 mg tablet 50 mg PO BEDTIME PRN 30 Days #30 01/15/21 tab lorazepam 2 mg tablet (Ativan) 2 mg PO DAILY PRN 30 Days #30 tab 01/15/21 melatonin 5 mg tablet 10 mg PO BEDTIME 30 Days #60 tab 01/15/21 oxycodone 5 mg tablet 5 mg PO Q6H PRN 30 Days #90 tab 01/15/21 simvastatin 20 mg tablet (Zocor) 2 tab PO DAILY 30 Days #60 tab 01/15/21 doxycycline hyclate 100 mg tablet 100 mg PO Q12H 10 Days #18 tab 01/19/21 Allergies Allergy/AdvReac Type Severity Reaction Status Date / Time ibuprofen AdvReac Intermediate ringing in Verified 02/20/21 12:08 ears cyclobenzaprine AdvReac right hand Verified 02/20/21 12:08 tremors quetiapine [From Seroquel] AdvReac right hand Verified 02/20/21 12:08 tremors Flonase Allergy Unknown heart Uncoded 11/13/20 10:41 palpations Review of Systems Review of Systems: Yes all other systems are reviewed and are negative Constitutional: Constitutional: Reports as per HPI, Denies fever(s) and Reports night sweats Eyes: Eyes: Reports as per HPI and Reports no additional eye complaints ENT: Reports system reviewed and no additional complaints, except as documented, Reports as per HPI, Denies nasal congestion, Denies nasal discharge and Denies sore throat Cardiovascular: Cardiovascular: Reports as per HPI, Denies chest pain and Denies dyspnea Respiratory: Respiratory: Reports as per HPI, Denies cough and Denies dyspnea Gastrointestinal: Gastrointestinal: Reports as per HPI, Denies abdominal pain, Denies diarrhea, Reports nausea and Denies vomiting Genitourinary: Genitourinary: Reports as per HPI, Denies hematuria, Denies dysuria and Denies urinary frequency Musculoskeletal: Musculoskeletal: Reports no additional musculoskeletal complaints and Denies numbness Integumentary/Breasts: Skin/Breast: Reports as per HPI and Denies rash Neurologic: Reports as per HPI, Denies focal weakness, Denies numbness and Denies Sensory deficit (Neuro) Psychiatric: Psychiatric: Reports no additional psychiatric complaints and Reports as per HPI Endocrine: Endocrine: Reports no additional endocrine complaints and Reports as per HPI Hematologic/Lymphatic: Hematologic/Lymphatic: Reports no additional hematologic/lymphatic complaints, Reports as per HPI and Reports other (No peripheral edema) [facility] Past Medical History Medical History Bladder mass BPH (benign prostatic hyperplasia) Cervical pain (neck) Chronic neck pain with history of cervical spinal surgery Generalized anxiety disorder History of back pain History of depression History of fall History of suicidal ideation Other obstructive and reflux uropathy Recurrent major depression-severe Transitional cell carcinoma Surgical History History of cystoscopy History of transurethral destruction of bladder lesion Hx of cervical spine surgery Hx of tonsillectomy Social History Social History Household Members: None Housing: Apartment Do you presently have visiting nurse or other home services: No Alcohol intake: never Patient Tobacco Use Status: Never used Tobacco Advance Directives: No Advance Directives Information Provided: No service: Yes Sexual orientation: Straight/Heterosexual Physical Exam Vital Signs: Vital Signs: Last Vital Signs Temp 98 F 02/20/21 13:59 Pulse 71 02/20/21 15:19 Resp 16 02/20/21 15:19 BP 120/61 02/20/21 15:19 Pulse Ox 97 02/20/21 15:19 Body Mass Index 22.8 Const: General: cooperative, no acute distress and alert Orientation/consciousness: patient oriented x3 HENMT: Head: Yes normal to inspection Eyes: General: appearance normal, both eyes and all related structures Eyelids: Yes eyelids normal Conjunctivae: conjunctivae normal Pupils: Equal, round and reactive pupils present Neck: Neck: Yes normal visual inspection and Yes supple Chest: Chest palpation & inspection: normal inspection of the chest Resp: Effort & Inspection: normal respiratory effort Auscultation: clear to auscultation bilaterally Cardio: Rate: regular rate Rhythm: regular rhythm Heart sounds: S1 normal heart sound present, S2 normal heart sound present, no gallops, no murmurs and no rubs GI: Palpation (GI): Soft to palpation, nontender and Other GI palpation findin gs present (Non-distended) Auscultation: normal bowel sounds Skin: General skin exam: no rashes or lesions noted Neuro: General: patient oriented x3, no focal motor deficits and CN's II-XI intact bilaterally Cranial nerves: Yes Equal, round and reactive pupils present Cognition (Neuro): normal cognition Motor exam (neuro): 5/5 motor strength present throughout Sensory Exam: No Sensory deficit (Neuro) Extrem: General: Yes normal to inspection and Yes no pedal edema Psych: Appearance: grossly normal Affect: normal affect MDM - Chest Pain MDM Narrative Medical decision making narrative: Patient with sensation of fluttering in his left chest, not distinctly palpitations, lasting 5-10 seconds at a time. When I inquired or suggested whether it is this could be muscle twitches in his chest wall, the patient said that he thought maybe it could be. Back he mentioned that it felt like his stomach growling, but in his chest. He also has had brief sharp chest pains. The patient notes he previously had had a stress test and e chocardiogram in April which were fine. Patient does have a history of anxiety. He has had recent surgery but has no clinical evidence of pulmonary embolism. EKG and troponin are normal. Lab Data Result diagrams: 02/20/21 14:04 02/20/21 14:04 Labs: Lab Results 02/20/21 02/20/21 02/20/21 Range/Units 14:04 14:04 14:04 WBC 8.3 (4.8-10.8) X10*3/uL RBC 4.66 (4.60-5.80) X10*6/uL Hgb 14.0 (14.0-18.0) g/dl Hct 42.8 (42.0-52.0) % MCV 91.8 (80.0-98.0) fL MCH 30.0 (27.0-33.0) pg MCHC 32.7 (31.0-36.0) g/dl RDW 12.2 (11.0-16.0) % Plt Count 183 (160-400) X10*3/uL MPV 9.9 (9.4-12.4) fL Immature Gran % (Auto) 0.2 (0.0-0.4) % Neut % (Auto) 75.2 H (45-73) % Lymph % (Auto) 16.1 L (20-40) % [place] % (Auto) 6.9 (2-11) % Eos % (Auto) 1.2 (0-4) % Baso % (Auto) 0.4 (0-2) % Lymph # (Auto) 1.3 (1.2-4.9) X10*3/uL [place] # (Auto) 0.6 (0.1-1.2) X10*3/uL Eos # (Auto) 0.1 (0.0-0.4) X10*3/uL Baso # (Auto) 0.0 (0.0-0.2) X10*3/uL Abs Immat Gran (auto) 0.02 (0.00-0.03) X10*3/uL Absolute Neuts (auto) 6.2 (2.0-8.3) x10*3/uL Absolute Nucleated RBC 0.000 (0.0-0.012) X10*3/uL Nucleated RBC % (auto) 0.0 (0.0-0.2) /100WBC Sodium 137 (135-145) mmol/L Potassium 4.3 (3.3-5.1) mmol/L Chloride 105 (96-108) mmol/L Carbon Dioxide 23 (22-29) mmol/L Anion Gap 13 (12-20) BUN 13 (9-16) mg/dL Creatinine 0.91 (0.5-1.4) mg/dL Estim Creat Clear Calc 75.1 Estimated GFR > 60 Random Glucose 95 (60-115) mg/dL Calcium 9.2 (8.4-10.2) mg/dL Troponin I High Sens < 3.5 (<3.5-35.0) ng/L ECG Data ECG #1: Attestation: I personally reviewed and interpreted this ECG as follows: ECG interpretation date: 02/20/21 ECG interpretation time: 14:30 Interpretation: Sinus rhythm with a rate of 72. Prominent R-wave in V1 and V2. No ST elevation or depression. Some baseline artifact. No significant change compared to 09/07/2020 Discharge Plan Discharge Clinical Impression: Atypical chest pain, Fluttering sensation of heart Patient Disposition: Home, Self-Care Instructions: Heart Palpitations (ED), Noncardiac Chest Pain (ED) Additional Instructions: Follow-up with your primary care physician as needed. Continue current medications. Return for any new or worsening symptoms Prescriptions: No Action acetaminophen 325 mg Tablet 650 mg PO QID PRN (Reason: pain) 30 Days Qty: 90 RF: 0 oxycodone 5 mg Tablet 5 mg PO Q6H PRN (Reason: pain) 30 Days Qty: 90 RF: 0 duloxetine 30 mg Capsule,Delayed Release(Dr/Ec) 30 mg PO BID 30 Days Qty: 60 RF: 0 hydroxyzine HCl 50 mg tablet 50 mg PO BEDTIME PRN (Reason: Sleep) 30 Days Qty: 30 RF: 0 lorazepam [Ativan] 2 mg tablet 2 mg PO DAILY PRN (Reason: Anxiety) 30 Days Qty: 30 RF: 0 simvastatin [Zocor] 20 mg tablet 2 tab PO DAILY 30 Days Qty: 60 RF: 0 cholecalciferol (vitamin D3) 25 mcg (1,000 unit) Tablet 25 mcg PO DAILY 30 Days Qty: 30 RF: 0 melatonin 5 mg tablet 10 mg PO BEDTIME 30 Days Qty: 60 RF: 0 doxycycline hyclate 100 mg Tablet 100 mg PO Q12H 10 Days Qty: 18 RF: 0 Interventions: ED Discharge Assessment Last Done: 02/20/21 15:20 Discharge Date/Time: 02/20/21 15:20
[2021-02-20 14:27] LABS: Anion Gap 13 (12-20); Blood Urea Nitrogen 13 mg/dL (9-16); Calcium 9.2 mg/dL (8.4-10.2); Carbon Dioxide 23 mmol/L (22-29); Chloride 105 mmol/L (96-108); Creatinine Clr Calc Pharmacy 75.1; Estimated Glomerular Filt Rate > 60; Glucose Random 95 mg/dL (60-115); Potassium 4.3 mmol/L (3.3-5.1); Sodium 137 mmol/L (135-145)
[2021-02-20 14:34] LABS: Troponin-I High Sensitivity < 3.5 ng/L (<3.5-35.0)
[2021-02-20 15:19] VITALS: BP 120/61; PULSE 71; RESP 16; O2SAT 97
== END 2021-02-20 15:20 | disposition home or self-care (01) ==
PROVIDERS: Emergency Provider Emergency Medicine; PCP Internal Medicine
DX: R07.89 Other chest pain (principal); I49.8 Other specified cardiac arrhythmias
CPT/HCPCS: 36415; 71045; 80048; 84484; 85025; 93005; 99284

== ENCOUNTER 2021-03-24 10:47 | Outpatient (REF) | payer MEDICARE, OTHER, SELFPAY ==
[2021-03-24 16:50] LABS: Urine Cytology See Pathology rpt
== END 2021-03-24 10:48 | disposition home or self-care (01) ==
LOC: HO.LAB 10:47
PROVIDERS: PCP Internal Medicine; Visit Provider Urology
DX: C67.9 Malignant neoplasm of bladder, unspecified (principal)
CPT/HCPCS: 52000; 88112; 99212

== ENCOUNTER 2021-05-14 09:37 | Outpatient (REF) | payer MEDICARE, OTHER, SELFPAY ==
--- NOTE | ~2021-05-14 | US_ITS ---
EXAMINATION: US EXTRACRANIAL CAROTID DUPLEX, BILATERAL CLINICAL INFORMATION: Amaurosis fugax COMPARISON: 09/02/2011 TECHNIQUE: Real-time ultrasound and Doppler techniques (integrating B-mode 2-D vascular images, Doppler spectral analysis and color-flow Doppler imaging) were utilized to interrogate the extracranial carotid arteries, the vertebral arteries and proximal subclavian arteries bilaterally. The degree of stenosis is determined by criteria similar to NASCET. FINDINGS: Right Side: 1. There is minimal atherosclerotic plaque seen in the bifurcation/proximal ICA region. 2. The common carotid artery PSV proximally is 154 cm/s and distally 112 cm/s. 3. The proximal internal carotid artery velocities are 82 cm/s systolic and 19 cm/s diastolic. 4. The proximal external carotid artery PSV is 134 cm/s. 5. The vertebral artery shows antegrade flow. 6. The subclavian artery waveforms are normal. Left Side: 1. There is minimal atherosclerotic plaque seen in the bifurcation/proximal ICA region. 2. The common carotid artery PSV proximally is 174 cm/s and distally 128 cm/s. 3. The proximal internal carotid artery velocities are 97 cm/s systolic and 24 cm/s diastolic. 4. The proximal external carotid artery PSV is 112 cm/s. 5. The vertebral artery shows antegrade flow. 6. The subclavian artery waveforms are normal. US/US carotid duplex BI IMPRESSION: 1. RIGHT: Minimal, non-hemodynamically significant stenosis of the proximal right internal carotid artery corresponding to a 0-49% stenosis by velocity criteria. 2. LEFT: Minimal, non-hemodynamically significant stenosis of the proximal left internal carotid artery corresponding to a 0-49% stenosis by velocity criteria.
== END 2021-05-14 09:38 | disposition home or self-care (01) ==
LOC: HO.US 09:37
PROVIDERS: PCP Internal Medicine; Visit Provider Internal Medicine
DX: H53.8 Other visual disturbances (principal); G45.3 Amaurosis fugax
CPT/HCPCS: 93880

== ENCOUNTER 2021-06-23 12:47 | Outpatient (REF) | payer MEDICARE, OTHER, SELFPAY ==
[2021-06-23 17:05] LABS: Urine Cytology See Pathology rpt
== END 2021-06-23 12:48 | disposition home or self-care (01) ==
LOC: HO.LAB 12:47
PROVIDERS: PCP Internal Medicine; Visit Provider Urology
DX: C67.9 Malignant neoplasm of bladder, unspecified (principal)
CPT/HCPCS: 52000; 88112; 99212

== ENCOUNTER 2021-09-24 11:02 | Outpatient (REF) | payer MEDICARE, OTHER, SELFPAY ==
[2021-09-24 15:42] LABS: Urine Cytology See Pathology rpt
== END 2021-09-24 11:03 | disposition home or self-care (01) ==
LOC: HO.LAB 11:02
PROVIDERS: Visit Provider Urology
DX: C67.9 Malignant neoplasm of bladder, unspecified (principal)
CPT/HCPCS: 52000; 88112; 99212

== ENCOUNTER 2021-11-25 11:53 | Emergency (ER) | payer MEDICARE, OTHER, SELFPAY ==
--- NOTE | 2021-11-25 11:56 | ECG_ITS ---
Test Reason : dizziness Blood Pressure : / mmHG Vent. Rate : 075 BPM Atrial Rate : 075 BPM P-R Int : 172 ms QRS Dur : 088 ms QT Int : 346 ms P-R-T Axes : 061 052 048 degrees QTc Int : 386 ms Normal sinus rhythm Normal ECG When compared with ECG of 20-FEB-2021 12:40, No significant change was found Referred By: Generic ED Physician Electronically Signed By:MANNY MINOR
[2021-11-25 12:06] VITALS: BP 159/87; PULSE 80; RESP 18; TEMP 36.9; O2SAT 96; BMI 25.7
[2021-11-25 12:25] LABS: MANUAL DIFF FLAG NO
[2021-11-25 12:52] LABS: Anion Gap 14 (12-20); Blood Urea Nitrogen 15 mg/dL (9-16); Calcium 8.8 mg/dL (8.4-10.2); Carbon Dioxide 24 mmol/L (22-29); Chloride 105 mmol/L (96-108); Creatinine Clr Calc Pharmacy 77.8; Estimated Glomerular Filt Rate > 60; Glucose Random 97 mg/dL (60-115); Potassium 4.6 mmol/L (3.3-5.1); Sodium 138 mmol/L (135-145)
[2021-11-25 12:54] LABS: Basophils Percent Auto 0.4 % (0-2); Eosinophils Absolute Auto 0.1 X10*3/uL (0.0-0.4); Eosinophils Percent Auto 1.7 % (0-4); Hematocrit 47.1 % (42.0-52.0); Hemoglobin 15.4 g/dl (14.0-18.0); Imm Gran Abs Auto 0.01 X10*3/uL (0.00-0.03); Imm Gran Pct Auto 0.1 % (0.0-0.4); Lymphocytes Absolute Auto 1.2 X10*3/uL (1.2-4.9); Lymphocytes Percent Auto 16.9 % (20-40); Mean Corpuscular HGB Conc 32.7 g/dl (31.0-36.0); Mean Corpuscular Hemoglobin 28.4 pg (27.0-33.0); Mean Corpuscular Volume 86.7 fL (80.0-98.0); Mean Platelet Volume 9.7 fL (9.4-12.4); Monocytes Absolute Auto 0.6 X10*3/uL (0.1-1.2); Monocytes Percent Auto 8.6 % (2-11); Neutrophils Absolute Auto 5.2 x10*3/uL (2.0-8.3); Neutrophils Percent Auto 72.3 % (45-73); Platelet Count 176 X10*3/uL (160-400); Red Blood Count 5.43 X10*6/uL (4.60-5.80); Red Cell Distribution Width 12.4 % (11.0-16.0); White Blood Count 7.2 X10*3/uL (4.8-10.8)
[2021-11-25 18:06] VITALS: BP 149/80; PULSE 83; RESP 16; O2SAT 98
--- NOTE | 2021-11-25 18:24 | ED.DIZZY ---
HPI - Dizziness General Chief Complaint: Dizziness Stated Complaint: dizzy, nauseous, tight chest Time Seen by Provider: 11/25/21 17:59 Source: patient Mode of arrival: ambulatory Limitations: no limitations History of Present Illness HPI Narrative: 71-year-old male who presents emergency department for evaluation of dizziness. Patient states he does have a history of vertigo and had an episode in 2019 and episodes last year. He states that yesterday he bent over to look under his car and had a sudden onset of spinning sensation. This was also associated with nausea. He states that the symptoms eventually resolved and he was able run some errands. They got back home he lie down in bed and again had an episode of room spinning dizziness. He states that the episode resolved. This morning he lie down on a rug on his floor, turned from left to right and again had an episode of spinning. The patient states that he has neck problems and has chronic headaches but these are unchanged. He denies any change in his vision. He denies numbness, weakness. He denied fever, chills, rhinorrhea, sore throat or cough. He has had no vomiting or diarrhea. The patient states that since 2008 he has had tinnitus. MD elicited complaint: dizziness and vertigo Pertinent past history: BPPV Onset (ago): day(s) (2) Timing: sudden onset Severity: moderate Description: room spinning Context: change in body position History of similar symptoms: Yes Exacerbating factors: change in body position Relieving factors: remaining still Associated symptoms: nausea Stroke scale total: 0 Related Data Home Medications Medication Instructions Recorded Confirmed duloxetine 30 mg capsule,delayed 30 mg PO DAILY 04/29/21 10/01/21 release lorazepam 0.5 mg tablet 0.5 mg PO BEDTIME PRN Anxiety 06/23/21 10/01/21 lorazepam 1 mg tablet 1 mg PO DAILY PRN Anxiety 06/23/21 10/01/21 melatonin 5 mg tablet 10 mg PO BEDTIME 09/24/21 10/01/21 mirtazapine 7.5 mg tablet 7.5 mg PO BEDTIME 09/24/21 10/01/21 simvastatin 40 mg tablet 40 mg PO DAILY 09/24/21 10/01/21 Previous Rx's Medication Instructions Recorded acetaminophen 325 mg tablet 650 mg PO QID PRN pain 30 days #90 01/15/21 tabs cholecalciferol (vitamin D3) 25 25 mcg PO DAILY 30 days #30 tabs 01/15/21 mcg (1,000 unit) tablet meclizine 25 mg tablet (Dramamine 25 mg PO TID PRN dizziness #20 tabs 11/25/21 (meclizine)) Allergies Allergy/AdvReac Type Severity Reaction Status Date / Time ibuprofen AdvReac Intermediate ringing in Verified 10/01/21 10:58 ears cyclobenzaprine AdvReac right hand Verified 10/01/21 10:58 tremors quetiapine [From Seroquel] AdvReac right hand Verified 10/01/21 10:58 tremors Flonase Allergy Unknown heart Uncoded 10/01/21 10:58 palpations Review of Systems Review of Systems: Yes all other systems are reviewed and are negative [facility] Past Medical History [facility] Narrative: Social history: He denies tobacco, alcohol and drug use. Medical History Bladder mass BPH (benign prostatic hyperplasia) Cervical pain (neck) Chronic neck pain with history of cervical spinal surgery Generalized anxiety disorder History of back pain History of depression History of fall History of suicidal ideation Other obstructive and reflux uropathy Recurrent major depression-severe Transitional cell carcinoma Surgical History History of cystoscopy History of transurethral destruction of bladder lesion Hx of cervical spine surgery Hx of tonsillectomy Social History Social History Household Members: None Housing: Apartment Do you presently have visiting nurse or other home services: No Alcohol intake: never Patient Tobacco Use Status: Never used Tobacco service: Yes Sexual orientation: Straight/Heterosexual Physical Exam Vital Signs: Vital Signs: Last Vital Signs Temp 98.4 F 11/25/21 12:06 Pulse 83 11/25/21 18:06 Resp 16 11/25/21 18:06 BP 149/80 H 11/25/21 18:06 Pulse Ox 98 11/25/21 18:06 O2 Del Method 11/25/21 18:06 BMI result Body Mass Index 25.7 Const: General: cooperative and no acute distress Orientation/consciousness: oriented to person and oriented to place Limitations: no limitations HEENT: Head: Yes normal to inspection, Yes normocephalic and Yes atraumatic Ears: external ears normal General nose exam: Normal external nose present Face and sinus: Yes normal facial exam Mouth: Normal oral and palatal mucosa present Throat: Yes posterior oropharynx normal Eyes: General: appearance normal, both eyes and all related structures Pupils: Equal, round and reactive pupils present Neck: Neck: Yes normal visual inspection, Yes no lymphadenopathy, Yes trachea midline and Yes supple Chest: Chest palpation & inspection: normal inspection of the chest and normal palpation of entire chest wall Resp: Effort & Inspection: normal respiratory effort and able to speak in complete sentences Auscultation: clear to auscultation bilaterally Cardio: Rate: regular rate Rhythm: regular rhythm Heart sounds: S1 normal heart sound present, S2 normal heart sound present and no murmurs GI: Inspection: Yes normal to inspection Palpation (GI): Soft to palpation, nontender and no guarding Auscultation: normal bowel sounds : General: Yes no CVA tenderness Back/Spine/Pelvis: Back: no CVA tenderness Skin: General skin exam: no rashes or lesions noted Neuro: Other: The patient does have nystagmus with position change but does not have inducible vertigo at this time. General: oriented to person and oriented to place Cranial nerves: Yes CN's II-XII intact bilaterally and Yes Equal, round and reactive pupils present Cognition (Neuro): normal cognition Motor exam (neuro): 5/5 motor strength present throughout Extrem: General: Yes normal to inspection Psych: Appearance: grossly normal Speech and movement: Normal speech and movement present Affect: normal affect Attitude: cooperative Thought process: Normal thought process present Thought content: Normal thought content present Course Course Course Narrative: 71-year-old male who presents emergency department for evaluation of episodic episodes vertigo triggered by position bladder changer the last 2 days. He has had similar episodes in 2008 and last year. Patient was not ill in any other way prior to the onset of his symptoms. The patient's vital signs did reveal some slight elevated blood pressures but otherwise were unremarkable. Patient's neurologic exam was nonfocal. The patient does have inducible nystagmus with position change. This time I suspect the patient's symptoms are consistent with benign positional vertigo and I did discuss this with the patient. The patient was given meclizine 25 mg orally and prescribed closing 25 mg 3 times a day as needed for dizziness. MDM - Dizziness Lab Data Result diagrams: 11/25/21 12:21 11/25/21 12:21 Labs: Lab Results 11/25/21 11/25/21 Range/Units 12:21 12:21 WBC 7.2 (4.8-10.8) X10*3/uL RBC 5.43 (4.60-5.80) X10*6/uL Hgb 15.4 (14.0-18.0) g/dl Hct 47.1 (42.0-52.0) % MCV 86.7 (80.0-98.0) fL MCH 28.4 (27.0-33.0) pg MCHC 32.7 (31.0-36.0) g/dl RDW 12.4 (11.0-16.0) % Plt Count 176 (160-400) X10*3/uL MPV 9.7 (9.4-12.4) fL Immature Gran % (Auto) 0.1 (0.0-0.4) % Neut % (Auto) 72.3 (45-73) % Lymph % (Auto) 16.9 L (20-40) % [place] % (Auto) 8.6 (2-11) % Eos % (Auto) 1.7 (0-4) % Baso % (Auto) 0.4 (0-2) % Lymph # (Auto) 1.2 (1.2-4.9) X10*3/uL [place] # (Auto) 0.6 (0.1-1.2) X10*3/uL Eos # (Auto) 0.1 (0.0-0.4) X10*3/uL Baso # (Auto) 0.0 (0.0-0.2) X10*3/uL Abs Immat Gran (auto) 0.01 (0.00-0.03) X10*3/uL Absolute Neuts (auto) 5.2 (2.0-8.3) x10*3/uL Absolute Nucleated RBC 0.000 (0.0-0.012) X10*3/uL Nucleated RBC % (auto) 0.0 (0.0-0.2) /100WBC Sodium 138 (135-145) mmol/L Potassium 4.6 (3.3-5.1) mmol/L Chloride 105 (96-108) mmol/L Carbon Dioxide 24 (22-29) mmol/L Anion Gap 14 (12-20) BUN 15 (9-16) mg/dL Creatinine 0.87 (0.5-1.4) mg/dL Estim Creat Clear Calc 77.8 Estimated GFR > 60 Random Glucose 97 (60-115) mg/dL Calcium 8.8 (8.4-10.2) mg/dL Discharge Plan Discharge Clinical Impression: Benign paroxysmal positional vertigo Patient Disposition: Home, Self-Care Instructions: Benign Paroxysmal Positional Vertigo (ED) Additional Instructions: Your blood work was unremarkable. Your 12 EKG was normal. Your presentation and examination consistent with episodic (paroxysmal) benign, positional vertigo. This to vertigo comes on suddenly, is episodic and usually triggered by position change. Once you start getting the symptoms that can last up to 1-2 weeks sometimes longer. Take meclizine 25 mg pills, 1 pill 3 times a day for the next 3 days for dizziness then as needed for dizziness. This medication will make you sleepy. Do not drive or work while taking this medication. Follow-up with your doctor in 2 days. Please return to the emergency department if your symptoms get worse or if you develop any symptoms that are concerning to you. Prescriptions: New meclizine [Dramamine (meclizine)] 25 mg tablet 25 mg PO TID PRN (Reason: dizziness) Qty: 20 0RF No Action duloxetine 30 mg capsule,delayed release(DR/EC) 30 mg PO DAILY acetaminophen 325 mg Tablet 650 mg PO QID PRN (Reason: pain) 30 Days Qty: 90 0RF cholecalciferol (vitamin D3) 25 mcg (1,000 unit) Tablet 25 mcg PO DAILY 30 Days Qty: 30 0RF lorazepam 1 mg tablet 1 mg PO DAILY PRN (Reason: Anxiety) lorazepam 0.5 mg tablet 0.5 mg PO BEDTIME PRN (Reason: Anxiety) melatonin 5 mg tablet 10 mg PO BEDTIME mirtazapine 7.5 mg tablet 7.5 mg PO BEDTIME simvastatin 40 mg tablet 40 mg PO DAILY
[2021-11-25] MEDS: Meclizine HCl 25 MG TABLET PO (19:14)
== END 2021-11-25 19:19 | disposition home or self-care (01) ==
PROVIDERS: Emergency Provider Emergency Medicine Emergency Medical Services; PCP Internal Medicine
DX: H81.10 Benign paroxysmal vertigo, unspecified ear (principal); C67.9 Malignant neoplasm of bladder, unspecified
CPT/HCPCS: 36415; 80048; 85025; 93005; 99283; 99284

== ENCOUNTER 2021-12-24 11:05 | Outpatient (REF) | payer MEDICARE, OTHER, SELFPAY | END 2021-12-24 11:06 | disposition home or self-care (01) | LOC: HO.LAB 11:05 | PROVIDERS: Visit Provider Urology | DX: C67.9 Malignant neoplasm of bladder, unspecified (principal); C68.9 Malignant neoplasm of urinary organ, unspecified | CPT/HCPCS: 52000; 88121 ==

== ENCOUNTER 2022-02-15 16:05 | Outpatient (REF) | payer MEDICARE, OTHER, SELFPAY ==
[2022-02-15 16:19] LABS: INTERNATIONAL NORM RATIO 4.3 (0.9-1.1); Prothrombin Time 52.6 SEC (10.0-13.1)
== END 2022-02-15 16:06 | disposition home or self-care (01) ==
LOC: HO.LNP 16:05
PROVIDERS: Visit Provider Internal Medicine
DX: I82.402 Acute embolism and thrombosis of unspecified deep veins of left lower extremity (principal)
CPT/HCPCS: 85610

== ENCOUNTER 2022-03-23 11:00 | Outpatient (REF) | payer MEDICARE, OTHER, SELFPAY ==
[2022-03-23 16:50] LABS: Urine Cytology See Pathology rpt
== END 2022-03-23 11:01 | disposition home or self-care (01) ==
LOC: HO.LAB 11:00
PROVIDERS: Visit Provider Urology
DX: C67.9 Malignant neoplasm of bladder, unspecified (principal)
CPT/HCPCS: 52000; 88112; 88121; 99212

== ENCOUNTER 2022-05-24 05:59 | Day surgery (SDC) | payer MEDICARE, OTHER, SELFPAY ==
[2022-05-21 10:11] VITALS: BMI 27.1
[2022-05-24] VITALS (11 sets, daily range): BP systolic 125–151; BP diastolic 72–85; PULSE 60–75; RESP 16–18; TEMP 36.3–36.6; O2SAT 94–98; BMI 26.2
[2022-05-24 06:29] LABS: INTERNATIONAL NORM RATIO 1.1 (0.9-1.1); Prothrombin Time 12.4 SEC (10.0-13.1)
--- NOTE | 2022-05-24 07:26 | HO.ANESPROP2 ---
HPI - Anesthesia Eval Consult details Narrative: cysto PMFSH Active Problems Active Problems: All Active Problems (Updated 11/26/21 @ 00:02 by Misael Schmitz) Cellulitis (Acute) MDD (major depressive disorder), recurrent episode, moderate (Acute) Major depress dis, severe (Acute) Groin pain (Acute) Bladder cancer (Acute) Cervical pain (neck) (Acute) Generalized anxiety disorder (Acute) Recurrent major depression-severe (Acute) Transitional cell carcinoma (Acute) Past Medical History Medical History Bladder mass BPH (benign prostatic hyperplasia) Cervical pain (neck) Chronic neck pain with history of cervical spinal surgery Generalized anxiety disorder History of back pain History of depression History of fall History of suicidal ideation Other obstructive and reflux uropathy Recurrent major depression-severe Transitional cell carcinoma Family History Family history of problems with anesthesia: No Surgical History Surgical History History of cystoscopy History of transurethral destruction of bladder lesion Hx of cervical spine surgery Hx of tonsillectomy History of Problems with Anesthesia: No Social History Social History Household Members: None Housing: Apartment Do you presently have visiting nurse or other home services: No Alcohol intake: never Patient Tobacco Use Status: Former Tobacco user Quit Date: 47 years Use of substances other than those prescribed or required for medical reasons: No Are you DNR?: No Advance Directives: No Advance Directives Information Provided: Yes service: Yes Sexual orientation: Straight/Heterosexual Meds Allergies Allergy/AdvReac Type Severity Reaction Status Date / Time ibuprofen AdvReac Intermediate ringing in Verified 03/23/22 10:52 ears cyclobenzaprine AdvReac right hand Verified 03/23/22 10:52 tremors quetiapine [From Seroquel] AdvReac right hand Verified 03/23/22 10:52 tremors Flonase Allergy Unknown heart Uncoded 03/23/22 10:52 palpations Active Medications: Current Medications Lactated Ringer's (Lr) 1,000 mls @ 50 mls/hr IVCONT .Q20H JERRY Mitomycin 40 mg/ Sodium (Chloride) 20 mls @ 10 mls/hr INTRAVESIC ONCE JERRY Stop: 05/24/22 23:59 Home Medications Medication Instructions Recorded Confirmed Last Taken Type duloxetine 30 mg capsule,delayed 30 mg PO DAILY 04/29/21 05/24/22 Unknown History release lorazepam 0.5 mg tablet 0.5 mg PO BEDTIME PRN Anxiety 06/23/21 05/24/22 Unknown History lorazepam 1 mg tablet 1 mg PO DAILY PRN Anxiety 06/23/21 05/24/22 Unknown History mirtazapine 7.5 mg tablet 7.5 mg PO BEDTIME 09/24/21 05/24/22 Unknown History simvastatin 40 mg tablet 40 mg PO DAILY 09/24/21 05/24/22 Unknown History warfarin 2.5 mg tablet 2.5 mg PO DAILY 03/23/22 Unknown History Exam Exam Date and Time: May 24, 2022 0726 Height,Weight and Vital Signs: Height 5 ft 9 in Weight 80.739 kg Last Vital Signs Temp 97.4 F 05/24/22 06:30 Pulse 75 05/24/22 06:30 Resp 18 05/24/22 06:30 BP 138/72 05/24/22 06:30 Pulse Ox 95 05/24/22 06:30 O2 Del Method 05/24/22 06:30 Pertinent Lab Results Pertinent Lab Results: Laboratory Tests 05/24/22 06:15 PT 12.4 INR 1.1 D Airway Mallampati Class: II TM Dist: >3cm Neck ROM: Full Heart: ok Lungs: ok Assessment and Plan Assessment Anesthesia Assessment: Anesthesia Plan Discussed and Chart Reviewed Final Anesthetic Review Family History of Problems with Anesthesia: No History of Problems with Anesthesia: No NPO: Yes ASA Class: II Final Preanesthetic Review: No Changes in Pt Med Stat, Meds/Allgs Chart Reviewed, Consent Obtained/Reviewed and Anes Risks/Benef Reviewed Patient Risk: Low Procedure Risk: Low Anesthetic Plan Anesthetic Plan: GA and Agree w/ Assess. and Plan Disposition: Standard PACU
[2022-05-24] MEDS: Lactated Ringers 1,000 ML 50 ML IVCONT (07:28)
--- NOTE | 2022-05-24 07:39 | MHC.SHP ---
Pre-Procedural Eval Section A Date of Service: 05/24/22 The patient is an INPATIENT: No Changes since office visit: No Cold of Flu in the past 2 weeks, No New Medical Problems, No Changes in Medication and No Patient answered all questions The History & Physical has been completed within 30 days and I have reviewed it.: No Section B Chief Complaint: Malignant neoplasm of bladder, unspecified Relevant Family History (Specify if Yes): No Relevant Social History: None Present Medications: see Short Stay Collaborative assessment Medical History: No relevant PMH History of Previous Operations: Relevant previous surgery/procedure and date(s) Allergies: Allergies Allergy/AdvReac Type Severity Reaction Status Date / Time ibuprofen AdvReac Intermediate ringing in Verified 03/23/22 10:52 ears cyclobenzaprine AdvReac right hand Verified 03/23/22 10:52 tremors quetiapine [From Seroquel] AdvReac right hand Verified 03/23/22 10:52 tremors Flonase Allergy Unknown heart Uncoded 03/23/22 10:52 palpations Review of Systems Sugical H&P ROS: Negative: Constitution, Cardiovascular, Respiratory, Neurological, Psychiatric, Hem-Onc, Allergic/Immunologic, Gastrointestinal, Genitourinary, Musculoskeletal, Integumentary, Endocrine and Eyes/Ears/Nose/Throat Exam Surgical H&P Exam: Normal: HEENT, Normal: Heart, Normal: Lungs, Normal: Extremities, Normal: Abdomen, Normal: Skin and Normal: Neurological Plan Diagnosis/Plan: Unchanged (cysto, bladder biopsy, fulgeration, mitomycin C) I have reviewed the history and physical and performed a pertinent physical examination on my patient. No changes have occurred unless specified. Time Spent With Patient Time: Total time managing care of this patient today ____ minutes.
--- NOTE | 2022-05-24 08:33 | W.PM.OPN ---
Operative Note Operative Note Date of Service: 05/24/22 Narrative: PreOperative Diagnosis: bladder cancer Post Operative Diagnosis: bladder cancer Procedure: TURBT and mitomycin C installation Surgeon: Dr Corey Buckley Anesthesia: general Indications for procedure: recurrence superficial bladder cancer Procedure: After informed consent was verified the patient was brought to the operating room and placed in a supine position. Anesthesia was administered per protocol. The patient was placed in a modified dorsal lithotomy position and prepped and draped in a sterile fashion. Safety pause time-out was performed. Antibiotics were confirmed. 24 Djib[place]ian cystoscope placed. bladder was inspected in its entirety. There was an area on the posterior wall of superficial mucosal low-grade bladder recurrence. There were for other small areas of recurrence. The back wall area was biopsied and fulguration. Other areas were fulgurated approximately 6 other areas on the bladder wall fulgurated. At the completion of the procedure the bladder was irrigated. The cystoscope was removed. A [address] [place]ford catheter was inserted into the bladder. 10 cc was placed in the balloon. 40 mg of mitomycin in 20 cc of normal saline was instilled into the bladder. The flow from the catheter was left clamped. The inflow to the catheter was attached to a 3 L normal saline bag. The patient tolerated the procedure well. They were extubated in the operating room and transferred in stable condition to the recovery area. mitomycin will remain in the bladder for 1 hour. At the completion of 1 hour the clamp will be removed. The mitomycin will be allowed to egress to the urine collection bag. The 3 L bag of normal saline will be run at maximum rate through the bladder in order to dilute any residual mitomycin. The Ashford catheter will then be removed. Pathology: bladder cancer superficial Drains: 3 way catheter
== END 2022-05-24 10:45 | disposition home or self-care (01) ==
PROVIDERS: Anesthesiology; Visit Provider Urology
PROC: (CPT 52234; principal; 2022-05-24 07:30)
DX: C67.9 Malignant neoplasm of bladder, unspecified (principal); N40.0 Benign prostatic hyperplasia without lower urinary tract symptoms; N13.8 Other obstructive and reflux uropathy; F33.2 Major depressive disorder, recurrent severe without psychotic features; Z88.8 Allergy status to other drugs, medicaments and biological substances
CPT/HCPCS: 52234; 51720; 36415; 85610; 88305; 88341; 88342; 88360; J1956; J3010; J9280

== ENCOUNTER → 2022-06-01 11:47 | Outpatient (BNVA) | payer MEDICARE, OTHER, SELFPAY | PROVIDERS: Visit Provider Urology | DX: C67.9 Malignant neoplasm of bladder, unspecified (principal) | CPT/HCPCS: Q3014 ==

== ENCOUNTER 2022-07-02 11:14 | Outpatient (REF) | payer MEDICARE, OTHER, SELFPAY ==
[2022-07-02 12:06] LABS: Alanine Aminotransferase 21 U/L (0-40); Albumin Level 3.8 g/dL (3.5-5.0); Alkaline Phosphatase 72 U/L (39-117); Aspartate Amino Transferase 21 U/L (5-37); Bilirubin Direct < 0.2 mg/dL (0.0-0.5); Bilirubin Total 0.4 mg/dL (0.0-1.0); Cholesterol 182 mg/dL; HDL Cholesterol 30 mg/dL; LDL Cholesterol Calculated 121 mg/dl; Total Protein 6.4 g/dL (6.5-8.0); Triglycerides 156 mg/dL
[2022-07-02 12:09] LABS: Estimated Average Glucose 117 mg/dL; Hemoglobin A1c % 5.7 %
[2022-07-02 19:45] LABS: Reflex LDLD? No
== END 2022-07-02 11:15 | disposition home or self-care (01) ==
LOC: HO.LNP 11:14
PROVIDERS: Visit Provider Internal Medicine
DX: R73.03 Prediabetes (principal); E78.00 Pure hypercholesterolemia, unspecified
CPT/HCPCS: 80061; 80076; 83036

== ENCOUNTER 2022-07-22 13:28 | Outpatient (REF) | payer MEDICARE, OTHER, SELFPAY ==
--- NOTE | ~2022-07-22 | US_ITS ---
EXAMINATION: US VENOUS ULTRASOUND WITH DOPPLER LOWER EXTREMITY, LEFT CLINICAL INFORMATION: Left lower extremity swelling and pain. COMPARISON: Ultrasound at other facility. Report or images not available for comparison. TECHNIQUE: Ultrasound of the deep veins is performed from the hip to the calf with compression sonography and color and pulse Doppler assessment. Spectral analysis with color-flow imaging is performed. FINDINGS: The left common femoral and greater saphenous veins have normal color Doppler and compressibility. There is DVT visualized in the left superficial femoral proximal through popliteal veins, noncompressible. The profunda vein is patent. The posterior tibial and the right common femoral veins are patent. If the patient's symptoms persist, followup ultrasound in 5 days 7 days might be of value to exclude proximal propagation from a non-visualized calf vein. US/US venous duplex LE LT IMPRESSION: DVT left superficial proximal femoral vein to popliteal vein. Question age. Needs previous exam for comparison. Bilateral common femoral and the left mid and distal popliteal veins are patent. Left posterior tibial vein is patent. Rest of the calf veins are not seen.
== END 2022-07-22 13:29 | disposition home or self-care (01) ==
LOC: HO.US 13:28
PROVIDERS: Visit Provider Internal Medicine
DX: I82.402 Acute embolism and thrombosis of unspecified deep veins of left lower extremity (principal)
CPT/HCPCS: 93971

== ENCOUNTER 2022-08-05 11:35 | Outpatient (REF) | payer MEDICARE, OTHER, SELFPAY ==
[2022-08-05 12:26] LABS: PSA,Total (Free>4and<10) 2.43 ng/mL (0.00-4.00)
== END 2022-08-05 11:36 | disposition home or self-care (01) ==
LOC: HO.LNP 11:35
PROVIDERS: Visit Provider Internal Medicine
DX: Z12.5 Encounter for screening for malignant neoplasm of prostate (principal); C67.9 Malignant neoplasm of bladder, unspecified
CPT/HCPCS: 84153

== ENCOUNTER 2022-08-18 07:09 | Day surgery (SDC) | payer MEDICARE, OTHER, SELFPAY ==
--- NOTE | 2022-08-17 12:51 | HO.ANESPROP2 ---
HPI - Anesthesia Eval Consult details Narrative: 71yo M for Colonoscopy Hx post op DVT (01/2022) - last dose warfarin 08/09/22 s/p cysto, etc 05/2022 with GA-LMA 5 PMFSH Active Problems Active Problems: All Active Problems (Updated 11/26/21 @ 00:02 by Misael Schmitz) Cellulitis (Acute) MDD (major depressive disorder), recurrent episode, moderate (Acute) Major depress dis, severe (Acute) Groin pain (Acute) Bladder cancer (Acute) Cervical pain (neck) (Acute) Generalized anxiety disorder (Acute) Recurrent major depression-severe (Acute) Transitional cell carcinoma (Acute) Past Medical History Medical History Bladder mass BPH (benign prostatic hyperplasia) Cervical pain (neck) Chronic neck pain with history of cervical spinal surgery Generalized anxiety disorder History of back pain History of depression History of fall History of suicidal ideation Left leg DVT Other obstructive and reflux uropathy Recurrent major depression-severe Transitional cell carcinoma Family History Family history of problems with anesthesia: No Surgical History Surgical History History of cystoscopy History of transurethral destruction of bladder lesion Hx of cervical spine surgery Hx of tonsillectomy History of Problems with Anesthesia: No Social History Social History Household Members: None Housing: Apartment Do you presently have visiting nurse or other home services: No Alcohol intake: never Patient Tobacco Use Status: Former Tobacco user Quit Date: 47 years Use of substances other than those prescribed or required for medical reasons: No Are you DNR?: No Advance Directives: No Advance Directives Information Provided: Yes service: Yes Sexual orientation: Straight/Heterosexual Meds Allergies Allergy/AdvReac Type Severity Reaction Status Date / Time ibuprofen AdvReac Intermediate ringing in Verified 06/01/22 11:49 ears cyclobenzaprine AdvReac right hand Verified 06/01/22 11:49 tremors quetiapine [From Seroquel] AdvReac right hand Verified 06/01/22 11:49 tremors Flonase Allergy Unknown heart Uncoded 06/01/22 11:49 palpations Home Medications Medication Instructions Recorded Confirmed Last Taken Type duloxetine 30 mg capsule,delayed 30 mg PO DAILY 04/29/21 05/24/22 Unknown History release lorazepam 0.5 mg tablet 0.5 mg PO BEDTIME PRN Anxiety 06/23/21 05/24/22 Unknown History lorazepam 1 mg tablet 1 mg PO DAILY PRN Anxiety 06/23/21 05/24/22 Unknown History mirtazapine 7.5 mg tablet 7.5 mg PO BEDTIME 09/24/21 05/24/22 Unknown History simvastatin 40 mg tablet 40 mg PO DAILY 09/24/21 05/24/22 Unknown History warfarin 2.5 mg tablet 2.5 mg PO DAILY 03/23/22 08/09/22 History Exam Exam Date and Time: August 17, 2022 1251 Narrative Narrative: EKG 11/2021 Vent. Rate : 075 BPM ? ? Atrial Rate : 075 BPM ?? P-R Int : 172 ms? QRS Dur : 088 ms ? ? QT Int : 346 ms ? ? ? P-R-T Axes : 061 052 048 degrees ?? QTc Int : 386 ms ? Normal sinus rhythm Normal ECG When compared with ECG of 20-FEB-2021 12:40, No significant change was found Assessment and Plan Assessment Anesthesia Assessment: Chart Reviewed Final Anesthetic Review Family History of Problems with Anesthesia: No History of Problems with Anesthesia: No
--- OUTSIDE RECORDS SUMMARY | 2022-08-18 07:11 | XMS_ITS ---
Author Name Eliceo Sanchez Address [address] [place] [address] Organization [facility] Address [address] [place] [address] Care Team Providers Care Combat Control Name Role Phone Eliceo Sanchez Unavailable [phone] PROBLEMS Type Condition ICD9-CM Code [id number] Code Onset Dates Condition Status SNOMED Code Problem Encounter for screening for malignant neoplasm of colon Z12.11 Active 958407060 Problem Constipation K59.00 Active 00481371 Problem Esophageal dysphagia R13.10 Active 94805889 ALLERGIES Substance Reaction Event Type Date Status seraquil Unknown Non Drug Allergy Dec, Active Motrin Unknown Drug Allergy Dec, Active Flonase Allergy Relief Unknown Drug Allergy Dec, Active ENCOUNTERS Encounter Location Date Diagnosis [facility] Outpatient [address] [place] [phone] August, [facility] [address] [place] [phone] Feb, [facility] [address] [place] [phone] Nov, Constipation K59.00 ; Encounter for screening for malignant neoplasm of colon Z12.11 and Esophageal dysphagia R13.10 [facility] [address] [place] [phone] Sep, [facility] [address] [place] [phone] August, Esophageal dysphagia R13.10 and Encounter for screening for malignant neoplasm of colon Z12.11 [facility] [address] [place] [phone] August, IMMUNIZATIONS Vaccine Route Administration Date Status Influenza Unknown Mar 03, 2021 Administered Influenza Unknown Dec 11, 2019 Administered SOCIAL HISTORY Qualifiers Date Former Smoker age 17-28 REASON FOR REFERRAL FUNCTIONAL STATUS PLAN OF CARE Activity Details VITAL SIGNS Weight 180 lbs 2021-12-08 Weight 173 lbs 2020-08-12 Height 69.5 in 2021-12-08 Height 69.5 in 2020-08-12 BMI 26.20 kg/m2 2021-12-08 BMI 25.18 kg/m2 2020-08-12 Temperature 97.8 degrees Fahrenheit Temperature 97.5 degrees Fahrenheit Blood pressure systolic 000 mm Hg Blood pressure diastolic 00 mm Hg 2021-11 MEDICATIONS Medication Instructions Dosage Frequency Start Date End Date Duration Status Simvastatin 40 MG Orally Once a day 1 tablet in the evening 24h Active DULoxetine HCl 20 MG TAKE 1 CAPSULE BY MOUTH EVERY DAY 90 Active Vitamin D-3 25 MCG (1000 UT) Orally Once a day 1 capsule 24h 30 day(s) Active Tylenol 8 Hour 650 MG Orally every 8 hrs 2 tablets as needed 8h Active SEROquel 100 MG Orally Once a day 1 tablet at bedtime 24h 30 day(s) Active Mirtazapine 7.5 MG Orally Once a day 2 tablets at bedtime 24h 30 day(s) Active LORazepam ER 1.5 MG Orally Once a day 1 capsule in the morning 24h Active Meclizine HCl 25 MG Orally every 12 hrs 1 tablet as needed 12h Active Vitamin D3 25 MCG (1000 UT) Orally Once a day 1 tablet 24h 30 day(s) Active PROCEDURES Procedure Date Ordered Result Body Site BP SCR NOT PRFRM REC REASON NOS Dec 08, 2021 BP SCR PRFRM RCMDD DEFIND SCR INTVL August 12, 2020 TOBACCO NON-USER August 12, 2020 TOBACCO NON-USER Dec 08, 2021 DOC MEDS VERIFIED W/PT OR RE August 12, 2020 DOC MEDS VERIFIED W/PT OR RE Dec 08, 2021 COLORECTAL CA SCREEN DOC REV August 12, 2020 COLORECTAL CA SCREEN DOC REV Dec 08, 2021 RESULTS No Results REASON FOR VISIT screening, screening colon, r/s colonoscopy, Patient presents today for a colon /egd, dysphagia, screening colon, FYI admiited to the psych floor, patient presents today for dysphagia, COVID Screen Insurance Providers Health Insurance Type Health Plan Insurance Address Health Plan Insurance Phone Health Plan Insurance Name Health Plan Coverage Dates Member ID Patient Relationship to Subscriber Patient Address Patient Phone Patient Name Patient Date of Subscriber ID Subscriber Name Subscriber Date of Group No MEDICARE OF [place] [address] [facility] [address] MED[place]ARE OF [place] vasiliy ANTONYNARD [id number] [facility] [address] [facility] [phone] [facility] self SHYLA ANTONYNARD [id number]
--- OUTSIDE RECORDS SUMMARY | 2022-08-18 07:11 | XMS_ITS ---
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 Active 35326348 ALLERGIES No Information ENCOUNTERS Encounter Location Date Diagnosis [facility] [address] [place] [address] [place] [phone] 18 Apr, 2022 Postop check V67.00 ; Other spondylosis with myelopathy, 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 and Lumbar spondylosis M47.816 [facility] [address] [place] [address] [place] [phone] 18 Apr, 2022 Other spondylosis with myelopathy, 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 [facility] [address] [place] [address] [place] [phone] 08 Feb, 2022 Postop check V67.00 ; Encounter for postoperative wound check V58.49 and Other spondylosis with myelopathy, 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 [facility] [address] [place] [address] [place] [phone] Jan, [facility] [address] [place] [address] [place] [address] 18 Jan, 2022 [facility] [address] [place], [place] 06 Jan, 2022 [facility] [address] [place], [place] 03 Jan, 2022 [facility] [address] [place] [address] [place], [place] 19 Dec, 2021 [facility] [address] [place], [place] 13 Dec, 2021 [facility] [address] [place] [address] [place], [place] 15 Oct, 2021 [facility] [address] [place] [address] [place], [place] 13 Oct, 2021 Postop check V67.00 and Other spondylosis with myelopathy, 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 [facility] [address] [place] [address] [place], [place] 13 Sep, 2021 [facility] [address] [place] [address] [place], [place] 04 Aug, 2021 [facility] [address] [place] [address] [place], [place] 15 Jun, 2021 [facility] [address] [place] [address] [place], [place] 03 Jun, 2021 [facility] [address] [place] [address] [place], [place] 25 Apr, 2021 [facility] [address] [place] [address] [place], [place] 10 Apr, 2021 [facility] [address] [place] [address] [place], [place] 05 Apr, 2021 Postop check V67.00 and Other spondylosis with myelopathy, 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 [facility] [address] [place] [address] [place], [place] 05 Apr, 2021 Other spondylosis with myelopathy, 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 [facility] [address] [place] [address] [place], [place] 30 Mar, 2021 [facility] [address] [place] [address] [place], [place] 19 Feb, 2021 Other spondylosis with myelopathy, 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 [facility] [address] [place] [address] [place], [place] 12 Jan, 2021 Postop check V67.00 ; Encounter for postoperative wound check V58.49 and Other spondylosis with myelopathy, 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 [facility] [address] [place] [address] [place], [place] 01 Jan, 2021 [facility] [address] [place] [address] [place], [place] 28 Dec, 2020 [facility] [address] [place] [address] [place] 23 Dec, 2020 [facility] [address] [place] [address] [place] 20 Dec, 2020 [facility] [address] [place] [address] [place] 16 Dec, 2020 [facility] [address] [place] [address] [place] 15 Dec, 2020 Other spondylosis with myelopathy, 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 [facility] [address] [place] [address] [place], [place] 09 Dec, 2020 [facility] [address] [place] [address] [place] 31 Nov, 2020 [facility] [address] [place] [address] [place] 18 Nov, 2020 [facility] [address] [place] [address] [place], [place] 30 Sep, 2020 Other spondylosis with myelopathy, 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20-5.80 White Blood Coun 15.37 4.0-11.0 CERVICAL SPINE 2-3 VIEWS 2021-01-08 COMPLETE BLOOD COUNT W PLT - CBC Hematocrit 39.9 42.0-51.0 Hemoglobin 13.0 14.0-17.0 MCH 30.6 27.0-34.0 MCHC 32.6 31.0-36.0 MCV 93.9 80.0-98.0 Platelet 179 150-400 RDW-CV 12.8 11.5-14.5 Red Blood Count 4.25 4.20-5.80 White Blood Coun 14.27 4.0-11.0 BASIC METABOLIC PANEL - BMP 2021-01-07 Bicarbonate 27 21-30 BUN 13 6-20 Calcium 8.2 8.4-10.2 Chloride 104 100-112 Creatinine 0.9 0.0-1.3 Glucose 147 70-105 Potassium 4.3 3.5-5.3 Sodium 139 135-145 MAGNESIUM - MG 2021-01-07 Magnesium 2.1 1.6-2.6 REASON FOR VISIT s/p Anterior osteophyte resections C4-C5, C5-C6, C6-C7; Right foraminotomy C5- C6, C6-C7, C7-T1 (01/26/2022), x rays , 2 week post op s/p Anterior osteophyte resections C4-C5, C5-C6, C6-C7; Right foraminotomy C5-C6, C6-C7, C7-T1 (01/26/2022), driving post op, Covid test, Facet/Medial Branch Block, Cervical Surgery, Pain Management Referral, s/p C3-C6 Laminoplasty w/ C7 Hemilaminectomy (01/06/2021), Cervical MRI, Barium Swallow, Six Month appointment, Call back- , Referral of an Matrix Inspector,Email, s/p C3-C6 Laminoplasty w/ C7 Hemilaminectomy (01/06/2021), x-ray, 2 week post op s/p C3-C6 Laminoplasty w/ C7 Hemilaminectomy (01/06/2021), Neck pain, arm and leg stiffness, FYI: Bladder cancer/neck and shoulder pain, Info. , Surgery Date, Neck pain, arm and leg stiffness, PCP Not Ordering MRI Insurance Providers Health Insurance Type Health Plan Insurance Address Health Plan Insurance Phone Health Plan Insurance Name Health Plan Coverage Dates Member ID Patient Relationship to Subscriber Patient Address Patient Phone Patient Name Patient Date of Subscriber ID Subscriber Name Subscriber Date of Group No MEDICARE [address] [facility] [address] MEDICARE self Don Pantoja [id number] [facility] [employer] IN[address]MNITY [address] [facility] [address] [phone] [facility] [employer] IN[employer] self Don Pantoja [id number]
[2022-08-18 07:48] LABS: INTERNATIONAL NORM RATIO 1.1 (0.9-1.1); Prothrombin Time 12.5 SEC (10.0-13.1)
[2022-08-18 08:04] VITALS: BMI 26.6
[2022-08-18 08:05] VITALS: BMI 26.6
[2022-08-18 08:06] VITALS: BP 143/71; PULSE 72; RESP 16; TEMP 36.3; O2SAT 97
[2022-08-18] MEDS: Lactated Ringers 1,000 ML 100 ML IVCONT (08:08)
--- NOTE | 2022-08-18 08:09 | PC.NURSE ---
IV insertion site is right forearm, not groin. Unable to edit
[2022-08-18 09:18] VITALS: BP 108/52; PULSE 82; RESP 16; TEMP 36.6; O2SAT 96
--- NOTE | 2022-08-18 09:22 | PM.OP ---
Brief Operative Note Date of Service: 08/18/22 Pre-op diagnosis: Screening Post-op diagnosis: other (Diverticulosis) Procedure: Colonoscopy to the cecum Surgeon: Eliceo Sanchez Anesthesia: MAC Was an Fruit Vendor used for this Procedure?: No Estimated blood loss (mL): 0 Pathology: none sent Condition: stable Disposition: PACU
[2022-08-18 09:33] VITALS: BP 129/73; PULSE 78; RESP 18; TEMP 36.2; O2SAT 96
--- NOTE | 2022-08-18 10:27 | HO.ANESPROP2 ---
HPI - Anesthesia Eval Consult details Narrative: screening [facility] Active Problems Active Problems: All Active Problems (Updated 08/17/22 @ 12:56 by Lisa Walker RN) Major depress dis, severe (Acute) Groin pain (Acute) Bladder cancer (Acute) MDD (major depressive disorder), recurrent episode, moderate (Acute) Cellulitis (Acute) Cervical pain (neck) (Acute) Generalized anxiety disorder (Acute) Recurrent major depression-severe (Acute) Transitional cell carcinoma (Acute) Past Medical History Medical History Bladder mass BPH (benign prostatic hyperplasia) Cervical pain (neck) Chronic neck pain with history of cervical spinal surgery Generalized anxiety disorder History of back pain History of depression History of fall History of suicidal ideation Left leg DVT Other obstructive and reflux uropathy Recurrent major depression-severe Transitional cell carcinoma Family History Family history of problems with anesthesia: No Surgical History Surgical History History of cystoscopy History of transurethral destruction of bladder lesion Hx of cervical spine surgery Hx of tonsillectomy History of Problems with Anesthesia: No Social History Social History Household Members: None Housing: Apartment Do you presently have visiting nurse or other home services: No Alcohol intake: never Patient Tobacco Use Status: Former Tobacco user Quit Date: 47 years Use of substances other than those prescribed or required for medical reasons: No Are you DNR?: No Advance Directives: No Advance Directives Information Provided: Yes service: Yes Sexual orientation: Straight/Heterosexual Meds Allergies Allergy/AdvReac Type Severity Reaction Status Date / Time ibuprofen AdvReac Intermediate ringing in Verified 06/01/22 11:49 ears cyclobenzaprine AdvReac right hand Verified 06/01/22 11:49 tremors quetiapine [From Seroquel] AdvReac right hand Verified 06/01/22 11:49 tremors Flonase Allergy Unknown heart Uncoded 06/01/22 11:49 palpations Home Medications Medication Instructions Recorded Confirmed Last Taken Type duloxetine 30 mg capsule,delayed 30 mg PO DAILY 04/29/21 05/24/22 Unknown History release lorazepam 0.5 mg tablet 0.5 mg PO BEDTIME PRN Anxiety 06/23/21 05/24/22 Unknown History lorazepam 1 mg tablet 1 mg PO DAILY PRN Anxiety 06/23/21 05/24/22 Unknown History mirtazapine 7.5 mg tablet 7.5 mg PO BEDTIME 09/24/21 05/24/22 Unknown History simvastatin 40 mg tablet 40 mg PO DAILY 09/24/21 05/24/22 Unknown History warfarin 2.5 mg tablet 2.5 mg PO DAILY 03/23/22 08/09/22 History Exam Exam Date and Time: August 18, 2022 1027 Height,Weight and Vital Signs: Height 5 ft 9 in Weight 81.647 kg Last Vital Signs Temp 97.2 F 08/18/22 09:33 Pulse 78 08/18/22 09:33 Resp 18 08/18/22 09:33 BP 129/73 08/18/22 09:33 Pulse Ox 96 08/18/22 09:33 O2 Del Method Room Air 08/18/22 09:33 Pertinent Lab Results Pertinent Lab Results: Laboratory Tests 08/18/22 08/18/22 07:32 07:33 PT Cancelled 12.5 INR Cancelled 1.1 Airway Mallampati Class: II TM Dist: >3cm Neck ROM: Limited (slightly limited sp cervical procedures x2) Heart: rr Lungs: cta Assessment and Plan Assessment Anesthesia Assessment: Anesthesia Plan Discussed and Chart Reviewed Final Anesthetic Review Family History of Problems with Anesthesia: No History of Problems with Anesthesia: No NPO: Yes ASA Class: II Final Preanesthetic Review: No Changes in Pt Med Stat, Meds/Allgs Chart Reviewed, Consent Obtained/Reviewed and Anes Risks/Benef Reviewed Patient Risk: Low Procedure Risk: Low Anesthetic Plan Anesthetic Plan: MAC: Disposition: Standard PACU
--- NOTE | 2022-08-18 21:38 | OP_ITS ---
DATE OF SERVICE: 08/18/2022 SURGEON: Eliceo Sanchez MD PREOPERATIVE DIAGNOSIS: Colorectal cancer screening. POSTOPERATIVE DIAGNOSIS: PROCEDURE PERFORMED: Colonoscopy to the cecum. ESTIMATED BLOOD LOSS: COMPLICATIONS: ANESTHESIA: Monitored anesthesia care. ASSISTANTS: SPECIMENS: POSTOPERATIVE DIAGNOSES: Colorectal cancer screening, diverticulosis, and internal hemorrhoids. INDICATION: The patient presents for evaluation of colorectal cancer screening. Full consent has been obtained from him for this, including risks of bleeding and perforation. DESCRIPTION OF PROCEDURE: The patient was placed in the lateral decubitus position. The digital rectal exam revealed no abnormalities. The Olympus video pediatric colonoscope was entered into the rectum and advanced easily to the cecum. Once in the cecum, I did identify a normal-appearing cecal pouch with appendiceal orifice and a normal-appearing ileocecal valve. The entire cecum and ileocecal valve appeared normal. There was transillumination of light deep in the right lower quadrant. The scope was slowly withdrawn assessing all mucosal surfaces carefully. Preparation was excellent. I did not visualize any sign of polyps, colitis, nor angiodysplasia. There was a mild amount of sigmoid diverticulosis. In the rectum, the scope was retroflexed visualizing internal hemorrhoids, but no other pathology. The rectal mucosa appeared normal. The scope was straightened and withdrawn from the patient. He tolerated the procedure well and was returned to the recovery area in stable condition. IMPRESSION: 1. Diverticulosis. 2. Internal hemorrhoids. PLAN: Given today's negative exam and his age, I do not think he would need any further screening colonoscopies. He does report that his dysphagia has resolved completely after his cervical spine surgery with removal of osteophytes. As such, he will see me on a p.r.n. basis. MD MARA Rosario/TAMI / [phone] MTDAshley
== END 2022-08-18 10:15 | disposition home or self-care (01) ==
PROVIDERS: Nurse Practitioner; PCP Internal Medicine; Visit Provider Internal Medicine
PROC: 0DJD8ZZ Inspection of Lower Intestinal Tract, Via Natural or Artificial Opening Endoscopic (ICD-10-PCS; CPT 45378; principal; 2022-08-18 08:20)
DX: Z12.11 Encounter for screening for malignant neoplasm of colon (principal); K57.30 Diverticulosis of large intestine without perforation or abscess without bleeding; K64.8 Other hemorrhoids; K59.00 Constipation, unspecified; R13.10 Dysphagia, unspecified; E78.5 Hyperlipidemia, unspecified; F32.A Depression, unspecified; Z79.899 Other long term (current) drug therapy; Z88.8 Allergy status to other drugs, medicaments and biological substances; Z85.51 Personal history of malignant neoplasm of bladder; Z87.891 Personal history of nicotine dependence; Z98.890 Other specified postprocedural states
CPT/HCPCS: G0121; 36415; 85610

== ENCOUNTER 2022-09-02 10:34 | Outpatient (REF) | payer MEDICARE, OTHER, SELFPAY ==
[2022-09-02 16:38] LABS: Urine Cytology See Pathology rpt
== END 2022-09-02 10:35 | disposition home or self-care (01) ==
LOC: HO.LAB 10:34
PROVIDERS: PCP Internal Medicine; Visit Provider Urology
DX: C67.9 Malignant neoplasm of bladder, unspecified (principal)
CPT/HCPCS: 52000; 88112; 99212

== ENCOUNTER 2022-10-26 11:49 | Outpatient (REF) | payer MEDICARE, OTHER, SELFPAY | END 2022-10-26 11:50 | disposition home or self-care (01) | LOC: HO.LNP 11:49 | PROVIDERS: Visit Provider Internal Medicine | DX: Z13.89 Encounter for screening for other disorder (principal) ==

== ENCOUNTER 2022-10-26 11:51 | Outpatient (REF) | payer MEDICARE, OTHER, SELFPAY ==
[2022-10-26 11:55] LABS: MANUAL DIFF FLAG NO
[2022-10-26 12:20] LABS: Basophils Percent Auto 0.3 % (0-2); Eosinophils Absolute Auto 0.2 X10*3/uL (0.0-0.4); Hematocrit 47.1 % (42.0-52.0); Hemoglobin 15.1 g/dl (14.0-18.0); Imm Gran Abs Auto 0.03 X10*3/uL (0.00-0.03); Imm Gran Pct Auto 0.5 % (0.0-0.4); Lymphocytes Absolute Auto 1.6 X10*3/uL (1.2-4.9); Lymphocytes Percent Auto 25.4 % (20-40); Mean Corpuscular HGB Conc 32.1 g/dl (31.0-36.0); Mean Corpuscular Hemoglobin 29.1 pg (27.0-33.0); Mean Corpuscular Volume 90.8 fL (80.0-98.0); Mean Platelet Volume 10.6 fL (9.4-12.4); Monocytes Absolute Auto 0.8 X10*3/uL (0.1-1.2); Monocytes Percent Auto 12.6 % (2-11); Neutrophils Absolute Auto 3.7 x10*3/uL (2.0-8.3); Neutrophils Percent Auto 58.2 % (45-73); Platelet Count 194 X10*3/uL (160-400); Red Blood Count 5.19 X10*6/uL (4.60-5.80); Red Cell Distribution Width 12.3 % (11.0-16.0); White Blood Count 6.3 X10*3/uL (4.8-10.8)
[2022-10-26 12:27] LABS: Estimated Average Glucose 108 mg/dL; Hemoglobin A1C 138.2789 umol/L; Hemoglobin A1c % 5.4 %
[2022-10-26 12:30] LABS: Appearance Urine Clear; Color Urine Yellow; Glucose Urine UA Negative (Negative); Leukocyte Esterase Urine Negative (Negative); Nitrite Urine Negative (Negative); PH 5.5 (5.0-9.0); Specific Gravity - Urine 1.015 (1.005-1.025); Urine Blood Negative (Negative); Urine Ketones Negative (Negative); Urine Protein Negative (Neg-Trace)
[2022-10-26 12:38] LABS: Bacteria Urine None Seen (None Seen); Hyaline Casts Urine 0-2 /LPF (0-2); RBC Urine 0-2 /HPF (0-2); Squamous Epithelial Cell Urine 0-2 /HPF (0-2); WBC Urine 0-5 /HPF (0-5)
[2022-10-26 13:12] LABS: Alanine Aminotransferase 46 U/L (0-40); Albumin Level 3.6 g/dL (3.5-5.0); Alkaline Phosphatase 71 U/L (39-117); Anion Gap 8 (12-20); Aspartate Amino Transferase 32 U/L (5-37); Bilirubin Direct 0.1 mg/dL (0.0-0.5); Bilirubin Total 0.3 mg/dL (0.0-1.0); Blood Urea Nitrogen 25 mg/dL (9-16); Calcium 9.2 mg/dL (8.4-10.2); Carbon Dioxide 28 mmol/L (22-29); Chloride 105 mmol/L (96-108); Cholesterol 126 mg/dL; Estimated Glomerular Filt Rate > 60; Glucose Fasting 89 mg/dL (60-99); HDL Cholesterol 27 mg/dL; LDL Cholesterol Calculated 68 mg/dl; Potassium 4.4 mmol/L (3.3-5.1); Sodium 137 mmol/L (135-145); Total Protein 6.7 g/dL (6.5-8.0); Triglycerides 159 mg/dL
[2022-10-26 13:16] LABS: PSA,Total (Free>4and<10) 2.11 ng/mL (0.00-4.00)
[2022-10-26 13:27] LABS: Vitamin D 25-OH Total 55.4 ng/mL (>30)
[2022-10-26 13:40] LABS: Creatinine Urine 47.43 mg/dL; Microalbumin Urine < 5.0 mg/L
== END 2022-10-26 11:52 | disposition home or self-care (01) ==
LOC: HO.LNP 11:51
PROVIDERS: Visit Provider Internal Medicine
DX: Z12.5 Encounter for screening for malignant neoplasm of prostate (principal); R73.03 Prediabetes; E78.00 Pure hypercholesterolemia, unspecified; E55.9 Vitamin D deficiency, unspecified
CPT/HCPCS: 80053; 80061; 80076; 81001; 82043; 82248; 82306; 83036; 84153; 85025

== ENCOUNTER 2022-11-25 17:27 | Outpatient (REF) | payer MEDICARE, OTHER, SELFPAY ==
[2022-11-25 17:54] LABS: Blood Urea Nitrogen 16 mg/dL (9-16); Estimated Glomerular Filt Rate > 60
== END 2022-11-25 17:28 | disposition home or self-care (01) ==
LOC: HO.LNP 17:27
PROVIDERS: Visit Provider Internal Medicine
DX: R79.9 Abnormal finding of blood chemistry, unspecified (principal)
CPT/HCPCS: 82565; 84520

== ENCOUNTER 2022-11-30 12:39 | Outpatient (AMB) | payer MEDICARE, OTHER, SELFPAY ==
--- NOTE | 2022-11-30 13:00 | A.OFFVIS_ITS ---
Intake Intake Visit Reasons: 3m/cysto Intake Note: Patient is present for Cystoscopy Urology Med: None Antibiotic Allergy: None Blood Thinner: Warfarin Pharmacy: [facility] Cystoscope used during Procedure LOT#: [id number] EXP: 08/13/2024 Allergies ibuprofen Adverse Reaction (Intermediate, Verified 11/30/22 13:00) ringing in ears cyclobenzaprine Adverse Reaction (Verified 11/30/22 13:00) right hand tremors quetiapine [From Seroquel] Adverse Reaction (Verified 11/30/22 13:00) right hand tremors Flonase Allergy (Unknown, Uncoded 11/30/22 13:00) heart palpations HPI HPI Comments History of Present Illness Details Javy is a pleasant male. He is a patient of Dr. Stringer. He is here for the following urologic condition. - bladder cancer Check cystoscopy Small lesion Tolerable urinary urgency. Result of immunotherapy to bladder. Bladder cancer low-grade recurrent intermediate risk 2019, 08/[address] Stafford Workplace exposure - [employer] [place] for 15 months Intervention - TURBT August 2018 Ta low-grade, June 2019 Ta low-grade, Mar 2020 Ta low-grade - August 2020 TURBT low grade recurrent - May 2022 TURBT Mildly atypical urothelial proliferation with inflammation - fulgeration Adjuvant therapy - gemcitabine induction September 2019, repeat induction September 2020, boost Mar 2021, 09/29 Boost, 12/31 Boost [facility] consultation January 2020 Cystoscopy - 07/30 recurrent low-grade lesions - 12/30 NAD, 03/31 NAD, 09/30 NAD, 04/01 question of small lesions, Cytology - 09/30 NAD, 04/01 NAD Therapeutic plan - 3 month follow-up cystoscopy [facility] Medical History Bladder mass BPH (benign prostatic hyperplasia) Cervical pain (neck) Chronic neck pain with history of cervical spinal surgery Generalized anxiety disorder History of back pain History of depression History of fall History of suicidal ideation Left leg DVT Other obstructive and reflux uropathy Recurrent major depression-severe Transitional cell carcinoma Surgical History History of cystoscopy History of transurethral destruction of bladder lesion Hx of cervical spine surgery Hx of tonsillectomy Social History Household Members: None Housing: Apartment Do you presently have visiting nurse or other home services: No Alcohol intake: never Patient Tobacco Use Status: Former Tobacco user Quit Date: 47 years service: Yes Sexual orientation: Straight/Heterosexual Review of Systems Const Denies chills and Denies fever(s) Card Reports no additional complaints and Denies syncope Resp Denies cough GI Denies abdominal pain and Denies heartburn Reports as per HPI and Denies change in libido Neuro Denies syncope Psych Denies change in libido Endo Denies change in libido Physical Exam Const General: cooperative, healthy appearing, comfortable and no acute distress Orientation/consciousness: patient oriented x3 HEENT Face and sinus: Yes normal facial exam Mouth: moist mucous membranes Neck Neck: Yes normal visual inspection, Yes full ROM and Yes trachea midline Chest Chest palpation & inspection: normal inspection of the chest Resp Effort & Inspection: normal respiratory effort, able to speak in complete sentences and no respiratory distress GI Inspection: Yes normal to inspection Back/Spine/Pelvis Cervical Spine: normal cervical lordosis Thoracic/Lumbar Spine: thoracic and lumbar spine normal to inspection Skin General skin exam: no rashes or lesions noted Neuro General: patient oriented x3, gait normal, tone normal and moves all extremities Extrem General: Yes normal to inspection and Yes capillary refill normal Office Procedures Cystoscopy Consent Discussed risk and benefit or proposed procedure with the patient. Information consent for procedure given to the patient. Discussed technical aspects, risks, benefits and alternatives in full. Addressed all of the patient's questions and concerns regarding the procedure. The patient demonstrated knowledge and understanding. They wish to proceed with this procedure. Preparation The patient was prepped in the usual manner. A reliability technologist was present and in the room. Genitalia was prepped with betadine solution in a sterile manner. Lidocaine Jelly 2% was placed into the urethra and 16Fr flexible Olympus cystoscope was inserted into the meatus after adequate lubrication. Procedure Meatus circumcised Urethra anterior posterior urethra normal Prostatic Urethra TURP defect Bladder examination with retroflexion of cystoscope Bladder Orifices normal shape and position Bladder Capacity medium Trabeculations grade 2 Cellule Formation - Diverticulum Formation - Mucosal Erythema - Bladder Tumor scarring throughout bladder, small lesion posterior right wall 30996-[id number] DISPOSABLE SCOPE URO-G FLEXIBLE SCOPE Procedure code (CPT) selection complete Office Meds lidocaine HCl Performing Provider: Corey Buckley MD Administered by: Myra Landaverde RN on 11/30/22 13:15 Dose Route Admin Location Lot Number Expiration Date [facility] Director Advanced 10 mL intra-urethral nitrofurantoin monohyd/m-cryst 100 mg Performing Provider: Corey Buckley MD Administered by: Myra Landaverde RN on 11/30/22 13:15 Dose Route Admin Location Lot Number Expiration Date [facility] Director Advanced 100 mg PO naproxen Performing Provider: Corey Buckley MD Administered by: Myra Landaverde RN on 11/30/22 13:15 Dose Route Admin Location Lot Number Expiration Date [place] Director Advanced 500 mg PO Results AMB Urinalysis, Automated UA Leukoctes 0 Lilia/uL Last Edit by Olivia Eaton [facility] on 11/30/22 13:18 UA Nitrite Negative Last Edit by Olivia Eaton A on 11/30/22 13:18 UA Urobilinogen 0.2 mg/dL Last Edit by Olivia Eaton [facility] on 11/30/22 13:1 8 UA Protein 0 mg/dL Last Edit by Olivia Eaton A on 11/30/22 13:18 UA pH 5.5 Last Edit by Olivia Eaton [facility] on 11/30/22 13:18 UA Blood 0 Jos/uL Last Edit by Olivia Eaton A on 11/30/22 13:18 UA Specific [place] 1.020 Last Edit by Olivia Eaton [facility] on 11/30/22 13: 18 UA Ketone Negative Last Edit by Olivia Eaton A on 11/30/22 13:18 UA Bilirubin 0 mg/dL Last Edit by Olivia Eaton A on 11/30/22 13:18 UA Glucose 0 mg/dL Last Edit by Olivia Eaton [facility] on 11/30/22 13:18 Results Reviewed Results Reviewed: Laboratory Last Values Urine pH (Auto) 5.5 11/30/22 13:08 Specific [place] (Auto) 1.020 11/30/22 13:08 Urine Protein (Auto) 0 mg/dL 11/30/22 13:08 Glucose (UA)(Auto) 0 mg/dL 11/30/22 13:08 Urine Ketones (Auto) Negative 11/30/22 13:08 Urine Blood (Auto) 0 Jos/uL 11/30/22 13:08 Urine Nitrite (Auto) Negative 11/30/22 13:08 Urine Bilirubin (Auto) 0 mg/dL 11/30/22 13:08 Urine Urobilinogen (Auto) 0.2 mg/dL 11/30/22 13:08 Leukocyte Esterase (Auto) 0 Lilia/uL 11/30/22 13:08 Assessment & Plan Assessment & Plan (1) Bladder cancer: Comment: recurrent low-grade bladder cancer multiple prior TURBT - gemcitabine treatment cause Code(s): C67.9 - Malignant neoplasm of bladder, unspecified Plan Three month follow-up cysto Orders: Orders Urine Cytology Today C67.9 - Malignant neoplasm of bladder, unspecified AMB Cystoscopy Today C67.9 - Malignant neoplasm of bladder, unspecified AMB Urinalysis Automated Today Z13.9 - Encounter for screening, unspecified Patient Instructions: Imaging studies, laboratory and physical exam results were discussed and reviewed in detail. No major barriers to patient understanding were identified. An opportunity to ask questions regarding the treatment plan was provided. All questions were answered. The patient expressed understanding and agreement with the above treatment plan. The patient is aware they should contact our office by phone for worsening of their current condition or the appearance of new urologic symptoms. Compliance is encouraged with any medications and followup testing that is ordered. It is a privilege to participate in the urologic care of your patient. If you have any questions or concerns regarding treatment for the above conditions, or other urologic issues, please do not hesitate to contact me. The office telephone contact is [phone]. This note is constructed using voice recognition software. While every effort has been made to ensure accuracy center hole reamer errors may have been included. Yours sincerely, Dr Corey Buckley MD, [facility] - Urology Providers of Expert, Compassionate Care for the Genitourinary System Coding Level of Care Code Tele Est Pt Level 3 (42742) Diagnoses Bladder cancer C67.9 CPT Codes Cystoscopy - CPT: 01209-Aiottlucgy ([id number]) Cystoscopy - CPT: DISPOSABLE SCOPE URO-G FLEXIBLE SCOPE ([id number])
== END 2022-11-30 13:44 | disposition home or self-care (01) ==
PROVIDERS: PCP Internal Medicine; Visit Provider Urology
DX: C67.9 Malignant neoplasm of bladder, unspecified (principal)
CPT/HCPCS: 52000

== ENCOUNTER → 2022-11-30 12:39 | Outpatient (BNVA) | payer MEDICARE, OTHER, SELFPAY | PROVIDERS: Visit Provider Urology | DX: C67.9 Malignant neoplasm of bladder, unspecified (principal) | CPT/HCPCS: 52000; 81003; 88112; C1747 ==

== ENCOUNTER 2022-11-30 17:01 | Outpatient (REF) | payer MEDICARE, OTHER, SELFPAY ==
[2022-11-30 17:06] LABS: Urine Cytology See Pathology rpt
== END 2022-11-30 17:02 | disposition home or self-care (01) ==
LOC: HO.LNP 17:01
PROVIDERS: Visit Provider Urology
DX: Z13.89 Encounter for screening for other disorder (principal)
CPT/HCPCS: 88112

== ENCOUNTER 2023-03-01 14:17 | Outpatient (AMB) | payer MEDICARE, OTHER, SELFPAY ==
[2023-03-01 14:38] VITALS: BMI 26.6
--- NOTE | 2023-03-01 14:38 | MHC.OFFVIS ---
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 for Treatment, Next time he had a DVT was in 12/21/2022 s/p walking a mile, he had tightness in shoulder and went to ED ( [facility] in [place]) and was found to have 3 small clots in Left LE. Of note, at 6 month [place] [facility] [place] of leg was scanned, nothing below knee was reviewed and its noted in the US report as well that noth was seen, therefore anticoagulation was discontinued. Accompanied by: Self / Same As Patient Allergies ibuprofen Adverse Reaction (Intermediate, Verified 03/01/23 14:48) ringing in ears cyclobenzaprine Adverse Reaction (Verified 03/01/23 14:48) right hand tremors quetiapine [From Seroquel] Adverse Reaction (Verified 03/01/23 14:48) right hand tremors Flonase Allergy (Unknown, Uncoded 03/01/23 14:48) heart palpations HPI CAM Stringer recurring DVT's HPI Details Very interesting 72-year-old gentleman presents for evaluation regarding his DVTs. He reports that this all began back in January of 2022 where he underwent cervical spine surgery. He had done well with that and while in rehab he reported that he had some left lower extremity swelling. He was treated in after that he reports that he was initially on Lovenox and transition to Coumadin. He had been on that for nearly 6 months and then had a four-month hold on that. He was concerned and reported some swelling of that left leg and had a repeat ultrasound performed at [facility] on July 22. It was an equivocal finding and unfortunately this was again a different institution that was doing the ultrasound but there was concern DVT in the left superficial femoral proximal going down into the popliteal. Was restarted on anticoagulants and then again had some concerns in December 21. At that time this was another ultrasound done at [facility] where I had a report that reported a partially occlusive thrombus of the femoral vein popliteal vein and gastroc vein of the left lower extremity. At the current time he is completely asymptomatic from this. Upon speaking with him he denies any family history of DVTs. He reports no other events are no other history personally of hypercoagulable issues. He now presents to us for vascular follow-up. [facility] Medical History Left leg DVT History of back pain Chronic neck pain with history of cervical spinal surgery History of fall History of suicidal ideation History of depression Cervical pain (neck) Generalized anxiety disorder Recurrent major depression-severe Transitional cell carcinoma Other obstructive and reflux uropathy BPH (benign prostatic hyperplasia) Bladder mass Surgical History History of transurethral destruction of bladder lesion Hx of tonsillectomy Hx of cervical spine surgery History of cystoscopy Household Members: None Housing: Apartment Do you presently have visiting nurse or other home services: No Alcohol intake: never Patient Tobacco Use Status: Former Tobacco user Quit Date: 47 years service: Yes Sexual orientation: Straight/Heterosexual Review of Systems Const All systems reviewed & are unremarkable except as noted in HPI and below Reports no additional complaints ENT Reports Normal hearing present Card Denies chest pain, Denies chest pain at rest, Denies chest pain with activity and Denies pedal edema Resp Denies cough GI Denies abdominal pain Musc Denies abnormal gait, Denies muscle cramps and Denies radiating pain into limb Skin/Breast Denies skin ulcer and Denies wounds Neuro Reports Normal hearing present and Denies abnormal gait Psych Reports no additional complaints Physical Exam Vital Signs: BMI result Body Mass Index 26.6 Const General: cooperative, healthy appearing and comfortable Orientation/consciousness: oriented to person, oriented to place and oriented to time HEENT Head: Yes normal to inspection Neck Neck: Yes normal visual inspection Carotids: no bruits Chest Chest palpation & inspection: normal inspection of the chest Resp Effort & Inspection: normal respiratory effort and able to speak in complete sentences Auscultation: clear to auscultation bilaterally, no crackles, no rales, no rhonchi and no wheezes Cardio Rate: regular rate Rhythm: regular rhythm Heart sounds: S1 normal heart sound present and S2 normal heart sound present Bruits: no carotid bruits Peripheral pulses: Peripheral pulses 2+ throughout GI Inspection: Yes normal to inspection Skin Wounds: no wounds Hair: normal Neuro General: oriented to person, oriented to place and oriented to time Cranial nerves: Yes CN's II-XII intact bilaterally and Yes Normal hearing present Cognition (Neuro): normal cognition Motor exam (neuro): 5/5 motor strength present throughout Extrem Other: venous exam: +1 edema General: No clubbing, No cyanosis and Yes edema Psych Appearance: grossly normal Mental Status: mental status grossly normal Speech and movement: Normal speech and movement present Assessment & Plan Assessment & Plan (1) DVT (deep venous thrombosis): Code(s): I82.409 - Acute embolism and thrombosis of unspecified deep veins of unspecified lower extremity Qualifiers: DVT location: lower extremity Affected thrombotic vein of extremity: femoral Chronicity: chronic Laterality: left Qualified Code(s): I82.512 - Chronic embolism and thrombosis of left femoral vein Plan: In short patient has had chronic left femoral DVT. He has undergone anticoagulation for nearly a year. The unfortunate are confusing part of this entire situation is that he has had several ultrasounds at different institutions which has not been clear about the chronicity of his thrombus. I did have an opportunity to review all images and it all appears to be chronic thrombus with even evidence of recannulization on the ultrasound from [facility] on 12/21/2022. There was an inciting event of his surgery back in January. I would not recommend any further anticoagulation. In addition I explained to the patient there is no additional benefit to repeating the ultrasound unless he be is clinically symptomatic from this. At the current time he has minimal edema and we did discuss conservative measures for post thrombotic issues including compression elevation and exercise. He does report that he is having surgery in the future for lower spine. I did caution him that he may benefit from a prophylactic a retrievable filter during the perioperative. But that would be something to bring up with the neurosurgeon at the time of assessment. Once again no further testing required no additional anticoagulation required he will follow up with us on an as-needed basis. Thank you for allowing us to assist in his care. If there are any questions or concerns please do not hesitate to contact us. Coding Level of Care Code Est Pt Level 4 (30451) Diagnoses Chronic deep vein thrombosis (DVT) of femoral vein of left lower extremity I82.512 DVT location: lower extremity Affected thrombotic vein of extremity: femoral Chronicity: chronic Laterality: left
== END 2023-03-01 15:12 | disposition home or self-care (01) ==
PROVIDERS: PCP Internal Medicine; Visit Provider Surgery Vascular Surgery
DX: I82.512 Chronic embolism and thrombosis of left femoral vein (principal)
CPT/HCPCS: 99214

== ENCOUNTER → 2023-03-01 14:17 | Outpatient (BNVA) | payer MEDICARE, OTHER, SELFPAY | PROVIDERS: PCP Internal Medicine; Visit Provider Surgery Vascular Surgery | DX: I82.512 Chronic embolism and thrombosis of left femoral vein (principal) | CPT/HCPCS: 99212 ==

== ENCOUNTER 2023-03-11 09:33 | Outpatient (AMB) | payer MEDICARE, OTHER, SELFPAY ==
--- NOTE | 2023-03-11 09:46 | A.OFFVIS_ITS ---
Intake Intake Visit Reasons: cysto Allergies ibuprofen Adverse Reaction (Intermediate, Verified 03/01/23 14:48) ringing in ears cyclobenzaprine Adverse Reaction (Verified 03/01/23 14:48) right hand tremors quetiapine [From Seroquel] Adverse Reaction (Verified 03/01/23 14:48) right hand tremors Flonase Allergy (Unknown, Uncoded 03/01/23 14:48) heart palpations HPI HPI Comments History of Present Illness Details Javy is a pleasant male. He is a patient of Dr. Stringer. He is here for the following urologic condition. - bladder cancer Check cystoscopy No evidence of lesions Continue to follow Tolerable urinary urgency. Mild erythema Bladder cancer low-grade recurrent intermediate risk 2019, 08/[address] 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 - fulgeration Adjuvant therapy - gemcitabine induction September 2019, repeat induction September 2020, boost Mar 2021, 09/29 Boost, 12/31 Boost [facility] consultation January 2020 Cystoscopy - 07/30 recurrent low-grade lesions - 12/30 NAD, 03/31 NAD, 09/30 NAD, 04/01 q uestion of small lesions, Cytology - 09/30 NAD, 04/01 NAD, 12/01 atypical Therapeutic plan - 6 month follow-up cystoscopy [facility] Medical History Left leg DVT History of back pain Chronic neck pain with history of cervical spinal surgery History of fall History of suicidal ideation History of depression Cervical pain (neck) Generalized anxiety disorder Recurrent major depression-severe Transitional cell carcinoma Other obstructive and reflux uropathy BPH (benign prostatic hyperplasia) Bladder mass Surgical History History of transurethral destruction of bladder lesion Hx of tonsillectomy Hx of cervical spine surgery History of cystoscopy Social History Household Members: None Housing: Apartment Do you presently have visiting nurse or other home services: No Alcohol intake: never Comment: patient asleep Patient Tobacco Use Status: Former Tobacco user Quit Date: 47 years service: Yes Sexual orientation: Straight/Heterosexual Review of Systems Const Denies chills and Denies fever(s) Card Reports no additional complaints and Denies syncope Resp Denies cough GI Denies abdominal pain and Denies heartburn Reports as per HPI and Denies change in libido Neuro Denies syncope Psych Denies change in libido Endo Denies change in libido Physical Exam Const General: cooperative, healthy appearing, comfortable and no acute distress Orientation/consciousness: patient oriented x3 HEENT Face and sinus: Yes normal facial exam Mouth: moist mucous membranes Neck Neck: Yes normal visual inspection, Yes full ROM and Yes trachea midline Chest Chest palpation & inspection: normal inspection of the chest Resp Effort & Inspection: normal respiratory effort, able to speak in complete sentences and no respiratory distress GI Inspection: Yes normal to inspection Back/Spine/Pelvis Cervical Spine: normal cervical lordosis Thoracic/Lumbar Spine: thoracic and lumbar spine normal to inspection Skin General skin exam: no rashes or lesions noted Neuro General: patient oriented x3, gait normal, tone normal and moves all extremities Extrem General: Yes normal to inspection and Yes capillary refill normal Office Procedures Cystoscopy Consent Discussed risk and benefit or proposed procedure with the patient. Information consent for procedure given to the patient. Discussed technical aspects, risks, benefits and alternatives in full. Addressed all of the patient's questions and concerns regarding the procedure. The patient demonstrated knowledge and understanding. They wish to proceed with this procedure. Preparation The patient was prepped in the usual manner. A administration vice president was present and in the room. Genitalia was prepped with betadine solution in a sterile manner. Lidocaine Jelly 2% was placed into the urethra and 16Fr flexible Olympus cystoscope was inserted into the meatus after adequate lubrication. Procedure Meatus normal Urethra anterior posterior urethra normal Prostatic Urethra mild hyperplasia Bladder examination with retroflexion of cystoscope Bladder Orifices normal shape and position Bladder Capacity medium Trabeculations grade 2/3 trabeculation Cellule Formation - Diverticulum Formation - Mucosal Erythema scattered erythema Bladder Tumor - 52739-[id number] DISPOSABLE SCOPE URO-G FLEXIBLE SCOPE Procedure code (CPT) selection complete Office Meds lidocaine HCl 2 % mucosal jelly in applicator Performing Provider: Corey Buckley MD Performing Location: [facility] Administered by: Myra Barajas RN on 03/11/23 09:46 Dose Route Admin Location Dispensed Lot Number Expiration Date [employer] 10 mL intra-urethral 10 mL nitrofurantoin monohydrate/macrocrystals 100 mg capsule Performing Provider: Corey Buckley MD Performing Location: [facility] Administered by: Myra Barajas RN on 03/11/23 09:46 Dose Route Admin Location Dispensed Lot Number Expiration Date [employer] 100 mg PO 1 cap naproxen 500 mg tablet Performing Provider: Corey Buckley MD Performing Location: [facility] Administered by: Myra Barajas RN on 03/11/23 09:46 Dose Route Admin Location Dispensed Lot Number Expiration Date [employer] 500 mg PO 1 tab Results AMB Urinalysis, Automated UA Leukoctes 0 Lilia/uL Last Edit by MICHAEL Nathan on 03/11/23 09:51 UA Nitrite Negative Last Edit by Olivia Eaton Mundo on 03/11/23 09:51 UA Urobilinogen 0.2 mg/dL Last Edit by Olivia Eaton [facility] on 03/11/23 09:5 1 UA Protein 0 mg/dL Last Edit by MICHAEL Nathan on 03/11/23 09:51 UA pH 6.0 Last Edit by Olivia Eaton [facility] on 03/11/23 09:51 UA Blood 0 Jos/uL Last Edit by Olivia Eaton Mundo on 03/11/23 09:51 UA Specific [place] 1.015 Last Edit by Olivia Eaton [facility] on 03/11/23 09: 51 UA Ketone Negative Last Edit by MICHAEL Nathan on 03/11/23 09:51 UA Bilirubin 0 mg/dL Last Edit by Olivia Eaton Mundo on 03/11/23 09:51 UA Glucose 0 mg/dL Last Edit by Olivia Eaton [facility] on 03/11/23 09:51 Results Reviewed Results Reviewed: Laboratory Last Values Urine pH (Auto) 6.0 03/11/23 09:48 Specific [place] (Auto) 1.015 03/11/23 09:48 Urine Protein (Auto) 0 mg/dL 03/11/23 09:48 Glucose (UA)(Auto) 0 mg/dL 03/11/23 09:48 Urine Ketones (Auto) Negative 03/11/23 09:48 Urine Blood (Auto) 0 Jos/uL 03/11/23 09:48 Urine Nitrite (Auto) Negative 03/11/23 09:48 Urine Bilirubin (Auto) 0 mg/dL 03/11/23 09:48 Urine Urobilinogen (Auto) 0.2 mg/dL 03/11/23 09:48 Leukocyte Esterase (Auto) 0 Lilia/uL 03/11/23 09:48 Assessment & Plan Assessment & Plan (1) Bladder cancer: Comment: recurrent low-grade bladder cancer multiple prior TURBT - gemcitabine treatment cause Code(s): C67.9 - Malignant neoplasm of bladder, unspecified Plan Six month follow-up cystoscopy Orders: Orders Urine Cytology Today C67.9 - Malignant neoplasm of bladder, unspecified AMB Urinalysis Automated Today C67.9 - Malignant neoplasm of bladder, unspecified, Z13.9 - Encounter for screening, unspecified AMB Cystoscopy Today C67.9 - Malignant neoplasm of bladder, unspecified Patient Instructions: Imaging studies, laboratory and physical exam results were discussed and reviewed in detail. No major barriers to patient understanding were identified. An opportunity to ask questions regarding the treatment plan was provided. All questions were answered. The patient expressed understanding and agreement with the above treatment plan. The patient is aware they should contact our office by phone for worsening of their current condition or the appearance of new urologic symptoms. Compliance is encouraged with any medications and followup testing that is ordered. It is a privilege to participate in the urologic care of your patient. If you have any questions or concerns regarding treatment for the above conditions, or other urologic issues, please do not hesitate to contact me. The office telephone contact is [phone]. This note is constructed using voice recognition software. While every effort has been made to ensure accuracy airplane rigger errors may have been included. Yours sincerely, Dr Corey Buckley MD, [facility] - Urology Providers of Expert, Compassionate Care for the Genitourinary System Coding Level of Care Code Procedure Only Diagnoses Bladder cancer C67.9 CPT Codes Cystoscopy - CPT: 60032-[id number] ([id number])
== END 2023-03-11 10:21 | disposition home or self-care (01) ==
PROVIDERS: PCP Internal Medicine; Visit Provider Urology
DX: C67.9 Malignant neoplasm of bladder, unspecified (principal); Z13.9 Encounter for screening, unspecified
CPT/HCPCS: 52000

== ENCOUNTER 2023-03-11 09:33 | Outpatient (REF) | payer MEDICARE, OTHER, SELFPAY ==
[2023-03-11 16:19] LABS: Urine Cytology See Pathology rpt
== END 2023-03-11 09:34 | disposition home or self-care (01) ==
LOC: HO.LAB 09:33
PROVIDERS: PCP Internal Medicine; Visit Provider Urology
DX: C67.9 Malignant neoplasm of bladder, unspecified (principal)
CPT/HCPCS: 52000; 81003; 88112

== ENCOUNTER 2023-05-02 11:56 | Outpatient (REF) | payer MEDICARE, OTHER, SELFPAY ==
[2023-05-02 12:34] LABS: Estimated Average Glucose 105 mg/dL; Hemoglobin A1c % 5.3 % (<6.0)
[2023-05-02 12:49] LABS: Alanine Aminotransferase 50 U/L (0-40); Albumin Level 3.7 g/dL (3.5-5.0); Alkaline Phosphatase 76 U/L (39-117); Aspartate Amino Transferase 30 U/L (5-37); Bilirubin Direct 0.1 mg/dL (0.0-0.5); Bilirubin Total 0.3 mg/dL (0.0-1.0); Cholesterol 121 mg/dL (<200); Glucose Fasting 80 mg/dL (60-99); HDL Cholesterol 33 mg/dL (>40); LDL Cholesterol Calculated 60 mg/dL (<100); Total Protein 6.7 g/dL (6.5-8.0); Triglycerides 140 mg/dL (<150)
[2023-05-02 14:29] LABS: Reflex LDLD? No
== END 2023-05-02 11:57 | disposition home or self-care (01) ==
LOC: HO.LNP 11:56
PROVIDERS: Visit Provider Internal Medicine
DX: R73.09 Other abnormal glucose (principal); E78.00 Pure hypercholesterolemia, unspecified
CPT/HCPCS: 80061; 80076; 82947; 83036

== ENCOUNTER 2023-09-14 12:44 | Outpatient (AMB) | payer MEDICARE, OTHER, SELFPAY ==
--- NOTE | 2023-09-14 12:52 | A.OFFVIS_ITS ---
Intake Visit Reasons: 6m/cysto Intake Note: Patient presents today for a CYSTOSCOPY Procedure: Meds: None Allergies to Antibiotic: No Known Allergies Blood Thinner: None Urinalysis test clear for Cysto? Disposable Uro-G HD Cystoscope Cannula: Lot: [id number] Exp: 04/12/2026 [employer] Team Member Required: No Accompanied by: Self / Same As Patient Allergies ibuprofen Adverse Reaction (Intermediate, Verified 09/14/23 12:52) ringing in ears cyclobenzaprine Adverse Reaction (Verified 09/14/23 12:52) right hand tremors quetiapine [From Seroquel] Adverse Reaction (Verified 09/14/23 12:52) right hand tremors Flonase Allergy (Unknown, Uncoded 09/14/23 12:52) heart palpations HPI Comments Details: Javy is a pleasant male. He is a patient of Dr. Stringer. He is here for the following urologic condition. - bladder cancer Small less than 1 cm lesion posterior low-grade Recommend biopsy fulguration with mitomycin-C and cetirizine Tolerable urinary urgency. Mild erythema Bladder cancer low-grade recurrent intermediate risk 2019, 08/[address] Stafford Workplace exposure - [employer] [place] for 15 months - 100% disability Intervention - TURBT August 2018 Ta low-grade, June 2019 Ta low-grade, Mar 2020 Ta low-grade - August 2020 TURBT low grade recurrent - May 2022 TURBT Mildly atypical urothelial proliferation with inflammation - fulgeration Adjuvant therapy - gemcitabine induction September 2019, repeat induction September 2020, boost Mar 2021, 09/29 Boost, 12/31 Boost [facility] consultation January 2020 Cystoscopy - 07/30 recurrent low-grade lesions - 12/30 NAD, 03/31 NAD, 09/30 NAD, 04/01 question of small lesions, Cytology - 09/30 NAD, 04/01 NAD, 12/01 atypical Therapeutic plan - 6 month follow-up cystoscopy [facility] Medical History Left leg DVT History of back pain Chronic neck pain with history of cervical spinal surgery History of fall History of suicidal ideation History of depression Cervical pain (neck) Generalized anxiety disorder Recurrent major depression-severe Transitional cell carcinoma Other obstructive and reflux uropathy BPH (benign prostatic hyperplasia) Bladder mass Surgical History History of lumbar laminectomy History of transurethral destruction of bladder lesion Hx of tonsillectomy Hx of cervical spine surgery History of cystoscopy Social History Household Members: None Housing: Apartment Do you presently have visiting nurse or other home services: No Alcohol intake: never Comment: patient asleep Patient Tobacco Use Status: Former Tobacco user service: Yes Sexual orientation: Straight/Heterosexual Review of Systems Const Denies chills and Denies fever(s) Card Reports no additional complaints and Denies syncope Resp Denies cough GI Denies abdominal pain and Denies heartburn Reports as per HPI and Denies change in libido Neuro Denies syncope Psych Denies change in libido Endo Denies change in libido Physical Exam Const General: cooperative, healthy appearing, comfortable and no acute distress Orientation/consciousness: patient oriented x3 HEENT Face and sinus: Yes normal facial exam Mouth: moist mucous membranes Neck Neck: Yes normal visual inspection, Yes full ROM and Yes trachea midline Chest Chest palpation & inspection: normal inspection of the chest Resp Effort & Inspection: normal respiratory effort, able to speak in complete sentences and no respiratory distress GI Inspection: Yes normal to inspection Back/Spine/Pelvis Cervical Spine: normal cervical lordosis Thoracic/Lumbar Spine: thoracic and lumbar spine normal to inspection Skin General skin exam: no rashes or lesions noted Neuro General: patient oriented x3, gait normal, tone normal and moves all extremities Extrem General: Yes normal to inspection and Yes capillary refill normal Office Procedures Cystoscopy Consent Discussed risk and benefit or proposed procedure with the patient. Information consent for procedure given to the patient. Discussed technical aspects, risks, benefits and alternatives in full. Addressed all of the patient's questions and concerns regarding the procedure. The patient demonstrated knowledge and understanding. They wish to proceed with this procedure. Preparation The patient was prepped in the usual manner. A client services director was present and in the room. Genitalia was prepped with betadine solution in a sterile manner. Lidocaine Jelly 2% was placed into the urethra and 16Fr flexible Olympus cystoscope was inserted into the meatus after adequate lubrication. Procedure Cystoscopy performed using a disposable Urovue digital 16 Croatian cystoscope. Meatus circumcised Urethra anterior and posterior urethra normal Prostatic Urethra unremarkable Bladder examination with retroflexion of cystoscope Bladder Orifices normal shape and position Bladder Capacity medium Trabeculations grade 1 Cellule Formation yes Diverticulum Formation - Mucosal Erythema - Bladder Tumor 2 cm superficial small low-grade anterior [id number] DISPOSABLE SCOPE URO-G FLEXIBLE SCOPE Procedure code (CPT) selection complete Office Meds lidocaine HCl 2 % mucosal jelly in applicator Performing Provider: Corey Buckley MD Performing Location: [facility] Administered by: Miky Alvarado LPN on 09/14/23 13:26 Dose Route Admin Location Dispensed Lot Number Expiration Date [facility] [employer] 10 mL intra-urethral 10 mL nitrofurantoin monohydrate/macrocrystals 100 mg capsule Performing Provider: Corey Buckley MD Performing Location: [facility] Administered by: Miky Alvarado LPN on 09/14/23 13:26 Dose Route Admin Location Dispensed Lot Number Expiration Date [place] [employer] 100 mg PO 1 cap naproxen 500 mg tablet Performing Provider: Corey Buckley MD Performing Location: [facility] Administered by: Miky Alvarado LPN on 09/14/23 13:26 Dose Route Admin Location Dispensed Lot Number Expiration Date [place] [employer] 500 mg PO 1 tab Results AMB Urinalysis, Automated UA Leukoctes 0 Lilia/uL Last Edit by MICHAEL Godinez on 09/14/23 13:06 UA Nitrite Negative Last Edit by MICHAEL Godinez on 09/14/23 13:06 UA Urobilinogen 0.2 mg/dL Last Edit by MICHAEL Godinez on 09/14/23 13:0 6 UA Protein 5.5 mg/dL Last Edit by MICHAEL Godinez on 09/14/23 13:06 UA pH 5.5 Last Edit by MICHAEL Godinez on 09/14/23 13:06 UA Blood 0 Jos/uL Last Edit by MICHAEL Godinez on 09/14/23 13:06 UA Specific [place] 0 Last Edit by MICHAEL Godinez on 09/14/23 13:06 UA Ketone Negative Last Edit by MICHAEL Godinez on 09/14/23 13:06 UA Bilirubin 0 mg/dL Last Edit by MIHCAEL Godinez on 09/14/23 13:06 UA Glucose 0 mg/dL Last Edit by MICHAEL Godinez on 09/14/23 13:06 Results Reviewed Results Reviewed: Laboratory Last Values Urine pH (Auto) 5.5 09/14/23 13:04 Specific [place] (Auto) 0 09/14/23 13:04 Urine Protein (Auto) 5.5 mg/dL 09/14/23 13:04 Glucose (UA)(Auto) 0 mg/dL 09/14/23 13:04 Urine Ketones (Auto) Negative 09/14/23 13:04 Urine Blood (Auto) 0 Jos/uL 09/14/23 13:04 Urine Nitrite (Auto) Negative 09/14/23 13:04 Urine Bilirubin (Auto) 0 mg/dL 09/14/23 13:04 Urine Urobilinogen (Auto) 0.2 mg/dL 09/14/23 13:04 Leukocyte Esterase (Auto) 0 Lilia/uL 09/14/23 13:04 Assessment & Plan Assessment & Plan (1) Bladder cancer: Comment: recurrent low-grade bladder cancer multiple prior TURBT - gemcitabine treatment cause Code(s): C67.9 - Malignant neoplasm of bladder, unspecified Category: Medical Plan Recommend cystoscopy with fulguration biopsy and mitomycin-C with cetirizine Risks, benefits and alternatives to therapy were discussed. These include but are not limited to infection, bleeding, damage to local organs and tissues, need for further interventions. Anesthetic risks regarding cardiac arrhythmia, blood clots, and potential mortality were discussed. The patient understands the typical recovery time and the outpatient nature of the procedure. After consideration of these risks the patient gives full informed consent and they wish to move ahead with the procedure. Orders: Orders AMB Urinalysis Automated 09/14/23 Z13.9 - Encounter for screening, unspecified AMB Cystoscopy 09/14/23 C67.9 - Malignant neoplasm of bladder, unspecified Patient Instructions: Imaging studies, laboratory and physical exam results were discussed and reviewed in detail. No major barriers to patient understanding were identified. An opportunity to ask questions regarding the treatment plan was provided. All questions were answered. The patient expressed understanding and agreement with the above treatment plan. The patient is aware they should contact our office by phone for worsening of their current condition or the appearance of new urologic symptoms. Compliance is encouraged with any medications and followup testing that is ordered. It is a privilege to participate in the urologic care of your patient. If you have any questions or concerns regarding treatment for the above conditions, or other urologic issues, please do not hesitate to contact me. The office telephone contact is [phone]. This note is constructed using voice recognition software. While every effort has been made to ensure accuracy ribbon hanking machine operator errors may have been included. Yours sincerely, Dr Corey Buckley MD, [facility] - Urology Providers of Expert, Compassionate Care for the Genitourinary System Coding Level of Care Code Est Pt Level 3 (38259) Diagnoses Bladder cancer C67.9 CPT Codes Cystoscopy - CPT: 55980-[id number] ([id number])
== END 2023-09-14 13:49 | disposition home or self-care (01) ==
PROVIDERS: PCP Internal Medicine; Visit Provider Urology
DX: C67.9 Malignant neoplasm of bladder, unspecified (principal)
CPT/HCPCS: 52000; 99213

== ENCOUNTER → 2023-09-14 12:44 | Outpatient (BNVA) | payer MEDICARE, OTHER, SELFPAY | PROVIDERS: PCP Internal Medicine; Visit Provider Urology | DX: C67.9 Malignant neoplasm of bladder, unspecified (principal); Z91.85 Personal history of military service; Z57.4 Occupational exposure to toxic agents in agriculture | CPT/HCPCS: 52000; 81003; 99212 ==

== ENCOUNTER 2023-09-21 13:45 | Outpatient (REF) | payer MEDICARE, OTHER, SELFPAY ==
[2023-09-21 14:00] LABS: MANUAL DIFF FLAG NO
[2023-09-21 14:51] LABS: Basophils Absolute Auto 0.1 X10*3/uL (0.0-0.2); Basophils Percent Auto 0.7 % (0-2); Eosinophils Absolute Auto 0.1 X10*3/uL (0.0-0.4); Eosinophils Percent Auto 1.5 % (0-4); Hematocrit 44.6 % (42.0-52.0); Hemoglobin 14.7 g/dl (14.0-18.0); Imm Gran Abs Auto 0.03 X10*3/uL (0.00-0.03); Imm Gran Pct Auto 0.4 % (0.0-0.4); Lymphocytes Absolute Auto 1.6 X10*3/uL (1.2-4.9); Lymphocytes Percent Auto 21.8 % (20-40); Mean Corpuscular Hemoglobin 29.2 pg (27.0-33.0); Mean Corpuscular Volume 88.7 fL (80.0-98.0); Mean Platelet Volume 10.1 fL (9.4-12.4); Monocytes Absolute Auto 0.6 X10*3/uL (0.1-1.2); Monocytes Percent Auto 8.2 % (2-11); Neutrophils Percent Auto 67.4 % (45-73); Platelet Count 217 X10*3/uL (160-400); Red Blood Count 5.03 X10*6/uL (4.60-5.80); Red Cell Distribution Width 12.5 % (11.0-16.0); White Blood Count 7.4 X10*3/uL (4.8-10.8)
== END 2023-09-21 13:46 | disposition home or self-care (01) ==
LOC: HO.LAB 13:45
PROVIDERS: PCP Internal Medicine; Visit Provider Internal Medicine
DX: K62.5 Hemorrhage of anus and rectum (principal)
CPT/HCPCS: 36415; 85025

== ENCOUNTER 2023-10-10 06:51 | Day surgery (SDC) | payer MEDICARE, OTHER, SELFPAY ==
[2023-10-07 06:46] VITALS: BMI 26.6
--- NOTE | 2023-10-07 12:34 | HO.ANESPROP2 ---
Documented by User: Lola Camargo NP 10/07/23 12:40 HPI - Anesthesia Eval Consult details Narrative: 73yo M for Cystoscopy Bladder Fulguration Eliquis for hx DVT PMFSH Active Problems Active Problems: All Active Problems DVT (deep venous thrombosis) (Acute) Major depress dis, severe (Acute) Groin pain (Acute) Bladder cancer (Acute) MDD (major depressive disorder), recurrent episode, moderate (Acute) Cellulitis (Acute) Cervical pain (neck) (Acute) Generalized anxiety disorder (Acute) Recurrent major depression-severe (Acute) Transitional cell carcinoma (Acute) Past Medical History Medical History Left leg DVT History of back pain Chronic neck pain with history of cervical spinal surgery History of fall History of suicidal ideation History of depression Cervical pain (neck) Generalized anxiety disorder Recurrent major depression-severe Transitional cell carcinoma Other obstructive and reflux uropathy BPH (benign prostatic hyperplasia) Bladder mass Family History Family history of problems with anesthesia: No Surgical History Surgical History History of lumbar laminectomy History of transurethral destruction of bladder lesion Hx of tonsillectomy Hx of cervical spine surgery History of cystoscopy History of Problems with Anesthesia: No Social History Social History Household Members: None Housing: Apartment Do you presently have visiting nurse or other home services: No Alcohol intake: never Comment: patient asleep Patient Tobacco Use Status: Former Tobacco user Use of substances other than those prescribed or required for medical reasons: No Are you DNR?: No Advance Directives: No Advance Directives Information Provided: Yes service: Yes Sexual orientation: Straight/Heterosexual Meds Allergies Allergy/AdvReac Type Severity Reaction Status Date / Time ibuprofen AdvReac Intermediate ringing in Verified 10/10/23 07:53 ears cyclobenzaprine AdvReac right hand Verified 10/10/23 07:53 tremors quetiapine [From Seroquel] AdvReac right hand Verified 10/10/23 07:53 tremors Flonase Allergy Unknown heart Uncoded 10/10/23 07:53 palpations Home Medications ?Medication ?Instructions ?Recorded ?Confirmed ?Last Taken ?Type duloxetine 30 mg capsule,delayed 30 mg PO DAILY 04/29/21 10/10/23 Unknown History release lorazepam 0.5 mg tablet 0.5 mg PO BEDTIME PRN Anxiety 06/23/21 10/10/23 Unknown History lorazepam 1 mg tablet 1 mg PO DAILY PRN Anxiety 06/23/21 10/10/23 Unknown History atorvastatin 10 mg tablet (Lipitor) 40 mg PO DAILY 09/02/22 10/10/23 Unknown History mirtazapine 7.5 mg tablet 15 mg PO BEDTIME 09/02/22 10/10/23 Unknown History Exam Height,Weight and Vital Signs: Height 5 ft 9 in Weight 81.647 kg Pertinent Lab Results Pertinent Lab Results: Laboratory Tests 09/21/23 13:59 WBC 7.4 Hgb 14.7 Hct 44.6 Plt Count 217 Assessment and Plan Assessment Anesthesia Assessment: Chart Reviewed Final Anesthetic Review Family History of Problems with Anesthesia: No History of Problems with Anesthesia: No Documented by User: Carie Sierra MD 10/10/23 09:10 PMFSH Past Medical History Medical History Left leg DVT History of back pain Chronic neck pain with history of cervical spinal surgery History of fall History of suicidal ideation History of depression Cervical pain (neck) Generalized anxiety disorder Recurrent major depression-severe Transitional cell carcinoma Other obstructive and reflux uropathy BPH (benign prostatic hyperplasia) Bladder mass Surgical History Surgical History History of lumbar laminectomy History of transurethral destruction of bladder lesion Hx of tonsillectomy Hx of cervical spine surgery History of cystoscopy Social History Social History Household Members: None Housing: Apartment Do you presently have visiting nurse or other home services: No Alcohol intake: never Comment: patient asleep Patient Tobacco Use Status: Former Tobacco user Use of substances other than those prescribed or required for medical reasons: No Are you DNR?: No Advance Directives: No Advance Directives Information Provided: Yes service: Yes Sexual orientation: Straight/Heterosexual Meds Allergies Allergy/AdvReac Type Severity Reaction Status Date / Time ibuprofen AdvReac Intermediate ringing in Verified 10/10/23 07:53 ears cyclobenzaprine AdvReac right hand Verified 10/10/23 07:53 tremors quetiapine [From Seroquel] AdvReac right hand Verified 10/10/23 07:53 tremors Flonase Allergy Unknown heart Uncoded 10/10/23 07:53 palpations Home Medications ?Medication ?Instructions ?Recorded ?Confirmed ?Last Taken ?Type duloxetine 30 mg capsule,delayed 30 mg PO DAILY 04/29/21 10/10/23 Unknown History release lorazepam 0.5 mg tablet 0.5 mg PO BEDTIME PRN Anxiety 06/23/21 10/10/23 Unknown History lorazepam 1 mg tablet 1 mg PO DAILY PRN Anxiety 06/23/21 10/10/23 Unknown History atorvastatin 10 mg tablet (Lipitor) 40 mg PO DAILY 09/02/22 10/10/23 Unknown History mirtazapine 7.5 mg tablet 15 mg PO BEDTIME 09/02/22 10/10/23 Unknown History Exam Airway Mallampati Class: II TM Dist: >3cm Neck ROM: Full Heart: rrr Lungs: dvt Assessment and Plan Assessment Anesthesia Assessment: Anesthesia Plan Discussed Final Anesthetic Review ASA Class: III Final Preanesthetic Review: No Changes in Pt Med Stat, Meds/Allgs Chart Reviewed, Consent Obtained/Reviewed and Anes Risks/Benef Reviewed Patient Risk: Intermediate Procedure Risk: Low Anesthetic Plan Anesthetic Plan: GA Disposition: Standard PACU
[2023-10-10] VITALS (12 sets, daily range): BP systolic 124–153; BP diastolic 53–78; PULSE 58–73; RESP 16–20; TEMP 36.6–37.1; O2SAT 95–98; BMI 29.2
[2023-10-10] MEDS: Lactated Ringers 1,000 ML 100 ML IVCONT (08:19)
--- NOTE | 2023-10-10 10:02 | P.HPSUR_ITS ---
Pre-Procedural Eval Section A - 24 Hr Update-Section A only Date of Service: 10/10/23 The patient is an INPATIENT: No Changes since office visit: No Cold of Flu in the past 2 weeks, No New Medical Problems, No Changes in Medication and No Patient answered all questions The patient has been examined within 24 hours of the surgical procedure. The History & Physical has been completed within 30 days and I have reviewed it.: Yes Section B - Complete if H&P > 30 days Chief Complaint: Malignant neoplasm of bladder, unspecified Details of Present Illness: Recurrent superficial bladder cancer. Plan cystos copy, biopsy with fulguration and mitomycin-C with cytarabine Relevant Family History (Specify if Yes): No Relevant Social History: None Present Medications: see Short Stay Collaborative assessment Medical History: No relevant PMH History of Previous Operations: Relevant previous surgery/procedure and date(s) Allergies: Allergies Allergy/AdvReac Type Severity Reaction Status Date / Time ibuprofen AdvReac Intermediate ringing in Verified 10/10/23 07:53 ears cyclobenzaprine AdvReac right hand Verified 10/10/23 07:53 tremors quetiapine [From Seroquel] AdvReac right hand Verified 10/10/23 07:53 tremors Flonase Allergy Unknown heart Uncoded 10/10/23 07:53 palpations Review of Systems Sugical H&P ROS: Negative: Constitution, Cardiovascular, Respiratory, Neurological, Psychiatric, Hem-Onc, Allergic/Immunologic, Gastrointestinal, Genitourinary, Musculoskeletal, Integumentary, Endocrine and Eyes/Ears/Nose/Throat Exam Surgical H&P Exam: Normal: HEENT, Normal: Heart, Normal: Lungs, Normal: Extremities, Normal: Abdomen, Normal: Skin and Normal: Neurological Plan Diagnosis/Plan: Unchanged (As above) I have reviewed the history and physical and performed a pertinent physical examination on my patient. No changes have occurred unless specified. Time Spent With Patient Time: Total time managing care of this patient today ____ minutes.
--- NOTE | 2023-10-10 10:56 | W.PM.OPN ---
Operative Note Operative Note Date of Service: 10/10/23 Narrative: PreOperative Diagnosis: bladder cancer Post Operative Diagnosis: bladder cancer 2 locations - Tumor size 1 cm, location Bladder dome and posterior base Procedure: Bladder biopsy, fulguration and MMC with cytarabine Surgeon: Dr Corey Buckley Anesthesia: general Indications for procedure: Recurrent superficial bladder cancer 2 locations Procedure: After informed consent was verified the patient was brought to the operating room and placed in a supine position. Anesthesia was administered per protocol. The patient was placed in a modified dorsal lithotomy position and prepped and draped in a sterile fashion. Safety pause time-out was performed. Antibiotics were confirmed. 22 [place] continuous-flow cystoscope. Lesions were biopsied and removed. Fulguration was performed. Narrow band imaging was used to review the bladder and at risk areas were fulgurated. 20 mg of mitomycin-C with cytarabine in 40 mg normal saline in was instilled into the bladder. The flow from the catheter was left clamped. The inflow to the catheter was attached to a 3 L normal saline bag. The patient tolerated the procedure well. They were extubated in the operating room and transferred in stable condition to the recovery area. Mitomycin-C will remain in the bladder for 1 hour. At the completion of 1 hour the clamp will be removed. The mitomycin-C will be allowed to egress to the urine collection bag. The 3 L bag of normal saline will be run at maximum rate through the bladder in order to dilute any residual mitomycin-C. The [place] catheter will then be removed. Pathology: Biopsy Drains: Catheter
[2023-10-10] MEDS: fentaNYL citrate/PF 100 MCG/2 ML VIAL 25 MCG IVPUSH (11:55)
== END 2023-10-10 14:08 | disposition home or self-care (01) ==
PROVIDERS: PCP Internal Medicine; Visit Provider Urology
PROC: 0T5B8ZZ Destruction of Bladder, Via Natural or Artificial Opening Endoscopic (ICD-10-PCS; CPT 52234; principal; 2023-10-10 09:30)
DX: C67.8 Malignant neoplasm of overlapping sites of bladder (principal); M54.2 Cervicalgia; G89.29 Other chronic pain; M54.9 Dorsalgia, unspecified; N40.0 Benign prostatic hyperplasia without lower urinary tract symptoms; N13.8 Other obstructive and reflux uropathy; F33.2 Major depressive disorder, recurrent severe without psychotic features; F41.9 Anxiety disorder, unspecified; I82.402 Acute embolism and thrombosis of unspecified deep veins of left lower extremity; Z98.890 Other specified postprocedural states; Z79.899 Other long term (current) drug therapy; Z88.4 Allergy status to anesthetic agent; Z88.8 Allergy status to other drugs, medicaments and biological substances; Z91.81 History of falling; Z87.891 Personal history of nicotine dependence
CPT/HCPCS: 52234; 51720; 88305; J1956; J2704; J3010; J9100; J9280

== ENCOUNTER → 2023-10-10 06:51 | Outpatient (BNV) | payer MEDICARE, OTHER, SELFPAY | PROVIDERS: PCP Internal Medicine; Visit Provider Urology | DX: C67.8 Malignant neoplasm of overlapping sites of bladder (principal) | CPT/HCPCS: 52214 ==

== ENCOUNTER 2023-10-26 14:30 | Outpatient (AMB) | payer MEDICARE, OTHER, SELFPAY ==
--- NOTE | 2023-10-26 14:31 | MHC.OFFVIS ---
Intake Visit Reasons: Cysto, Fulguration- follow up Intake Note: Patient is Present for Telephone Follow Up Urology Med: None Antibiotic Allergy: None Blood Thinner:None Allergies ibuprofen Adverse Reaction (Intermediate, Verified 10/26/23 14:33) ringing in ears cyclobenzaprine Adverse Reaction (Verified 10/26/23 14:33) right hand tremors quetiapine [From Seroquel] Adverse Reaction (Verified 10/26/23 14:33) right hand tremors Flonase Allergy (Unknown, Uncoded 10/26/23 14:33) heart palpations HPI Comments Details: Javy is a pleasant male. He is a patient of Dr. Stringer. He is here for the following urologic condition. - bladder cancer Telemedicine Evaluation 15 min Consultation [employer] [place] Video attempted 1 cm lesion was low-grade recurrent superficial disease Showed complete 3 doses of mitomycin C and cytarabine Three-month follow-up cysto office Bladder cancer low-grade recurrent intermediate risk 2019, 08/[address] Stafford Workplace exposure - [employer] for 15 months - 100% disability Intervention - TURBT August 2018 Ta low-grade, June 2019 Ta low-grade, Mar 2020 Ta low-grade - August 2020 TURBT low grade recurrent - May 2022 TURBT Mildly atypical urothelial proliferation with inflammation - fulgeration Adjuvant therapy - gemcitabine induction September 2019, repeat induction September 2020, boost Mar 2021, 09/29 Boost, 12/31 Boost [facility] consultation January 2020 Cystoscopy - 07/30 recurrent low-grade lesions - 12/30 NAD, 03/31 NAD, 09/30 NAD, 04/01 question of small lesions, Cytology - 09/30 NAD, 04/01 NAD, 12/01 atypical Therapeutic plan - 6 month follow-up cystoscopy [facility] Medical History Left leg DVT History of back pain Chronic neck pain with history of cervical spinal surgery History of fall History of suicidal ideation History of depression Cervical pain (neck) Generalized anxiety disorder Recurrent major depression-severe Transitional cell carcinoma Other obstructive and reflux uropathy BPH (benign prostatic hyperplasia) Bladder mass Surgical History History of lumbar laminectomy History of transurethral destruction of bladder lesion Hx of tonsillectomy Hx of cervical spine surgery History of cystoscopy Social History Household Members: None Housing: Apartment Do you presently have visiting nurse or other home services: No Alcohol intake: never Comment: patient asleep Patient Tobacco Use Status: Former Tobacco user service: Yes Sexual orientation: Straight/Heterosexual Review of Systems Const All systems reviewed & are unremarkable except as noted in HPI and below Reports no additional complaints Resp Reports no additional complaints GI Reports no additional complaints Reports as per HPI Musc Reports no additional complaints Physical Exam Telemedicine evaluation Appropriate responses Regular breathing rate and rhythm HEENT Head: Yes normal to inspection Ears: hearing grossly normal bilaterally Eyes General: appearance normal, both eyes and all related structures Neck Neck: Yes normal visual inspection Chest Chest palpation & inspection: normal inspection of the chest Resp Effort & Inspection: normal respiratory effort and able to speak in complete sentences Telehealth Telehealth Location of provider rendering services: practice address Location of patient: address on file Patient Identification confirmed using: Name, : Yes Telehealth method: video Patient verbally consented to treatment: Yes Patient verbally consented to billing insurance company: Yes Patient informed of any privacy concerns related to visit: Yes Assessment & Plan Assessment & Plan (1) Bladder cancer: Comment: recurrent low-grade bladder cancer multiple prior TURBT - gemcitabine treatment cause Code(s): C67.9 - Malignant neoplasm of bladder, unspecified Category: Medical Plan Three-month follow-up office cysto Two week boost immunotherapy Patient Instructions: Imaging studies, laboratory and physical exam results were discussed and reviewed in detail. No major barriers to patient understanding were identified. An opportunity to ask questions regarding the treatment plan was provided. All questions were answered. The patient expressed understanding and agreement with the above treatment plan. The patient is aware they should contact our office by phone for worsening of their current condition or the appearance of new urologic symptoms. Compliance is encouraged with any medications and followup testing that is ordered. It is a privilege to participate in the urologic care of your patient. If you have any questions or concerns regarding treatment for the above conditions, or other urologic issues, please do not hesitate to contact me. The office telephone contact is [phone]. This note is constructed using voice recognition software. While every effort has been made to ensure accuracy digital advertising specialist errors may have been included. Yours sincerely, Dr Corey Buckley MD, [facility] - Urology Providers of Expert, Compassionate Care for the Genitourinary System Coding Level of Care Code Tele Est Pt Level 3 (93217) Diagnoses Bladder cancer C67.9
== END 2023-10-26 15:17 | disposition home or self-care (01) ==
LOC: HO.HUSH 14:30
PROVIDERS: PCP Internal Medicine; Visit Provider Urology
DX: C67.9 Malignant neoplasm of bladder, unspecified (principal)
CPT/HCPCS: 99213

== ENCOUNTER → 2023-10-26 14:30 | Outpatient (BNVA) | payer MEDICARE, OTHER, SELFPAY | PROVIDERS: PCP Internal Medicine; Visit Provider Urology ==

== ENCOUNTER 2023-11-01 10:35 | Outpatient (REF) | payer MEDICARE, OTHER, SELFPAY ==
[2023-11-01 10:39] LABS: MANUAL DIFF FLAG NO
[2023-11-01 10:47] LABS: Basophils Percent Auto 0.5 % (0-2); Eosinophils Absolute Auto 0.2 X10*3/uL (0.0-0.4); Eosinophils Percent Auto 2.8 % (0-4); Hematocrit 46.2 % (42.0-52.0); Hemoglobin 15.2 g/dl (14.0-18.0); Imm Gran Abs Auto 0.01 X10*3/uL (0.00-0.03); Imm Gran Pct Auto 0.2 % (0.0-0.4); Lymphocytes Absolute Auto 1.6 X10*3/uL (1.2-4.9); Lymphocytes Percent Auto 26.1 % (20-40); Mean Corpuscular HGB Conc 32.9 g/dl (31.0-36.0); Mean Corpuscular Hemoglobin 29.5 pg (27.0-33.0); Mean Corpuscular Volume 89.5 fL (80.0-98.0); Mean Platelet Volume 10.8 fL (9.4-12.4); Monocytes Absolute Auto 0.5 X10*3/uL (0.1-1.2); Monocytes Percent Auto 8.4 % (2-11); Neutrophils Absolute Auto 3.7 x10*3/uL (2.0-8.3); Platelet Count 186 X10*3/uL (160-400); Red Blood Count 5.16 X10*6/uL (4.60-5.80); Red Cell Distribution Width 12.7 % (11.0-16.0)
[2023-11-01 10:48] LABS: Appearance Urine Clear; Color Urine Yellow; Glucose Urine UA Negative (Negative); Leukocyte Esterase Urine Small (1+) (Negative); Nitrite Urine Negative (Negative); PH 6.5 (5.0-9.0); Specific Gravity - Urine 1.015 (1.005-1.025); UMIC TRIGGER UACC YES; Urine Blood Negative (Negative); Urine Ketones Negative (Negative); Urine Protein Negative (Neg-Trace)
[2023-11-01 11:05] LABS: Estimated Average Glucose 108 mg/dL; Hemoglobin A1c % 5.4 % (<6.0)
[2023-11-01 11:08] LABS: Bacteria Urine None Seen (None Seen); Hyaline Casts Urine 0-2 /LPF (0-2); RBC Urine 0-2 /HPF (0-2); Squamous Epithelial Cell Urine 0-2 /HPF (0-2); UACC Culture Trigger YES; WBC Urine 0-5 /HPF (0-5)
[2023-11-01 11:15] LABS: Creatinine Urine 101.66 mg/dL; Microalbum/Creatinine Ratio Ur 12.7 ug/mg cr (<30)
[2023-11-01 11:18] LABS: Alanine Aminotransferase 63 U/L (0-40); Albumin Level 3.8 g/dL (3.5-5.0); Alkaline Phosphatase 68 U/L (39-117); Anion Gap 13 (12-20); Aspartate Amino Transferase 44 U/L (5-37); Bilirubin Total 0.4 mg/dL (0.0-1.0); Blood Urea Nitrogen 20 mg/dL (9-16); Calcium 9.5 mg/dL (8.4-10.2); Carbon Dioxide 27 mmol/L (22-29); Chloride 103 mmol/L (96-108); Cholesterol 111 mg/dL (<200); Estimated Glomerular Filt Rate > 60; Glucose Fasting 108 mg/dL (60-99); HDL Cholesterol 28 mg/dL (>40); LDL Cholesterol Calculated 65 mg/dL (<100); Potassium 4.5 mmol/L (3.3-5.1); Sodium 138 mmol/L (135-145); Triglycerides 93 mg/dL (<150)
[2023-11-01 11:28] LABS: Vitamin D 25-OH Total 49.5 ng/mL (>30)
[2023-11-01 11:29] LABS: PSA,Total (Free>4and<10) 2.41 ng/mL (0.00-4.00)
== END 2023-11-01 10:36 | disposition home or self-care (01) ==
LOC: HO.LNP 10:35
PROVIDERS: Visit Provider Internal Medicine
DX: R73.09 Other abnormal glucose (principal); E78.00 Pure hypercholesterolemia, unspecified; E55.9 Vitamin D deficiency, unspecified; R82.90 Unspecified abnormal findings in urine; Z12.5 Encounter for screening for malignant neoplasm of prostate
CPT/HCPCS: 80053; 80061; 81001; 82043; 82306; 82570; 83036; 84153; 85025; 87086

== ENCOUNTER 2024-03-14 12:52 | Outpatient (AMB) | payer MEDICARE, OTHER, SELFPAY ==
--- NOTE | 2024-03-14 13:11 | A.OFFVIS_ITS ---
Intake Visit Reasons: cysto Intake Note: Patient is present for Cystoscopy Urology Medication:NONE Antibiotic Allergy:NONE Blood Thinner:NONE Lot:[id number] Exp:02/12/27 Clinical Nurse Reviewer Required: No Allergies ibuprofen Adverse Reaction (Intermediate, Verified 03/14/24 13:11) ringing in ears cyclobenzaprine Adverse Reaction (Verified 03/14/24 13:11) right hand tremors quetiapine [From Seroquel] Adverse Reaction (Verified 03/14/24 13:11) right hand tremors Flonase Allergy (Unknown, Uncoded 03/14/24 13:11) heart palpations HPI Comments Details: Javy is a pleasant male. He is a patient of Dr. Stringer. He is here for the following urologic condition. - bladder cancer Three-month follow-up office cystoscopy - had flat area on right upper prostate lobe that is suspicious Completed 3 doses of mitomycin-C and cytarabine for recurrent low-grade superficial disease Will plan boost at six-month Three-month follow-up cystoscopy Bladder cancer low-grade recurrent intermediate risk 2019, 08/[address] Stafford Workplace exposure - [employer] for 15 months - 100% disability Intervention - TURBT August 2018 Ta low-grade, June 2019 Ta low-grade, Mar 2020 Ta low-grade - August 2020 TURBT low grade recurrent - May 2022 TURBT Mildly atypical urothelial proliferation with inflammation - fulgeration Adjuvant therapy - gemcitabine induction September 2019, repeat induction September 2020, boost Mar 2021, 09/29 Boost, 12/31 Boost [facility] consultation January 2020 Cystoscopy - 07/30 recurrent low-grade lesions - 12/30 NAD, 03/31 NAD, 09/30 NAD, 04/01 question of small lesions, Cytology - 09/30 NAD, 04/01 NAD, 12/01 atypical Therapeutic plan - three-month follow-up check cysto [facility] Medical History Left leg DVT History of back pain Chronic neck pain with history of cervical spinal surgery History of fall History of suicidal ideation History of depression Cervical pain (neck) Generalized anxiety disorder Recurrent major depression-severe Transitional cell carcinoma Other obstructive and reflux uropathy BPH (benign prostatic hyperplasia) Bladder mass Surgical History History of lumbar laminectomy History of transurethral destruction of bladder lesion Hx of tonsillectomy Hx of cervical spine surgery History of cystoscopy Social History Household Members: None Housing: Apartment Do you presently have visiting nurse or other home services: No Alcohol intake: never Comment: patient asleep Patient Tobacco Use Status: Former Tobacco user service: Yes Sexual orientation: Straight/Heterosexual Review of Systems Const Denies chills and Denies fever(s) Card Reports no additional complaints and Denies syncope Resp Denies cough GI Denies abdominal pain and Denies heartburn Reports as per HPI and Denies change in libido Neuro Denies syncope Psych Denies change in libido Endo Denies change in libido Physical Exam Const General: cooperative, healthy appearing, comfortable and no acute distress Orientation/consciousness: patient oriented x3 HEENT Face and sinus: Yes normal facial exam Mouth: moist mucous membranes Neck Neck: Yes normal visual inspection, Yes full ROM and Yes trachea midline Chest Chest palpation & inspection: normal inspection of the chest Resp Effort & Inspection: normal respiratory effort, able to speak in complete sentences and no respiratory distress GI Inspection: Yes normal to inspection Back/Spine/Pelvis Cervical Spine: normal cervical lordosis Thoracic/Lumbar Spine: thoracic and lumbar spine normal to inspection Skin General skin exam: no rashes or lesions noted Neuro General: patient oriented x3, gait normal, tone normal and moves all extremities Extrem General: Yes normal to inspection and Yes capillary refill normal Office Procedures Cystoscopy Consent Discussed risk and benefit or proposed procedure with the patient. Information consent for procedure given to the patient. Discussed technical aspects, risks, benefits and alternatives in full. Addressed all of the patient's questions and concerns regarding the procedure. The patient demonstrated knowledge and understanding. They wish to proceed with this procedure. Preparation The patient was prepped in the usual manner. A welder explosion was present and in the room. Genitalia was prepped with betadine solution in a sterile manner. Lidocaine Jelly 2% was placed into the urethra and 16Fr flexible Olympus cystoscope was inserted into the meatus after adequate lubrication. Procedure Cystoscopy performed using a disposable Urovue digital 16 Swedish cystoscope. Meatus circumcised Urethra anterior and posterior urethra normal Prostatic Urethra unremarkable Bladder examination with retroflexion of cystoscope Bladder Orifices normal shape and position Bladder Capacity - Trabeculations grade 2 Cellule Formation - Diverticulum Formation - Mucosal Erythema diffuse patchy changes Bladder Tumor - 02030-[id number] DISPOSABLE SCOPE URO-G FLEXIBLE SCOPE Procedure code (CPT) selection complete Office Meds lidocaine HCl 2 % mucosal jelly in applicator Performing Provider: Corey Buckley MD Performing Location[facility] [place] [facility] Documented (not given) by: Corey Buckley MD on 03/14/24 14:04 Dose Route Admin Location Dispensed Lot Number Expiration Date [facility] [place] [facility] Clerk 10 mL intra-urethral mL Results AMB Urinalysis, Automated UA Leukoctes 0 Lilia/uL Last Edit by ARMIDA Hdz on 03/14/24 13:46 UA Nitrite Negative Last Edit by ARMIDA Hdz on 03/14/24 13:46 UA Urobilinogen 0.2 mg/dL Last Edit by ARMIDA Hdz on 03/14/24 13:4 6 UA Protein 0 mg/dL Last Edit by ARMIDA Hdz on 03/14/24 13:46 UA pH 6.0 Last Edit by ARMIDA Hdz on 03/14/24 13:46 UA Blood 0 Jos/uL Last Edit by ARMIDA Hdz on 03/14/24 13:46 UA Specific [place] 1.020 Last Edit by ARMIDA Hdz on 03/14/24 13: 46 UA Ketone Negative Last Edit by ARMIDA Hdz on 03/14/24 13:46 UA Bilirubin 0 mg/dL Last Edit by ARMIDA Hdz on 03/14/24 13:46 UA Glucose 0 mg/dL Last Edit by ARMIDA Hdz on 03/14/24 13:46 Assessment & Plan Assessment & Plan (1) Bladder cancer: Comment: recurrent low-grade bladder cancer multiple prior TURBT - gemcitabine treatment cause Code(s): C67.9 - Malignant neoplasm of bladder, unspecified Category: Medical Plan Three-month follow-up check cysto Orders: Orders AMB Urinalysis Automated Today Z13.9 - Encounter for screening, unspecified AMB Cystoscopy Today C67.9 - Malignant neoplasm of bladder, unspecified Medications: New lidocaine HCl 2% 10 mL intra-urethral ONCE 10 mL 0RF C67.9 - Malignant neoplasm of bladder, unspecified Patient Instructions: Imaging studies, laboratory and physical exam results were discussed and reviewed in detail. No major barriers to patient understanding were identified. An opportunity to ask questions regarding the treatment plan was provided. All questions were answered. The patient expressed understanding and agreement with the above treatment plan. The patient is aware they should contact our office by phone for worsening of their current condition or the appearance of new urologic symptoms. Compliance is encouraged with any medications and followup testing that is ordered. It is a privilege to participate in the urologic care of your patient. If you have any questions or concerns regarding treatment for the above conditions, or other urologic issues, please do not hesitate to contact me. The office telephone contact is [phone]. This note is constructed using voice recognition software. While every effort has been made to ensure accuracy bill recapitulation clerk errors may have been included. Yours sincerely, Dr Corey Buckley MD, [facility] - Urology Providers of Expert, Compassionate Care for the Genitourinary System Coding Level of Care Code Est Pt Level 3 (00837) Diagnoses Bladder cancer C67.9 CPT Codes Cystoscopy - CPT: 33295-[id number] ([id number])
== END 2024-03-14 14:11 | disposition home or self-care (01) ==
PROVIDERS: PCP Internal Medicine; Visit Provider Urology
DX: C67.9 Malignant neoplasm of bladder, unspecified (principal); Z13.9 Encounter for screening, unspecified
CPT/HCPCS: 52000; 99213

== ENCOUNTER → 2024-03-14 12:52 | Outpatient (BNVA) | payer MEDICARE, OTHER, SELFPAY | PROVIDERS: PCP Internal Medicine; Visit Provider Urology | DX: C67.9 Malignant neoplasm of bladder, unspecified (principal) | CPT/HCPCS: 52000; 81003; 99212 ==

== ENCOUNTER 2024-06-28 12:56 | Outpatient (AMB) | payer MEDICARE, OTHER, SELFPAY ==
--- NOTE | 2024-06-28 13:16 | MHC.OFFVIS ---
Intake Visit Reasons: Three-month follow-up check cysto office Intake Note: Patient is present for 3m/Cystoscopy Urology Medication:none Antibiotic Allergy:none Blood Thinner:none Lot:[id number] Exp:02/12/27 Manufacturing Engineering Manager Required: No Allergies ibuprofen Adverse Reaction (Intermediate, Verified 06/28/24 13:18) ringing in ears cyclobenzaprine Adverse Reaction (Verified 06/28/24 13:18) right hand tremors quetiapine [From Seroquel] Adverse Reaction (Verified 06/28/24 13:18) right hand tremors Flonase Allergy (Unknown, Uncoded 06/28/24 13:18) heart palpations HPI Comments Details: Javy is a pleasant male. He is a patient of Dr. Stringer. He is here for the following urologic condition. - bladder cancer Six-month follow-up Check cystoscopy Chemotherapy effect Plan boost mitomycin-C with cytarabine Three-month follow-up check cystoscopy Bladder cancer low-grade recurrent intermediate risk 2019, 08/29, 11/01 Low Grade Diagnosed by Dr. Stafford Workplace exposure - [employer] for 15 months - 100% disability Intervention - TURBT August 2018 Ta low-grade, June 2019 Ta low-grade, Mar 2020 Ta low-grade - August 2020 TURBT low grade recurrent - May 2022 TURBT Mildly atypical urothelial proliferation with inflammation - fulgeration Adjuvant therapy - gemcitabine induction September 2019, repeat induction September 2020, boost Mar 2021, 09/29 Boost, 12/31 Boost, 12/02 [facility] Cystoscopy - 07/30 recurrent low-grade lesions - 12/30 NAD, 03/31 NAD, 09/30 NAD, 04/01 question of small lesions, 12/02 NAD Cytology - 09/30 NAD, 04/01 NAD, 12/01 atypical Therapeutic plan - three-month follow-up check cysto [facility] Medical History Left leg DVT History of back pain Chronic neck pain with history of cervical spinal surgery History of fall History of suicidal ideation History of depression Cervical pain (neck) Generalized anxiety disorder Recurrent major depression-severe Transitional cell carcinoma Other obstructive and reflux uropathy BPH (benign prostatic hyperplasia) Bladder mass Surgical History History of lumbar laminectomy History of transurethral destruction of bladder lesion Hx of tonsillectomy Hx of cervical spine surgery History of cystoscopy Social History Household Members: None Housing: Apartment Do you presently have visiting nurse or other home services: No Alcohol intake: never Comment: patient asleep Patient Tobacco Use Status: Former Tobacco user service: Yes Sexual orientation: Straight/Heterosexual Review of Systems Const Denies chills and Denies fever(s) Card Reports no additional complaints and Denies syncope Resp Denies cough GI Denies abdominal pain and Denies heartburn Reports as per HPI and Denies change in libido Neuro Denies syncope Psych Denies change in libido Endo Denies change in libido Physical Exam Const General: cooperative, healthy appearing, comfortable and no acute distress Orientation/consciousness: patient oriented x3 HEENT Face and sinus: Yes normal facial exam Mouth: moist mucous membranes Neck Neck: Yes normal visual inspection, Yes full ROM and Yes trachea midline Chest Chest palpation & inspection: normal inspection of the chest Resp Effort & Inspection: normal respiratory effort, able to speak in complete sentences and no respiratory distress GI Inspection: Yes normal to inspection Back/Spine/Pelvis Cervical Spine: normal cervical lordosis Thoracic/Lumbar Spine: thoracic and lumbar spine normal to inspection Skin General skin exam: no rashes or lesions noted Neuro General: patient oriented x3, gait normal, tone normal and moves all extremities Extrem General: Yes normal to inspection and Yes capillary refill normal Office Procedures Cystoscopy Consent Discussed risk and benefit or proposed procedure with the patient. Information consent for procedure given to the patient. Discussed technical aspects, risks, benefits and alternatives in full. Addressed all of the patient's questions and concerns regarding the procedure. The patient demonstrated knowledge and understanding. They wish to proceed with this procedure. Preparation The patient was prepped in the usual manner. A farm service adviser was present and in the room. Genitalia was prepped with betadine solution in a sterile manner. Lidocaine Jelly 2% was placed into the urethra and 16Fr flexible Olympus cystoscope was inserted into the meatus after adequate lubrication. Procedure Cystoscopy performed using a disposable Urovue digital 16 Divehi cystoscope. Meatus circumcised Urethra anterior and posterior urethra normal Prostatic Urethra unremarkable Bladder examination with retroflexion of cystoscope Bladder Orifices normal shape and position Bladder Capacity normal Trabeculations grade 1 Cellule Formation - Diverticulum Formation - Mucosal Erythema evidence of scarring Bladder Tumor - [id number] DISPOSABLE SCOPE URO-G FLEXIBLE SCOPE Procedure code (CPT) selection complete Office Meds lidocaine HCl 2 % mucosal jelly in applicator Performing Provider: Corey Buckley MD Performing Location: [facility] [place] [facility] Administered by: Miky Alvarado LPN on 06/28/24 13:36 Dose Route Admin Location Dispensed Lot Number Expiration Date NDC Remote Sensing Specialist 10 mL intra-urethral 10 mL nitrofurantoin monohydrate/macrocrystals 100 mg capsule Performing Provider: Corey Buckley MD Performing Location: [facility] [place] [facility] Administered by: Miky Alvarado LPN on 06/28/24 13:36 Dose Route Admin Location Dispensed Lot Number Expiration Date ND Remote Sensing Specialist 100 mg PO 1 cap Results AMB Urinalysis, Automated UA Leukoctes 0 Lilia/uL Last Edit by ARMIDA Hdz on 06/28/24 13:34 UA Nitrite Negative Last Edit by ARMIDA Hdz on 06/28/24 13:34 UA Urobilinogen 3.5 mg/dL Last Edit by ARMIDA Hdz on 06/28/24 13:34 UA Protein 0 mg/dL Last Edit by ARMIDA Hdz on 06/28/24 13:34 UA pH 6.0 Last Edit by ARMIDA Hdz on 06/28/24 13:34 UA Blood 0 Jos/uL Last Edit by ARMIDA Hdz on 06/28/24 13:34 UA Specific [place] 1.015 Last Edit by ARMIDA Hdz on 06/28/24 13:34 UA Ketone Negative Last Edit by ARMIDA Hdz on 06/28/24 13:34 UA Bilirubin 0 mg/dL Last Edit by ARMIDA Hdz on 06/28/24 13:34 UA Glucose 0 mg/dL Last Edit by ARMIDA Hdz on 06/28/24 13:34 Results Reviewed Results Reviewed: Laboratory Last Values Urine pH (Auto) 6.0 06/28/24 13:33 Specific [place] (Auto) 1.015 06/28/24 13:33 Urine Protein (Auto) 0 mg/dL 06/28/24 13:33 Glucose (UA)(Auto) 0 mg/dL 06/28/24 13:33 Urine Ketones (Auto) Negative 06/28/24 13:33 Urine Blood (Auto) 0 Jos/uL 06/28/24 13:33 Urine Nitrite (Auto) Negative 06/28/24 13:33 Urine Bilirubin (Auto) 0 mg/dL 06/28/24 13:33 Urine Urobilinogen (Auto) 3.5 mg/dL 06/28/24 13:33 Leukocyte Esterase (Auto) 0 Lilia/uL 06/28/24 13:33 Assessment & Plan Assessment & Plan (1) Bladder cancer: Comment: recurrent low-grade bladder cancer multiple prior TURBT - gemcitabine treatment cause Code(s): C67.9 - Malignant neoplasm of bladder, unspecified Category: Medical Plan Three-week plan mitomycin-C with cytarabine boost Three-month follow-up check cystoscopy Orders: Orders AMB Cystoscopy Today C67.9 - Malignant neoplasm of bladder, unspecified AMB Urinalysis Automated Today Z13.9 - Encounter for screening, unspecified Urine Cytology Today C67.9 - Malignant neoplasm of bladder, unspecified Patient Instructions: This note is constructed using voice recognition software. While every effort has been made to ensure accuracy package crimper errors may have been included. Imaging studies, laboratory and physical exam results were discussed and reviewed in detail. No major barriers to patient understanding were identified. An opportunity to ask questions regarding the treatment plan was provided. All questions were answered. The patient expressed understanding and agreement with the above treatment plan. The patient is aware they should contact our office by phone for worsening of their current condition or the appearance of new urologic symptoms. Compliance is encouraged with any medications and followup testing that is ordered. It is a privilege to participate in the urologic care of your patient. If you have any questions or concerns regarding treatment for the above conditions, or other urologic issues, please do not hesitate to contact me. The office telephone contact is [phone]. Sincerely, Dr Corey Buckley MD, RONNIE [facility] - Urology Compassionate Specialist Care for the Genitourinary System Coding Level of Care Code Est Pt Level 3 (36310) Complex EM visit Add On G2211 Diagnoses Bladder cancer C67.9 CPT Codes Cystoscopy - CPT: 14697-[id number] ([id number])
== END 2024-06-28 14:17 | disposition home or self-care (01) ==
LOC: HO.HUSH 12:57
PROVIDERS: PCP Internal Medicine; Visit Provider Urology
DX: C67.8 Malignant neoplasm of overlapping sites of bladder (principal)
CPT/HCPCS: 52000; 99213; G2211

== ENCOUNTER 2024-06-28 12:56 | Outpatient (REF) | payer MEDICARE, OTHER, SELFPAY ==
[2024-06-28 17:48] LABS: Urine Cytology See Pathology rpt
== END 2024-06-28 12:57 | disposition home or self-care (01) ==
LOC: HO.LAB 12:56
PROVIDERS: PCP Internal Medicine; Visit Provider Urology
DX: C67.9 Malignant neoplasm of bladder, unspecified (principal)
CPT/HCPCS: 52000; 81003; 88112; 99212

== ENCOUNTER 2024-09-28 12:55 | Outpatient (REF) | payer MEDICARE, OTHER, SELFPAY | END 2024-09-28 12:56 | disposition home or self-care (01) | LOC: HO.LAB 12:55 | PROVIDERS: PCP Internal Medicine; Visit Provider Urology | DX: C67.9 Malignant neoplasm of bladder, unspecified (principal) | CPT/HCPCS: 52000; 81003; 88121; 99212 ==

== ENCOUNTER 2024-09-28 12:55 | Outpatient (AMB) | payer MEDICARE, OTHER, SELFPAY ==
--- OUTSIDE RECORDS SUMMARY | 2024-04-25 09:00 | XMS_ITS | Encounter Summary ---
Author Name [facility] Organization [facility] Address [address] [place] [address] Care Team Providers Care Aix Administrator Name Role Phone SHAWNEE AYALA Primary Care Provider Unavailab le Insurance Providers: All historical and current Section Date Range: From patient's date of to the date document was created. This section includes the names of all active insurance providers for the patient. Insurance Provider Type of Coverage Plan Name Start of Policy Coverage End of Policy Coverage Group Number Member ID Insurance Provider's Telephone Number Policy Quispe's Name Patient's Relationship to Policy Quispe MEDICARE (WNR) MEDICARE (M) PART A Sep 09, 2016 PART A [id number] Ashley SINGLETON ON PATIENT MEDICARE (WNR) MEDICARE (M) PART B Sep 09, 2016 PART B [id number] Ashley SINGLETON ON PATIENT Selected Encounter This section includes the information on record at [place] for the Encounter. Date/Time Encounter Type Encounter Description Reason Provider Source Apr 25, 2024 01:00 PM OFFICE O/P EST MOD 30 MIN PRIMARY CARE/MEDICINE ICD-10-CM C67.9 Malignant neoplasm of bladder, unspecified DAYRON AYALA IHNicolás Encounter Template Text not used by [facility] Assessments - Encounter Diagnoses This section includes the primary and secondary diagnoses documented for the Encounter. Date/Time Primary/Secondary Diagnosis Diagnosis Name Provider Source Apr 25, 2024 01:43 PM PRIMARY Malignant neoplasm of bladder, unspecified DAYRON AYALA ([facility]) Apr 25, 2024 01:43 PM SECONDARY Acute embolism and thombos unsp deep vn unsp lower extremity DAYRON AYALA ([facility]) Apr 25, 2024 01:43 PM SECONDARY Cervicalgia [facility] ([facility]) Apr 25, 2024 01:43 PM SECONDARY Depression, unspecified [place]RON [facility]FIELD ([facility]) Apr 25, 2024 01:43 PM SECONDARY Hyperlipidemia, unspecified DAYRON AYALAFIELD ([facility]) Lab Results: +/- 30 days of the encounter This section includes the Chemistry and Hematology Lab Results on record with [place] for the patient. Radiology Reports and Pathology Reports are provided separately, in subsequent sections. Lab Results This section contains the Chemistry/Hematology Results that were resulted 30 days before or 30 daysafter the date of the Encounter. Date/Time Source Result Type Result - Unit Interpretation Reference Range Specimen Type Comment Apr 18, 2024 08:44 AM [facility] ([facility]) URINALYSIS URINE Specimen Type: URINE Comment: If Glucose = >500 and Ketones are positive, please alert the Physician. Ordering Provider: SHAWNEE AYALA Report Released Date/Time: Apr 09, 2024 03:35 PM Reporting Lab: [address] [address] Performing Lab: [address] [address] UA COLOR Light-Yellow Yellow UA APPEARANCE Clear Clear UA GLUCOSE Normal mg/dL Negative UA KETONES NEGATIVE mg/dL Negative UA BLOOD NEGATIVE mg/dL Negative UA PROTEIN NEGATIVE mg/dL Negative UA NITRITE NEGATIVE mg/dL Negative UA BILIRUBIN NEGATIVE mg/dL Negative UA SPECIFIC GRAVITY 1.020 1.016-1.022 UA pH 6.0 5.0-9.0 UA UROBILINOGEN Normal mg/dL <2.0 UA LEUKOCYTE NEGATIVE Negative Apr 18, 2024 08:44 AM [facility] ([facility]) MICROALBUMIN CREATININE RATIO PANEL URINE Specimen Type: URINE No comment entered. Ordering Provider: SHAWNEE AYALA Report Released Date/Time: Apr 09, 2024 03:35 PM Reporting Lab: [facility] [address] [address] Performing Lab: [address] [address] MICROALBUMIN/CREATININE RATIO canc mg/g 0-29.9 MICROALBUMIN,QUANTITATIVE < 0.5 mg/dL RR UNAVAIL CREATININE URINE 99.48 mg/dL Apr 18, 2024 08:40 AM [facility] ([facility]) CBC AND DIFF (AUTO) BLOOD Specimen Type: BLOOD No comment entered. Ordering Provider: SHAWNEE AYALA Report Released Date/Time: Apr 09, 2024 03:35 PM Reporting Lab: [address] [address] Performing Lab: [address] [address] WBC 6.26 10*3/uL 4.50-11.00 RBC 5.64 10*6/uL 4.23-5.66 HGB 16.6 g/dL 12.8-17 HCT 49.9 39.2-50.4 MCV 88.5 fL 82-99 MCHC 33.3 g/dL 30.8-35.1 PLT 211 10*3/uL 140-360 RDW-CV 11.9 L 12.0-16.0 MONO, ABS 0.50 10*3/uL 0.30-1.10 MCH 29.4 pg 26.2-32.6 NEUT % 64.7 43.7-75.8 LYMPH % 24.3 14.0-42.3 MONO % 8.0 5.1-13.7 EOS % 2.2 0.4-6.8 BASO % 0.5 0.1-2.0 NEUT, ABS 4.05 10*3/uL 2.20-7.60 LYMPH, ABS 1.52 10*3/uL 1.00-3.20 EOS, ABS 0.14 10*3/uL 0.03-0.44 BASO, ABS 0.03 10*3/uL 0.01-0.13 IMMATURE GRAN % 0.3 0.0-0.7 IMMATURE GRAN, ABS 0.02 10*3/uL 0.00-0.0 6 NRBC % 0.0 0.0-0.0 NRBC, ABS 0.00 10*3/uL 0.00-0.00 Apr 18, 2024 08:40 AM [facility] ([facility]) VITAMIN B12 SERUM Specimen Type: SERUM No comment entered. Ordering Provider: SHAWNEE AYALA Report Released Date/Time: Apr 09, 2024 03:35 PM Reporting Lab: [address] [address] Performing Lab: [address] [address] VITAMIN B12 792 pg/mL 200-900 Apr 18, 2024 08:40 AM [facility] ([facility]) VITAMIN D (25-OH) SERUM Specimen Ty pe: SERUM No comment entered. Ordering Provider: SHAWNEE AYALA Report Released Date/Time: Apr 09, 2024 03:35 PM Reporting Lab: [address] [address] Performing Lab: [address] [address] VITAMIN D (25-OH) 45 ng/mL 20-50 Apr 18, 2024 08:40 AM [facility] ([facility]) HEMOGLOBIN A1C PANEL BLOOD Specimen Type: BLO OD Comment: Values obtained from A1C measurements can vary. For atypical A1C assays, a reported value of 7.0 could actually be between 6.72 and 7.28 if measured by a reference method. A reported value of 9.0 could actually be between 8.73 and 9.27. Ref: http://www.ngsp.org/CAPdata.asp Ordering Provider: SHAWNEE AYALA Report Released Date/Time: Apr 09, 2024 03:35 PM Reporting Lab: [address] [address] Performing Lab: [address] [address] HEMOGLOBIN A1C 5.5 4.0-5.6 Apr 18, 2024 08:40 AM [facility] ([facility]) TSH SERUM Specimen Type: SERUM No comment entered. Ordering Provider: SHAWNEE AYALA Report Released Date/Time: Apr 09, 2024 03:35 PM Reporting Lab: [facility] [address] [address] Performing Lab: [facility] [address] [address] TSH 2.66 u[IU]/mL 0.35-5.00 Apr 18, 2024 08:40 AM [facility] ([facility]) LIPID PANEL, NON FASTING SERUM Spec imen Type: SERUM No comment entered. Ordering Provider: SHAWNEE AYALA Report Released Date/Time: Apr 09, 2024 03:35 PM Reporting Lab: [facility] [address] [address] Performing Lab: [facility] [address] [address] CHOLESTEROL 154 mg/dL TRIGLYCERIDE 128 mg/dL 0-150 LDL calculated 99 mg/dL 0-129 CHOL/HDL 5.3 HDL CHOLESTEROL 29 mg/dL L 40-60 Apr 18, 2024 08:40 AM [facility] ([facility]) LIVER FUNCTION SERUM Specimen Type: SERUM No comment entered. Ordering Provider: SHAWNEE AYALA Report Released Date/Time: Apr 09, 2024 03:35 PM Reporting Lab: [facility] [address] [address] Performing Lab: [facility] [address] [address] PROTEIN,TOTAL 7.5 g/dL 6.0-8.3 ALBUMIN 3.9 g/dL 3.5-5.0 ALKALINE PHOSPHATASE 74 U/L 40-150 AST 36 U/L H 5-34 ALT 50 U/L BILIRUBIN, TOTAL 0.5 mg/dL 0.2-1.2 Apr 18, 2024 08:40 AM [facility] ([facility]) BASIC METABOLIC PANEL (non-fasting) SERUM Specimen Type: SERUM No comment entered. Ordering Provider: SHAWNEE AYALA Report Released Date/Time: Apr 09, 2024 03:35 PM Reporting Lab: [facility] [address] [address] Performing Lab: [facility] [address] [address] UREA NITROGEN 24 mg/dL 7-25 GLUCOSE 104 mg/dL H 65-100 SODIUM 138 mmol/L 135-145 POTASSIUM 4.7 mmol/L 3.5-5.0 CHLORIDE 104 mmol/L 100-110 CO2 29 meq/L 20-30 CREATININE, Serum 1.12 mg/dL 0.50-1.40 eGFR(CKD-EPI 2020) 69 mL/min >60 Apr 18, 2024 08:40 AM [facility] ([facility]) PSA SERUM Specimen Type: SERUM No comment entered. Ordering Provider: SHAWNEE AYALA Report Released Date/Time: Apr 09, 2024 03:35 PM Reporting Lab: [address] [address] Performing Lab: [address] [address] PSA 2.82 ng/mL 0.00-4.00 Vital Signs: All taken on the encounter date This section contains inpatient and outpatient Vital Signs collected on the date of the Encounter. Date/Time Temperature Pulse Blood Pressure Respiratory Rate SP02 Pain Height Weight Body Mass Index Source Apr 25, 2024 01:35 PM 135/62 [facility] ([facility]) Apr 25, 2024 01:00 PM 148/71 [facility]) Apr 25, 2024 01:00 PM 98 82 148/76 16 96 0 206.4 [facility] ([facility]) Social History: Smoking Status (Most current) and Tobacco Use (All prior to encounter date) This section includes the most current, and the historical, smoking and tobacco- related health factors from the [place] facility where the Encounter took place. Current Smoking Status This section includes the most current smoking, or tobacco-related health factor, from the [place] facility where the Encounter took place. Date/Time Current Smoking Status Comment Colin meyery Apr 25, 2024 01:00 PM VA-TOBACCO USE FORMER CIGARETTES [facility] ([facility]) Tobacco Use History This section includes a history of the smoking, or tobacco-related health factors, that were collected on or before the date of the Encounter. The data comes from the [place] facility where the Encounter took place. Date/Time Smoking Status/Tobacco Use Comment F acility Apr 25, 2024 01:00 PM VA-TOBACCO USE FORMER CIGARETTES [facility] ([facility]) Sep 15, 2022 11:00 AM VA-TOBACCO FORMER USER [facility] ([facility]) Sep 15, 2022 11:00 AM VA-TOBACCO QUIT 15 YRS OR MORE [facility] ([facility]) Encounter Notes: All associated encounter notes This section contains the clinical notes associated to the Encounter. Date/Time Encounter Note(s) Provider Source Apr 25, 2024 01:15 PM PHYSICIAN NOTE: LOCAL TITLE: MD NOTE STANDARD TITLE: PHYSICIAN NOTE DATE OF NOTE: APR 25, 2024@13:15 ENTRY DATE: APR 25, 2024@13:15:03 AUTHOR: SHAWNEE AYALA EXP COSIGNER: URGENCY: STATUS: COMPLETED PRIMARY CARE VISIT SHYLA SINGLETON, is a 73 yo WHITE MALE who presents at the [place] [facility]. TYPE OF VISIT: Face to face 71-year-old gentleman with a history of bladder cancer diagnosed in 2018 status post chemo and surgery, cervicalgia (C3-C7 s/p laminoplasty 2020 and foraminotomy January 2022), depression, history DVT 2021 (off apixiban) and s/p Laminectmy L1-L5 2023. August 02 2023 Back Surgery: [facility] L1-L5 laminectomy Urology September 2023: Found recurrence tumor x 2 Bladder surgery october 10 2023, 2 tumor resections. Started Chemo. Seeing [facility]. Follow up Cystoscopy June 27 Dr Senior Neurosurgeon plan for possible Cervical spine surgery. Getting injections in Cspine at [facility] Pain management. Otherwise feeling well and no issues Labs were reviewed during this visit. He is not currently maintained on any medications. VA and non-VA providers: Private PCP: Dr. Stringer Urology: Dr. Corey Buckley. MH: [facility] counseling: Shefali Tovar and Shefali Todd. Neurosurgery: Dr. Senior at [facility]. Appt 10/27/22 GI: Dr. Mohan at [facility] HISTORY Surgical Hx: Laminoplasty C3-C7 2020 and foraminotomy January 2022 at [facility]. Family Hx: Unknown. Social Hx: The patient is and lives alone. He smoked for a few years in the past; quit 47 years ago. Stopped drinking alcohol 47 years ago. No regular exercise. 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 CARDIOVASCULAR: No chest pain, palpitations, or increased pedal edema RESPIRATORY: No SOB, cough, sputum, wheeze. GASTROINTESTINAL: Denies abd pain, N/V/D. No melena or hematochezia. No tenesmus or constipation. GENITOURINARY: No burning micturition. No urinary frequency or urgency. No nocturia. MUSCULOSKELETAL: No myalgias or arthralgias. PSYCHIATRIC: No new anxiety or depression. No sleep disturbance. NEUROLOGIC: No headaches, dizziness, numbness or tingling in the extremities, or unilateral weakness. EXAMINATION General: Well-appearing in no obvious distress. Mental Status: Alert and oriented x4. Head: Normocephalic. Eyes: PERRLA. EOMI. Anicteric sclerae. ENT: Moist oral mucosa. Posterior pharynx unremarkable Neck: Supple. No JVD. No LAD. No bruit. Lungs: Clear bilaterally without wheeze or rhonchi. Normal effort and expansion. CV: Heart sounds S1, S2. RRR. No M/G/R. No peripheral edema GI: Abdomen is soft and nontender. No palpable mass. : No CVA tenderness. Ext: No cyanosis or clubbing. No gross deformities. Neuro: CN II through XII grossly intact. Normal speech. Normal gait. Integument: Skin warm and dry. No rashes or lesions on visible areas. Psych: Normal mood and affect. Normal judgment. ALLERGIES: ========= No Allergy Assessment >> HEALTH MAINTENANCE PREVENTIVE MEDICINE GOALS Avg Risk Colorectal Cancer Screen DUE NOW Pneumococcal Conjugate Vaccine (PCV15/PCDUE NOW Medication Reconciliation DUE NOW COVID-19 Immunization DUE NOW Tdap Immunization DUE NOW Herpes Zoster (Shingles) Vaccine DUE NOW (Optional) Whole Health Documentation DUE NOW ASSESSMENT/PLAN: Active problems - Computerized Problem List is the source for the followin. Hyperlipidemia ([facility] [id number]) 2. Depression ([facility] [id number]) 3. Cervicalgia 4. Exposure to potentially hazardous substance 5. Deep vein thrombosis 6. Bladder cancer ==Depression ([facility] [id number]): Stable on Duloxetine and Mirtazapine Follows up with an outside Psychiatry ==Cervicalgia: Undergoing Cspine injections. Possibly will be getting a nerve ablation. Takes tylenol and Duloxetine for pain. ==. Deep vein thrombosis: Off blood thinners now. Asymptomatic == Bladder cancer: Recurrence 2023, s/p bladder resection 2023 and chemotherapy and will follow up Urology june == HLD: Stable, recent lipids at goal. Continue atorvastatin 20mg daily == Elevated BP without diagnosis of HTN: KNown to have white coat BP elevation. repeat ==Back Pain: s/p laminectomy 2023. pain controlled HCM: vaccines at outside PCP Colonoscopy : august 2022, repeat 10 years [facility], dr mohan FOLLOW UP: RTC 1 year Below & sooner PRN FOLLOW UP: RTC Below & sooner PRN UPCOMING APPOINTMENTS: No data available minutes spent in patient evaluation, data review, and patient education. All medications were reconciled during this visit. No barriers; Patient understands and agrees to current treatment plan. If pt has any questions, concerns, or changes in current health status he/she will call or come in to the [facility]. HTN Assess for Elevated BP>=140/90: Repeat blood pressure: 135/62 Avg Risk Colorectal Cancer Screen: AVERAGE RISK colorectal cancer screening is due based on information available to this clinical reminder Prior/outside colonoscopy results: no polyp 10 year follow up Date: August 09, 2022 Due to patient's age, risk level, and/or co-morbid conditions, discontinuation of asymptomatic colorectal cancer screening/surveillance is recommended. This recommendation has been discussed with the patient and/or guardian Comment: unless symptoms arise /eve/ SHAWNEE AYALA MD PHYSICIAN Signed: 04/25/2024 13:43 SHAWNEE AYALA ([facility]) Apr 25, 2024 01:07 PM PREVENTIVE MEDICIN E NURSING NOTE: LOCAL TITLE: CLINICAL REMINDERS/NURSING STANDARD TITLE: PREVENTIVE MEDICINE NURSING NOTE DATE OF NOTE: APR 25, 2024@13:07 ENTRY DATE: APR 25, 2024@13:07:32 AUTHOR: SABI CHARLES COSIGNER: URGENCY: STATUS: COMPLETED CLINICAL REMINDERS/NURSING Has ADDENDA Advance Directive Screen MH AD: Patient does not have a completed advance directive on file at any facility, [place] or outside. S/he is not interested in completing one at this time. The patient received education about Advance Directives and written notification of his/her rights. Suicide Screen: C-SSRS Screening [place] Suicide Severity Rating Scale (C-SSRS) screener 1. Over the past month, have you wished you were or wished you could go to sleep and not wake up? No 2. Over the past month, have you had any actual thoughts of killing yourself? No 3. Over the past month, have you been thinking about how you might do this? Response not required due to responses to other questions. 4. Over the past month, have you had these thoughts and had some intention of acting on them? Response not required due to responses to other questions. 5. Over the past month, have you started to work out or worked out the details of how to kill yourself? Response not required due to responses to other questions. 6. If yes, at any time in the past month did you intend to carry out this plan? Response not required due to responses to other questions. 7. In your lifetime, have you ever done anything, started to do anything, or prepared to do anything to end your life (for example, collected pills, obtained a gun, gave away valuables, went to the roof but didn't jump)? No 8. If YES, was this within the past 3 months? Response not required due to responses to other questions. Homelessness/Food Insecurity Screen: In the past 2 months, have you been living in stable housing that you own, rent, or stay in as part of a household? Yes - Living in stable housing. Are you worried or concerned that in the next 2 months you may NOT have stable housing that you own, rent, or stay in as part of a household? No - Not worried about housing near future The [place] reports the following: Within the past 12 months, you worried whether your food would run out before you got money to buy more. Never true Within the past 12 months, the food you bought just didn't last and you didn't have money to get more. Never true Depression Screening: Perform PHQ-2 A PHQ-2 screen was performed. The score was 0 which is a negative screen for depression. Over the past two weeks, how often have you been bothered by the following problems? 1. Little interest or pleasure in doing things Not at all 2. Feeling down, depressed, or hopeless Not at all Pneumococcal Conjugate Vaccine (PCV15/PCV20): The patient may have been vaccinated in the past but written documentation of vaccination is not available today. Patient instructed to obtain a written record of the prior vaccine and bring it to the next appointment. Tobacco Use Screening: The patient is a former cigarette smoker. The patient has never used other types of tobacco. Influenza Immunization: Deferral / Refusal Deferred due to a precaution (i.e., acute illness, etc.) Alcohol Use Screen (AUDIT-C): Alcohol Screen: SCREEN FOR ALCOHOL (AUDIT-C) An alcohol screening test (AUDIT-C) was negative (score=0). 1. How often did you have a drink containing alcohol in the past year? Consider a drink to be a 12 ounce can or bottle of regular beer, 8 ounces of malt liquor, a 5 ounce glass of table wine, or a 1.5 ounce shot of liquor (like scotch, gin, or vodka). Never 2. How many drinks containing alcohol did you have on a typical day when you were drinking in the past year? Response not required due to responses to other questions. 3. How often did you have six or more drinks on one occasion in the past year? Response not required due to responses to other questions. COVID-19 Immunization: Vaccine given previously - no written/electronic documentation available The patient was instructed to bring a copy of their COVID-19 vaccine information to their next appointment so that this can be accurately recorded in their [facility] medical record. Tdap Immunization: The patient may have been vaccinated in the past but written documentation of vaccination is not available today. Patient instructed to obtain a written record of the prior vaccine and bring it to the next appointment. Herpes Zoster (Shingles) Vaccine: Prior Herpes Zoster vaccination The patient has been vaccinated in the past but written documentation of vaccination is not available today. Patient instructed to obtain a written record of the prior vaccine and bring it to the next appointment. Sexual Orientation: The patient thinks of their sexual orientation as: Straight or Heterosexual RHS Screen: RHS Screen Environmental Check Upon inquiry, the individual reports that the environment is safe to proceed. Informed Consent to Screen and Document The individual consents to proceed with screening. The individual consents to documentation of responses. PRIMARY SCREEN: In the past 12 months, how often did a current or former intimate partner (e.g., boyfriend, girlfriend, , , sexual partner): 1. Scream or curse at you Never 2. Insult or talk down to you Never 3. Threaten you with harm Never 4. Physically hurt you Never 5. Force or pressure you to have sexual contact against your will, or when you were unable to say no Never The HITS tool (items 1-4 above) is [place] copyright protected by Bharat Licona MD, and the user has full rights to use it throughout the [place] system. PRIMARY SCREEN RESULT: The Primary Screen is NEGATIVE. The individual answered never to all forms of IPV above (i.e., answered never to all 5 items) The individual accepts education and/or resources: Yes - Offered verbal universal education about IPV EDUCATION: The individual indicated readiness to learn. Education offered during this session as noted above. The individual indicated understanding by asking relevant questions and making appropriate comments. No barriers to learning were observed or identified. /es/ SABI CHARLES LPN LICENSED PRACTICAL NURSE Signed: 04/25/2024 13:10 05/25/2024 ADDENDUM STATUS: COMPLETED Pneumococcal Conjugate Vaccine (PCV15/PCV20): Defer due to a PRECAUTION Reason: pending date Influenza Immunization: The patient has received the seasonal influenza vaccine for the current season at another location. Documented: INFLUENZA, UNSPECIFIED FORMULATION Historical Date Administered: Jan 19, 2024 Information Source: FROM PATIENT'S WRITTEN RECORD Tdap Immunization: Defer due to a PRECAUTION Reason: pending date Herpes Zoster (Shingles) Vaccine: Defer due to a PRECAUTION Reason: pending date COVID-19 Immunization: Pfizer Patient received a prior dose of the Pfizer COVID-19 Vaccine. Documented: COVID-19 (PFIZER), MRNA, LNP-S, PF, 30 MCG/0.3 ML DOSE Historical Date Administered: 2021 Series: (None selected) Information Source: FROM PATIENT'S WRITTEN RECORD COVID-19 Immunization: Patient received a prior dose of the Pfizer Monovalent vaccine. Documented: COVID-19 (iRise), MRNA, LNP-S, PF, ERNIE-SUCROSE, 30 MCG/0.3 ML (AGES 12+ YEARS) Historical Date Administered: May 12, 2023 Information Source: FROM PATIENT'S WRITTEN RECORD Patient received a prior dose of the Pfizer Bivalent booster. Documented: COVID-19 (iRise), MRNA, LNP-S, BIVALENT, PF, 30 MCG/0.3 ML DOSE Historical Date Administered: Mar 12, 2022 Series: (None selected) Information Source: FROM PATIENT'S WRITTEN RECORD COVID-19 Immunization: Patient received a prior dose of the Pfizer Monovalent vaccine. Documented: COVID-19 (iRise), MRNA, LNP-S, PF, ERNIE-SUCROSE, 30 MCG/0.3 ML (AGES 12+ YEARS) Historical Date Administered: May 11, 2024 Information Source: FROM PATIENT'S WRITTEN RECORD /es/ GEMA HUYNH LPN LICENSED PRACTICAL NURSE Signed: 05/25/2024 10:58 SABI CHARLES ([facility])
--- NOTE | 2024-09-28 13:02 | MHC.OFFVIS ---
Intake Visit Reasons: Cysto Intake Note: Patient is present for Cystoscopy Urology Medication:NONE Antibiotic Allergy:NONE Blood Thinner:NONE Lot:[id number] Exp:08/17/26 Health Navigator Required: No Allergies ibuprofen Adverse Reaction (Intermediate, Verified 09/28/24 13:03) ringing in ears cyclobenzaprine Adverse Reaction (Verified 09/28/24 13:03) right hand tremors quetiapine (From Seroquel) Adverse Reaction (Verified 09/28/24 13:03) right hand tremors Flonase Allergy (Unknown, Uncoded 09/28/24 13:03) heart palpations HPI Comments Details: Javy is a pleasant male. He is a patient of Dr. Stringer. He is here for the following urologic condition. - bladder cancer Three-month follow-up check cysto 9 months since recurrent low-grade Clear cystoscopy Bladder cancer low-grade recurrent intermediate risk 2019, 08/29, 11/01 Low Grade Diagnosed by Dr. Stafford Workplace exposure - [employer] for 15 months - 100% disability Intervention - TURBT August 2018 Ta low-grade, June 2019 Ta low-grade, Mar 2020 Ta low-grade - August 2020 TURBT low grade recurrent - May 2022 TURBT Mildly atypical urothelial proliferation with inflammation - fulgeration Adjuvant therapy - gemcitabine induction September 2019, repeat induction September 2020, boost Mar 2021, 09/29 Boost, 12/31 Boost, 12/02 Boost, 07/03 Boost [facility] consultation January 2020 Cystoscopy - 07/30 recurrent low-grade lesions - 12/30 NAD, 03/31 NAD, 09/30 NAD, 04/01 question of small lesions, 12/02 NAD Cytology - 09/30 NAD, 04/01 NAD, 12/01 atypical, 07/03 NAD Therapeutic plan - three-month follow-up check cysto [facility] Medical History Left leg DVT History of back pain Chronic neck pain with history of cervical spinal surgery History of fall History of suicidal ideation History of depression Cervical pain (neck) Generalized anxiety disorder Recurrent major depression-severe Transitional cell carcinoma Other obstructive and reflux uropathy BPH (benign prostatic hyperplasia) Bladder mass Surgical History History of lumbar laminectomy History of transurethral destruction of bladder lesion Hx of tonsillectomy Hx of cervical spine surgery History of cystoscopy Social History Household Members: None Housing: Apartment Do you presently have visiting nurse or other home services: No Alcohol intake: never Comment: patient asleep Patient Tobacco Use Status: Former Tobacco user service: Yes Sexual orientation: Straight/Heterosexual Review of Systems Const Denies chills and Denies fever(s) Card Reports no additional complaints and Denies syncope Resp Denies cough GI Denies abdominal pain and Denies heartburn Reports as per HPI and Denies change in libido Neuro Denies syncope Psych Denies change in libido Endo Denies change in libido Physical Exam Const General: cooperative, healthy appearing, comfortable and no acute distress Orientation/consciousness: patient oriented x3 HEENT Face and sinus: Yes normal facial exam Mouth: moist mucous membranes Neck Neck: Yes normal visual inspection, Yes full ROM and Yes trachea midline Chest Chest palpation & inspection: normal inspection of the chest Resp Effort & Inspection: normal respiratory effort, able to speak in complete sentences and no respiratory distress GI Inspection: Yes normal to inspection Back/Spine/Pelvis Cervical Spine: normal cervical lordosis Thoracic/Lumbar Spine: thoracic and lumbar spine normal to inspection Skin General skin exam: no rashes or lesions noted Neuro General: patient oriented x3, gait normal, tone normal and moves all extremities Extrem General: Yes normal to inspection and Yes capillary refill normal Office Procedures Cystoscopy Consent Discussed risk and benefit or proposed procedure with the patient. Information consent for procedure given to the patient. Discussed technical aspects, risks, benefits and alternatives in full. Addressed all of the patient's questions and concerns regarding the procedure. The patient demonstrated knowledge and understanding. They wish to proceed with this procedure. Preparation The patient was prepped in the usual manner. A geochemical laboratory technician was present and in the room. Genitalia was prepped with betadine solution in a sterile manner. Lidocaine Jelly 2% was placed into the urethra and 16Fr flexible Olympus cystoscope was inserted into the meatus after adequate lubrication. Procedure Cystoscopy performed using a disposable Urovue digital 16 [place] cystoscope. Meatus circumcised Urethra anterior and posterior urethra normal Prostatic Urethra unremarkable Bladder examination with retroflexion of cystoscope Bladder Orifices normal shape and position Bladder Capacity Normal Trabeculations grade 2 Cellule Formation None Diverticulum Formation None Mucosal Erythema None Bladder Tumor None [id number] DISPOSABLE SCOPE URO-G FLEXIBLE SCOPE Procedure code (CPT) selection complete Office Meds lidocaine HCl 2 % mucosal jelly in applicator Performing Provider: Corey Buckley MD Performing Location: [facility] [place] [facility] Administered by: Rola Solis RN on 09/28/24 13:28 Dose Route Admin Location Dispensed Lot Number Expiration Date NDC Human Geography Instructor 10 mL intra-urethral 10 mL nitrofurantoin monohydrate/macrocrystals 100 mg capsule Performing Provider: Corey Buckley MD Performing Location: [facility] [place] [facility] Administered by: Rola Solis RN on 09/28/24 13:28 Dose Route Admin Location Dispensed Lot Number Expiration Date NDC Human Geography Instructor 100 mg PO 1 cap Results AMB Urinalysis, Automated UA Leukoctes 0 Lilia/uL Last Edit by ARMIDA Hdz on 09/28/24 13:14 UA Nitrite Negative Last Edit by ARMIDA Hdz on 09/28/24 13:14 UA Urobilinogen 0.2 mg/dL Last Edit by ARMIDA Hdz on 09/28/24 13:14 UA Protein 0 mg/dL Last Edit by ARMIDA Hdz on 09/28/24 13:14 UA pH 6.0 Last Edit by Samy Wright CCM on 09/28/24 13:14 UA Blood 0 Jos/uL Last Edit by ARMIDA Hdz on 09/28/24 13:14 UA Specific [place] 1.015 Last Edit by ARMIDA Hdz on 09/28/24 13:14 UA Ketone Negative Last Edit by ARMIDA Hdz on 09/28/24 13:14 UA Bilirubin 0 mg/dL Last Edit by ARMIDA Hdz on 09/28/24 13:14 UA Glucose 0 mg/dL Last Edit by Samy Wright CCM on 09/28/24 13:14 Results Reviewed Results Reviewed: Laboratory Last Values Urine pH (Auto) 6.0 09/28/24 13:13 Specific [place] (Auto) 1.015 09/28/24 13:13 Urine Protein (Auto) 0 mg/dL 09/28/24 13:13 Glucose (UA)(Auto) 0 mg/dL 09/28/24 13:13 Urine Ketones (Auto) Negative 09/28/24 13:13 Urine Blood (Auto) 0 Jos/uL 09/28/24 13:13 Urine Nitrite (Auto) Negative 09/28/24 13:13 Urine Bilirubin (Auto) 0 mg/dL 09/28/24 13:13 Urine Urobilinogen (Auto) 0.2 mg/dL 09/28/24 13:13 Leukocyte Esterase (Auto) 0 Lilia/uL 09/28/24 13:13 Assessment & Plan Assessment & Plan (1) Bladder cancer: Comment: recurrent low-grade bladder cancer multiple prior TURBT - gemcitabine treatment cause Code(s): C67.9 - Malignant neoplasm of bladder, unspecified Category: Medical Plan Three-month follow-up check cysto Orders: Orders AMB Urinalysis Automated Today Z13.9 - Encounter for screening, unspecified FISH Bladder Cancer Today C67.9 - Malignant neoplasm of bladder, unspecified AMB Cystoscopy Today C67.9 - Malignant neoplasm of bladder, unspecified Patient Instructions: This note is constructed using voice recognition software. While every effort has been made to ensure accuracy graphic manager errors may have been included. Imaging studies, laboratory and physical exam results were discussed and reviewed in detail. No major barriers to patient understanding were identified. An opportunity to ask questions regarding the treatment plan was provided. All questions were answered. The patient expressed understanding and agreement with the above treatment plan. The patient is aware they should contact our office by phone for worsening of their current condition or the appearance of new urologic symptoms. Compliance is encouraged with any medications and followup testing that is ordered. It is a privilege to participate in the urologic care of your patient. If you have any questions or concerns regarding treatment for the above conditions, or other urologic issues, please do not hesitate to contact me. The office telephone contact is [phone]. Sincerely, Dr Corey Buckley MD, RONNIE [facility] - Urology Compassionate Specialist Care for the Genitourinary System Coding Level of Care Code Est Pt Level 3 (91971) Complex EM visit Add On G2211 Diagnoses Bladder cancer C67.9 CPT Codes Cystoscopy - CPT: [id number] ([id number])
== END 2024-09-28 13:58 | disposition home or self-care (01) ==
LOC: HO.HUSH 12:56
PROVIDERS: PCP Internal Medicine; Visit Provider Urology
DX: C67.9 Malignant neoplasm of bladder, unspecified (principal); Z13.9 Encounter for screening, unspecified
CPT/HCPCS: 52000; 99213

== ENCOUNTER 2024-12-14 07:45 | Outpatient (REF) | payer MEDICARE, OTHER, SELFPAY ==
--- OUTSIDE RECORDS SUMMARY | 2020-12-24 | XMS_ITS | Encounter Summary ---
Author Organization [facility] Address [address] [place] [address] Phone Care Team Providers Care Job Hand Name Role Phone Randal Stringer MD Primary Care Provider Self-Referred, Patient Unavailable Unavailab Jcarlos Arevalo MD, MPH Unavailable [phone] Encounter Details Date Type Department Care Team (Late st Contact Info) Description 12/24/2020 Hospital Encounter [facility] OUTSIDE [address] [place] [phone] José Luis Sorensen MD [address] [place] [phone] José [email or web address] [facility] Social History Tobacco Use Types Packs/Day Years [...] 5:00 PM EDT Sherly Zhu LPN * [place] Suicide Severity Rating Scale (Screener/Recent Self-Report) Question [...] on filedocumented in this encounter Care Teams Job Hand Relationship Specialty Start Date End Date Randal Stringer MD [address] [place] [address] Dr ALONSO [address] [place] [address] PCP - General Internal Medicine 01/28/20 08/02/23 Self-Referred, Patient Referring Physician 01/09/20 Jcarlos Vaca MD, MPH [address] [place] [phone] [email or web address] Urology 01/14/20 documented as of this encounter Additional Source Comments The information contained in this document represents components of the legal health record. It is not the complete legal health record.[facility]
--- OUTSIDE RECORDS SUMMARY | 2021-01-08 | XMS_ITS | Encounter Summary ---
Author Organization [facility] Address [address] [place] [address] Phone Care Team Providers Care Narrow Fabrics Weaver Name Role Phone Randal Stringer MD Primary Care Provider Self-Referred, Patient Unavailable Unavailab Jcarlos Arevalo MD, MPH Unavailable [phone] Encounter Details Date Type Department Care Team (Late st Contact Info) Description 01/08/2021 Hospital Encounter [facility] OUTSIDE [address] [place] [phone] José Luis Sorensen MD [address] [place] [phone] José [email or web address]. [email or web address] Social History Tobacco Use Types Packs/Day Years [...] 5:00 PM EDT Sherly Zhu LPN * [place] Suicide Severity Rating Scale (Screener/Recent Self-Report) Question [...] Comments XR SPINE OUTSIDE (NO INTERPRETATION) Routine 01/08/2021 12:00 AM EDT documented in this encounter Results * XR SPINE OUTSIDE(NO INTERPRETATION) (01/08/2021 12:00 AM EDT) Narrative [facility] INTERFACES - 09/09/2021 8:54 AM EDT This study is for PACS storage only and not for interpretation. us José Luis Sorensen MD IMG OUTSIDE IMAGING W/OUT IN TERPRETATION Final Result [facility] INTERFAC[facility] documented in this encounter Visit Diagnoses Not on filedocumented in this encounter Care Teams Narrow Fabrics Weaver Relationship Specialty Start Date End Date Randal Stringer MD [address] [place] [address] Dr ALONSO [address] [place] [phone] PCP - General Internal Medicine 01/28/20 08/02/23 Self-Referred, Patient Referring Physician 01/09/20 Jcarlos Vaca MD, MPH [address] [place] [phone] [email or web address] Urology 01/14/20 documented as of this encounter Additional Source Comments The information contained in this document represents components of the legal health record. It is not the complete legal health record.[facility]
--- OUTSIDE RECORDS SUMMARY | 2021-03-09 01:00 | XMS_ITS | Encounter Summary ---
Author Organization [facility] Address [address] [place] [address] Phone Care Team Providers Care Outpatient Admitting Clerk Name Role Phone Randal Stringer MD Primary Care Provider Self-Referred, Patient Unavailable Unavailab Jcarlos Arevalo MD, MPH Unavailable [phone] Encounter Details Date Type Department Care Team (Late st Contact Info) Description 03/09/2021 Hospital Encounter [facility] OUTSIDE [address] [place] [phone] José Luis Sorensen MD [address] [place] [phone] José [email or web address] Social History Tobacco Use Types Packs/Day Years [...] 5:00 PM EDT Sherly Zhu LPN * [place] Suicide Severity Rating Scale (Screener/Recent Self-Report) Question [...] on filedocumented in this encounter Care Teams Outpatient Admitting Clerk Relationship Specialty Start Date End Date Randal Stringer MD [address] [place] [address] Dr ALONSO [address] [place] [phone] PCP - General Internal Medicine 01/28/20 08/02/23 Self-Referred, Patient Referring Physician 01/09/20 Jcarlos Vaca MD, MPH [address] [place] [id number] [email or web address] Urology 01/14/20 documented as of this encounter Additional Source Comments The information contained in this document represents components of the legal health record. It is not the complete legal health record.[facility]
--- OUTSIDE RECORDS SUMMARY | 2021-04-15 01:00 | XMS_ITS | Encounter Summary ---
Author Organization [facility] Address [address] [place] [address] Phone Care Team Providers Care Cloth Washer Name Role Phone Randal Stringer MD Primary Care Provider Self-Referred, Patient Unavailable Unavailab Jcarlos Arevalo MD, MPH Unavailable [phone] Encounter Details Date Type Department Care Team (Late st Contact Info) Description 04/15/2021 Hospital Encounter [facility] OUTSIDE [address] [place] [phone] José Luis Sorensen MD [address] [place] [phone] José [email or web address] Social History Tobacco Use Types [...] 5:00 PM EDT Sherly Zhu LPN * [place] Suicide Severity Rating Scale (Screener/Recent Self-Report) Question [...] on filedocumented in this encounter Care Teams Cloth Washer Relationship Specialty Start Date End Date Randal Stringer MD [address] [place] [address] Dr ALONSO [address] [place] [phone] PCP - General Internal Medicine 01/28/20 08/02/23 Self-Referred, Patient Referring Physician 01/09/20 Jcarlos Vaca MD, MPH [address] [place] [phone] [email or web address] Urology 01/14/20 documented as of this encounter Additional Source Comments The information contained in this document represents components of the legal health record. It is not the complete legal health record.[facility]
[2024-12-14 12:10] LABS: MANUAL DIFF FLAG NO
[2024-12-14 12:14] LABS: Hematocrit 45.5 % (42.0-52.0); Hemoglobin 14.8 g/dl (14.0-18.0); Imm Gran Abs Auto 0.02 X10*3/uL (0.00-0.03); Imm Gran Pct Auto 0.3 % (0.0-0.4); Lymphocytes Absolute Auto 1.4 X10*3/uL (1.2-4.9); Mean Corpuscular HGB Conc 32.5 g/dl (31.0-36.0); Mean Corpuscular Hemoglobin 29.2 pg (27.0-33.0); Mean Corpuscular Volume 89.7 fL (80.0-98.0); NRBC Abs Auto 0.000 X10*3/uL (0.0-0.012); NRBC Pct Auto 0.0 /100WBC (0.0-0.2); Platelet Count 181 X10*3/uL (160-400); Red Blood Count 5.07 X10*6/uL (4.60-5.80); White Blood Count 6.6 X10*3/uL (4.8-10.8)
[2024-12-14 12:30] LABS: Alanine Aminotransferase 42 U/L (0-40); Albumin Level 4.0 g/dL (3.5-5.0); Alkaline Phosphatase 79 U/L (39-117); Anion Gap 11 (12-20); Aspartate Amino Transferase 40 U/L (5-37); Blood Urea Nitrogen 22 mg/dL (9-16); Calcium 8.8 mg/dL (8.4-10.2); Carbon Dioxide 28 mmol/L (22-29); Chloride 104 mmol/L (96-108); Cholesterol 146 mg/dL (<200); Estimated Glomerular Filt Rate > 60; HDL Cholesterol 32 mg/dL (>40); Potassium 4.9 mmol/L (3.3-5.1); Sodium 138 mmol/L (135-145); Total Protein 6.8 g/dL (6.5-8.0); Triglycerides 103 mg/dL (<150)
[2024-12-14 12:36] LABS: Appearance Urine Clear; Glucose Urine UA Negative (Negative); PH 7.0 (5.0-9.0); Specific Gravity - Urine 1.015 (1.005-1.025)
--- OUTSIDE RECORDS SUMMARY | 2024-12-14 12:44 | XMS_ITS | Encounter Summary ---
Author Organization [facility] Address [address] [place] [id number] Phone Care Team Providers Care Quantitative Analyst Marketing Name Role Phone Randal Stringer MD Primary Care Provider Randal Stringer MD Unavailable [phone] Self-Referred, Patient Unavailable Unavailab Jcarlos Arevalo MD, MPH Unavailable [phone] Ede Newsome MD Unavailable [phone] Parish Senior MD Unavailable [phone] Thomas Perera NP Unavailable Encounter Details Date Type Department Care Team (Late st Contact Info) Description 06/13/2024 Procedure [facility], Ct Scan - [address] [address] Social History Tobacco Use Types Packs/Day Years Used Date Smoking Tobacco: Former Cigarettes Smokeless Tobacco: Never Alcohol Use Standard Drinks/Week Comments Not Currently 0 (1 standard drink = 0.6 oz pur e alcohol) Education Answer Date Recorded Are you interested in more education? Not on emily e 08/03/2023 Are you concerned about learning? Not on file 08/03/2023 No 08/03/2023 No 08/03/2023 Food Answer Date Recorded Within the past 6 months we worried whether our food would run out before we got money to buy more. Never True 08/03/2023 Within the past 6 months the food we bought just didn't last and we didn't have enough money to get more. Never True Residential Stability Answer Date Recor ded What is your housing situation today? I have marlo cleary 08/03/2023 How many times have you move d in the past 12 months? Zero (I did not move) 08/03/2023 Paying for Meds Answer Date Recorded Do you have trouble paying for medicines? No 08/03/2023 Paying Utility Bills Answer Date Record ed Do you have trouble paying your heating or elect ricity bill? No 08/03/2023 Transportation Answer Date Recorded Has the lack of transportati on kept you from medical appointments or from getting medications? No 08/03/2023 Digital Access Answer Date Recorded No 08/03/2023 Yes 08/03/2023 Do you have reliable internet access at home? Ye s 08/03/2023 Do you have a device (e.g., phone, tablet, computer) with a working camera? Yes 08/03/2023 Intimate Partner Violence Answer Date R ecorded Are you denied basic needs s uch as food, clothing, or medical care? No 08/03/2023 In the past 12 months have y ou been in a relationship with a person who hurts, threatens, or tries to control you? No 08/03/2023 Are you denied basic needs s uch as food, clothing, or medical care? No 08/03/2023 In the past 12 months have y ou been in a relationship with a person who hurts, threatens, or tries to control you? No 08/03/2023 Sex and Gender Information Value Date Recorded Sex Assigned at Male 08/04/2023 2:45 PM EDT Legal Sex Male 10:32 AM EDT Gender Identity Male 08/04/2023 2:45 PM EDT Sexual Orientation Straight 08/04/2023 2: 45 PM EDT Occupation Industry Job Start Date Job End Date Retired Not on file Not on file Not on file documented as of this encounter Plan of Treatment Not on file documented as of this encounter Visit Diagnoses Not on filedocumented in this encounter Care Teams Quantitative Analyst Marketing Relationship Specialty Start Date End Date Randal Stringer MD [address] [place] [address] Dr Hodge, DAVID [address] PCP - General Internal Medicine 08/03/23 Randal Stringer MD [address] [place] [id number] Internal Medicine 08/03/23 Self-Referred, Patient Referring Physician 01/09/20 Jcarlos Vaca MD, MPH [address] [place] [address] [address] [place] [address] [email or web address] Urology 01/14/20 Ede Newsome MD [address] [address] Consulting Provider Pain Medicine 12/23/23 Parish Senior MD [address] [address] Referring Physician Neurosurgery 12/23/23 Thomas Perera NP [address] [place] [id number] Consulting Provider Pain Medicine 01/27/24 documented as of this encounter Additional Source Comments The information contained in this document represents components of the legal health record. It is not the complete legal health record.[facility]
--- OUTSIDE RECORDS SUMMARY | 2024-12-14 12:44 | XMS_ITS | Encounter Summary ---
Author Organization [facility] Address [address] [place] [address] Phone Care Team Providers Care Information Technology Architect Name Role Phone Randal Stringer MD Primary Care Provider Randal Stringer MD Unavailable [phone] Self-Referred, Patient Unavailable Unavailab Jcarlos Arevalo MD, MPH Unavailable [phone] Ede Newsome MD Unavailable [phone] Parish Senior MD Unavailable [phone] Thomas Perera NP Unavailable Reason for Referral * Outpatient Procedure - Closed Specialty Diagnoses / Procedures Referred By Contac t Referred To Contact Radiology Diagnoses Other spondylosis with myelopathy, cervical region Procedures NM Bone Scan Spect Parish Senior MD [address] [facility] [address] [place] [address] Phone: tel: fax: [email or web address] Referral ID Status Reason Start Date Expiration Date Visits Re quested Visits Authorized [id number] Closed 06/13/2024 06/13/2025 2 2 Encounter Details Date Type Department Care Team (Latest Contact Info) Description 06/13/2024 Transcribe Orders [address] [address] Parish Senior MD [address] [facility] [address] [place] [address] [email or web address] Other spondylosis with myelopathy, cervical region (Primary Dx) Social History Tobacco Use Types Packs/Day Years [...] your housing situation today? I have marlo sing 08/03/2023 How many times have you move [...] on file documented as of this encounter Results * NM Bone Scan Spect (06/22/2024 12:41 PM EDT) Anatomical Region Laterality Modality Pelvis, Spine, Chest, Neck, Head, Shoulder, Arm, Elbow, Forearm, Wrist, Hip, Thigh, Knee, Leg, Ankle, Foot Nuc [facility] Medicine 06/22/2024 2:19 PM EDT Impressions 06/24/2024 8:05 AM EDT * Multilevel radiotracer uptake within the cervical spine, most notably within the region of the ankylosed C3-5 vertebral bodies and upper cervical facet joints. * New circular region of radiotracer uptake within the left frontoparietal calvarium which is indeterminate. Recommend correlation with history of prior surgery or trauma at this location, if no such history exists recommend further evaluation with head CT. RECOMMENDATIONS: * Correlation with surgical/trauma history, and if no such relevant history exists recommend further evaluation with head CT. ATTESTATION: I, Dr. Rosina Todd as teaching physician, have reviewed the images for this case and if necessary edited the report originally created by José Luis Nogueira. Narrative 06/24/2024 8:05 AM EDT NM BONE SCAN SPECT Radionuclide bone scan with SPECT imaging COMPARISON: [facility] TC MDP BONE SCAN WHOLE BODY [id number] TECHNIQUE: 20.8 mCi technetium 99m MDP was injected. Bone scans were performed more than two hours later. Static and SPECT images from the scalp vertex to the thoracic inlet were obtained. FINDINGS: There is multilevel radiotracer uptake within the cervical spine, most significant within the mid cervical spine in the region of the ankylosed C3-5 vertebral bodies noted on same-day CT. Additional radiotracer uptake within the bilateral facet joints, most significantly within the upper cervical spine. There is peripheral circular radiotracer uptake involving the left frontoparietal bones. Periarticular foci of uptake at the bilateral shoulders, sternoclavicular joints, elbows, wrists/hands, knees, ankles/feet and multilevel spine are in a distribution typical for degenerative change. Foci of uptake within the bilateral mandible and maxilla are likely secondary to odontogenic disease. Renal and soft tissue uptake are within expected range. Procedure Note Rosina Todd MD - 06/24/2024 PA BONE SCAN SPECT Radionuclide bone scan with SPECT imaging COMPARISON: [facility] TC MDP BONE SCAN WHOLE BODY [id number] TECHNIQUE: 20.8 mCi technetium 99m MDP was injected. Bone scans were performed morethan two hours later. Static and SPECT images from the scalp vertex to the thoracic inlet wereobtained. FINDINGS: There is multilevel radiotracer uptake within the cervical spine, mostsignificant within the mid cervical spine in the region of the ankylosedC3-5 vertebral bodies noted on same-day CT. Additional radiotracer uptakewithin the bilateral facet joints, most significantly within the uppercervical spine. There is peripheral circular radiotracer uptake involving the leftfrontoparietal bones. Periarticular foci of uptake at the bilateral shoulders, sternoclavicularjoints, elbows, wrists/hands, knees, ankles/feet and multilevel spine arein a distribution typical for degenerative change. Foci of uptake within the bilateral mandible and maxilla are likelysecondary to odontogenic disease. Renal and soft tissue uptake are within expected range. IMPRESSION: * Multilevel radiotracer uptake within the cervical spine, most notablywithin the region of the ankylosed C3-5 vertebral bodies and uppercervical facet joints. * New circular region of radiotracer uptake within the leftfrontoparietal calvarium which is indeterminate. Recommend correlationwith history of prior surgery or trauma at this location, if no suchhistory exists recommend further evaluation with head CT. RECOMMENDATIONS: * Correlation with surgical/trauma history, and if no such relevanthistory exists recommend further evaluation with head CT. ATTESTATION: I, Dr. Rosina Todd as teaching physician, havereviewed the images for this case and if necessary edited the reportoriginally created by José Luis Nogueira. Parish Senior MD IMG NM BONE SCAN Final Resu lt documented in this encounter Visit Diagnoses Diagnosis Other spondylosis with myelopathy, cervical region- Primary Other spondylosis with myelopathy, cervical region documented in this encounter Care Teams Information Technology Architect Relationship Specialty Start Date End Date Randal Stringer MD [address] [place] [address] [facility] [address] [place] [address] PCP - General Internal Medicine 08/03/23 Randal Stringer MD [address] [place] [address] [place] [address] Internal Medicine 08/03/23 Self-Referred, Patient Referring Physician 01/09/20 Jcarlos Vaca MD, MPH [address] [place] [address] [email or web address] Urology 01/14/20 Ede Newsome MD [address] [facility] [address] [place] [address] Consulting Provider Pain Medicine 12/23/23 Parish Senior MD [address] [facility] [address] [place] [address] Referring Physician Neurosurgery 12/23/23 Thomas Perera NP [address] [facility] [address] [place] [address] [email or web address] Consulting Provider Pain Medicine 01/27/24 documented as of this encounter Additional Source Comments The information contained in this document represents components of the legal health record. It is not the complete legal health record.[facility]
--- OUTSIDE RECORDS SUMMARY | 2024-12-14 12:44 | XMS_ITS | Clinical Summary ---
Author Organization [facility] Address [address] [facility] [address] [place] [address] Phone Care Team Providers Care Ballast Inspector Name Role Phone Randal Stringer MD Primary Care Provider Randal Stringer MD Unavailable [phone] Self-Referred, Patient Unavailable Unavailab Jcarlos Arevalo MD, MPH Unavailable [phone] Ede Newsome MD Unavailable [phone] Parish Senior MD Unavailable [phone] Thomas Perera NP Unavailable Allergies Active Allergy Reactions Criticality Noted Date Comments Cyclobenzaprine Tremor Low 09/02/2021 Cyclobenzaprine 08/03/2023 Per [facility] discharge documents. Unspecified reaction Fluticasone 08/03/2023 Per [facility] discharge documents. Unspecified reaction Ibuprofen 08/03/2023 Per [facility] discharge documents. Unspecified reaction Quetiapine Tremor Low 09/02/2021 Quetiapine 08/03/2023 Per [facility] discharge documents. Unspecified reaction Medications DULoxetine (CYMBALTA) 30 MG capsule Take 30 mg by mouth daily. Active mirtazapine (REMERON) 15 MG tablet Take 15 mg by mouth nightly at bedtime. Active LORazepam (ATIVAN) 0.5 MG tablet Take 3 tablets (1.5 mg total) by mouth nightly at bedtime. Active cholecalciferol (VITAMIN D3) 25 MCG (1,000 unit) tablet Take 1 tablet (1,000 Units total) by mouth daily. 4 Active meclizine (ANTIVERT) 25 mg tablet Take 1 tablet by mouth daily as needed. Active atorvastatin (LIPITOR) 20 MG tablet Take 1 tablet (20 mg total) by mouth daily with dinner. 5 Active methocarbamoL (ROBAXIN) 500 MG tablet Take 1 tablet (500 mg total) by mouth every 6 (six) hours as needed (spasm). 30 tablet 5 Active acetaminophen (TYLENOL) 325 mg tablet Take 2 tablets (650 mg total) by mouth every 6 (six) hours as needed for pain (specific location in comments) (neck). 5 Active lidocaine 4 % Place 2 patches onto the skin daily. 5 Active HYDROmorphone (DILAUDID) 2 MG tablet Take 1 tablet (2 mg total) by mouth every 4 (four) hours as needed (pain). Partial fill ok 30 tablet 5 Active multivitamins with iron Tab Take 1 tablet by mouth daily. 5 Active polyethylene glycol (MIRALAX) 17 gram/dose powder Take 17 g by mouth daily. Active polyethylene glycol (MIRALAX) 17 gram/dose powder Take 17 g by mouth daily as needed for mild constipation. 5 Active senna (SENOKOT) 8.6 mg tablet Take 2 tablets by mouth nightly at bedtime. Active enoxaparin (LOVENOX) 40 mg/0.4 mL Syrg subcutaneous syringe Inject 0.4 mL (40 mg total) under the skin daily for 14 doses. 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 09/02/2021 Malignant neoplasm of overlapping sites of bladd er 01/28/2020 Resolved Problems Problem Noted Date Diagnosed Date Resolved Date DVT (deep venous thrombosis) 01/30/2022 08/09/2022 Encounters Date Type Department Care Team Description 11/05/2024 2:30 PM EDT - 11/13/2024 11:20 AM EDT Hospital Encounter [facility] [address] [place] [address] Javon Cárdenas MD Discharge Disposition: Home-Health Care Svc 10/17/2024 Orders Only [facility] [address] [place] [address] Homehealth, Interface ProviderMD from Last 3 Months Immunizations No known immunizations Family History Medical History Relation Comments Bladder Cancer Neg Hx Cancer Neg Hx Social History Tobacco Use Types Packs/Day Years Used Date Smoking Tobacco: Former Cigarettes Smokeless Tobacco: Never Tobacco Cessation:Counseling Given: Not Answered Alcohol Use Standard Drinks/Week Comments Not Currently [...] housing situation today? I have marlo sing 11/06/2024 How many times have you move [...] file Not on file Not on file Last Filed Vital Signs Vital Sign Reading Time Taken Comments Blood Pressure 117/69 11/13/2024 7:49 AM EDT Pulse 78 11/13/2024 7:49 AM EDT Temperature 37.1 C (98.8 F) 11/13/2024 7:49 AM EDT Respiratory Rate 18 11/13/2024 7:49 AM EDT Oxygen Saturation 97% 11/13/2024 7:49 AM EDT Inhaled Oxygen Concentration - - Weight 89.1 kg (196 lb 6.4 oz) 11/12/2024 5:46 A M EDT Height 175.3 cm (5' 9.02 ) 11/05/2024 2:42 PM ED T Body Mass Index 28.99 11/05/2024 2:42 PM EDT Plan of Treatment Health Maintenance Due Date Last Done Comments Adult Td,Tdap Booster 1950 LIPID PANEL 1950 DEPRESSION SCREENING 1962 SMOKING Hx and SMOKELESS TOBACCO SCREENING 09/27/1963 HEPATITIS C SCREENING 1968 PNEUMOCOCCAL VACCINES (50+ years) (1 of 2 - PCV) 1969 ZOSTER VACCINES (1 of 2) 1969 COLOGUARD 09/27/1995 COLONOSCOPY 09/27/1995 COLORECTAL CANCER SCREENING 09/27/1995 FIT TEST 09/27/1995 FOBT 09/27/1995 SIGMOIDOSCOPY 09/27/1995 VIRTUAL COLONOSCOPY 09/27/1995 RSV VACCINE (1 - Risk 60-74 years 1-dose series) 2010 ABDOMINAL AORTIC ANEURYSM (AAA) SCREENING 09/27/2015 COVID-19 VACCINE (2023- season) 2024 05/11/2024, 05/12/2023, 03/12/2022, Additional history exists HEPATITIS A VACCINES Aged Out No long er eligible based on patient's age to complete this topic HIB VACCINES Aged Out No longer eligi ble based on patient's age to complete this topic MENINGOCOCCAL VACCINES (ACWY) Aged Out No longer eligible based on patient's age to complete this topic MENINGOCOCCAL VACCINES (B) Aged Out N o longer eligible based on patient's age to complete this topic Medical Devices Not on file Procedures Procedure Name Priority Date/Time Associated Diagnosis Comments BASIC METABOLIC PANEL STAT 11/13/2024 6:12 AM EDT Abnormal WBC count CBC AND DIFFERENTIAL STAT 11/13/2024 6:12 AM EDT Abnormal WBC count CBC AND DIFFERENTIAL Routine 11/06/2024 6:00 AM EDT Polypharmacy BASIC METABOLIC PANEL Routine 11/06/2024 6:00 AM EDT Polypharmacy from Last 3 Months Results * (ABNORMAL) CBC and differential (11/13/2024 6:12 AM EDT) Only the most recent of2 resultswithin the time period is included. WBC 8.08 4.00 - 11.00 K/uL [facility] RBC 5.09 4.50 - 5.90 M/uL [facility] HGB 15.1 13.5 - 17.5 g/dL [facility] HCT 46.8 41.0 - 53.0 % [facility] PLT 166 150 - 450 K/uL [facility] MCV 91.9 80.0 - 100.0 fL [facility] MCH 29.7 27.0 - 31.0 pg [facility] MCHC 32.3 32.0 - 36.0 g/dL [facility] RDW 12.6 11.5 - 14.5 % [facility] MPV 10.3 8.4 - 12.0 fL [facility] NRBC 0.00 0.00 /100 WBCs [facility] ABSOLUTE NRBC 0.00 0.00 K/uL [facility] DIFF METHOD Auto [facility] NEUTS 61.2 48.0 - 76.0 % [facility] LYMPHS 25.6 18.0 - 41.0 % [facility] MONOS 8.7 4.0 - 11.0 % [facility] EOS 2.8 0.0 - 5.0 % [facility] BASOS 0.6 0.0 - 1.5 % [facility] % IMMATURE GRANS 1.1(H) 0.0 - 0.9 % [facility] ABSOLUTE NEUTS 4.94 1.92 - 7.60 K/uL [facility] ABSOLUTE LYMPHS 2.07 0.72 - 4.10 K/uL [facility] ABSOLUTE MONOS 0.70 0.16 - 1.10 K/uL [facility] ABSOLUTE EOS 0.23 0.00 - 0.50 K/uL [facility] ABSOLUTE BASOS 0.05 0.00 - 0.15 K/uL [facility] ABS IMMATURE GRANS 0.09 0.00 - 0.09 K/uL [facility] Blood 11/13/2024 6:12 AM EDT 11/13/2024 10:26 AM EDT us Donald Sifuentes CNP LAB BLOOD ORDERABLES Final Re sult [facility] [address] [place] [address] * (ABNORMAL) Basic metabolic panel (11/13/2024 6:12 AM EDT) Only the most recent of2 resultswithin the time period is included. SODIUM 140 134 - 140 mmol/L [facility] CHLORIDE 105 101 - 111 mmol/L [facility] POTASSIUM 4.5 3.6 - 5.0 mmol/L [facility] CO2 28 21 - 31 mmol/L [facility] BUN 21(H) 7 - 18 mg/dL [facility] CREATININE 1.07 0.62 - 1.20 mg/dL [facility] GLUCOSE 71 70 - 105 mg/dL [facility] CALCIUM 8.8 8.4 - 10.2 mg/dL [facility] EGFR 73 >59 mL/min/1.7 3m2 [facility] Comment:Estimated glomerular filtration rate calculated using the CKD-EPI refit equation. ANION GAP 7 3 - 17 mmol/L [facility] Blood 11/13/2024 6:12 AM EDT 11/13/2024 10:26 AM EDT Donald Sfiuentes GAR[facility]T [facility]ER LAB BLOOD ORDERABLES Final Re sult [facility] [address] [place] [address] from Last 3 Months Insurance MEDICARE PART A & [facility]IC[facility] SUPPLEMENT [place] [id number] MED[place] PART [place] [id number] [facility] MEDICARE SUPPLEMENT MEDICARE PART A & B Member Subscriber Plan / P[facility] Name:Javy Pantoja Member ID:[id number] Relation to Subscriber:Self Name:Javy Pantoja Subscriber ID:[id number] Payer ID:[id number] Group ID:Not on file Type:Medicare Address: [facility] [employer] [facility]. [address] [place] [phone] [facility] MEDICARE SUPPLEMENT MEDICARE PART A & B [facility] MEDICARE SUPPLEMENT MEDICARE PART A & B [facility] MEDICARE SUPPLEMENT MEDICARE PART A & [place] [address] MEDICARE SUPPLEMENT MEDICARE PART A & B MEDICARE SUPPLEMENT MEDICARE PART A & B [employer] MEDICARE SUPPLEMENT MEDICARE PART A & B [employer] MEDICARE SUPPLEMENT MEDICARE PART A & B [employer] MEDICARE SUPPLEMENT MEDICARE PART A & B [employer] MEDICARE SUPPLEMENT Advance Directives For more information, please contact: [phone] (9AM - 5PM [facility], Tuesday-Tuesday) Documents on File Type Date Recorded Patient Surveyor [employer] Healthcare Proxy 02/02/2022 3:07 PM * Full Code (Latest Code Status on File) Date Activated Date Inactivated Comments 11/05/2024 3:44 PM Question Answer Comments Code Status Confirmed With: Patient * Full Code Date Activated Date Inactivated Comments 08/03/2023 5:26 PM 11/05/2024 3:44 PM Question Answer Comments Code Status Confirmed With: Patient * Full Code Date Activated Date Inactivated Comments 01/30/2022 2:58 PM 08/04/2023 2:45 PM Question Answer Comments Code Status Confirmed With: Patient Care Teams Ballast Inspector Relationship Specialty Start Date End Date Randal Stringer MD [address] [place] [address] Dr ALONSO [address] [place] [address] PCP - General Internal Medicine 08/03/23 Randal Stringer MD [address] [place] [address] Dr ALONSO [address] [place] [address] Internal Medicine 08/03/23 Self-Referred, Patient Referring Physician 01/09/20 Jcarlos Vaca MD, MPH [address] [place] [address] [email or web address] [email or web address] 01/14/20 Ede Newsome MD [address] [place] [address] DAVID BRAUN [address] [email or web address] Consulting Provider Pain Medicine 12/23/23 Parish Senior MD [address] [place] [address] [email or web address] Referring Physician Neurosurgery 12/23/23 Thomas Perera NP [address] [place] [address]. [address] [place] [address] [email or web address] Consulting Provider Pain Medicine 01/27/24 Additional Source Comments The information contained in this document represents components of the legal health record. It is not the complete legal health record.[facility]
--- OUTSIDE RECORDS SUMMARY | 2024-12-14 12:44 | XMS_ITS | Encounter Summary ---
Author Organization [facility] Address [address] [facility] [address] [place] [address] Phone Care Team Providers Care Laborer Chicken Farm Name Role Phone Randal Stringer MD Primary Care Provider Randal Stringer MD Primary Care Provider Randal Stringer MD Unavailable [phone] Self-Referred, Patient Unavailable Unavailab Jcarlos Arevalo MD, MPH Unavailable [phone] Ede Newsome MD Unavailable [phone] Parish Senior MD Unavailable [phone] Thomas Perera NP Unavailable Encounter Details Date Type Department Care Team (Late st Contact Info) Description 09/02/2021 Procedure Pass [facility] - MRI, [address] [address] Social History Tobacco Use Types Packs/Day Years Used Date Smoking Tobacco: Former Smokeless Tobacco: Never Alcohol Use Standard Drinks/Week Comments Not Currently 0 (1 standard drink = 0.6 oz pur e alcohol) Sex and Gender Information Value Date Recorded [...] on filedocumented in this encounter Care Teams Laborer Chicken Farm Relationship Specialty Start Date End Date Randal Stringer MD [address] [place] [address] [place] [address] PCP - General Internal Medicine 01/28/20 08/02/23 Randal Stringer MD [address] [place] [address] [place] [address] PCP - General Internal Medicine 08/03/23 Randal Stringer MD [address] [place] [address] [place] [address] Internal Medicine 08/03/23 Self-Referred, Patient Referring Physician 01/09/20 Jcarlos Vaca MD, MPH [address] [place] [address] [email or web address] 01/14/20 Ede Newsome MD [address] [facility] [address] [place] [address] [email or web address] Consulting Provider Pain Medicine 12/23/23 Parish Senior MD [address] [facility] [address] [place] [address] [email or web address] Referring Physician Neurosurgery 12/23/23 Thomas Perera NP 800 [facility] [address] [place] [address] [email or web address] Consulting Provider Pain Medicine 01/27/24 documented as of this encounter Additional Source Comments The information contained in this document represents components of the legal health record. It is not the complete legal health record.[facility]
--- OUTSIDE RECORDS SUMMARY | 2024-12-14 12:45 | XMS_ITS | Encounter Summary ---
Author Organization [facility] Address [address] [place] [address] Phone Care Team Providers Care Ip Counsel Name Role Phone Randal Stringer MD Primary Care Provider Randal Stringer MD Unavailable [phone] Self-Referred, Patient Unavailable Unavailab Jcarlos Arevalo MD, MPH Unavailable [phone] Ede Newsome MD Unavailable [phone] Parish Senior MD Unavailable [phone] Thomas Perera NP Unavailable Reason for Referral * MRI/CAT Scan - Closed Specialty Diagnoses / Procedures Referred By Mary Ann t Referred To Contact Radiology Diagnoses Other spondylosis with myelopathy, cervical region Procedures CT Cervical Spine Parish Senior MD [address] [facility] [address] [place] [address] Phone: tel: fax: [email or web address]:[email or web address] Referral ID Status Reason Start Date Expiration Date Visits Re quested Visits Authorized [id number] Closed 06/13/2024 06/13/2025 1 1 Encounter Details Date Type Department Care Team (Latest Contact Info) Description 06/13/2024 Transcribe Orders [address] [address] Parish Senior MD [address] [place] [address] [address] [place] [address] [email or web address] Other spondylosis with myelopathy, cervical [...] documented as of this encounter Results * CT CERVICAL SPINE WITHOUT CONTRAST (06/22/2024 7:44 AM EDT) Anatomical Region Laterality Modality C-spine Computed Tomogra phy 06/24/2024 3:15 PM EDT Impressions 06/24/2024 3:19 PM EDT Postoperative and degenerative changes of the cervical spine. Narrative 06/24/2024 3:[address] CERVICAL SPINE WITHOUT CONTRAST Referring clinician's provided indication for this examination in Epic: Outside Radiology Order; Other spondylosis with myelopathy, cervical region TECHNIQUE: Multidetector-row CT of the cervical spine was performed without intravenous contrast using tailored dose modulation techniques. Images were reconstructed in the axial, coronal, and sagittal planes. COMPARISON: NM BONE SCAN SPECT 10:17:58.000 FINDINGS: Straightening of cervical lordosis. Mild anterolisthesis and anterior bending of the C2-3 level. C3-C5 are fused across the disc spaces status post posterior decompression from C3 to C6. Severe C5-6 degenerative disc disease. Moderate C6- 7 and C7-T1 degenerative disc disease. Facet arthropathy is most prominent on the LEFT at C7-T1 and on the RIGHT at C2-3. No evidence of fracture. Spinal canal and foraminal narrowing are not well assessed on CT scan. There is at least moderate spinal stenosis at C2-3. Multilevel bony foraminal narrowing most prominent on the RIGHT at C7-T1 but present at multiple levels bilaterally. Procedure Note Lanre Quinonez MD - 06/24/2024 CT CERVICAL SPINE WITHOUT CONTRAST Referring clinician's provided indication for this examination in [facility]:Outside Radiology Order; Other spondylosis with myelopathy, cervicalregion TECHNIQUE: Multidetector-row CT of the cervical spine was performedwithout intravenous contrast using tailored dose modulation techniques.Images were reconstructed in the axial, coronal, and sagittal planes. COMPARISON: NM BONE SCAN SPECT 10:17:58.000 FINDINGS: Straightening of cervical lordosis. Mild anterolisthesis and anteriorbending of the C2-3 level. C3-C5 are fused across the disc spaces statuspost posterior decompression from C3 to C6. Severe C5-6 degenerative discdisease. Moderate C6-7 and C7-T1 degenerative disc disease. Facetarthropathy is most prominent on the LEFT at C7- T1 and on the RIGHT atC2-3. No evidence of fracture. Spinal canal and foraminal narrowing are not well assessed on CT scan.There is at least moderate spinal stenosis at C2-3. Multilevel bonyforaminal narrowing most prominent on the RIGHT at C7-T1 but present atmultiple levels bilaterally. IMPRESSION: Postoperative and degenerative changes of the cervical spine. Parish Senior MD IMG CT XSPECIALTY ORDERABLE S Final Result documented in this encounter Visit Diagnoses Diagnosis Other spondylosis with myelopathy, cervical region- Primary Other spondylosis with myelopathy, cervical region documented in this encounter Care Teams Ip Counsel Relationship Specialty Start Date End Date Randal Stringer MD [address] [place] [address] [place] [address] PCP - General Internal Medicine 08/03/23 Randal Stringer MD [address] [place] [address] [place] [address] Internal Medicine 08/03/23 Self-Referred, Patient Referring Physician 01/09/20 Jcarlos Vaca MD, MPH [address] [place] [address] [address] [place] [address] [email or web address] [email or web address] 01/14/20 Ede Newsome MD 800 [facility] [address] [place] [address] Consulting Provider Pain Medicine 12/23/23 Parish Senior MD 800 [facility] [address] [place] [address] Referring Physician Neurosurgery 12/23/23 Thomas Perera NP 800 [facility] Colin. [address] [place] [address] [email or web address] Consulting Provider Pain Medicine 01/27/24 documented as of this encounter Additional Source Comments The information contained in this document represents components of the legal health record. It is not the complete legal health record.[facility]
[2024-12-14 12:57] LABS: PSA,Total (Free>4and<10) 4.06 ng/mL (0.00-4.00)
[2024-12-19 11:38] LABS: Free Prostate Spec Ag 1.1 ng/mL; Percent Free Prostate Spec Ag 24 % (calc) (>25)
== END 2024-12-14 07:46 | disposition home or self-care (01) ==
LOC: HO.LNP 07:45
PROVIDERS: Visit Provider Internal Medicine
DX: Z12.5 Encounter for screening for malignant neoplasm of prostate (principal); E78.00 Pure hypercholesterolemia, unspecified; E55.9 Vitamin D deficiency, unspecified; R73.09 Other abnormal glucose
CPT/HCPCS: 80053; 80061; 81001; 82306; 84153; 84154; 85025

== ENCOUNTER 2024-12-21 13:41 | Outpatient (REF) | payer MEDICARE, OTHER, SELFPAY ==
--- OUTSIDE RECORDS SUMMARY | 2020-12-24 | XMS_ITS | Encounter Summary ---
Author Organization [facility] Address [address] [place] [address] Phone Care Team Providers Care Skull Grinder Name Role Phone Randal Stringer MD Primary Care Provider Self-Referred, Patient Unavailable Unavailab Jcarlos Arevalo MD, MPH Unavailable [phone] Encounter Details Date Type Department Care Team (Late st Contact Info) Description 12/24/2020 Hospital Encounter [facility] OUTSIDE [address] [place] [phone] José Luis Sorensen MD [address] [place] [phone] José [email or web address] Social History Tobacco Use Types Packs/Day [...] 5:00 PM EDT Sherly Zhu LPN * [place] Suicide Severity Rating Scale (Screener/Recent Self-Report) Question [...] on filedocumented in this encounter Care Teams Skull Grinder Relationship Specialty Start Date End Date Randal Stringer MD [address] [place] [address] Dr ALONSO [address] [place] [phone] PCP - General Internal Medicine 01/28/20 08/02/23 Self-Referred, Patient Referring Physician 01/09/20 Jcarlos Vaca MD, MPH [address] [place] [id number] [email or web address] Urology 01/14/20 documented as of this encounter Additional Source Comments The information contained in this document represents components of the legal health record. It is not the complete legal health record.[facility]
--- OUTSIDE RECORDS SUMMARY | 2021-01-08 | XMS_ITS | Encounter Summary ---
Author Organization [facility] Address [address] [place] [address] Phone Care Team Providers Care Screener And Blender Operator Name Role Phone Randal Stringer MD Primary Care Provider Self-Referred, Patient Unavailable Unavailab Jcarlos Arevalo MD, MPH Unavailable [phone] Encounter Details Date Type Department Care Team (Late st Contact Info) Description 01/08/2021 Hospital Encounter [facility] OUTSIDE [address] [place] [phone] José Luis Sorensen MD [address] [place] [phone] José [email or web address] Social History Tobacco Use Types [...] 5:00 PM EDT Sherly Zhu LPN * [place] Suicide Severity Rating Scale (Screener/Recent Self-Report) Question [...] on filedocumented in this encounter Care Teams Screener And Blender Operator Relationship Specialty Start Date End Date Randal Stringer MD [address] [place] [address] Dr ALONSO [address] [place] [phone] PCP - General Internal Medicine 01/28/20 08/02/23 Self-Referred, Patient Referring Physician 01/09/20 Jcarlos Vaca MD, MPH [address] [place] [phone] [email or web address] U[facility] 01/14/20 documented as of this encounter Additional Source Comments The information contained in this document represents components of the legal health record. It is not the complete legal health record.[facility]
--- OUTSIDE RECORDS SUMMARY | 2021-03-09 01:00 | XMS_ITS | Encounter Summary ---
Author Organization Located Within [facility] Address [address] [place] [id number] Phone Care Team Providers Care Die Trimmer Name Role Phone Randal Stringer MD Primary Care Provider Self-Referred, Patient Unavailable Unavailab Jcarlos Arevalo MD, MPH Unavailable [phone] Encounter Details Date Type Department Care Team (Late st Contact Info) Description 03/09/2021 Hospital Encounter [facility] OUTSIDE [address] [place] [id number] José Luis Sorensen MD [address] [place] [id number] [email or web address] Social History Tobacco Use Types Packs/Day [...] 5:00 PM EDT Sherly Zhu LPN * [place] Suicide Severity Rating Scale (Screener/Recent Self-Report) Question [...] Procedure Name Priority Date/Time Associated Diagnosis Comments MRI SPINE MUSCULOSKELETAL FOCUS OUTSIDE (NO INTERPRETATION) Routine 03/09/2021 12:00 AM EST documented in this encounter Results * MRI Spine (Bone) Outside (No Interpretation) (03/09/2021 12:00 AM EST) Narrative [facility] INTERFACES - 09/09/2021 9:01 AM EDT This study is for PACS storage only and not for interpretation. us José Luis Sorensen MD IMG OUTSIDE IMAGING W/OUT IN TERPRETATION Final Result [facility]AC[facility] documented in this encounter Visit Diagnoses Not on filedocumented in this encounter Care Teams Die Trimmer Relationship Specialty Start Date End Date Randal Stringer MD [address] [place] [address] Dr ALONSO [address] [place] [phone] PCP - General Internal Medicine 01/28/20 08/02/23 Self-Referred, Patient Referring Physician 01/09/20 Jcarlos Vaca MD, MPH [address] [place] [id number] [email or web address] 01/14/20 documented as of this encounter Additional Source Comments The information contained in this document represents components of the legal health record. It is not the complete legal health record.Located Within [facility]
--- OUTSIDE RECORDS SUMMARY | 2021-04-15 01:00 | XMS_ITS | Encounter Summary ---
Author Organization [facility] Address [address] [place] [address] Phone Care Team Providers Care Environmental Protection Specialist Name Role Phone Randal Stringer MD Primary Care Provider Self-Referred, Patient Unavailable Unavailab Jcarlos Arevalo MD, MPH Unavailable [phone] Encounter Details Date Type Department Care Team (Late st Contact Info) Description 04/15/2021 Hospital Encounter [facility] OUT[facility] [address] [place] [phone] José Luis Sorensen MD [address] [place] [phone] José [email or web address] Social History Tobacco Use Types Packs/Day Years [...] 5:00 PM EDT Sherly Zhu LPN * [place] Suicide Severity Rating Scale (Screener/Recent Self-Report) Question [...] Comments XR SPINE OUTSIDE (NO INTERPRETATION) Routine 04/15/2021 12:00 AM EST documented in this encounter Results * XR SPINE OUTSIDE(NO INTERPRETATION) (04/15/2021 12:00 AM EST) Narrative [facility] INTERFAC[facility] - 09/09/2021 8:54 AM EDT This study is for PACS storage only and not for interpretation. us José Luis Sorensen MD IMG OUTSIDE IMAGING W/OUT IN TERPRETATION Final Result [facility] documented in this encounter Visit Diagnoses Not on filedocumented in this encounter Care Teams Environmental Protection Specialist Relationship Specialty Start Date End Date Randal Stringer MD [address] [place] [address] Dr ALONSO [address] [place] [phone] PCP - General Internal Medicine 01/28/20 08/02/23 Self-Referred, Patient Referring Physician 01/09/20 Jcarlos Vaca MD, MPH [address] [place] [phone] [email or web address] Urology 01/14/20 documented as of this encounter Additional Source Comments The information contained in this document represents components of the legal health record. It is not the complete legal health record.[facility]
--- NOTE | ~2024-12-21 | XR_ITS ---
EXAMINATION: XR CHEST 2 VIEWS HISTORY: RALES COMPARISON: Comparison is made with the prior examination dated 02/20/2021. FINDINGS: PA and lateral views of the chest are submitted. The lungs are expanded and clear. There is no pleural effusion, pneumothorax, or pulmonary vascular congestion. The heart is normal in size. The bones are intact. XR/XR chest 2V IMPRESSION: No acute cardiopulmonary abnormality. Electronically signed by: Eliceo Alvares MD 12/21/2024 02:01 PM EDT
[2024-12-21 16:29] LABS: PSA,Total (Free>4and<10) 3.53 ng/mL (0.00-4.00)
--- OUTSIDE RECORDS SUMMARY | 2024-12-21 16:34 | XMS_ITS | Encounter Summary ---
Author Organization [facility] Address [address] [facility] [address] [place] [address] Phone Care Team Providers Care Beam Racker Name Role Phone Randal Stringer MD Primary Care Provider Randal Stringer MD Primary Care Provider Randal Stringer MD Unavailable [phone] Self-Referred, Patient Unavailable Unavailab Jcarlos Arevalo MD, MPH Unavailable [phone] Ede Newsome MD Unavailable [phone] Parish Senior MD Unavailable [phone] Thomas Perera NP Unavailable Encounter Details Date Type Department Care Team (Late st Contact Info) Description 09/02/2021 Procedure Pass [facility] - MRI, [address] [address] Social History Tobacco Use Types Packs/Day Years [...] on filedocumented in this encounter Care Teams Beam Racker Relationship Specialty Start Date End Date Randal Stringer MD [address] [place] [address] [place] [address] PCP - General Internal Medicine 01/28/20 08/02/23 Randal Stringer MD [address] [place] [address] [place] [address] PCP - General Internal Medicine 08/03/23 Randal Stringer MD [address] [place] [address] [place] [address] Internal Medicine 08/03/23 Self-Referred, Patient Referring Physician 01/09/20 Jcarlos Vaca MD, MPH [address] [place] [address] [email or web address] 01/14/20 Ede Newsome MD 800 [facility] 1200 [place] [address] [email or web address] Consulting Provider Pain Medicine 12/23/23 Parish Senior MD 800 [facility] 1200 [place] [address] [email or web address] Referring Physician Neurosurgery 12/23/23 Thomas Perera NP 800 [facility] 1200 [place] [address] [email or web address] Consulting Provider Pain Medicine 01/27/24 documented as of this encounter Additional Source Comments The information contained in this document represents components of the legal health record. It is not the complete legal health record.[facility]
--- OUTSIDE RECORDS SUMMARY | 2024-12-21 16:36 | XMS_ITS | Encounter Summary ---
Author Organization [facility] Address [address] [place] [address] Phone Care Team Providers Care Welfare Investigator Name Role Phone Randal Stringer MD Primary Care Provider Randal Stringer MD Unavailable [phone] Self-Referred, Patient Unavailable Unavailab Jcarlos Arevalo MD, MPH Unavailable [phone] Ede Newsome MD Unavailable [phone] Parish Senior MD Unavailable [phone] Thomas Perera NP Unavailable Reason for Referral * MRI/CAT Scan - Closed Specialty Diagnoses / Procedures Referred By Mary Ann t Referred To Contact Radiology Diagnoses Other spondylosis with myelopathy, cervical region Procedures CT Cervical Spine Parish Senior MD 125 [facility] [address] [place] [address] Phone: tel: fax: mailto:[email or web address] Referral ID Status Reason Start Date Expiration Date Visits Re quested Visits Authorized [id number] Closed 06/13/2024 06/13/2025 1 1 Encounter Details Date Type Department Care Team (Latest Contact Info) Description 06/13/2024 Transcribe Orders [address] [address] Parish Senior MD [address] [place] [address] [address] [place] [address] [email or web address] Other spondylosis with myelopathy, cervical [...] clinician's provided indication for this examination in [facility]:Outside Radiology Order; Other spondylosis with [...] region documented in this encounter Care Teams Welfare Investigator Relationship Specialty Start Date End Date Randal Stringer MD [address] [place] [address] [place] [address] PCP - General Internal Medicine 08/03/23 Randal Stringer MD [address] [place] [address] [place] [address] Internal Medicine 08/03/23 Self-Referred, Patient Referring Physician 01/09/20 Jcarlos Vaca MD, MPH [address] [place] [address] [address] [place] [address] [email or web address] 01/14/20 Ede Newsome MD 800 [facility] [address] [place] [address] [email or web address] Consulting Provider Pain Medicine 12/23/23 Parish Senior MD 800 [facility] [address] [place] [address] [email or web address] Referring Physician Neurosurgery 12/23/23 Thomas Perera NP 800 [facility] Colin. [address] [place] [address] [email or web address] Consulting Provider Pain Medicine 01/27/24 documented as of this encounter Additional Source Comments The information contained in this document represents components of the legal health record. It is not the complete legal health record.[facility]
--- OUTSIDE RECORDS SUMMARY | 2024-12-21 16:36 | XMS_ITS | Encounter Summary ---
Author Organization [facility] Address [address] [place] [address] Phone Care Team Providers Care Fax Machine Operator Name Role Phone Randal Stringer MD Primary Care Provider Randal Stringer MD Unavailable [phone] Self-Referred, Patient Unavailable Unavailab Jcarlos Arevalo MD, MPH Unavailable [phone] Ede Newsome MD Unavailable [phone] Parish Senior MD Unavailable [phone] Thomas Perera NP Unavailable Reason for Referral * Outpatient Procedure - Closed Specialty Diagnoses / Procedures Referred By Contac t Referred To Contact Radiology Diagnoses Other spondylosis with myelopathy, cervical region Procedures NM Bone Scan Spect Parish Senior MD [address] [facility] [address] [place] [address] Phone: tel: fax: mailto:[email or web address] Referral ID Status Reason Start Date Expiration Date Visits Re quested Visits Authorized [id number] Closed 06/13/2024 06/13/2025 2 2 Encounter Details Date Type Department Care Team (Latest Contact Info) Description 06/13/2024 Transcribe Orders [address] [address] Parish Senior MD [address] [facility] [address] [place] [address] [email or web address] Other spondylosis with myelopathy, cervical [...] Hip, Thigh, Knee, Leg, Ankle, Foot Nuc [facility] Medicine 06/22/2024 2:19 PM EDT Impressions 06/24/2024 [...] Radionuclide bone scan with SPECT imaging COMPARISON: [facility] TC MDP BONE SCAN WHOLE BODY [id number] TECHNIQUE: 20.8 mCi technetium 99m MDP was [...] Procedure Note Rosina Todd MD - 06/24/2024 [place] BONE SCAN SPECT Radionuclide bone scan with SPECT imaging COMPARISON: [facility] TC MDP BONE SCAN WHOLE BODY [id number] TECHNIQUE: 20.8 mCi technetium 99m MDP was [...] region documented in this encounter Care Teams Fax Machine Operator Relationship Specialty Start Date End Date Randal Stringer MD [address] [place] [address] [facility] [address] [place] [address] PCP - General Internal Medicine 08/03/23 Randal Stringer MD [address] [place] [address] [place] [address] Internal Medicine 08/03/23 Self-Referred, Patient Referring Physician 01/09/20 Jcarlos Vaca MD, MPH [address] [place] [address] [email or web address] Urology 01/14/20 Ede Newsome MD 800 [facility] [address] [place] [address] [email or web address] Consulting Provider Pain Medicine 12/23/23 Parish Senior MD 800 [facility] [address] [place] [address] [email or web address] Referring Physician Neurosurgery 12/23/23 Thomas Perera NP 800 [facility] [address] [place] [address] [email or web address] Consulting Provider Pain Medicine 01/27/24 documented as of this encounter Additional Source Comments The information contained in this document represents components of the legal health record. It is not the complete legal health record.[facility]
--- OUTSIDE RECORDS SUMMARY | 2024-12-21 16:36 | XMS_ITS | Clinical Summary ---
Author Organization [facility] Address [address] [facility] [address] [place] [address] Phone Care Team Providers Care Education Adviser Name Role Phone Randal Stringer MD Primary Care Provider Randal Stringer MD Unavailable [phone] Self-Referred, Patient Unavailable Unavailab Jcarlos Arevalo MD, MPH Unavailable [phone] Ede Newsome MD Unavailable [phone] Parish Senior MD Unavailable [phone] Thomas Perera NP Unavailable Allergies Active Allergy Reactions Criticality Noted Date Comments Cyclobenzaprine Tremor Low 09/02/2021 Cyclobenzaprine 08/03/2023 Per [facility] discharge documents. Unspecified reaction Fluticasone 08/03/2023 Per [facility] discharge documents. Unspecified reaction Ibuprofen 08/03/2023 Per [facility] discharge documents. Unspecified reaction Quetiapine Tremor Low 09/02/2021 Quetiapine 08/03/2023 Per [facility] discharge documents. Unspecified reaction Medications DULoxetine [...] AM EDT Hospital Encounter SRB [address] [place] [address] Javon Cárdenas MD Discharge Disposition: Home-Health Care Svc 10/17/2024 Orders Only [facility] [address] [place] [address] Homehealth, Interface ProviderMD from Last [...] 2010 ABDOMINAL AORTIC ANEURYSM (AAA) SCREENING 09/27/2015 INFLUENZA VACCINE (#1) 2024 , 12/21/2022, 12/18/2021, Additional history exists COVID-19 VACCINE ( season) 2024 05/11/2024, 05/12/2023, 03/12/2022, Additional history [...] included. WBC 8.08 4.00 - 11.00 K/uL [facility] RBC 5.09 4.50 - 5.90 M/uL [facility] HGB 15.1 13.5 - 17.5 g/dL [facility] HCT 46.8 41.0 - 53.0 % [facility] PLT 166 150 - 450 K/uL [facility] MCV 91.9 80.0 - 100.0 fL [facility] MCH 29.7 27.0 - 31.0 pg [facility] MCHC 32.3 32.0 - 36.0 g/dL [facility] RDW 12.6 11.5 - 14.5 % [facility] MPV 10.3 8.4 - 12.0 fL [facility] NRBC 0.00 0.00 /100 WBCs [facility] ABSOLUTE NRBC 0.00 0.00 K/uL [facility] DIFF [employer] [facility] NEUTS 61.2 48.0 - 76.0 % [facility] LYMPHS 25.6 18.0 - 41.0 % [facility] MONOS 8.7 4.0 - 11.0 % [facility] EOS 2.8 0.0 - 5.0 % [facility] BASOS 0.6 0.0 - 1.5 % [facility] % IMMATURE GRANS 1.1(H) 0.0 - 0.9 % [facility] ABSOLUTE NEUTS 4.94 1.92 - 7.60 K/uL [facility] ABSOLUTE LYMPHS 2.07 0.72 - 4.10 K/uL [facility] ABSOLUTE MONOS 0.70 0.16 - 1.10 K/uL [facility] ABSOLUTE EOS 0.23 0.00 - 0.50 K/uL [facility] ABSOLUTE BASOS 0.05 0.00 - 0.15 K/uL [facility] ABS IMMATURE GRANS 0.09 0.00 - 0.09 K/uL [facility] Blood 11/13/2024 6:12 AM EDT 11/13/2024 10:26 AM EDT us Donald Sifuentes [employer] [facility] BLOOD ORDERABLES Final Re sult [facility] [address] [place] [address] * (ABNORMAL) Basic metabolic panel (11/13/2024 6:12 AM EDT) Only the most recent of2 resultswithin the time period is included. SODIUM 140 134 - 140 mmol/L [facility] CHLORIDE 105 101 - 111 mmol/L [facility] POTASSIUM 4.5 3.6 - 5.0 mmol/L [facility] CO2 28 21 - 31 mmol/L [facility] BUN 21(H) 7 - 18 mg/dL [facility] CREATININE 1.07 0.62 - 1.20 mg/dL [facility] GLUCOSE 71 70 - 105 mg/dL [facility] CALCIUM 8.8 8.4 - 10.2 mg/dL [facility] EGFR 73 >59 mL/min/1.7 3m2 [facility] Comment:Estimated glomerular filtration rate calculated using the CKD-EPI refit equation. ANION GAP 7 3 - 17 mmol/L [facility] Blood 11/13/2024 6:12 AM EDT 11/13/2024 10:26 AM EDT Donald Sifuentes [facility] LAB BLOOD ORDERABLES Final Re sult [facility] [address] [place] [address] from Last 3 Months Insurance MEDICARE PART A & B [facility] [employer] MEDICARE SUPPLEMENT MEDICARE PART A & B [facility] [employer] MEDICARE SUPPLEMENT MEDICARE PART A & B [facility] [employer] MEDICARE SUPPLEMENT MEDICARE PART A & B [facility] MEDICARE SUPPLEMENT MEDICARE PART A & B [facility] MEDICARE SUPPLEMENT MEDICARE PART A & B [employer] MEDICARE SUPPLEMENT MEDICARE PART A & B [employer] MEDICARE SUPPLEMENT MEDICARE PART A & B [employer] MEDICARE SUPPLEMENT MEDICARE PART A & B [employer] MEDICARE SUPPLEMENT MEDICARE PART A & B [facility] MEDICARE SUPPLEMENT MEDICARE PART A & B [facility] SUPPLEMENT Advance Directives For more information, please contact: [phone] (9AM - 5PM [facility], Tuesday-Tuesday) Documents on File Type Date Recorded Patient Community Services Manager Expl anation Healthcare Proxy 02/02/2022 3:07 PM [...] Code Status Confirmed With: Patient Care Teams Education Adviser Relationship Specialty Start Date End Date Randal Stringer MD [address] [place] [address] [place] [address] PCP - General Internal Medicine 08/03/23 Randal Stringer MD [address] [place] [address] [place] [address] Internal Medicine 08/03/23 Self-Referred, Patient Referring Physician 01/09/20 Jcarlos Vaca MD, MPH [address] [place] [id number] [email or web address] 10/5/20 Ede Newsome MD [facility] [address] [place] [address] [email or web address] Consulting Provider Pain Medicine 12/23/23 Parish Senior MD 800 [facility] [address] [place] [address] [email or web address] Referring Physician Neurosurgery 12/23/23 Thomas Perera NP 800 [facility] [address]. [address] [place] [address] [email or web address] Consulting Provider Pain Medicine 01/27/24 Additional Source Comments The information contained in this document represents components of the legal health record. It is not the complete legal health record.[facility]
--- OUTSIDE RECORDS SUMMARY | 2024-12-21 16:36 | XMS_ITS | Encounter Summary ---
Author Organization [facility] Address [address] [place] [address] Phone Care Team Providers Care Urogynecology Physician Name Role Phone Randal Stringer MD Primary Care Provider Randal Stringer MD Unavailable [phone] Self-Referred, Patient Unavailable Unavailab Jcarlos Arevalo MD, MPH Unavailable [phone] Ede Newsome MD Unavailable [phone] Parish Senior MD Unavailable [phone] Thomas Perera NP Unavailable Encounter Details Date Type Department Care Team (Late st Contact Info) Description 06/13/2024 Procedure Pass [facility], Ct Scan - [address] [address] Social History Tobacco Use Types Packs/Day Years [...] on filedocumented in this encounter Care Teams Urogynecology Physician Relationship Specialty Start Date End Date Randal Stringer MD [address] [place] [address] Dr [place], DAVID [address] PCP - General Internal Medicine 08/03/23 Randal Stringer MD [address] [place] [address] Internal Medicine 08/03/23 Self-Referred, Patient Referring Physician 01/09/20 Jcarlos Vaca MD, MPH [address] [place] [address] [address] [place] [address] [email or web address] 01/14/20 Ede Newsome MD [address] [address] Consulting Provider Pain Medicine 12/23/23 Parish Senior MD [address] [address] Referring Physician Neurosurgery 12/23/23 Thomas Perera NP [address] [place] [address] [email or web address] Consulting Provider Pain Medicine 01/27/24 documented as of this encounter Additional Source Comments The information contained in this document represents components of the legal health record. It is not the complete legal health record.[facility]
== END 2024-12-21 13:42 | disposition home or self-care (01) ==
LOC: HO.XRAY 13:41
PROVIDERS: PCP Internal Medicine; Visit Provider Internal Medicine
DX: Z12.5 Encounter for screening for malignant neoplasm of prostate (principal); R97.20 Elevated prostate specific antigen [PSA]; R06.89 Other abnormalities of breathing
CPT/HCPCS: 36415; 71046; 84153

== ENCOUNTER → 2024-12-21 13:46 | Outpatient (BNV) | payer MEDICARE, OTHER, SELFPAY | PROVIDERS: PCP Internal Medicine; Visit Provider Radiology Diagnostic Radiology | DX: R09.89 Other specified symptoms and signs involving the circulatory and respiratory systems (principal) | CPT/HCPCS: 71046 ==

== ENCOUNTER 2024-12-25 12:53 | Outpatient (REF) | payer MEDICARE, OTHER, SELFPAY | END 2024-12-25 12:54 | disposition home or self-care (01) | LOC: HO.LNP 12:53 | PROVIDERS: PCP Internal Medicine; Visit Provider Urology | DX: C67.9 Malignant neoplasm of bladder, unspecified (principal); Z13.89 Encounter for screening for other disorder; Z90.79 Acquired absence of other genital organ(s) | CPT/HCPCS: 52000; 81003; 88121; 99212 ==

== ENCOUNTER 2024-12-25 12:53 | Outpatient (AMB) | payer MEDICARE, OTHER, SELFPAY ==
--- OUTSIDE RECORDS SUMMARY | 2020-12-24 | XMS_ITS | Encounter Summary ---
Author Organization [facility] Address [address] [place] [address] Phone Care Team Providers Care Rippler Name Role Phone Randal Stringer MD Primary Care Provider Self-Referred, Patient Unavailable Unavailab Jcarlos Arevalo MD, MPH Unavailable [phone] Encounter Details Date Type Department Care Team (Late st Contact Info) Description 12/24/2020 Hospital Encounter [facility] OUTSIDE [address] [place] [phone] José Luis Sorensen MD [address] [place] [phone] [email or web address] Social History Tobacco Use Types Packs/Day Years Used Date Smoking Tobacco: Former Smokeless Tobacco: Never Alcohol Use Standard Drinks/Week Comments Not Currently 0 (1 standard drink = 0.6 oz pur e alcohol) Child or Family Care Answer Date Record ed Do you have problems with on e of the following making it difficult for you to work, study, or receive health care? No 11/06/2024 Education Answer Date Recorded Are you interested in more education? Not on emily e 08/03/2023 Are you concerned about learning? Not on file 08/03/2023 No 08/03/2023 No 08/03/2023 Food Answer Date Recorded Within the past 6 months we worried whether our food would run out before we got money to buy more. Never True 11/06/2024 Within the past 6 months the food we bought just didn't last and we didn't have enough money to get more. Never True Residential Stability Answer Date Recor ded What is your housing situation today? I have marlo cleary 11/06/2024 How many times have you move d in the past 12 months? Zero (I did not move) 11/06/2024 Paying for Meds Answer Date Recorded Do you have trouble paying for medicines? No 11/06/2024 Paying Utility Bills Answer Date Record ed Do you have trouble paying your heating or elect ricity bill? No 11/06/2024 Transportation Answer Date Recorded Has the lack of transportati on kept you from medical appointments or from getting medications? No 11/06/2024 Digital Access Answer Date Recorded No 11/06/2024 Yes 11/06/2024 Do you have reliable internet access at home? Ye s 11/06/2024 Do you have a device (e.g., phone, tablet, computer) with a working camera? Yes 11/06/2024 Intimate Partner Violence Answer Date R ecorded Are you denied basic needs s uch as food, clothing, or medical care? No 11/05/2024 In the past 12 months have y ou been in a relationship with a person who hurts, threatens, or tries to control you? No 11/05/2024 Are you denied basic needs s uch as food, clothing, or medical care? No 11/05/2024 In the past 12 months have y ou been in a relationship with a person who hurts, threatens, or tries to control you? No 11/05/2024 Sex and Gender Information Value Date Recorded Sex Assigned at Male 08/04/2023 2:45 PM EDT Legal Sex Male 10:32 AM EDT Gender Identity Male 08/04/2023 2:45 PM EDT Sexual Orientation Straight 08/04/2023 2: 45 PM EDT Occupation Industry Job Start Date Job End Date Retired Not on file Not on file Not on file documented as of this encounter Functional Status * Calculated C-SSRS Risk Score (Lifetime/Recent) Answer Date of Assessment Author No Risk Indicated 11/05/2024 5:00 PM EDT Sherly Zhu LPN * [place] Suicide Severity Rating Scale (Screener/Recent Self-Report) Question Answer Date of Assessment Author 1. Wish to be (Past 1 Month) No 025 5:00 PM EDT Sherly Zhu LPN 2. Non-Specific Active Suici mariana Thoughts (Past 1 Month) No 11/05/2024 5:00 PM EDT Diane Zhu LPN 6. Suicidal Behavior (Lifetime) No 5 5:00 PM EDT Sherly Zhu LPN documented as of this encounter Plan of Treatment Not on file documented as of this encounter Procedures Procedure Name Priority Date/Time Associated Diagnosis Comments XR SPINE OUTSIDE (NO INTERPRETATION) Routine 12/24/2020 12:00 AM EDT documented in this encounter Results * XR SPINE OUTSIDE(NO INTERPRETATION) (12/24/2020 12:00 AM EDT) Narrative [facility] INTERFACES - 09/09/2021 8:55 AM EDT This study is for PACS storage only and not for interpretation. us José Luis Sorensen MD IMG OUTSIDE IMAGING W/OUT IN TERPRETATION Final Result [facility] INTERFAC[facility] documented in this encounter Visit Diagnoses Not on filedocumented in this encounter Care Teams Rippler Relationship Specialty Start Date End Date Randal Stringer MD [address] [place] [address] Dr ALONSO [address] [place] [phone] PCP - General Internal Medicine 01/28/20 08/02/23 Self-Referred, Patient Referring Physician 01/09/20 Jcarlos Vaca MD, MPH [address] [place] [phone] [email or web address] Urology 01/14/20 documented as of this encounter Additional Source Comments The information contained in this document represents components of the legal health record. It is not the complete legal health record.[facility]
--- OUTSIDE RECORDS SUMMARY | 2021-01-08 | XMS_ITS | Encounter Summary ---
Author Organization [facility] Address [address] [place] [address] Phone Care Team Providers Care Fashion Designer Name Role Phone Randal Stringer MD Primary Care Provider Self-Referred, Patient Unavailable Unavailab Jcarlos Arevalo MD, MPH Unavailable Encounter Details Date Type Department Care Team (Late st Contact Info) Description 01/08/2021 Hospital Encounter [facility] OUTSIDE [address] [place] [address] José Luis Sorensen MD [address] [place] [address] José [email or web address] Social History Tobacco Use Types Packs/Day [...] 5:00 PM EDT Sherly Zhu LPN * [place] Suicide Severity Rating Scale (Screener/Recent Self-Report) Question [...] on filedocumented in this encounter Care Teams Fashion Designer Relationship Specialty Start Date End Date Randal Stringer MD [address] [place] [address] Dr ALONSO [address] [place] [phone] PCP - General Internal Medicine 01/28/20 08/02/23 Self-Referred, Patient Referring Physician 01/09/20 Jcarlos Vaca MD, MPH [address] [place] [id number] [email or web address] Urology 01/14/20 documented as of this encounter Additional Source Comments The information contained in this document represents components of the legal health record. It is not the complete legal health record.[facility]
--- OUTSIDE RECORDS SUMMARY | 2021-03-09 01:00 | XMS_ITS | Encounter Summary ---
Author Organization [facility] Address [address] [place] [address] Phone Care Team Providers Care Classroom Paraprofessional Name Role Phone Randal Stringer MD Primary Care Provider Self-Referred, Patient Unavailable Unavailab Jcarlos Arevalo MD, MPH Unavailable [phone] Encounter Details Date Type Department Care Team (Late st Contact Info) Description 03/09/2021 Hospital Encounter [facility] OUTSIDE [address] [place] [id number] José Luis Sorensen MD [address] [place] [id number] José [email or web address] Social History Tobacco Use Types Packs/Day Years [...] 5:00 PM EDT Sherly Zhu LPN * [place] Suicide Severity Rating Scale (Screener/Recent Self-Report) Question [...] on filedocumented in this encounter Care Teams Classroom Paraprofessional Relationship Specialty Start Date End Date Randal Stringer MD [address] [place] [address] Dr ALONSO [address] [place] [phone] PCP - General Internal Medicine 01/28/20 08/02/23 Self-Referred, Patient Referring Physician 01/09/20 Jcarlos Vaca MD, MPH [address] [place] [phone] [email or web address] Urology 01/14/20 documented as of this encounter Additional Source Comments The information contained in this document represents components of the legal health record. It is not the complete legal health record.[facility]
--- OUTSIDE RECORDS SUMMARY | 2021-04-15 01:00 | XMS_ITS | Encounter Summary ---
Author Organization [facility] Address [address] [place] [phone] Phone Care Team Providers Care Scientist Engineer Name Role Phone Randal Stringer MD Primary Care Provider Self-Referred, Patient Unavailable Unavailab Jcarlos Arevalo MD, MPH Unavailable [phone] Encounter Details Date Type Department Care Team (Late st Contact Info) Description 04/15/2021 Hospital Encounter [facility] OUTS[facility] [address] [place] [phone] José Luis Sorensen MD [address] [place] [phone] José [email or web address] Social History Tobacco Use Types Packs/Day [...] 5:00 PM EDT Sherly Zhu LPN * [place] Suicide Severity Rating Scale (Screener/Recent Self-Report) Question [...] on filedocumented in this encounter Care Teams Scientist Engineer Relationship Specialty Start Date End Date Randal Stringer MD [address] [place] [address] Dr ALONSO [address] [place] [phone] PCP - General Internal Medicine 01/28/20 08/02/23 Self-Referred, Patient Referring Physician 01/09/20 Jcarlos Vaca MD, MPH [address] [place] [phone] [email or web address] Urology 01/14/20 documented as of this encounter Additional Source Comments The information contained in this document represents components of the legal health record. It is not the complete legal health record.[facility]
--- NOTE | 2024-12-25 13:11 | MHC.OFFVIS ---
Intake Visit Reasons: Cysto Intake Note: Patient is present for Cystoscopy Urology Medication:none Antibiotic Allergy:none Blood Thinner:none Labs done : 12/14/24 PSA 3.53, 12/21/2024 PSA : 3.53 Lot:[id number] Exp:04/15/2027 Manager Home Healthcare Required: No Accompanied by: Self / Same As Patient Allergies ibuprofen Adverse Reaction (Intermediate, Verified 12/25/24 13:12) ringing in ears cyclobenzaprine Adverse Reaction (Verified 12/25/24 13:12) right hand tremors quetiapine (From Seroquel) Adverse Reaction (Verified 12/25/24 13:12) right hand tremors Flonase Allergy (Unknown, Uncoded 09/28/24 13:03) heart palpations HPI Comments Details: Javy is a pleasant male. He is a patient of Dr. Stringer. He is here for the following urologic condition. - bladder cancer Three-month follow-up Cystoscopy with small area on prostate base Three-week mitomycin-C with cytarabine Repeat cystoscopy in 4 months PSA - 01/03 2.5 Bladder cancer low-grade recurrent intermediate risk 2019, 08/29, 11/01 Low Grade Diagnosed by Dr. Stafford Workplace exposure - [email or web address] [place] for 15 months - 100% disability Intervention - TURBT August 2018 Ta low-grade, June 2019 Ta low-grade, Mar 2020 Ta low-grade - August 2020 TURBT low grade recurrent - May 2022 TURBT Mildly atypical urothelial proliferation with inflammation - fulgeration Adjuvant therapy - gemcitabine induction September 2019, repeat induction September 2020, boost Mar 2021, 09/29 Boost, 12/31 Boost, 12/02 Boost, 07/03 Boost [facility] consultation January 2020 Cystoscopy - 07/30 recurrent low-grade lesions - 12/30 NAD, 03/31 NAD, 09/30 NAD, 04/01 question of small lesions, 12/02 NAD Cytology - 09/30 NAD, 04/01 NAD, 12/01 atypical, 07/03 NAD Therapeutic plan - three-month follow-up check cysto [facility] Medical History Left leg DVT History of back pain Chronic neck pain with history of cervical spinal surgery History of fall History of suicidal ideation History of depression Cervical pain (neck) Generalized anxiety disorder Recurrent major depression-severe Transitional cell carcinoma Other obstructive and reflux uropathy BPH (benign prostatic hyperplasia) Bladder mass Surgical History History of lumbar laminectomy History of transurethral destruction of bladder lesion Hx of tonsillectomy Hx of cervical spine surgery History of cystoscopy Social History Household Members: None Housing: Apartment Do you presently have visiting nurse or other home services: No Alcohol intake: never Comment: patient asleep Patient Tobacco Use Status: Former Tobacco user service: Yes Sexual orientation: Straight/Heterosexual Review of Systems Const Denies chills and Denies fever(s) Card Reports no additional complaints and Denies syncope Resp Denies cough GI Denies abdominal pain and Denies heartburn Reports as per HPI and Denies change in libido Neuro Denies syncope Psych Denies change in libido Endo Denies change in libido Physical Exam Const General: cooperative, healthy appearing, comfortable and no acute distress Orientation/consciousness: patient oriented x3 HEENT Face and sinus: Yes normal facial exam Mouth: moist mucous membranes Neck Neck: Yes normal visual inspection, Yes full ROM and Yes trachea midline Chest Chest palpation & inspection: normal inspection of the chest Resp Effort & Inspection: normal respiratory effort, able to speak in complete sentences and no respiratory distress GI Inspection: Yes normal to inspection Back/Spine/Pelvis Cervical Spine: normal cervical lordosis Thoracic/Lumbar Spine: thoracic and lumbar spine normal to inspection Skin General skin exam: no rashes or lesions noted Neuro General: patient oriented x3, gait normal, tone normal and moves all extremities Extrem General: Yes normal to inspection and Yes capillary refill normal Office Procedures Cystoscopy Consent Discussed risk and benefit or proposed procedure with the patient. Information consent for procedure given to the patient. Discussed technical aspects, risks, benefits and alternatives in full. Addressed all of the patient's questions and concerns regarding the procedure. The patient demonstrated knowledge and understanding. They wish to proceed with this procedure. Preparation The patient was prepped in the usual manner. A fur repairer was present and in the room. Genitalia was prepped with betadine solution in a sterile manner. Lidocaine Jelly 2% was placed into the urethra and 16Fr flexible Olympus cystoscope was inserted into the meatus after adequate lubrication. Procedure Cystoscopy performed using a disposable Urovue digital 16 Latvian cystoscope. Meatus circumcised Urethra anterior and posterior urethra normal Prostatic Urethra unremarkable Bladder examination with retroflexion of cystoscope Bladder Orifices normal shape and position Bladder Capacity Normal Trabeculations grade 1 Cellule Formation None Diverticulum Formation None Mucosal Erythema sporadic redness Bladder Tumor None [id number] DISPOSABLE SCOPE URO-G FLEXIBLE SCOPE Procedure code (CPT) selection complete Office Meds lidocaine HCl 2 % mucosal jelly in applicator Performing Provider: Corey Buckley MD Performing Location: [facility] Administered by: Miky Alvarado LPN on 12/25/24 13:22 Dose Route Admin Location Dispensed Lot Number Expiration Date NDC Screw Remover 10 mL intra-urethral 10 mL nitrofurantoin monohydrate/macrocrystals 100 mg capsule Performing Provider: Corey Buckley MD Performing Location: [facility] Administered by: Miky Alvarado LPN on 12/25/24 13:22 Dose Route Admin Location Dispensed Lot Number Expiration Date NDC Screw Remover 100 mg PO 1 cap Assessment & Plan Assessment & Plan (1) Bladder cancer: Comment: recurrent low-grade bladder cancer multiple prior TURBT - gemcitabine treatment cause Code(s): C67.9 - Malignant neoplasm of bladder, unspecified Category: Medical Plan Immunotherapy bladder 3 weeks mitomycin-C with cytarabine Orders: Orders AMB Cystoscopy Today C67.9 - Malignant neoplasm of bladder, unspecified Patient Instructions: This note is constructed using voice recognition software. While every effort has been made to ensure accuracy occupational medicine physician errors may have been included. Imaging studies, laboratory and physical exam results were discussed and reviewed in detail. No major barriers to patient understanding were identified. An opportunity to ask questions regarding the treatment plan was provided. All questions were answered. The patient expressed understanding and agreement with the above treatment plan. The patient is aware they should contact our office by phone for worsening of their current condition or the appearance of new urologic symptoms. Compliance is encouraged with any medications and followup testing that is ordered. It is a privilege to participate in the urologic care of your patient. If you have any questions or concerns regarding treatment for the above conditions, or other urologic issues, please do not hesitate to contact me. The office telephone contact is [phone]. Sincerely, Dr Corey Buckley MD, [facility] - Urology Compassionate Specialist Care for the Genitourinary System Coding Level of Care Code Est Pt Level 4 (28732) Complex EM visit Add On G2211 Diagnoses Bladder cancer C67.9 CPT Codes Cystoscopy - CPT: 89002-[id number] ([id number])
--- OUTSIDE RECORDS SUMMARY | 2024-12-25 16:50 | XMS_ITS | Encounter Summary ---
Author Organization [facility] Address [address] [place] [address] Phone Care Team Providers Care Lamp Wirer Name Role Phone Randal Stringer MD Primary Care Provider Randal Stringer MD Primary Care Provider Randal Stringer MD Unavailable [phone] Self-Referred, Patient Unavailable Unavailab Jcarlos Arevalo MD, MPH Unavailable [phone] Ede Newsome MD Unavailable [phone] Parish Senior MD Unavailable [phone] Thomas Perera NP Unavailable Encounter Details Date Type Department Care Team (Late st Contact Info) Description 09/02/2021 Procedure Pass [facility] - MRI, [address] [address] Social History Tobacco Use Types Packs/Day Years [...] on filedocumented in this encounter Care Teams Lamp Wirer Relationship Specialty Start Date End Date Randal Stringer MD [address] [place] [address] [place] [address] PCP - General Internal Medicine 01/28/20 08/02/23 Randal Stringer MD [address] [place] [address] [place] [address] PCP - General Internal Medicine 08/03/23 Randal Stringer MD [address] [place] [address] [place] [address] Internal Medicine 08/03/23 Self-Referred, Patient Referring Physician 01/09/20 Jcarlos Vaca MD, MPH [address] [place] [address] [email or web address] Urology 01/14/20 Ede Newsome MD [address] [facility] [address] [place] [address] [email or web address] Consulting Provider Pain Medicine 12/23/23 Parish Senior MD [address] [facility] [address] [place] [address] [email or web address] Referring Physician Neurosurgery 12/23/23 Thomas Perera NP [address] [facility] [address] [place] [address] [email or web address] Consulting Provider Pain Medicine 01/27/24 documented as of this encounter Additional Source Comments The information contained in this document represents components of the legal health record. It is not the complete legal health record.[facility]
--- OUTSIDE RECORDS SUMMARY | 2024-12-25 16:50 | XMS_ITS | Encounter Summary ---
Author Organization [facility] Address [address] [place] [address] Phone Care Team Providers Care Medical Insurance Verifier Name Role Phone Randal Stringer MD Primary Care Provider Randal Stringer MD Unavailable [phone] Self-Referred, Patient Unavailable Unavailab Jcarlos Arevalo MD, MPH Unavailable [phone] Ede Newsome MD Unavailable [phone] Parish Senior MD Unavailable [phone] Thomas Peerra NP Unavailable Encounter Details Date Type Department Care Team (Late st Contact Info) Description 06/13/2024 Procedure Pass [facility], Ct Scan - [address] [address] Social History Tobacco Use Types Packs/Day Years [...] on filedocumented in this encounter Care Teams Medical Insurance Verifier Relationship Specialty Start Date End Date Randal Stringer MD [address] [place] [address] Dr [place], DAVID [address] PCP - General Internal Medicine 08/03/23 Randal Stringer MD [address] [place] [address] Internal Medicine 08/03/23 Self-Referred, Patient Referring Physician 01/09/20 Jcarlos Vaca MD, MPH [address] [place] [address] [address] [place] [address] [email or web address] Urology 01/14/20 Ede Newsome MD [address] [address] Consulting Provider Pain Medicine 12/23/23 Parish Senior MD [address] [address] Referring Physician Neurosurgery 12/23/23 Thomas Perera NP [address] [place] [address] [email or web address] Consulting Provider Pain Medicine 01/27/24 documented as of this encounter Additional Source Comments The information contained in this document represents components of the legal health record. It is not the complete legal health record.[facility]
--- OUTSIDE RECORDS SUMMARY | 2024-12-25 16:50 | XMS_ITS | Encounter Summary ---
Author Organization [facility] Address [address] [place] [address] Phone Care Team Providers Care Workforce Management Coordinator Name Role Phone Randal Stringer MD Primary Care Provider Randal Stringer MD Unavailable [phone] Self-Referred, Patient Unavailable Unavailab Jcarlos Arevalo MD, MPH Unavailable [phone] Ede Newsome MD Unavailable [phone] Parish Senior MD Unavailable [phone] Thomas Perera NP Unavailable Reason for Referral * MRI/CAT Scan - Closed Specialty Diagnoses / Procedures Referred By Mary Ann t Referred To Contact Radiology Diagnoses Other spondylosis with myelopathy, cervical region Procedures CT Cervical Spine Parish Senior MD [address] [facility] [address] [place] [address] Phone: tel: fax: [email or web address] Referral ID Status Reason Start Date Expiration Date Visits Re quested Visits Authorized [id number] Closed 06/13/2024 06/13/2025 1 1 Encounter Details Date Type Department Care Team (Latest Contact Info) Description 06/13/2024 Transcribe Orders [address] [address] Parish Senior MD [address] [place] [address] [address] [place] [address] [email or web address] Other spondylosis with myelopathy, cervical [...] clinician's provided indication for this examination in [facility]:Outside Radiology Order; Other spondylosis with myelopathy, cervicalregion [...] region documented in this encounter Care Teams Workforce Management Coordinator Relationship Specialty Start Date End Date Randal Stringer MD [address] [place] [address] [place] [address] PCP - General Internal Medicine 08/03/23 Randal Stringer MD [address] [place] [address] [place] [address] Internal Medicine 08/03/23 Self-Referred, Patient Referring Physician 01/09/20 Jcarlos Vaca MD, MPH [address] [place] [address] [address] [place] [address] [email or web address] Urology 01/14/20 Ede Newsome MD 800 [facility] [address] [place] [address] Consulting Provider Pain Medicine 12/23/23 Parish Senior MD [address] [facility] [address] [place] [address] Referring Physician Neurosurgery 12/23/23 Thomas Perera NP 800 [facility] [address]. [address] [place] [address] [email or web address] Consulting Provider Pain Medicine 01/27/24 documented as of this encounter Additional Source Comments The information contained in this document represents components of the legal health record. It is not the complete legal health record.[facility]
--- OUTSIDE RECORDS SUMMARY | 2024-12-25 16:50 | XMS_ITS | Encounter Summary ---
Author Organization [facility] Address [address] [place] [address] Phone Care Team Providers Care Gas Plant Specialist Name Role Phone Randal Stringer MD Primary Care Provider Randal Stringer MD Unavailable [phone] Self-Referred, Patient Unavailable Unavailab Jcarlos Arevalo MD, MPH Unavailable [phone] Ede Newsome MD Unavailable [phone] Parish Senior MD Unavailable [phone] Thomas Perera NP Unavailable Reason for Referral * Outpatient Procedure - Closed Specialty Diagnoses / Procedures Referred By Contac t Referred To Contact Radiology Diagnoses Other spondylosis with myelopathy, cervical region Procedures NM Bone Scan Spect Parish Senior MD [address] [facility] [address] [place] [address] Phone: tel: fax: [email or web address]:[email or web address] Referral ID Status Reason Start Date Expiration Date Visits Re quested Visits Authorized [id number] Closed 06/13/2024 06/13/2025 2 2 Encounter Details Date Type Department Care Team (Latest Contact Info) Description 06/13/2024 Transcribe Orders [address] [address] Parish Senior MD [address] [facility] [address] [place] [address] [email or web address] Other spondylosis with myelopathy, cervical [...] Hip, Thigh, Knee, Leg, Ankle, Foot Nuc [facility] Medicine 06/22/2024 2:19 PM EDT Impressions 06/24/2024 [...] Radionuclide bone scan with SPECT imaging COMPARISON: [facility] TC MDP BONE SCAN WHOLE BODY [id number] TECHNIQUE: 20.8 mCi technetium 99m MDP was [...] Procedure Note Rosina Todd MD - 06/24/2024 [place] BONE SCAN SPECT Radionuclide bone scan with SPECT imaging COMPARISON: [facility] TC MDP BONE SCAN WHOLE BODY [id number] TECHNIQUE: 20.8 mCi technetium 99m MDP was [...] with head CT. ATTESTATION: I, Dr. Rosina oTdd as teaching physician, havereviewed the images for this case and if necessary edited the reportoriginally created by José Luis Nogueira. Parish Senior MD IMG NM BONE SCAN Final Resu lt documented in this encounter Visit Diagnoses Diagnosis Other spondylosis with myelopathy, cervical region- Primary Other spondylosis with myelopathy, cervical region documented in this encounter Care Teams Gas Plant Specialist Relationship Specialty Start Date End Date Randal Stringer MD [address] [place] [address] [facility] [address] [place] [address] PCP - General Internal Medicine 08/03/23 Randal Stringer MD [address] [place] [address] [place] [address] Internal Medicine 08/03/23 Self-Referred, Patient Referring Physician 01/09/20 Jcarlos Vaca MD, MPH [address] [place] [address] [email or web address] 01/14/20 Ede Newsome MD [address] [facility] [address] [place] [address] [email or web address] Consulting Provider Pain Medicine 12/23/23 Parish Senior MD [address] [facility] [address] [place] [address] [email or web address] Referring Physician Neurosurgery 12/23/23 Thomas Perera NP [address] [facility] [address] [place] [address] [email or web address] Consulting Provider Pain Medicine 01/27/24 documented as of this encounter Additional Source Comments The information contained in this document represents components of the legal health record. It is not the complete legal health record.[facility]
--- OUTSIDE RECORDS SUMMARY | 2024-12-25 16:50 | XMS_ITS | Clinical Summary ---
Author Organization [facility] Address [address] [place] [address] Phone Care Team Providers Care Casing Grader Name Role Phone Randal Stringer MD Primary Care Provider Randal Stringer MD Unavailable [phone] Self-Referred, Patient Unavailable Unavailab Jcarlos Arevalo MD, MPH Unavailable [phone] Ede Newsome MD Unavailable [phone] Parish Senior MD Unavailable [phone] Thomas Perera NP Unavailable Allergies Active Allergy Reactions Criticality Noted Date Comments Cyclobenzaprine Tremor Low 09/02/2021 Cyclobenzaprine 08/03/2023 Per [facility] discharge documents. Unspecified reaction Fluticasone 08/03/2023 Per [facility] discharge documents. Unspecified reaction Ibuprofen 08/03/2023 Per [facility] discharge documents. Unspecified reaction Quetiapine Tremor Low 09/02/2021 Quetiapine 08/03/2023 Per [facility] discharge documents. Unspecified reaction Medications DULoxetine [...] AM EDT Hospital Encounter [facility] [address] [place] [address] Javon Cárdenas MD Discharge Disposition: Home-Health Care Svc 10/17/2024 Orders Only [facility] [address] [place] [address] Homehealth, Interface ProviderMD from Last [...] included. WBC 8.08 4.00 - 11.00 K/uL [facility] RBC 5.09 4.50 - 5.90 M/uL [facility] HGB 15.1 13.5 - 17.5 g/dL [facility] HCT 46.8 41.0 - 53.0 % [facility] PLT 166 150 - 450 K/uL [facility] MCV 91.9 80.0 - 100.0 fL [facility] MCH 29.7 27.0 - 31.0 pg [facility] MCHC 32.3 32.0 - 36.0 g/dL [facility] RDW 12.6 11.5 - 14.5 % [facility] MPV 10.3 8.4 - 12.0 fL [facility] NRBC 0.00 0.00 /100 WBCs [facility] ABSOLUTE NRBC 0.00 0.00 K/uL [facility] DIFF METHOD Auto [facility] NEUTS 61.2 48.0 - 76.0 % [facility] LYMPHS 25.6 18.0 - 41.0 % [facility] MONOS 8.7 4.0 - 11.0 % [facility] EOS 2.8 0.0 - 5.0 % [facility] BASOS 0.6 0.0 - 1.5 % [facility] % IMMATURE GRANS 1.1(H) 0.0 - 0.9 % [facility] ABSOLUTE NEUTS 4.94 1.92 - 7.60 K/uL [facility] ABSOLUTE LYMPHS 2.07 0.72 - 4.10 K/uL [facility] ABSOLUTE MONOS 0.70 0.16 - 1.10 K/uL [facility] ABSOLUTE EOS 0.23 0.00 - 0.50 K/uL [facility] ABSOLUTE BASOS 0.05 0.00 - 0.15 K/uL [facility] ABS IMMATURE GRANS 0.09 0.00 - 0.09 K/uL [facility] Blood 11/13/2024 6:12 AM EDT 11/13/2024 10:26 AM EDT us Donald Sifuentes [facility] LAB BLOOD ORDERABLES Final Re sult [facility] [address] [place] [address] * (ABNORMAL) Basic metabolic panel (11/13/2024 6:12 AM EDT) Only the most recent of2 resultswithin the time period is included. SODIUM 140 134 - 140 mmol/L [facility] CHLORIDE 105 101 - 111 mmol/L [facility] POTASSIUM 4.5 3.6 - 5.0 mmol/L [facility] CO2 28 21 - 31 mmol/L [facility] BUN 21(H) 7 - 18 mg/dL [facility] CREATININE 1.07 0.62 - 1.20 mg/dL [facility] GLUCOSE 71 70 - 105 mg/dL [facility] CALCIUM 8.8 8.4 - 10.2 mg/dL [facility] EGFR 73 >59 mL/min/1.7 3m2 [facility] Comment:Estimated glomerular filtration rate calculated using the CKD-EPI refit equation. ANION GAP 7 3 - 17 mmol/L [facility] Blood 11/13/2024 6:12 AM EDT 11/13/2024 10:26 AM EDT Donald Sifuentes [facility] LAB BLOOD ORDERABLES Final Re sult [facility] [address] [place] [address] from Last 3 Months Insurance MEDICARE PART A & B Member Subscriber Plan / Payer (Ef fective 2015-Present) Name:Javy Pantoja Member ID:[id number] Relation to Subscriber:Self Name:Javy Pantoja Subscriber ID:[id number] Payer ID:[id number] Group ID:Not on file Type:Medicare Address: [facility]. [address] [facility] [place] [address] [facility] EX[employer]ION MEDICARE SUPPLEMENT MEDICARE PART A & B [facility] EX[employer] MEDICARE SUPPLEMENT MEDICARE PART A & B [facility] EX[employer]ION MEDICARE SUPPLEMENT MEDICARE PART A & B [facility] MEDICARE SUPPLEMENT MEDICARE PART A & B [facility] MEDICARE SUPPLEMENT MEDICARE PART A & B [employer] EXTENSION MEDICARE SUPPLEMENT MEDICARE PART A & B [employer] MEDICARE SUPPLEMENT MEDICARE PART A & B [employer] MEDICARE SUPPLEMENT MEDICARE PART A & B [employer] MEDICARE SUPPLEMENT MEDICARE PART A & B [facility] MEDICARE SUPPLEMENT MEDICARE PART A & B [facility] SUPPLEMENT Advance Directives For more information, please contact: [phone] (9AM - 5PM [facility], Tuesday-Tuesday) Documents on File Type Date Recorded Patient Slurry Blender Expl anation Healthcare Proxy 02/02/2022 3:07 PM [...] Code Status Confirmed With: Patient Care Teams Casing Grader Relationship Specialty Start Date End Date Randal Stringer MD [address] [place] [address] [place] [address] PCP - General Internal Medicine 08/03/23 Randal Stringer MD [address] [place] [address] [place] [address] Internal Medicine 08/03/23 Self-Referred, Patient Referring Physician 01/09/20 Jcarlos Vaca MD, MPH [address] [place] [email or web address] 10/5/20 Ede Newsome MD [address] [facility] [address] [place] [address] Consulting Provider Pain Medicine 12/23/23 Parish Senior MD [address] [facility] [address] [place] [address] Referring Physician Neurosurgery 12/23/23 Thomas Perera NP [address] [facility] [address] [place] [address] [email or web address] Consulting Provider Pain Medicine 01/27/24 Additional Source Comments The information contained in this document represents components of the legal health record. It is not the complete legal health record.[facility]
== END 2024-12-25 14:16 | disposition home or self-care (01) ==
LOC: HO.HUSH 12:54
PROVIDERS: PCP Internal Medicine; Visit Provider Urology
DX: C67.9 Malignant neoplasm of bladder, unspecified (principal); Z13.9 Encounter for screening, unspecified
CPT/HCPCS: 52000; 99214

== ENCOUNTER 2025-01-18 12:39 | Outpatient (REF) | payer MEDICARE, OTHER, SELFPAY ==
[2025-01-18 20:33] LABS: PSA,Total (Free>4and<10) 2.81 ng/mL (0.00-4.00)
== END 2025-01-18 12:40 | disposition home or self-care (01) ==
LOC: HO.LNP 12:39
PROVIDERS: Visit Provider Internal Medicine
DX: R97.20 Elevated prostate specific antigen [PSA] (principal); Z12.5 Encounter for screening for malignant neoplasm of prostate
CPT/HCPCS: 84153